=== PATIENT | female | born 1975 | race Caucasian/White ===

== ENCOUNTER 2021-05-14 12:33 | Emergency (ER) | payer OTHER, SELFPAY ==
--- NOTE | ~2021-05-14 | XR_ITS ---
EXAMINATION: XR chest 1V portable INDICATION: Shortness of breath, COVID 19 positive TECHNIQUE: Portable AP chest at 1526 hours COMPARISON: 02/04/2015 FINDINGS: The lungs are free of acute opacities. There is no pleural effusion or pneumothorax. The ca rdiomediastinal silhouette is normal. IMPRESSION: 1. No acute cardiopulmonary abnormality. Reviewed, dictated and finalized at location B.
[2021-05-14 12:36] VITALS: BP 123/88; PULSE 92; RESP 18; TEMP 35.8; O2SAT 100
--- NOTE | 2021-05-14 16:38 | ED.GENADULT ---
HPI - General Adult General Chief complaint: Shortness of Breath/Dyspnea Stated complaint: covid positive/sob Time Seen by Provider: 05/14/21 15:27 Source: patient History of Present Illness HPI narrative: 38-year-old female who had a Covid on the presents to the emergency department for evaluation of worsening shortness of breath. Patient states she did have the Pfizer vaccine without booster. Patient states after she was diagnosed on the she did have approximately 2 days of symptoms and then began to improve. Patient states most recently she has had some percent of breath. Patient denies any significant cough. Patient denies any associated chest pain or fevers. Patient did discuss this with her primary care physician and she was referred to the emergency department for an x-ray to rule out any pneumonia. Patient has no prior history of PE or DVT. Patient has no calf tenderness to palpation. Related Data Allergies Allergy/AdvReac Type Severity Reaction Status Date / Time No Known Allergies Allergy Unknown Verified 05/14/21 12:39 Review of Systems Review of Systems: CONSTITUTIONAL: Denies fever, chills, or sweats. EYES: Denies visual changes, redness, or discharge. ENT: Denies rhinorrhea, congestion, sore throat, or otalgia. CARDIOVASCULAR: Denies chest pain, palpitations, or edema. RESPIRATORY: Does report exertional shortness of breath and some cough GASTROINTESTINAL: Denies abdominal pain, nausea, vomiting, or diarrhea. GENITOURINARY: Denies dysuria or hematuria. SKIN: Denies rash or itching. MUSCULOSKELETAL: Denies back pain, joint pain, or myalgia. NEUROLOGIC: Denies headache, numbness, or weakness. All systems reviewed & are unremarkable except as noted in HPI and below Exam Narrative: APPEARANCE: Well appearing, no pain, no distress, well-nourished. HEAD: normocephalic, atraumatic. EYES: PERRLA/EOMI, conjunctivae clear. NOSE: Normal no drainage THROAT: Pharynx clear, no exudate. NECK: Supple. No adenopathy, no masses. RESPIRATORY: Airway patent, respirations nonlabored. Clear to auscultation bilaterally, no rales, rhonchi, wheezing. CARDIOVASCULAR: Regular rate and rhythm without murmurs rubs or gallops. ABDOMINAL: Soft, nontender, nondistended, normal bowel sounds MUSCULOSKELETAL: Moves all extremities. Strength/ROM intact, No edema, No calf tenderness. NEURO: Alert. Cranial nerves II through XII intact. SKIN: Warm, dry. Normal Color Course Course Emergency Course: Patient was updated on the results of her work-up and imaging. Patient is nonhypoxic, nontachycardic. Chest x-ray was well-appearing with no acute abnormality. Patient was updated the results of the work-up and suspected etiology of Covid recovery as the underlying cause of her symptoms. Patient was encouraged to have close follow-up with her primary care physician. Vital Signs Vital signs: Vital Signs Temperature 96.4 F L 05/14/21 12:36 Pulse Rate 92 05/14/21 12:36 Respiratory Rate 18 05/14/21 12:36 Blood Pressure 123/88 05/14/21 12:36 Pulse Oximetry 100 05/14/21 12:36 Temperature 96.4 F L 05/14/21 12:36 Pulse Rate 110 H 05/14/21 17:10 Respiratory Rate 16 05/14/21 17:10 Blood Pressure 133/98 H 05/14/21 17:10 Pulse Oximetry 98 05/14/21 17:10 Medical Decision Making Vital Signs Vital Signs: Vital Signs Temperature 96.4 F L 05/14/21 12:36 Pulse Rate 92 05/14/21 12:36 Respiratory Rate 18 05/14/21 12:36 Blood Pressure 123/88 05/14/21 12:36 Pulse Oximetry 100 05/14/21 12:36 Temperature 96.4 F L 05/14/21 12:36 Pulse Rate 110 H 05/14/21 17:10 Respiratory Rate 16 05/14/21 17:10 Blood Pressure 133/98 H 05/14/21 17:10 Pulse Oximetry 98 05/14/21 17:10 Imaging Data Radiologist's impression: Impressions Chest X-Ray 05/14/21 15:48 IMPRESSION: 1. No acute cardiopulmonary abnormality. Discharge Plan Discharge Clinical Impression: COVID, Acute dyspn
[2021-05-14] MEDS: ALBUTEROL SULFATE NEB 2.5 MG/0.5 ML INH 5 MG INHALATION (16:46)
[2021-05-14 17:10] VITALS: BP 133/98; PULSE 110; RESP 16; O2SAT 98
== END 2021-05-14 17:10 | disposition home or self-care (01) ==
PROVIDERS: Emergency Provider Emergency Medicine
DX: U07.1 COVID-19 (principal); R06.02 Shortness of breath
CPT/HCPCS: 71045; 94640; 99283

== ENCOUNTER 2021-09-10 17:19 | Emergency (ER) | payer OTHER, SELFPAY ==
[2021-09-10 17:21] VITALS: BP 124/85; PULSE 88; RESP 16; TEMP 36.3; O2SAT 100
--- NOTE | 2021-09-10 17:24 | ED.EAR ---
HPI - Ear Problem General Chief complaint: Ear Stated complaint: Rt Ear Irritation Time Seen by Provider: 09/10/21 17:24 Source: patient and RN notes reviewed History of Present Illness HPI Narrative: Patient is a 46-year-old female presents the urgent care with complaints of right ear pain. Patient states that she flew on Wednesday and yesterday developed pain in the right ear. Patient states it felt better after sleeping on her left yesterday. Any other upper respiratory complaints. Denies of nausea vomiting or fever. No other acute complaints. No acute distress noted. Patient read the plan of care. Some parts of this dictation were generated by voice recognition software and may contain typographical and/or grammatical inaccuracies. Related Data Home Medications Medication Instructions Recorded Confirmed atorvastatin 80 mg tablet 80 mg PO DAILY 09/10/21 09/10/21 clonazepam 0.5 mg tablet 0.5 mg PO DAILY 09/10/21 09/10/21 ferrous sulfate 134 mg (27 mg 134 mg PO DAILY 09/10/21 09/10/21 iron) tablet levomilnacipran 40 mg capsule,24 40 mg PO DAILY 09/10/21 09/10/21 hr,extended release (Fetzima) lisinopril 10 mg tablet 10 mg PO DAILY 09/10/21 09/10/21 metformin 500 mg tablet,extended 500 mg PO BID 09/10/21 09/10/21 release 24 hr metoprolol tartrate 25 mg tablet 25 mg PO BID 09/10/21 09/10/21 Allergies Allergy/AdvReac Type Severity Reaction Status Date / Time No Known Allergies Allergy Unknown Verified 09/10/21 17:21 Review of Systems Review of Systems: CONSTITUTIONAL: Denies fever, chills, or sweats. EYES: Denies visual changes, redness, or discharge. ENT: Denies rhinorrhea, congestion, sore throat. Reports right otalgia CARDIOVASCULAR: Denies chest pain, palpitations, or edema. RESPIRATORY: Denies cough or dyspnea. GASTROINTESTINAL: Denies abdominal pain, nausea, vomiting, or diarrhea. GENITOURINARY: Denies dysuria or hematuria. SKIN: Denies rash or itching. MUSCULOSKELETAL: Denies back pain, joint pain, or myalgia. NEUROLOGIC: Denies headache, numbness, or weakness. All other systems reviewed are negative, except as documented in HPI. PMFSH Comments At the time of my signature, I reviewed and agree with the nursing past medical, surgical, social, and family history. There is no relevant family history pertinent to the patient complaint. Exam Narrative: GENERAL: This is a well-nourished, well-developed patient, in no apparent distress. HEAD: normocephalic, atraumatic. EYES: PERRL. Sclera clear/white. Vision is grossly intact. EARS: External ears normal, auditory canals clear and without drainage, moderately injected/erythemic right TM with mild effusion. Left TM normal without perforation. Hearing grossly intact. NOSE: External nose normal with no obvious nasal discharge, nares without redness, no rhinorrhea. THROAT: Mucous membranes moist, posterior pharynx clear. Mild postnasal drainage NECK: Neck supple, non-tender without lymphadenopathy, masses or thyromegaly. CARDIOVASCULAR: Regular rate and rhythm without murmurs, gallops, or rubs. RESPIRATORY: Clear to auscultation. Breath sounds equal bilaterally. No wheezes, rales, or rhonchi. SKIN: warm, intact with no suspicious lesions or rash, good texture and turgor. NEURO: awake, alert, and oriented to person, place and time. There were no obvious focal neurologic abnormalities. EXTREMITIES: No clubbing, cyanosis, or edema. Course Course Level of Care: Express Care Visit Vital Signs Vital signs: Vital Signs Temperature 97.4 F L 09/10/21 17:21 Pulse Rate 88 09/10/21 17:21 Respiratory Rate 16 09/10/21 17:21 Blood Pressure 124/85 09/10/21 17:21 Pulse Oximetry 100 09/10/21 17:21 Oxygen Delivery Room Air 09/10/21 17:21 Temperature 97.4 F L 09/10/21 17:21 Pulse Rate 88 09/10/21 17:21 Respiratory Rate 16 09/10/21 17:21 Blood Pressure 124/85 09/10/21 17:21 Pulse Oximetry 100 09/10/21 17:21 Oxygen Delivery Room Air 0
== END 2021-09-10 17:40 | disposition home or self-care (01) ==
PROVIDERS: Emergency Provider Nurse Practitioner Family; PCP Physician Assistant
DX: H66.91 Otitis media, unspecified, right ear (principal); E78.00 Pure hypercholesterolemia, unspecified; I10 Essential (primary) hypertension; E11.9 Type 2 diabetes mellitus without complications; F41.9 Anxiety disorder, unspecified
CPT/HCPCS: 99213; G0463

== ENCOUNTER 2022-03-10 14:19 | Emergency (ER) | payer OTHER, SELFPAY ==
--- NOTE | 2022-03-10 14:53 | ED.URI ---
HPI - URI/Sore Throat General Chief Complaint: Upper Respiratory Infection Stated Complaint: cold symptoms Time Seen by Provider: 03/10/22 15:05 Source: patient Mode of arrival: ambulatory Limitations: no limitations History of Present Illness HPI Narrative: Ms. Pichardo is a 47-year-old female patient presenting to the clinic today with complaints of runny nose, cough, sneezing, congestion, body aches x3 days. She denies any fever or chills. She denies any shortness of breath or chest pain. MD elicited complaint: sore throat and nasal congestion Related Data Home Medications Medication Instructions Recorded Confirmed atorvastatin 80 mg tablet 80 mg PO DAILY 09/10/21 03/10/22 clonazepam 0.5 mg tablet 0.5 mg PO DAILY PRN Anxiety 09/10/21 03/10/22 ferrous sulfate 134 mg (27 mg 134 mg PO DAILY 09/10/21 03/10/22 iron) tablet levomilnacipran 40 mg capsule,24 40 mg PO DAILY 09/10/21 03/10/22 hr,extended release (Fetzima) lisinopril 10 mg tablet 10 mg PO DAILY 09/10/21 03/10/22 metformin 500 mg tablet,extended 500 mg PO BID 09/10/21 03/10/22 release 24 hr metoprolol tartrate 25 mg tablet 25 mg PO BID 09/10/21 03/10/22 Allergies Allergy/AdvReac Type Severity Reaction Status Date / Time No Known Allergies Allergy Unknown Verified 03/10/22 15:25 Review of Systems Review of Systems: Pertinent positives per HPI. Patient denies any fever, chills, rash, headache, visual changes, dizziness, shortness of breath, chest pain, palpitations, nausea, vomiting, diarrhea, constipation, abdominal pain, or any urinary issues. PMFSH Comments At the time of my signature, I reviewed and agree with the nursing past medical, surgical, social, and family history. There is no relevant family history pertinent to the patient complaint. Exam Narrative: General: Well-developed, well nourished, in no apparent distress Head: Normocephalic, atraumatic Eyes: Pupils equally round and reactive to light bilaterally, EOM intact, sclera and conjunctive clear, no discharge, lids normal Ears: TMs intact and clear, ear canals clear, no drainage, grossly hearing normal. Nose: Nares patent, clear nasal discharge, no inflammation, no sinus tenderness. Mouth: Oral pharynx without lesions or masses, good dentition, MMM. Postnasal drip Neck: Supple, trachea midline, no enlargement of anterior or posterior cervical nodes, no thyroid masses or goiter palpable. Cardio: Regular rate and rhythm, s1 and s2 normal, no murmur appreciated. Resp: Clear to auscultation bilaterally, no rhonchi, rales, wheezing or rubs Course Course Emergency Course: Portions of this record may have been created with voice recognition software. Level of Care: Express Care Visit Vital Signs Vital signs: Vital Signs Temperature 36.1 C L 03/10/22 15:01 Pulse Rate 111 H 03/10/22 15:01 Respiratory Rate 24 H 03/10/22 15:01 Blood Pressure 136/99 H 03/10/22 15:01 Pulse Oximetry 100 03/10/22 15:01 Oxygen Delivery Room Air 03/10/22 15:01 Temperature 36.1 C L 03/10/22 15:01 Pulse Rate 111 H 03/10/22 15:01 Respiratory Rate 24 H 03/10/22 15:01 Blood Pressure 136/99 H 03/10/22 15:01 Pulse Oximetry 100 03/10/22 15:01 Oxygen Delivery Room Air 03/10/22 15:01 Vital signs reviewed MDM - URI/Sore Throat MDM Narrative Medical decision making narrative: At the time of visit patient is resting on exam table. COVID and influenza testing performed were negative. Supportive measures were discussed with the patient she voiced understanding discharged after a treatment plan prescription for Paola Griffiths was sent to the pharmacy Differential Diagnosis Differential diagnosis: Likely upper respiratory infection, otitis media, sinusitis, viral infection, bronchitis, influenza, pharyngitis and other (COVID) Lab Data Labs: Lab Results 03/10/22 Range/Units 15:05 POC SARS CoV-2 Ag Negative (Negative) Influenza A Screen Negative
[2022-03-10 15:01] VITALS: BP 136/99; PULSE 111; RESP 24; TEMP 36.1; O2SAT 100
== END 2022-03-10 15:31 | disposition home or self-care (01) ==
PROVIDERS: Emergency Provider Nurse Practitioner Family; PCP Physician Assistant
DX: B34.9 Viral infection, unspecified (principal); J06.9 Acute upper respiratory infection, unspecified; J02.9 Acute pharyngitis, unspecified; Z20.822 Contact with and (suspected) exposure to COVID-19; E78.00 Pure hypercholesterolemia, unspecified; I10 Essential (primary) hypertension; E11.9 Type 2 diabetes mellitus without complications; D64.9 Anemia, unspecified; F41.9 Anxiety disorder, unspecified; Z86.16 Personal history of COVID-19; Z79.84 Long term (current) use of oral hypoglycemic drugs
CPT/HCPCS: 87426; 87804; 99213; C9803; G0463

== ENCOUNTER 2024-04-04 08:05 | Emergency (ER) | payer OTHER, SELFPAY ==
--- NOTE | 2024-04-04 08:08 | ED.SKABFB ---
HPI - Skin/Abscess/Foreign Bdy General Chief complaint: Skin/Abscess/Foreign Body Stated complaint: Back Rash Time Seen by Provider: 04/04/24 08:22 Source: patient, RN notes reviewed and old records reviewed Mode of arrival: ambulatory Limitations: no limitations History of Present Illness HPI narrative: P.m. 49-year-old female presents to the [facility] with a rash to the left mid upper back, lower rib area. States the pain to the area started approximately 1 week ago, broke out in a rash this morning. Does have a history of shingles on same side. Denies any fevers Related Data Home Medications ?Medication ?Instructions ?Recorded ?Confirmed ?Last Taken ?Type atorvastatin 80 mg tablet 80 mg PO DAILY 09/10/21 03/10/22 Unknown History clonazepam 0.5 mg tablet 0.5 mg PO DAILY PRN Anxiety 09/10/21 03/10/22 Unknown History ferrous sulfate 134 mg (27 mg 134 mg PO DAILY 09/10/21 03/10/22 Unknown History iron) tablet levomilnacipran 40 mg capsule,24 40 mg PO DAILY 09/10/21 03/10/22 Unknown History hr,extended release (Fetzima) lisinopril 10 mg tablet 10 mg PO DAILY 09/10/21 03/10/22 Unknown History metformin 500 mg tablet,extended 500 mg PO BID 09/10/21 03/10/22 Unknown History release 24 hr metoprolol tartrate 25 mg tablet 25 mg PO BID 09/10/21 03/10/22 Unknown History Allergies Allergy/AdvReac Type Severity Reaction Status Date / Time No Known Allergies Allergy Unknown Verified 04/04/24 08:11 Review of Systems Review of Systems: All systems reviewed & are unremarkable except as noted in HPI and below Constitutional: Constitutional: Reports no additional constitutional complaints ENT: Reports system reviewed and no additional complaints, except as documented Cardiovascular: Cardiovascular: Reports no additional cardiovascular complaints, Denies chest pain and Denies dyspnea Respiratory: Respiratory: Reports no additional respiratory complaints, Denies chest congestion, Denies cough and Denies dyspnea Musculoskeletal: Musculoskeletal: Reports no additional musculoskeletal complaints Integumentary/Breasts: Skin/Breast: Reports as per HPI and Reports rash PMFSH Past Medical History Medical History History of high blood pressure Anxiety History of high cholesterol Comments At the time of my signature, I reviewed and agree with the nursing past medical, surgical, social, and family history. There is no relevant family history pertinent to the patient complaint. Exam Const: General: cooperative, healthy appearing, comfortable, no acute distress, well developed, alert and well nourished Nutritional Appearance: well nourished Orientation/consciousness: patient oriented x3 Limitations: no limitations HENMT: Head: normal to inspection Eyes: General: appearance normal, both eyes and all related structures Alignment and Position: alignment normal Neck: Neck: normal visual inspection, full ROM, no lymphadenopathy and no meningeal signs Chest: Chest palpation & inspection: normal inspection of the chest Resp: Effort & Inspection: normal respiratory effort and able to speak in complete sentences Cardio: Rate: regular rate Skin: General skin exam: normal color and no rashes or lesions noted Rashes: rashes noted (left mid back. ) Neuro: General: patient oriented x3, gait normal, moves all extremities and no meningeal signs Cognition (Neuro): normal cognition Speech: normal speech Gait exam (Neuro): Normal gait present Extrem: General: normal to inspection, full ROM, capillary refill normal and normal gait Psych: Appearance: grossly normal and well kempt Mental Status: mental status grossly normal Speech and movement: Normal speech and movement present and Clear speech present Affect: normal affect Attitude: cooperative Course Course Level of Care: Express Care Visit Vital Signs Vital signs: Vital Signs Temperature 97.0 F L 04/04/24 08:22 Pulse Rate 86 04/04/24 08:22 Respiratory Rate 16 04/04/24 08:22 Blood Pressure 96/70 L 04/04/24 08:22 Pulse Oximetry 96 04/04/24 08:22 Oxygen Delivery Room Air 04/04/24 08:22 Temperature 97.0 F L 04/04/24 08:22 Pulse Rate 86 04/04/24 08:22 Respiratory Rate 16 04/04/24 08:22 Blood Pressure 96/70 L 04/04/24 08:22 Pulse Oximetry 96 04/04/24 08:22 Oxygen Delivery Room Air 04/04/24 08:22 Reviewed MDM - Skin/Abscess/Foreign Bdy MDM Narrative Medical decision making narrative: Patient sitting in exam room. Nontoxic, vitals stable. Patient in no acute distress. Patient presents with painful area to the left back x1 week, rash developed this morning. Rash consistent with shingles. Patient is appropriate for outpatient treatment with close follow-up Discharge instructions reviewed with patient, as well as provided in writing per nursing staff. The instructions also include specific and strict return/GO TO THE ER as well as f/u information. All questions have been answered, and the patient deny any further questions with discharge and discharge plan. Some parts of this dictation were generated by voice recognition software and may contain typographical and/or grammatical inaccuracies. Differential Diagnosis Differential diagnosis: Likely abscess of skin or subcutaneous tissue, herpes zoster, cellulitis and eczema Critical Care Time Critical Care Time Critical Care Time: No Discharge Plan Discharge Clinical Impression: Shingles Qualifiers: Herpes zoster complications: without complications Qualified Code(s): B02.9 - Zoster without complications Patient Disposition: Home, Self-Care Condition: Stable Instructions: Antibiotic Form, Shingles (ED) Additional Instructions: Keep area covered. Stay away from people the elderly and the very young until the area has scabbed over Follow-up with primary care provider as needed Patient Language: Chilean Prescriptions: New valacyclovir 1 gram tablet 1,000 mg PO TID 7 Days Qty: 21 0RF No Action atorvastatin 80 mg tablet 80 mg PO DAILY metformin 500 mg tablet extended release 24 hr 500 mg PO BID metoprolol tartrate 25 mg Tablet 25 mg PO BID lisinopril 10 mg Tablet 10 mg PO DAILY ferrous sulfate 134 mg (27 mg iron) Tablet 134 mg PO DAILY clonazepam 0.5 mg Tablet 0.5 mg PO DAILY PRN (Reason: Anxiety) Fetzima 40 mg Capsule,Extended Release 24 Hr 40 mg PO DAILY benzonatate 200 mg capsule 200 mg PO TID 7 Days Qty: 21 0RF Follow-up/Referrals: Zeeshan,Salvador Tomlin PA-C [Primary Care Provider] - 2 Weeks (express care follow up with) Stand Alone Forms: Work/School Release IP Time of Disposition: 08:36
[2024-04-04 08:22] VITALS: BP 96/70; PULSE 86; RESP 16; TEMP 36.1; O2SAT 96
--- OUTSIDE RECORDS SUMMARY | 2024-04-04 08:24 | XMS_ITS | Encounter Summary ---
Author Name [facility] [place] Organization [facility] [place] Address [address] [place] [address] Care Team Providers Care Bank Consultant Name Role Phone MADONNA HALL Primary Care Provider Unavailabl e Selected Encounter This section includes the information on record at [place] for the Encounter. Date/Time Encounter Type Encounter Description Reason Provider Source May 24, 2023 01:00 PM OFFICE O/P EST MOD 30 MIN [facility] - IND ICD-10-CM F33.1 Major depressive disorder, recurrent, moderate LESLYE TILLEY Encounter Template Text not used by [place] Assessments - Encounter Diagnoses This section includes the primary and secondary diagnoses documented for the Encounter. Date/Time Primary/Secondary Diagnosis Diagnosis Name Provider Source May 24, 2023 02:40 PM PRIMARY Major depressive disorder, recurrent, moderate LESLYE TILLEY [facility] May 24, 2023 02:40 PM SECONDARY Dysthymic disorder LESLYE TILLEY [facility] May 24, 2023 02:40 PM SECONDARY Generalized anxiety disorder TREVALESLYE [facility] Plan of Treatment: Future Appointments (+ 6 months) and Future Tests (+/- 45 days) The Plan of Treatment section includes future care activities for the patient from all [place] treatmentfacilities. This section includes future appointments and future orders which are active, pending or scheduled. Future Appointments This section includes appointments that were scheduled to occur 6 months from the date of the Encounter, up to a maximum of 20 appointments. The data comes from all [place] treatment facilities. Appointment Date/Time Appointment Type Appointme nt Facility Name May 27, 2023 01:00 PM AMBULATORY - MEDICINE [facility] May 31, 2023 09:30 AM AMBULATORY - MEDICINE [facility] Jun 07, 2023 09:30 AM AMBULATORY - MEDICINE [facility] Jun 14, 2023 09:30 AM AMBULATORY - MEDICINE [facility] Jun 21, 2023 09:30 AM AMBULATORY - MEDICINE [facility] June 28, 2023 09:30 AM AMBULATORY - MEDICINE [facility] July 05, 2023 09:30 AM AMBULATORY - MEDICINE [facility] July 12, 2023 09:30 AM AMBULATORY - MEDICINE [facility] Jul 26, 2023 09:30 AM AMBULATORY - MEDICINE [facility] Aug 02, 2023 09:30 AM AMBULATORY - MEDICINE [facility] Aug 09, 2023 09:30 AM AMBULATORY - MEDICINE [facility] Aug 16, 2023 09:30 AM AMBULATORY - MEDICINE [facility] Aug 31, 2023 02:20 PM AMBULATORY - NONE [facility] Sep 06, 2023 09:00 AM AMBULATORY - PSYCHIATRY [facility] Social History: Smoking Status (Most current) and Tobacco Use (All prior to encounter date) This section includes the most current, and the historical, smoking and tobacco- related health factors from the [place] facility where the Encounter took place. Current Smoking Status This section includes the most current smoking, or tobacco-related health factor, from the [place] facility where the Encounter took place. Date/Time Current Smoking Status Comment Jamari ity June 28, 2018 01:32 PM VA-TOBACCO NEVER USED [facility] Tobacco Use History This section includes a history of the smoking, or tobacco-related health factors, that were collected on or before the date of the Encounter. The data comes from the [place] facility where the Encounter took place. Date/Time Smoking Status/Tobacco Use Comment F acility Feb 05, 2016 08:44 AM LIFETIME NON-USER OF TOBACCO [facility] Apr 21, 2015 06:01 PM LIFETIME NON-USER OF TOBACCO [facility] Apr 08, 2015 07:56 PM LIFETIME NON-USER OF TOBACCO [facility] Mar 27, 2015 10:08 PM LIFETIME NON-USER OF TOBACCO [facility] Dec 11, 2014 01:59 PM LIFETIME NON-USER OF [facility] Advance Directives: All historical and current Section Date Range: From patient's date of to the date document was created. This section includes ALL of a patient's completed or amended [place] Advance and Rescinded Directives. The entries below indicate that a directive exists for the patient, but an actual copy is not included with this document. The data comes from all [place] facilities. Date Advance Directives Provider Source Apr 15, 2015 ADVANCE DIRECTIVE DISCUSSION [facility] Encounter Notes: All associated encounter notes This section contains the clinical notes associated to the Encounter. Date/Time Encounter Note(s) Provider Source May 24, 2023 01:00 PM PSYCHIATRY NOTE: LOCAL TITLE: PSYCHIATRY [facility] STANDARD TITLE: PSYCHIATRY NOTE DATE OF NOTE: MAY 24, 2023@13:00 ENTRY DATE: MAY 24, 2023@13:00:09 AUTHOR: LESLYE TILLEY COSIGNER: URGENCY: STATUS: COMPLETED [facility] Name..................MICK LANG EA Age...................48 Sex...................FEMALE SSN...................[id number] Service Connection....Service Connected: Yes (100%) THIS WAS A [facility] APPOINTMENT and the below were completed prior to our exam: * Consent*: Obtained/confirmed verbal consent for telehealth * Address: Confirmed the location and address of the patient to ensure they are in a safe place and for use in case of an emergency. * Phone Numbers:* Confirmed on chart Confirmed patient's current phone number - for use if disconnected. Emergency contact's phone number was confirmed. * Surveyed the environment and identify all participants * Locked the virtual conference room once all participants have joined. ALLERGIES: Patient has answered NKA OUTPATIENT MEDICATIONS: Active Outpatient Medications (excluding Supplies): Issue Date Status Last Fill Active Outpatient Medications Refills Expiration ======= 1) ATORVASTATIN CALCIUM 80MG TAB Qty: 90 ACTIVE (S) Issu:06-16-22 for 90 days Sig: TAKE ONE TABLET BY Refills: 0 Last:06-03-23 MOUTH EVERY EVENING FOR CHOLESTEROL. Expr:06-17-23 REPORT ANY UNEXPLAINED MUSCLE PAIN/WEAKNESS TO PROVIDER. 2) CARBOXYMETHYLCELLULOSE NA 0.5% OPH SOLN ACTIVE Issu:10-08-22 Qty: 90 for 90 days Sig: INSTILL 1 Refills: 3 Last:10-09-22 DROP IN BOTH EYES FOUR TIMES A DAY Expr:10-09-23 NEEDED FOR DRY EYES 3) DABIGATRAN ETEXILATE 150MG ORAL CAP ACTIVE Issu:01-20-23 Qty: 180 for 90 days Sig: TAKE ONE Refills: 2 Last:05-02-23 CAPSULE BY MOUTH TWICE A DAY TO THIN Expr:01-21-24 BLOOD. DO NOT OPEN CAPSULE. SWALLOW WHOLE. DO NOT OPEN PKG UNTIL READY FOR DOSE TO MAINTAIN STABILITY. 4) EMPAGLIFLOZIN 25MG TAB Qty: 90 for 90 ACTIVE Issu:04-21-23 days Sig: TAKE ONE TABLET BY MOUTH Refills: 1 Last:04-22-23 ONCE A DAY Expr:04-21-24 5) FERROUS SULFATE 325MG TAB Qty: 200 for ACTIVE Issu:07-28-22 90 days Sig: TAKE ONE TABLET BY MOUTH Refills: 0 Last:05-02-23 TWICE A DAY FOR IRON SUPPLEMENTATION. Expr:07-29-23 6) HYDROXYZINE HCL 10MG TAB Qty: 60 for 30 ACTIVE Issu:02-01-23 days Sig: TAKE ONE OR TWO TABLETS BY Refills: 1 Last:05-03-23 MOUTH AT BEDTIME NEEDED *MAY CAUSE Expr:02-02-24 DROWSINESS* 7) LEVOMILNACIPRAN 120MG SA CAP Qty: 90 ACTIVE Issu:02-01-23 for 90 days Sig: TAKE ONE CAPSULE BY Refills: 2 Last:05-02-23 MOUTH ONCE A DAY Expr:02-02-24 8) LISINOPRIL 20MG TAB Qty: 45 for 90 days ACTIVE Issu:06-16-22 Sig: TAKE ONE-HALF TABLET BY MOUTH Refills: 0 Last:05-02-23 ONCE A DAY FOR HEART OR BLOOD PRESSURE Expr:06-17-23 9) LURASIDONE HCL 40MG TAB Qty: 90 for 90 ACTIVE Issu:11-02-22 days Sig: TAKE ONE TABLET BY MOUTH Refills: 1 Last:05-09-23 ONCE A DAY FOR MOOD - TAKE WITH Expr:11-03-23 LARGEST MEAL OF THE DAY 10) METOPROLOL TARTRATE 50MG TAB Qty: 90 ACTIVE Issu:06-16-22 for 90 days Sig: TAKE ONE-HALF TABLET Refills: 0 Last:05-02-23 BY MOUTH TWICE A DAY FOR HEART/BLOOD Expr:06-17-23 PRESSURE. TAKE WITH OR IMMEDIATELY FOLLOWING FOOD. 11) OMEPRAZOLE 40MG EC CAP Qty: 90 for 90 ACTIVE Issu:06-16-22 days Sig: TAKE ONE CAPSULE BY MOUTH Refills: 0 Last:03-15-23 EVERY MORNING BEFORE A MEAL TO LOWER Expr:06-17-23 STOMACH ACID. TAKE 30 MINUTES PRIOR TO FOOD. PROBLEM LIST: 1) Depressive disorder 2) Allergic rhinitis 3) Chronic low back pain 4) Knee pain 5) Family history of ischemic heart disease 6) Obesity 7) Gastroesophageal Reflux Disease 8) Major depressive disorder 9) Partner Relational Problem 10) Blurring of visual image 11) BRICE - Generalized anxiety disorder (SNOMED CT [id number]) 12) Benign essential hypertension 13) Hyperlipidemia 14) Proteinuria 15) Type 2 diabetes mellitus without complication 16) Bipolar disorder in remission 17) Therapeutic drug effect 18) Atrial tachycardia 19) Anticoagulant effect 20) Dysthymia 21) AF - Atrial Fibrillation ([facility] [id number]) 22) Exposure to potentially hazardous substance VITAL SIGNS: Deferred 2/2 COVID Patient Weight History - Last Four 1. 178.0 lbs. / 80.7 kg. on AUG 26, 2022@08:50:42 2. 180.0 lbs. / 81.7 kg. on JUN 16, 2022@09:30:05 3. 186.0 lbs. / 84.4 kg. on SEP 26, 2021@14:48:28 4. 184.0 lbs. / 83.5 kg. on FEB 28, 2021@10:08:49 LAB VALUES: LAB CHEMISTRY & HEMATOLOGY No data available LAB MICROBIOLOGY No data available REVIEW OF SYSTEMS: Negative 13 system review except as noted below or detailed in the HPI/interval history above. Constitutional...........No Eyes.....................No Ears/Nose/Mouth/Throat...No Cardiovascular...........No Respiratory..............No Gastrointestinal.........No Genitourinary............No Muscular.................No Integumentary............No Neurological.............No Endocrine................No Hematologic/Lymphatic....No Allergies/Immune.........No BRIEF SUMMARY OF PREVIOUS MH HISTORY: Ms. Lang is a 45 year old female [employer] with a history of BPAD (70%sc for MDD), BRICE and Dysthymia who has been followed in [facility] by Dr. Bain since 2013. [place] was admitted to inpatient psychiatry x3 in 2016 for ECT (after which she stabilized quickly) and has one previous SA by OD on meds in 2011. Previous medication trials have included, per chart: fetzima (levomilnacipran) 40 mg --> 80 mg (since ~ 10/08/13)--> 120 mg current dose (12/01/13) lurasidone--good response to 40 mg pm; titrated up to 80 mg 03/30/15 w/good effect; resumed 40 mg s/p ECT; self-d/c ~ 06/05/15; restarted fall 2015; * methylphenidate --DC, not taking; 5 mg once daily helped w/medication related sedation * aripiprazole--titrated to 5mg, improved mood, but had side effects of RLS, generalized restlessness (?akathisia) and inability to concentrate * clonazepam-- down tapered to cessation after our 05/2014 visit * sertraline: ~2009, was on high dose (maybe 200), worked for awhile * mirtazapine--after sertraline, spring 2011, prescribed while inpt, 2 mos. * duloxetine--spring 2011-12/2012, 60 mg once daily, not helping enough, so bupropion added * bupropion XL--07/04-02/03, 300 mg XL * on the combo of duloxetine and bupropion, she felt very emotionally numb and the meds seemed to stop working * abilify--not certain when or how much * lorazepam--2 mg prn anxiety (has had a [address] bottle for 3-4 mos) Other past trials per pharmacy records: * amitriptyline , 02/2011 * fluoxetine -03/1999 * paroxetine 03/2008 * sertraline -03/2011 * venlafaxine 04/2011 * trazodone 04/2011 * zolpidem 10/2008-06/2011 * diazepam 09/2010-10/2010 * lorazepam 06/2011-11/2012 SUBSTANCE USE: ETOH: None TOBACCO: None DRUGS: None Last [facility] visit 04/05/23: reports her mood has been good though it's been rough with the cold dreary weather not anything out of the norm for this time of year . While mood has been good her memory continues to be an issue. Discussed again that part of this could be 2/2 untreated ABDIEL, she is actually getting another non-VA sleep study and will go to a non-VA provider to get a CPAP if that's what she needs. Regarding memory, notes for example that she will be driving and will forget where she is going for a few seconds and then will remember again I just kind of zone out . Performed a SLUMS exam, she scored a 28. Discussed that she tends to do well on short-term tests like this but does struggle everyday recalling what she had for lunch the day before or a lot of stuff from the past (her time when she was stationed in [place], memories from her kids childhood etc). concerned quite a bit about her memory, would like formal testing (had it in the past already so she has a baseline eval already completed). Agreed to f/u in one month, repeat SLUMS and then place neuropsych consult if appropriate. She denies any SI, mood remains stable. HPI/COMPLAINTS/PROBLEMS [place] doing ok today mood-gould but continues to struggle with memory. Asking today for me to place a formal consult with neuropsychology. Agreed it would be reasonable at this point. Mood has been good overall, no recent SI, enjoyed going on vacation for spring. Feels meds are working, not sleeping great, discussed that could be 2/2 ABDIEL (seeing dentist tomorrow for referral for sleep appliance to help treat ABDIEL). Plans to take 20mg Vistaril instead of 10mg, discussed risks of using any sedating meds when she has untreated ABDIEL. Agreed I would place formal consult for neuropsych re-eval, will f/u in 3 months w , earlier if needed. ANY MEDICATION SIDE EFFECT....No APPETITE......................Goo d SLEEP.........................Poo r- frequently waking up Physical Exam: Gait/Station/Muscle Tone.... No tremor MENTAL STATUS: General Appearance and Behavior Well groomed, calm, cooperative, good eye contact ALERT & ORIENTED X3 WITH GOOD CONCENTRATION........Yes Attention...................Serene l Recent and Remote Memory....Normal Language...............appropriat e Speech..Regular amount, volume, tone Intelligence............average Thought Process.....logical,goal directed Associations...........intact MOOD/AFFECT.................Serene l/Euthymic DELUSIONS/HALLUCINATIONS....Absen t SUICIDAL/AGGRESSIVE.........Absen t Judgment/Insight.........fair to good SUPPORTIVE PSYCHOTHERAPY......Yes provided 20 min SAFETY RISK ASSESSMENT RISK FACTORS FOR SUICIDE: Chronic mental illness History of suicide attempt History of inpatient admissions Access to firearms, loaded but locked in safe PROTECTIVE FACTORS: No current/recent SI/HI Exhibits future planning Med compliant Engaged in treatment HISTORY OF VIOLENCE: None Current risk of harm to self or others is low. terminal worker risk of harm to self or others is low. Pt does not meet criteria for involuntary committment. Pt will benefit from ongoing outpatient mental health treatment. Pt provided w/contact information for procedure writer, clinic and crisis line. Advised to call crisis line, 911/ER if concerned for safety of self/others. DIAGNOSES: 1. BPAD Unspecified 2. Generalized Anxiety Disorder 3. Dysthymia TREATMENT PLAN: 1. Continue with current treatment plan 2. Medication Management- * continue levomilnacipran 120 mg daily for mood * continue lurasidone 40 mg po pm WITH FOOD * continue Vistaril 20mg PO QHS PRN for sleep CONSENT: We discussed alternatives to treatment, including no treatment, as well as risks, benefits, side effects of prescribed medications. The patient understood and consented to treatment provided. TERATOGENICITY: The patient is a female who is of childbearing age. had tubal ligation. 3. Safety- is currently stable for outpatient care 4. Follow up- with me in 3 months INSTRUCTIONS GIVEN TO PATIENT/FAMILY: -Report medication side effects promptly -No alcohol/illicit drug use with medication -Needs to be cautious with driving/use of machinery -Avoid night-time driving -If symptoms get worse, call clinic or Emergency Room as appropriate -RTC in 3 months LAST MH TREATMENT PLAN CREATED/RENEWED: 02/01/23 LAST COLUMBIA SUICIDE SCREEN CREATED: 02/01/23 LAST AIMS EVAL PERFORMED: 03/23/22 LAST ANTIPSYCHOTIC MEDICATION LABS ORDERED/REVIEWED: 03/23/22 /anastasia/ LESLYE TILLEY Staff Psychiatrist, PhD [facility] Signed: 05/24/2023 14:40 LESLYE TILLEY [facility]
--- OUTSIDE RECORDS SUMMARY | 2024-04-04 08:25 | XMS_ITS | Clinical Summary ---
Author Organization [facility] Address [address] [place] [address] Care Team Providers Care Special Services Director Name Role Phone Citlalli Wei MD Primary Care Provider Source Comments [facility],non-owned Affiliates and Associated Physician Practices is amultiple site organization consisting of ambulatory clinics and hospital sitesin [place], [place], [place] and [place]. This disclosure is being madepursuant to the Care Everywhere program and may not contain all information available regarding this patient. Last updated 17.[facility] Allergies No known active allergies Medications * Be aware that medications may not be up to date on this document. Alwaysverify current medications with the patient. Medication Sig Dispensed Refills Start Date End Date Status ATORVASTATIN CALCIUM PO Take 80 mg by mouth once daily Active DABIGATRAN ETEXILATE MESYLATE PO Take 150 mg by mouth 2 times daily Active levomilnacipran ER (FETZIMA) 120 MG capsule Take 120 mg by mouth once daily Active lisinopril (PRINIVIL; ZESTRIL) 20 MG tablet Take 20 mg by mouth once daily 1/2 tab daily Active lurasidone (LATUDA) 40 MG tablet Take 40 mg by mouth daily with breakfast Active metFORMIN ER 24hr (GLUCOPHAGE XR) 500 MG tablet Take 500 mg by mouth 2 times daily Active METOPROLOL TARTRATE PO Take 50 mg by mouth take 1/2 tab twice daily Active clonazePAM, disintegrating, 0.5 MG once daily as needed Active omeprazole (PRILOSEC) 20 MG capsule Take 20 mg by mouth daily before breakfast Active blood glucose (ACCU-CHEK PHOEBE PLUS) test strip Use 1 strip as directed Active fluconazole (DIFLUCAN) 200 MG tabletIndications:Yea st infection involving the vagina and surrounding area One by mouth every other day for three doses. 3 tablet 03/04/2020 Active nystatin/triamcinolon e (MYCOLOG) 040235-3.1 UNIT/GM-% ointmentIndications:L chelsea simplex chronicus Apply to external vulvar tissues twice daily SEE NOTE 60 g 1 03/04/2020 Active Boric AcidIndications:Yeast infection involving the vagina and surrounding area 600 mg capsules. Use as directed. # 30 capsules 1 g 2 03/04/2020 Active Family History Medical History Relation Name Comments CAD (Coronary Artery Disease) Father Depression Mother Cancer - Lung Paternal Grandfather Diabetes - Type 2 Paternal Grandmother Relation Name Status Comments Father Mother Paternal Grandfather Paternal Grandmother Social History Tobacco Use Types Packs/Day Years Used Date Smoking Tobacco: Never Smokeless Tobacco: Never Alcohol Use Standard Drinks/Week Comments Never 0 (1 standard drink = 0.6 oz pur e alcohol) AUDIT-C Answer Date Recorded Q1: How often do you have a drink containing alc ohol? 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 Pulse - - Temperature - - Respiratory Rate - - Oxygen Saturation - - Inhaled Oxygen Concentration - - Weight 84 kg (185 lb 3.2 oz) 03/04/2020 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 Height 165.1 cm (5' 5 ) 03/04/2020 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 Body Mass Index 30.82 03/04/2020 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 Plan of Treatment Health Maintenance Due Date Last Done Comments COLOGUARD (AGES 45-75) - COL ON CA SCREENING 1973 COLON MONITORING 1973 COLONOSCOPY - COLON CA SCREENING 1973 CT COLONOGRAPHY - COLON CA SCREENING 1973 Colorectal Cancer Screening 1973 FIT - COLON CA SCREENING 1973 FLEX SIG - COLON CA SCREENING 1973 MAMMOGRAM 1973 PAP SMEAR 1973 HIV SCREENING 02/24/1988 HEPATITIS C SCREENING 02/19/1991 DTAP/TDAP/TD VACCINES (1 - Tdap) 02/24/1992 HEPATITIS B VACCINE (1 of 3 - 19+ 3-dose series) 02/24/1992 SCREENING FOR DIABETES 03/04/2020 PNEUMOCOCCAL VACCINE 50+ (1 of 1 - PCV) 2023 ZOSTER VACCINE (1 of 2) 2023 COVID-19 VACCINE (1 - 2023-2 5 season) 2023 INFLUENZA VACCINE (#1) 2023 9, 11/22/2017, 01/31/2016 DEPRESSION SCREENING 2024 HIB VACCINE Aged Out No longer eligi ble based on patient's age to complete this topic HPV VACCINE Aged Out No longer eligi ble based on patient's age to complete this topic MENINGOCOCCAL (Group B) VACCINE Aged Out No longer eligible b ased on patient's age to complete this topic MENINGOCOCCAL VACCINE Aged Out No melo analy eligible based on patient's age to complete this topic PNEUMOCOCCAL VACCINE Aged Out No long er eligible based on patient's age to complete this topic Care Teams Special Services Director Relationship Specialty Start Date End Date Citlalli Wei MD [address] [place] [id number] PCP - General 01/05/20
--- OUTSIDE RECORDS SUMMARY | 2024-04-04 08:25 | XMS_ITS | Encounter Summary ---
Author Name [facility] Organization [facility] [place] Address [address] [place] [address] Care Team Providers Care Hedge Fund Principal Name Role Phone MADONNA HALL Primary Care Provider Unavailabl e Selected Encounter This section includes the information on record at ID for the Encounter. Date/Time Encounter Type Encounter Description Reason Provider Source Dec 13, 2023 10:30 AM OFFICE O/P EST MOD 30 MIN [facility] - IND ICD-10-CM F33.1 Major depressive disorder, recurrent, moderate LESLYE TILLEY Encounter Template Text not used by [place] Assessments - Encounter Diagnoses This section includes the primary and secondary diagnoses documented for the Encounter. Date/Time Primary/Secondary Diagnosis Diagnosis Name Provider Source Dec 13, 2023 11:08 AM PRIMARY Major depressive disorder, recurrent, moderate LESLYE TILLEY [facility] Dec 13, 2023 11:08 AM SECONDARY Generalized anxiety disorder LESLYE TILLEY [facility] Plan of Treatment: Future Appointments (+ 6 months) and Future Tests (+/- 45 days) The Plan of Treatment section includes future care activities for the patient from all ID treatmentfacilities. This section includes future appointments and future orders which are active, pending or scheduled. Future Appointments This section includes appointments that were scheduled to occur 6 months from the date of the Encounter, up to a maximum of 20 appointments. The data comes from all ID treatment facilities. Appointment Date/Time Appointment Type Appointme nt Facility Name Feb 10, 2024 03:00 PM AMBULATORY - MEDICINE [facility] Mar 20, 2024 09:30 AM AMBULATORY - PSYCHIATRY [facility] May 16, 2024 01:30 PM AMBULATORY - PSYCHIATRY [facility] Social History: Smoking Status (Most current) and Tobacco Use (All prior to encounter date) This section includes the most current, and the historical, smoking and tobacco- related health factors from the ID facility where the Encounter took place. Current Smoking Status This section includes the most current smoking, or tobacco-related health factor, from the ID facility where the Encounter took place. Date/Time Current Smoking Status Comment Facil ity June 28, 2018 01:32 PM VA-TOBACCO NEVER USED [facility] Tobacco Use History This section includes a history of the smoking, or tobacco-related health factors, that were collected on or before the date of the Encounter. The data comes from the ID facility where the Encounter took place. Date/Time Smoking Status/Tobacco Use Comment F acility Feb 05, 2016 08:44 AM LIFETIME NON-USER OF TOBACCO [facility] Apr 21, 2015 06:01 PM LIFETIME NON-USER OF TOBACCO [facility] Apr 08, 2015 07:56 PM LIFETIME NON-USER OF TOBACCO [facility] Mar 27, 2015 10:08 PM LIFETIME NON-USER OF TOBACCO [facility] Dec 11, 2014 01:59 PM LIFETIME NON-USER OF TOBACCO [facility] Advance Directives: All historical and current Section Date Range: From patient's date of to the date document was created. This section includes ALL of a patient's completed or amended [place] Advance and Rescinded Directives. The entries below indicate that a directive exists for the patient, but an actual copy is not included with this document. The data comes from all ID facilities. Date Advance Directives Provider Source Apr 15, 2015 ADVANCE DIRECTIVE DISCUSSION STANFORD LEAL RA [facility] Encounter Notes: All associated encounter notes This section contains the clinical notes associated to the Encounter. Date/Time Encounter Note(s) Provider Source Dec 13, 2023 10:30 AM PSYCHIATRY NOTE: LOCAL TITLE: PSYCHIATRY ST STANDARD TITLE: PSYCHIATRY NOTE DATE OF NOTE: DEC 13, 2023@10:30 ENTRY DATE: DEC 13, 2023@10:30:59 AUTHOR: LESLYE TILLEY COSIGNER: URGENCY: STATUS: COMPLETED [facility] - MEDICATION MANAGEMENT Name..................MICK LANG EA K Age...................48 Sex...................FEMALE SSN...................[id number] Service Connection....Service Connected: Yes (100%) THIS WAS A [facility] APPOINTMENT and the below were completed prior [...] room once all participants have joined. ALLERGIES: METFORMIN OUTPATIENT MEDICATIONS: Active Outpatient Medications (excluding Supplies): Active Outpatient Medications (excluding Supplies): Issue Date Status Last Fill Active Outpatient Medications Refills Expiration ======= 1) ATORVASTATIN CALCIUM 80MG TAB Qty: 90 ACTIVE (S) Issu:06-11-23 for 90 days Sig: TAKE ONE TABLET BY Refills: 2 Last:11-18-23 MOUTH EVERY EVENING FOR CHOLESTEROL. Expr:06-11-24 REPORT ANY UNEXPLAINED MUSCLE PAIN/WEAKNESS TO PROVIDER. 2) CARBOXYMETHYLCELLULOSE NA 0.5% OPH SOLN ACTIVE Issu:10-08-22 Qty: 90 for 90 days Sig: INSTILL 1 Refills: 3 Last:10-09-22 DROP IN BOTH EYES FOUR TIMES A DAY Expr:10-09-23 NEEDED FOR DRY EYES 3) DABIGATRAN ETEXILATE 150MG ORAL CAP ACTIVE (S) Issu:01-20-23 Qty: 180 for 90 days Sig: TAKE ONE Refills: 0 Last:10-14-23 CAPSULE BY MOUTH TWICE A DAY TO THIN Expr:01-21-24 BLOOD. DO NOT OPEN CAPSULE. SWALLOW WHOLE. DO NOT OPEN PKG UNTIL READY FOR DOSE TO MAINTAIN STABILITY. 4) EMPAGLIFLOZIN 25MG TAB Qty: 90 for 90 ACTIVE Issu:09-24-23 days Sig: TAKE ONE TABLET BY MOUTH Refills: 1 Last:10-09-23 ONCE A DAY Expr:09-24-24 5) HYDROXYZINE HCL 10MG TAB Qty: 180 for ACTIVE Issu:09-06-23 90 days Sig: TAKE ONE OR TWO TABLETS Refills: 0 Last:09-06-23 BY MOUTH AT BEDTIME NEEDED *MAY Expr:12-05-23 CAUSE DROWSINESS* 6) LEVOMILNACIPRAN 120MG SA CAP Qty: 90 ACTIVE (S) Issu:02-01-23 for 90 days Sig: TAKE ONE CAPSULE BY Refills: 0 Last:10-25-23 MOUTH ONCE A DAY Expr:02-02-24 7) LISINOPRIL 20MG TAB Qty: 45 for 90 days ACTIVE Issu:06-30-23 Sig: TAKE ONE-HALF TABLET BY MOUTH Refills: 2 Last:10-09-23 ONCE A DAY FOR HEART OR BLOOD PRESSURE Expr:06-30-24 8) LURASIDONE HCL 40MG TAB Qty: 90 for 90 ACTIVE (S) Issu:09-06-23 days Sig: TAKE ONE TABLET BY MOUTH Refills: 3 Last:11-05-23 ONCE A DAY FOR MOOD - TAKE WITH Expr:09-06-24 LARGEST MEAL OF THE DAY 9) METOPROLOL TARTRATE 50MG TAB Qty: 90 ACTIVE (S) Issu:07-14-23 for 90 days Sig: TAKE ONE-HALF TABLET Refills: 2 Last:10-15-23 BY MOUTH TWICE A DAY FOR HEART/BLOOD Expr:07-14-24 PRESSURE. TAKE WITH OR IMMEDIATELY FOLLOWING FOOD. 10) OMEPRAZOLE 40MG EC CAP Qty: 90 for 90 ACTIVE (S) Issu:07-14-23 days Sig: TAKE ONE CAPSULE BY MOUTH Refills: 1 Last:01-01-24 EVERY MORNING BEFORE A MEAL TO LOWER Expr:07-14-24 STOMACH ACID. TAKE 30 MINUTES PRIOR TO FOOD. 11) SEMAGLUTIDE 0.25MG/0.375ML INJ PEN 3ML ACTIVE Issu:08-02-23 Qty: 1 for 28 days Sig: INJECT 0.5MG Refills: 3 Last:09-24-23 UNDER THE SKIN EVERY WEEK FOR DIABETES Expr:08-02-24 I reviewed medications and reconciled any that were incorrect PROBLEM LIST: 1) Depressive disorder 2) Allergic rhinitis 3) Chronic low back pain 4) Knee pain 5) Family history of ischemic heart disease 6) Obesity 7) Gastroesophageal Reflux Disease 8) Major depressive disorder 9) Partner Relational Problem 10) Blurring of visual image 11) BRICE - Generalized anxiety disorder (SNOMED CT [id number]) 12) Benign essential hypertension 13) Hyperlipidemia 14) Proteinuria 15) Type 2 diabetes mellitus without complication 16) Bipolar disorder in remission 17) Therapeutic drug effect 18) Atrial tachycardia 19) Anticoagulant effect 20) Dysthymia 21) AF - Atrial Fibrillation ([facility] [id number]) 22) Exposure to potentially hazardous substance VITAL SIGNS: Deferred 2/2 COVID Patient Weight History - Last Four 1. 178.0 lbs. / 80.7 kg. on AUG 26, 2022@08:50:42 2. 180.0 lbs. / 81.7 kg. on JUN 16, 2022@09:30:05 3. 186.0 lbs. / 84.4 kg. on SEP 26, 2021@14:48:28 4. 184.0 lbs. / 83.5 kg. on FEB 28, 2021@10:08:49 LAB VALUES: LAB CHEMISTRY & HEMATOLOGY Collection DT Specimen Test Name Result Units Ref Range 09/27/2023 13:40 BLOOD HGB 16.7 H g/dL 11.0 - 14.9 HCT 49.4 H % 32.6 - 43.4 PLT 330 10*3/uL 150 - 400 09/27/2023 13:40 PLASMA EGFR 62.6 Ref: >= 60 CREATININE 1.08 mg/dL 0.6 - 1.1 LAB MICROBIOLOGY No data available REVIEW OF [...] Dysthymia who has been followed in [facility] by Dr. Bain since 2013. [place] was admitted to inpatient psychiatry x3 in [...] on high dose (maybe 200), worked for [employer] * mirtazapine--after sertraline, spring 2011, prescribed while [...] None TOBACCO: None DRUGS: None Last [facility] visit 09/06/23: [place] doing well today, just got back from an [employer] 2 week vacation in [place] and the [place] w her family. Mood has been good, happy with medications. Got a sleep device from her dentist for ABDIEL, has been using it and is in the process of going through weekly adjustments to get it at the right level for her. Already noticing some improvement in terms of daytime sedation. Discussed that her neuropsych eval was discontinued by neuropsych, they would like her ABDIEL to be treated first. Agreed to resubmit consult next time we meet. Overall doing well, happy with meds, denies any recent SI. HPI/COMPLAINTS/PROBLEMS doing well today, has lost 15lbs so far on Ozempic and feels great about that. Got her second sleep device for her jaw, got second sleep study this past weekend to make sure it's in the right place, will find out results soon. Still interested in formal neuropsych testing, will re-enter consult at next visit after 's ABDIEL issues have been resolved. Doing well mood- gould, happy with meds. Sleeping well. No urgent needs today, will f/u in 3 months, earlier if needed. ANY MEDICATION SIDE EFFECT....No APPETITE......................Goo d SLEEP.........................Goo d Physical Exam: Gait/Station/Muscle Tone.... No tremor MENTAL [...] to self or others is low. terminal operations manager risk of harm to self or others is low. Pt does not meet criteria for involuntary committment. Pt will benefit from ongoing outpatient mental health treatment. Pt provided w/contact information for verse writer, clinic and crisis line. Advised to [...] as appropriate -RTC in 3 months LAST TREATMENT PLAN CREATED/RENEWED: 02/01/23 LAST COLUMBIA SUICIDE SCREEN CREATED: 02/01/23 LAST AIMS EVAL PERFORMED: 03/23/22 LAST ANTIPSYCHOTIC MEDICATION LABS ORDERED/REVIEWED: 03/23/22 /anastasia/ LESLYE TILLEY Staff Psychiatrist, PhD [facility] Signed: 12/13/2023 11:08 LESLYE TILLEY [facility]
--- OUTSIDE RECORDS SUMMARY | 2024-04-04 08:25 | XMS_ITS | Clinical Summary ---
Author Organization [facility] Address [address] [place] [id number] Care Team Providers Care Wrestling Coach Name Role Phone Salvador Byers PA-C Primary Care Provider [phone] Social History Tobacco Use Types Packs/Day Years Used Date Smoking Tobacco: Never Assessed Comments Unknown Sex and Gender Information Value Date Recorded Sex Assigned at Not on file Legal Sex Female 8:12 PM CDT Gender Identity Not on file Sexual Orientation Not on file Plan of Treatment Health Maintenance Due Date Last Done Comments Cervical Cancer Screening Pa p Smear (Age 30 to 64) Every 3 Years 1973 Colorectal Cancer Screening Colonoscopy (10 Years) 1973 Annual Physical 02/24/1976 Hepatitis C 1991 DTaP, Tdap and Td Vaccines ( 1 - Tdap) 02/24/1992 Hepatitis B Vaccines (1 of 3 - 19+ 3-dose series) 02/24/1992 Cervical Cancer Screening Pa p with HPV Testing (Age 30 to 64) Every 5 Years 2003 Cervical Cancer Screening with HPV 2003 Mammogram Screening 2013 Zoster Vaccines (1 of 2) 2023 COVID-19 Vaccine (2023-2 5 season) 2023 Influenza Adult (#1) 2023 Meningococcal B Vaccine Aged Out No l onger eligible based on patient's age to complete this topic Meningococcal Vaccine Aged Out No melo analy eligible based on patient's age to complete this topic Pneumococcal Vaccine: Pediat rics (0 to 5 Years) and At-Risk Patients (6 to 64 Years) Aged Out No longer eligible b ased on patient's age to complete this topic RSV Immunizations Under 20 Months Aged Out No longer eligible based on patient's age to complete this topic Care Teams Wrestling Coach Relationship Specialty Start Date End Date Salvador Byers PA-C [facility] - General 11/27/14
--- OUTSIDE RECORDS SUMMARY | 2024-04-04 08:25 | XMS_ITS | Encounter Summary ---
Author Name [facility] [place] [facility] [place] Organization [place] Address [address] [place] [address] Care Team Providers Care Renewable Energy Trader Name Role Phone MADONNA HALL Primary Care Provider Unavailabl e Selected Encounter This section includes the information on record at [place] for the Encounter. Date/Time Encounter Type Encounter Description Reason Provider Source Jul 30, 2023 03:57 PM QNHP OL DIG ASSMT&MGMT 5-10 CLINICAL PHARMACY ICD-10-CM E11.9 Type 2 diabetes mellitus without complications NIGEL HUTCHINSON Martin Encounter Template Text not used by [place] Assessments - Encounter Diagnoses This section includes the primary and secondary diagnoses documented for the Encounter. Date/Time Primary/Secondary Diagnosis Diagnosis Name Provider Source Aug 02, 2023 08:19 AM PRIMARY Type 2 diabetes mellitus without complications NIGEL HUTCHINSON [facility] Plan of Treatment: Future Appointments (+ 6 months) and Future Tests (+/- 45 days) The Plan of Treatment section includes future care activities for the patient from all [place] [facility]. This section includes future appointments and future orders which are active, pending or scheduled. Future Appointments This section includes appointments that were scheduled to occur 6 months from the date of the Encounter, up to a maximum of 20 appointments. The data comes from all [place] treatment facilities. Appointment Date/Time Appointment Type Appointme nt Facility Name Aug 02, 2023 09:30 AM [facility] Aug 09, 2023 09:30 AM [facility]UL[facility] - MEDICINE [facility] Aug 16, 2023 09:30 AM AMBULATORY - MEDICINE [facility] Aug 31, 2023 02:20 PM AMBULATORY - NONE [facility] Sep 06, 2023 09:00 AM AMBULATORY - PSYCHIATRY [facility] Dec 13, 2023 10:30 AM AMBULATORY - PSYCHIATRY [facility] Lab Results: +/- 30 days of the encounter This section includes the Chemistry and Hematology Lab Results on record with [place] for the patient. Radiology Reports and Pathology Reports are provided separately, in subsequent sections. Lab Results This section contains the Chemistry/Hematology Results that were resulted 30 days before or 30 daysafter the date of the Encounter. Date/Time Source Result Type Result - Unit Interpretation Reference Range Comment July 05, 2023 09:00 AM [facility] HGA1C Specimen Type: BLOOD No comment entered. Ordering Provider: THOMPSON HALL Report Released Date/Time: July 02, 2023 12:20 PM Reporting Lab: [facility] [address] [facility] [address] Performing Lab: [address] [address] HGA1C 7.4 H 4.0-6.0 Social History: Smoking Status (Most current) and Tobacco Use (All prior to encounter date) This section includes the most current, and the historical, smoking and tobacco- related health factors from the [place] facility where the Encounter took place. Current Smoking Status This section includes the most current smoking, or tobacco-related health factor, from the [place] facility where the Encounter took place. Date/Time Current Smoking Status Comment Jamari ity Jul 26, 2017 08:37 PM ORYX ADMIT TOBACCO SCREEN NO [facility] Tobacco Use History This section includes a history of the smoking, or tobacco-related health factors, that were collected on or before the date of the Encounter. The data comes from the [place] facility where the Encounter took place. Date/Time Smoking Status/Tobacco Use Comment F acility Jul 26, 2017 07:23 PM LIFETIME NON-USER OF TOBACCO [facility] Advance Directives: All historical and current Section Date Range: From patient's date of to the date document was created. This section includes ALL of a patient's completed or amended [place] Advance and Rescinded Directives. The entries below indicate that a directive exists for the patient, but an actual copy is not included with this document. The data comes from all [place] facilities. Date Advance Directives Provider Source Apr 15, 2015 ADVANCE DIRECTIVE DISCUSSION STANFORD LEAL Kelly [facility] Encounter Notes: All associated encounter notes This section contains the clinical notes associated to the Encounter. Date/Time Encounter Note(s) Provider Source Jul 30, 2023 03:57 PM PHARMACY CONSULT: LOCAL TITLE: PHARMACY PRIOR APPROVAL CONSULT ST[facility] STANDARD TITLE: PHARMACY CONSULT DATE OF NOTE: JUL 30, 2023@15:57 ENTRY DATE: JUL 30, 2023@15:57:25 AUTHOR: NIGEL HUTCHINSON EXP COSIGNER: URGENCY: STATUS: COMPLETED The medical record has been reviewed with regard to this prior authorization drug request. Medication requested: SEMAGLUTIDE 0.25MG/0.375ML INJ PEN 3ML Medication indication: DM Medical history relevant to this request: HGA1C 7.4 H % 07/05/2023 09:00 --Current medications: metformin and empagliflozin --No CI per consult --Last eye exam/results Dec 2022 DM without retinopathy or CSME OU --Uncontrolled DM on 2 PO agents --approved for 0.25mg weekly x 4 weeks then 0.5mg weekly The request is approved - A documented therapeutic failure of the preferred formulary alternative(s) exists TIME REVIEWING CHART:8. (minutes) /anastasia/ NIGEL HUTCHINSON, PHARM.D., [facility] CLINICAL PHARMACIST Signed: 08/02/2023 08:19 NIGEL HUTCHINSON [facility]
--- OUTSIDE RECORDS SUMMARY | 2024-04-04 08:25 | XMS_ITS | Referral Summary ---
Author Organization [facility] Address [address] [place] [address] Care Team Providers Care Assembler Engine Name Role Phone Citlalli Wei MD Primary Care Provider [phone] Source Comments [facility],non-owned Affiliates and Associated Physician Practices is amultiple site organization consisting of ambulatory clinics and hospital sitesin [place], [place], [place] and [place]. This disclosure is being madepursuant to the Care Everywhere program and may not contain all information available regarding this patient. Last updated 17.[facility] Allergies No known active allergies Medications * [...] 3 tablet 03/04/2020 Active nystatin/triamcinolon e (MYCOLOG) 623692-6.1 UNIT/GM-% ointmentIndications:L ichen simplex chronicus Apply to external vulvar tissues twice daily SEE NOTE 60 g 1 03/04/2020 Active Boric AcidIndications:Yeast infection involving the vagina and surrounding area 600 mg capsules. Use as directed. # 30 capsules 1 g 2 03/04/2020 Active Social History Tobacco Use Types Packs/Day Years [...] Comments Blood Pressure 122/84 03/04/2020 11:12 AM BELT BACK OPERATOR Pulse - - Temperature - - Respiratory Rate - - Oxygen Saturation - - Inhaled Oxygen Concentration - - Weight 84 kg (185 lb 3.2 oz) 03/04/2020 11:12 AM BELT BACK OPERATOR Height 165.1 cm (5' 5 ) 03/04/2020 11:12 AM BELT BACK OPERATOR Body Mass Index 30.82 03/04/2020 11:12 AM BELT BACK OPERATOR Plan of Treatment Not on file Care Teams Assembler Engine Relationship Specialty Start Date End Date Citlalli Wei MD [address] [place] [id number] PCP - General 01/05/20
--- OUTSIDE RECORDS SUMMARY | 2024-04-04 08:25 | XMS_ITS | Patient Health Summary ---
Author Organization [facility] Address [address] [place] [address] Care Team Providers Care Flash Drier Operator Name Role Phone Citlalli Wei MD Primary Care Provider Note from [facility],non-owned Affiliates and Associated Physician Practices is amultiple site organization consisting of ambulatory clinics and hospital sitesin [place], [place], [place] and [place]. This disclosure is being madepursuant to the Care Everywhere program and may not contain all information available regarding this patient. Last updated 17.[facility] Allergies No known active allergies Medications * Be aware that medications may not be up to date on this document. Alwaysverify current medications with the patient. * ATORVASTATIN CALCIUM PO Take 80 mg by mouth once daily * DABIGATRAN ETEXILATE MESYLATE PO Take 150 mg by mouth 2 times daily * levomilnacipran ER (FETZIMA) 120 MG capsule Take 120 mg by mouth once daily * lisinopril (PRINIVIL; ZESTRIL) 20 MG tablet Take 20 mg by mouth once daily 1/2 tab daily * lurasidone (LATUDA) 40 MG tablet Take 40 mg by mouth daily with breakfast * metFORMIN ER 24hr (GLUCOPHAGE XR) 500 MG tablet Take 500 mg by mouth 2 times daily * METOPROLOL TARTRATE PO Take 50 mg by mouth take 1/2 tab twice daily * clonazePAM, disintegrating, 0.5 MG once daily as needed * omeprazole (PRILOSEC) 20 MG capsule Take 20 mg by mouth daily before breakfast * blood glucose (ACCU-CHEK PHOEBE PLUS) test strip Use 1 strip as directed * fluconazole (DIFLUCAN) 200 MG tablet(Started 03/04/2020) One by mouth every other day for three doses. * nystatin/triamcinolone (MYCOLOG) 103825-0.1 UNIT/GM-% ointment(Started 03/04/2020) Apply to external vulvar tissues twice daily SEE NOTE 1 refill by 03/04/2021 * Boric Acid(Started 03/04/2020) 600 mg capsules. Use as directed. # 30 capsules 2 refills by 03/04/2021 Social History Tobacco Use Types Packs/Day Years [...] Comments Blood Pressure 122/84 03/04/2020 11:12 AM HEAT TREATING OPERATOR Pulse - - Temperature - - Respiratory Rate - - Oxygen Saturation - - Inhaled Oxygen Concentration - - Weight 84 kg (185 lb 3.2 oz) 03/04/2020 11:12 AM HEAT TREATING OPERATOR Height 165.1 cm (5' 5 ) 03/04/2020 11:12 AM HEAT TREATING OPERATOR Body Mass Index 30.82 03/04/2020 11:12 AM HEAT TREATING OPERATOR Procedures * SUSCEPTIBILITY YEAST(Performed 03/04/2020) * CULTURE YEAST(Performed 03/04/2020) Performed for Yeast infection involving the vagina and surrounding area * FUNGUS DOM - POINT OF CARE (AMB) [facility](Performed 03/04/2020) Performed for Yeast infection involving the vagina and surrounding area * PH FLUID - POCT (AMB) [facility](Performed 03/04/2020) Performed for Yeast infection involving the vagina and surrounding area * WET PREP - POINT OF CARE (AMB) [facility](Performed 03/04/2020) Performed for Yeast infection involving the vagina and surrounding area Results * SUSCEPTIBILITY YEAST (03/04/2020 11:12 AM HEAT TREATING OPERATOR) Source [facility] Organism ID RUBI ALBICANS [facility] Amphotericin B 0.500 mcg/mL [facility] Anidulafungin 0.030 S mcg/mL [facility] Caspofungin 0.015 S mcg/mL [facility] Fluconazole 0.250 S mcg/mL [facility] 5-Flucytosine 0.120 mcg/mL [facility] Itraconazole 0.060 mcg/mL [facility] Micafungin <=0.008 S mcg/mL [facility] Posaconazole 0.015 mcg/mL [facility] Voriconazole <=0.008 S mcg/mL [facility] Comment See below [facility] Comment: Drug concentrations are expressed in mcg/mL. S = Susceptible S-DD = Susceptible-Dose Dependent I = Intermediate R = Resistant Susceptible Dose Dependent (S-DD): susceptibility is dependent on achieving maximum blood levels. GRANT interpretations are based on recently published CLSI guidelines. Only the GRANT value is reported when CLSI guidelines are not available. This test was performed using a kit that has not been cleared or approved by the FDA. The analytical performance characteristics of this test have been determined by [employer], [employer]. This test not be used for diagnosis without confirmation by other medically established means. Test Performed at: [facility] [address] [place] [id number] [facility] S[facility]ELO 03/04/2020 11:1 2 AM HEAT TREATING OPERATOR 03/04/2020 10:56 PM HEAT TREATING OPERATOR Delia Mcqueen MD LAB - MICROBIOLOGY ORDERABLES [address] [address] * (ABNORMAL) CULTURE YEAST (03/04/2020 11:12 AM HEAT TREATING OPERATOR) Culture Yeast with ID (A) [facility] Comment: CULTURE, YEAST, W/IDENTIFICATION Micro Number: [id number] Test Status: Final Specimen Source: VULVA Specimen Quality: Adequate Result: Rubi albicans Test Performed at: [facility] [address] TATIANA FISH MD Microbiology ENTIRE VULVA / Unknown 03/04/2020 11:12 AM HEAT TREATING OPERATOR 03/04/2020 10:56 PM HEAT TREATING OPERATOR Delia Mcqueen MD LAB - MICROBIOLOGY ORDERABLES [facility] [address] [place] [address] * PH FLUID - POCT (AMB) [facility] (03/04/2020 11:11 AM HEAT TREATING OPERATOR) pH Vaginal 4.0 Fluid ENTIRE VAGINA / Unknown 03/04/2020 11:11 AM HEAT TREATING OPERATOR Delia Mcqueen MD LAB - POINT OF CAR E ORDERABLES * WET PREP - POINT OF CARE (AMB) [facility] (03/04/2020 11:11 AM HEAT TREATING OPERATOR) pH Wet Prep 4.0 Yeast Wet Prep positive Trichomonas Wet Prep None seen Bacteria Wet Prep neg Whiff Test neg BODY FLUID SPECIMEN / Unknown 03/04/2020 11:11 AM HEAT TREATING OPERATOR Delia Mcqueen MD LAB - POINT OF CAR E ORDERABLES * FUNGUS DOM - POINT OF CARE (AMB) [facility] (03/04/2020 11:11 AM HEAT TREATING OPERATOR) DOM Prep Yes Fluid BODY FLUID SPECIMEN / Unknown 03/04/2020 11:11 AM HEAT TREATING OPERATOR Delia Mcqueen MD LAB - POINT OF CAR E ORDERABLES Care Teams Flash Drier Operator Relationship Specialty Start Date End Date Citlalli Wei MD [address] [place] [id number] PCP - General 01/05/20
--- OUTSIDE RECORDS SUMMARY | 2024-04-04 08:25 | XMS_ITS | Encounter Summary ---
Author Name [facility] Address [address] [place] [address] Care Team Providers Care Electric Needle Specialist Name Role Phone MADONNA HALL Primary Care Provider Unavailabl e Selected Encounter This section includes the information on record at [place] for the Encounter. Date/Time Encounter Type Encounter Description Reason Provider Source Sep 06, 2023 09:00 AM OFFICE O/P EST MOD 30 MIN [facility] - IND ICD-10-CM F34.1 Dysthymic disorder LESLYE TILLEY Encounter Template Text not used by [place] Assessments - Encounter Diagnoses This section includes the primary and secondary diagnoses documented for the Encounter. Date/Time Primary/Secondary Diagnosis Diagnosis Name Provider Source Sep 06, 2023 09:37 AM PR[facility] Sep 06, 2023 09:37 AM SECONDARY Bipolar disorder, unspecified LESLYE TILLEY [facility] Sep 06, 2023 09:37 AM SECONDARY Generalized anxiety disorder TREVALES[facility]E [facility] Plan of Treatment: Future Appointments (+ 6 months) and Future Tests (+/- 45 days) The Plan of Treatment section includes future care activities for the patient from all [place] treatmentfacilities. This section includes future appointments and future orders which are active, pending or scheduled. Future Appointments This section includes appointments that were scheduled to occur 6 months from the date of the Encounter, up to a maximum of 20 appointments. The data comes from all [facility]. Appointment Date/Time Appointment Type Appointme nt Facility Name Dec 13, 2023 10:30 AM AMBULATORY - PSYCHIATRY [facility] Feb 10, 2024 03:00 PM AMBULATORY - MEDICINE [facility] Active, Pending, and Scheduled Orders This section includes a listing of several types of active, pending, and scheduled orders, including clinic medications orders, diagnostic test orders, procedure orders and consult orders; where the start date of the order is 45 days before the date of the Encounter or 45 days after the date of theEncounter. The data comes from all [facility]. Test Date/Time Test Type Test Details Facility Name Oct 04, 2023 12:00 AM Laboratory - Chemistry Order COMPREHENSIVE METABOLIC PANEL GREEN LI/HEP BLD/PLAS PLASMA [facility] Oct 04, 2023 12:00 AM Laboratory - Chemistry Order LIPID PANEL (STL) GREEN LI/HEP BLD/PLAS PLASMA ONCE [facility] Oct 04, 2023 12:00 AM Laboratory - Chemistry Order HGA1C BLOOD [facility] Oct 04, 2023 12:00 AM Laboratory - Chemistry Order FERRITIN GOLD/RED SST SERUM [facility] Oct 04, 2023 12:00 AM Laboratory - Chemistry Order IRON/TIBC PROFILE GOLD/RED SST SERUM [facility] Oct 04, 2023 12:00 AM Laboratory - Chemistry Order MICRAL/CREAT PROFILE (STL) URINE [facility] Lab Results: +/- 30 days of the encounter This section includes the Chemistry and Hematology Lab Results on record with [place] for the patient. Radiology Reports and Pathology Reports are provided separately, in subsequent sections. Lab Results This section contains the Chemistry/Hematology Results that were resulted 30 days before or 30 daysafter the date of the Encounter. Date/Time Source Result Type Result - Unit Interpretation Reference Range Comment Sep 27, 2023 01:40 PM [facility] CREATININE(EGFR) Specimen Type: PLASMA No comment entered. Ordering Provider: SANDOVAL HILLMAN Report Released Date/Time: Sep 24, 2023 08:40 AM Reporting Lab: [facility] [address] [facility] [address] Performing Lab: [facility] [address] [facility] [address] CREATININE 1.08 mg/dL 0.6-1.1 EGFR (CKD-EPI 2020) 62.6 >60 Sep 27, 2023 01:40 PM [facility] HGB,HCT,PLT Specimen Type: BLOOD No comment entered. Ordering Provider: SANDOVAL HILLMAN Report Released Date/Time: Sep 24, 2023 08:40 AM Reporting Lab: [facility] [address] [facility] [address] Performing Lab: [place] [id number] [facility] [address] HGB 16.7 g/dL H 11.0-14.9 HCT 49.4 H 32.6-43.4 PLT 330 10*3/uL 150-400 Social History: Smoking Status (Most current) and Tobacco Use (All prior to encounter date) This section includes the most current, and the historical, smoking and tobacco- related health factors from the [place] facility where the Encounter took place. Current Smoking Status This section includes the most current smoking, or tobacco-related health factor, from the [place] facility where the Encounter took place. Date/Time Current Smoking Status Comment Jamari mix June 28, 2018 01:32 PM VA-TOBACCO NEVER USED [facility] Tobacco Use History This section includes a history of the smoking, or tobacco-related health factors, that were collected on or before the date of the Encounter. The data comes from the [place] facility where the Encounter took place. Date/Time Smoking Status/Tobacco Use Comment F acility Feb 05, 2016 08:44 AM LIFETIME NON-USER OF TOBACCO [facility] Apr 21, 2015 06:01 PM LIFETIME NON-USER OF TOBACCO [facility] Apr 08, 2015 07:56 PM LIFETIME NON-USER OF TOBACCO [facility] Mar 27, 2015 10:08 PM LIFETIME NON-USER OF TOBACCO [facility] Dec 11, 2014 01:59 PM LIFETIME NON-USER OF TOBACCO [facility] Advance Directives: All historical and current Section Date Range: From patient's date of to the date document was created. This section includes ALL of a patient's completed or amended [place] Advance and Rescinded Directives. The entries below indicate that a directive exists for the patient, but an actual copy is not included with this document. The data comes from all [place] facilities. Date Advance Directives Provider Source Apr 15, 2015 ADVANCE DIRECTIVE DISCUSSION SKYLER LEAL RA [facility] Radiology Reports: +/- 30 days of the encounter Radiology Reports For cases when an order for radiology services may have been completed prior to the date of the Encounter, the report list includes the Radiology Reports that were completed up to 30 days before dateof the Encounter. For cases when an order for radiology services may have been completed after the date of the Encounter, the report list also includes the Radiology Reports that were completed up to30 days after date of the Encounter. The data comes from all [place] treatment facilities. Date/Time Radiology Report Provider Source Aug 31, 2023 02:18 PM MAMM DIG SCREENING WITH CAD-P: ALBERT LANG [id number] -[id number] F Exm Date: AUG 31, 2023@14:18 Req Phys: HALL,MADONNA A Pat Loc: [facility] (Req'g Loc) Img Loc: [facility] Service: Unknown Screen: Patient answered no [facility] [address] [place] [address] (Case 1652 COMPLETE) SCREENING DIG BREAST CEASAR, BILAT,([facility] Detailed) CPT:33191 Reason for Study: annual screening (Case 1653 COMPLETE) MAMMOGRAPHY SCREENING, BILAT INCL([facility] Detailed) CPT:64291 Clinical History: Patient chose a certain date and time-new ordered due to desired date and time Report Status: Verified Date Reported: SEP 01, 2023 Date Verified: SEP 01, 2023 Milled Rubber Tender E-Sig:/ES/GREG CALIX Report: BILATERAL SCREENING MAMMOGRAM CASE NUMBERS: [id number], [id number] DATE: 08/31/2023. COMPARISON: Multiple prior mammograms, dating retrospectively between 12/12/2013 and, more recently, 07/29/2022. HISTORY: Screening mammogram. 48-year-old female without a family history of breast cancer presents for asymptomatic screening. No previous breast surgery. TECHNIQUE: Mammogram images were performed using 3D tomosynthesis images with reconstructed/synthetic 2D images and CAD analysis. BREAST COMPOSITION: There are scattered areas of fibroglandular density. MAMMOGRAM FINDINGS: There is no suspicious mass, suspicious clustered microcalcification, or architectural distortion in either breast on 2D or 3D images. There have been no significant interval changes in the mammographic appearance when compared with the prior images. Impression: No mammographic evidence of malignancy. ASSESSMENT: BI-RADS Category 1: Negative mammogram. RECOMMENDATION: Screening mammography according to the [employer] / [employer] guidelines in consultation with primary healthcare provider. Primary Interpreting Staff: GREG CALIX, Diagnostic Radiologist (Milled Rubber Tender) /GREG BONILLA [facility] Encounter Notes: All associated encounter notes This section contains the clinical notes associated to the Encounter. Date/Time Encounter Note(s) Provider Source Sep 06, 2023 08:59 AM PSYCHIATRY NOTE: LOCAL TITLE: PSYCHIATRY [facility] STANDARD TITLE: PSYCHIATRY NOTE DATE OF NOTE: SEP 06, 2023@08:59 ENTRY DATE: SEP 06, 2023@08:59:03 AUTHOR: LESLYE TILLEY COSIGNER: URGENCY: STATUS: COMPLETED [facility] - MEDICATION MANAGEMENT Name..................MICK LANG EA K Age...................48 Sex...................FEMALE SSN...................[id number] Service Connection....Service Connected: Yes (100%) THIS WAS A [facility] APPOINTMENT and the below were completed [...] days Sig: TAKE ONE TABLET BY Refills: 3 Last:08-30-23 MOUTH EVERY EVENING FOR CHOLESTEROL. Expr:06-11-24 REPORT [...] TAKE ONE TABLET BY MOUTH Refills: 0 Last:07-16-23 ONCE A DAY Expr:04-21-24 5) HYDROXYZINE HCL 10MG TAB Qty: 60 for 30 ACTIVE Issu:02-01-23 days Sig: TAKE ONE OR TWO TABLETS BY Refills: 0 Last:07-13-23 MOUTH AT BEDTIME NEEDED *MAY CAUSE Expr:02-02-24 DROWSINESS* 6) LEVOMILNACIPRAN 120MG SA CAP Qty: 90 ACTIVE Issu:02-01-23 for 90 days Sig: TAKE ONE CAPSULE BY Refills: 1 Last:07-27-23 MOUTH ONCE A DAY Expr:02-02-24 7) LISINOPRIL 20MG TAB Qty: 45 for 90 days ACTIVE (S) Issu:06-30-23 Sig: TAKE ONE-HALF TABLET BY MOUTH Refills: 2 Last:10-09-23 ONCE A DAY FOR HEART OR BLOOD PRESSURE Expr:06-30-24 8) LURASIDONE HCL 40MG TAB Qty: 90 for 90 ACTIVE Issu:11-02-22 days Sig: TAKE ONE TABLET BY MOUTH Refills: 0 Last:08-07-23 ONCE A DAY FOR MOOD - TAKE WITH Expr:11-03-23 LARGEST MEAL OF THE DAY 9) METOPROLOL TARTRATE 50MG TAB Qty: 90 ACTIVE (S) Issu:07-14-23 for 90 days Sig: TAKE ONE-HALF TABLET Refills: 2 Last:10-15-23 BY MOUTH TWICE A DAY FOR HEART/BLOOD Expr:07-14-24 PRESSURE. TAKE WITH OR IMMEDIATELY FOLLOWING FOOD. 10) OMEPRAZOLE 40MG EC CAP Qty: 90 for 90 ACTIVE (S) Issu:07-14-23 days Sig: TAKE ONE CAPSULE BY MOUTH Refills: 2 Last:10-03-23 EVERY MORNING BEFORE A MEAL TO LOWER Expr:07-14-24 STOMACH ACID. TAKE 30 MINUTES PRIOR TO FOOD. 11) SEMAGLUTIDE 0.25MG/0.375ML INJ PEN 3ML ACTIVE Issu:08-02-23 Qty: 1 for 28 days Sig: INJECT 0.25MG Refills: 5 Last:08-02-23 UNDER THE SKIN EVERY WEEK FOR 4 WEEKS, Expr:08-02-24 THEN INJECT 0.5MG EVERY WEEK FOR DIABETES I reviewed medications and reconciled any that were incorrect PROBLEM LIST: 1) Depressive disorder 2) Allergic rhinitis 3) Chronic low back pain 4) Knee pain 5) Family history of ischemic heart disease 6) Obesity 7) Gastroesophageal Reflux Disease 8) Major depressive disorder 9) Partner Relational Problem 10) Blurring of visual image 11) BRICE - Generalized anxiety disorder (SNOMED CT [id number]) 12) Benign essential hypertension 13) Hyperlipidemia 14) Proteinuria 15) Type 2 diabetes mellitus without complication 16) Bipolar disorder in remission 17) Therapeutic drug effect 18) Atrial tachycardia 19) Anticoagulant effect 20) Dysthymia 21) AF - Atrial Fibrillation (SCT 51089111) 22) Exposure to potentially hazardous substance VITAL [...] and Dysthymia who has been followed in [facility] by Dr. Bain since 2013. Mohall was admitted to inpatient psychiatry x3 in [...] ETOH: None TOBACCO: None DRUGS: None Last [facility] visit 05/24/23: doing ok today mood-gould but continues to [...] 3 months w , earlier if needed. HPI/COMPLAINTS/PROBLEMS doing well today, just got back from an epic 2 week vacation in [place] and the [place] her family. Mood [...] happy with meds, denies any recent SI. ANY MEDICATION SIDE EFFECT....No APPETITE......................Goo d SLEEP.........................Goo [...] harm to self or others is low. skilled nursing risk of harm to self or others is low. Pt does not meet criteria for involuntary committment. Pt will benefit from ongoing outpatient mental health treatment. Pt provided w/contact information for scientific technical writer, clinic and crisis line. Advised to [...] 03/23/22 LAST ANTIPSYCHOTIC MEDICATION LABS ORDERED/REVIEWED: 03/23/22 AIMS (Mental Health only): AIMS (Mental Health Instrument) The patient was evaluated for symptoms of tardive dyskinesia using the AIMS. Total score for items 1-7: 0 1. Facial and Oral Movements Muscles of facial expression, e.g., movements of forehead, eyebrows, periorbital area, cheeks. Include frowning, blinking, grimacing of upper face. None 2. Facial and Oral Movements Lips and perioral area, e.g., puckering, pouting, smacking. None 3. Facial and Oral Movements Jaw, e.g., biting, clenching, chewing, mouth opening, lateral movement. None 4. Facial and Oral Movements Tongue. Rate only increase in movement both in and out of mouth, not inability to sustain movement. None 5. Extremity Movements Upper (arms, wrists, hands, fingers). Include movements that are choreic (rapid, objectively purposeless, Irregular, spontaneous) or athetoid (slow, irregular, complex, serpentine). Do not include tremor (repetitive, regular, rhythmic movements). None 6. Extremity Movements Lower (legs, knees, ankles, toes), e.g., lateral knee movement, foot tapping, heel dropping, foot squirming, Inversion and eversion of foot. None 7. Trunk Movements Neck, shoulders, hips, e.g., rocking, twisting, squirming, pelvic gyrations. Include diaphragmatic movements. None 8. Global Judgments Severity of abnormal movements. none, normal 9. Global Judgments Incapacitation due to abnormal movements. none, normal 10. Global Judgments Patient's awareness of abnormal movements. Rate only patient's report no awareness 11. Dental Status Current problems with teeth and/or dentures. no 12. Dental Status Does patient usually wear dentures? skyler /anastasia/ LESLYE TILLEY Staff PsychiatristMD PhD [facility] Signed: 09/06/2023 09:37 LESLYE TILLEY [facility]
--- OUTSIDE RECORDS SUMMARY | 2024-04-04 08:25 | XMS_ITS ---
Author Name Department of Vetera Affairs ([place]) Organization [facility] ([place]) Address [address] [place] [address] Care Team Providers Care Shipping Weigher Name Role Phone MADONNA HALL Primary Care Provider Unavailabl e Selected Encounter This section includes the information on record at [place] for the Encounter. Date/Time Encounter Type Encounter Description Reason Provider Source Apr 06, 2023 11:00 AM OFFICE O/P EST MOD 30 MIN PRIMARY CARE/MEDICINE ICD-10-CM F33.1 Major depressive disorder, recurrent, moderate HALL,MADONNA A IHE Encounter Template Text not used by [place] Assessments - Encounter Diagnoses This section includes the primary and secondary diagnoses documented for the Encounter. Date/Time Primary/Secondary Diagnosis Diagnosis Name Provider Source Apr 06, 2023 11:37 AM PRIMARY Major depressive disorder, recurrent, moderate HALL,MADONNA A [facility] Apr 06, 2023 11:37 AM SECONDARY Generalized anxiety disorder HALL,MADONNA A . [facility] Apr 06, 2023 11:37 AM SECONDARY Hyperlipidemia, unspecified HALL,MADONNA A . [facility] Apr 06, 2023 11:37 AM SECONDARY Hypertensive heart disease without heart failure HALL,MADONNA A [facility] Apr 06, 2023 11:37 AM SECONDARY snf (current) use of anticoagulants HALL,MADONNA A [facility] Apr 06, 2023 11:37 AM SECONDARY Type 2 diabetes mellitus without complications MADONNA HALL [facility] Apr 06, 2023 11:37 AM SECONDARY Unspecified atrial fibrillation MADONNA HALL [facility] Plan of Treatment: Future Appointments (+ 6 months) and Future Tests (+/- 45 days) The Plan of Treatment section includes future care activities for the patient from all [facility]. This section includes future appointments and future orders which are active, pending or scheduled. Future Appointments This section includes appointments that were scheduled to occur 6 months from the date of the Encounter, up to a maximum of 20 appointments. The data comes from all [facility]. Appointment Date/Time Appointment Type Appointme nt Facility Name May 24, 2023 01:00 PM AMBULATORY - PSYCHIATRY [facility] May 27, 2023 01:00 PM AMBULATORY - MEDICINE [facility] May 31, 2023 09:30 AM AMBULATORY - MEDICINE [facility] Jun 07, 2023 09:30 AM AMBULATORY - MEDICINE [facility] Jun 14, 2023 09:30 AM AMBULATORY - MEDICINE [facility] Jun 21, 2023 09:30 AM AMBULATORY - MEDICINE [facility] June 28, 2023 09:30 AM AMBULATORY - MEDICINE [facility] July 05, 2023 09:30 AM AMBULATORY - MEDICINE [facility] July 12, 2023 09:30 AM AMBULATORY - MEDICINE [facility] Jul 26, 2023 09:30 AM AMBULATORY - MEDICINE [facility] Aug 02, 2023 09:30 AM AMBULATORY - MEDICINE [facility] Aug 09, 2023 09:30 AM AMBULATORY - MEDICINE [facility] Aug 16, 2023 09:30 AM AMBULATORY - MEDICINE [facility] Aug 31, 2023 02:20 PM AMBULATORY - NONE [facility] Sep 06, 2023 09:00 AM AMBULATORY - PSYCHIATRY [facility] Active, Pending, and Scheduled Orders This section includes a listing of several types of active, pending, and scheduled orders, including clinic medications orders, diagnostic test orders, procedure orders and consult orders; where the start date of the order is 45 days before the date of the Encounter or 45 days after the date of theEncounter. The data comes from all [place] treatment facilities. Test Date/Time Test Type Test Details Facility Name Apr 06, 2023 12:00 AM Laboratory - Chemi stry Order CBC BLOOD SP [facility] Apr 06, 2023 12:00 AM Laboratory - Chemi stry Order LIPID PANEL (STL) GREEN LI/HEP BLD/PLAS PLASMA SP [facility] Lab Results: +/- 30 days of the encounter This section includes the Chemistry and Hematology Lab Results on record with DC for the patient. Radiology Reports and Pathology Reports are provided separately, in subsequent sections. Lab Results This section contains the Chemistry/Hematology Results that were resulted 30 days before or 30 daysafter the date of the Encounter. Date/Time Source Result Type Result - Unit Interpretation Reference Range Comment Apr 08, 2023 08:45 AM [facility] HGA1C Specimen Type: BLOOD No comment entered. Ordering Provider: SUSI HALL Report Released Date/Time: Apr 05, 2023 02:55 PM Reporting Lab: [facility] [address] [facility] [place] [id number] Performing Lab: [facility] [address] [place] [id number] HGA1C 8.6 H 4.0-6.0 Apr 08, 2023 08:45 AM [facility] TSH (MA-PB-STL) Specimen Type: SERUM No comment entered. Ordering Provider: SUSI HALL Report Released Date/Time: Apr 05, 2023 02:55 PM Reporting Lab: [facility] [address] [facility] [place] [address] Performing Lab: [facility] [address] [place] [phone] TSH 2.104 u[IU]/mL 0.47-5 Apr 08, 2023 08:45 AM [facility] COMPREHENSIVE METABOLIC PANEL Specimen Type: PLASMA Comment: No hemolysis noted. Ordering Provider: SUSI HALL Report Released Date/Time: Apr 05, 2023 02:55 PM Reporting Lab: [facility] [address] [facility] [phone] Performing Lab: [facility] [address] [facility] [phone] CREATININE 0.91 mg/dL 0.6-1.1 UREA NITROGEN 12.4 mg/dL 9.0-25.0 GLUCOSE 316 mg/dL H 72-99 SODIUM 132 meq/L L 136-145 POTASSIUM 4.3 meq/L 3.5-5 CHLORIDE 101 meq/L 98-107 CARBON DIOXIDE 18 meq/L L 22-31 CALCIUM 9.2 mg/dL 8.4-10.4 PROTEIN 7.6 g/dL 6-8.6 ALBUMIN 4.6 g/dL 3.4-5 TOTAL BILIRUBIN 0.9 mg/dL 0.2-1.2 ALKALINE PHOSPHATASE 122 U/L 40-150 AST/SGOT 68 U/L H 5-34 ALT/SGPT 78 U/L H 8-40 EGFR (CKD-EPI 2020) 76.9 >60 Social History: Smoking Status (Most current) and Tobacco Use (All prior to encounter date) This section includes the most current, and the historical, smoking and tobacco- related health factors from the [place] facility where the Encounter took place. Current Smoking Status This section includes the most current smoking, or tobacco-related health factor, from the [place] facility where the Encounter took place. Date/Time Current Smoking Status Comment Jamari ity Jun 16, 2022 09:30 AM DC-TOBACCO NEVER USED [facility] Tobacco Use History This section includes a history of the smoking, or tobacco-related health factors, that were collected on or before the date of the Encounter. The data comes from the [place] facility where the Encounter took place. Date/Time Smoking Status/Tobacco Use Comment F acility Feb 28, 2021 10:00 AM DC-TOBACCO NEVER [facility]ED [facility] Mar 01, 2020 11:00 AM DC-TOBACCO NEVER [facility]ED [facility] Nov 18, 2016 03:10 PM LIFETIME NON-USER OF TO[facility]ACCO [facility] Nov 02, 2013 11:24 AM LIFETIME NON-USER OF TOBACCO [facility] Advance Directives: All historical and current Section Date Range: From patient's date of to the date document was created. This section includes ALL of a patient's completed or amended [place] Advance and Rescinded Directives. The entries below indicate that a directive exists for the patient, but an actual copy is not included with this document. The data comes from all [place] facilities. Date Advance Directives Provider Source Apr 15, 2015 ADVANCE DIRECTIVE DISCUSSION [facility] LEAL [facility] Encounter Notes: All associated encounter notes This section contains the clinical notes associated to the Encounter. Date/Time Encounter Note(s) Provider Source July 15, 2023 05:31 PM PHYSICIAN LETTERS: LOCAL TITLE: TEST RESULT GENERAL LETTER STL STANDARD TITLE: PHYSICIAN LETTERS DATE OF NOTE: JULY 15, 2023@17:31 ENTRY DATE: JULY 15, 2023@17:31:05 AUTHOR: MADONNA HALL COSIGNER: URGENCY: STATUS: COMPLETED [facility] [address] [place] [address] JULY 15, 2023 BENOIT LANG [address] [facility] [place], [place] [address] Dear Benoit Lang, I would like to update you on your recent test results. HEMOGLOBIN A1C - Gives us information about your diabetes (sugar or glucose) control over the past 3 months. Your target is to keep your A1C below 7 %. HGA1C 7.4 H % 07/05/2023 09:00 These results are abnormal. we need better DM control. pls continue empagliflozin and metformin. I am requesting a pharmacy review to see if we could try semaglutide. we will keep you posted. -------- CHEM 7 - This is important information about the current status of your kidneys, liver, and electrolyte and acid/base balance as well as of your blood sugar and blood proteins. SODIUM 132 L mEq/L 04/08/2023 08:45 POTASSIUM 4.3 mEq/L 04/08/2023 08:45 CHLORIDE 101 mEq/L 04/08/2023 08:45 UREA NITROGEN 12.4 mg/dL 04/08/2023 08:45 CREATININE 0.91 mg/dL 04/08/2023 08:45 CALCIUM 9.2 mg/dL 04/08/2023 08:45 CARBON DIOXIDE 18 L mEq/L 04/08/2023 08:45 GLUCOSE 316 H mg/dL 04/08/2023 08:45 EGFR (CKD-EPI 2020) 76.9 04/08/2023 08:45 These readings are within normal limits. except for the high blood sugar LIVER FUNCTION PANEL - These are tests for liver function: PROTEIN 7.6 g/dL 04/08/2023 08:45 ALBUMIN 4.6 g/dL 04/08/2023 08:45 TOTAL BILIRUBIN 0.9 mg/dL 04/08/2023 08:45 ALKALINE PHOSPHATASE 122 U/L 04/08/2023 08:45 AST/SGOT 68 H U/L 04/08/2023 08:45 ALT/SGPT 78 H U/L 04/08/2023 08:45 These results are abnormal. still elevated but stable. we will monitor TSH - Thyroid-stimulating hormone (also known as TSH or thyrotropin) is a peptide hormone synthesized and secreted by thyrotrope cells in the anterior pituitary gland, which regulates the endocrine function of the thyroid gland. TSH TSH 2.104 uIU/mL 04/08/2023 08:45 These readings are within normal limits. --------- PLAN Please continue your treatment as we discussed during your visit. If you have any questions please call your major case detective. I look forward to seeing you at your next clinic appointment. Thank you for choosing the [facility] for your healthcare. -------- FUTURE APPOINTMENTS: 07/26/2023 09:30 [facility] 08/02/2023 09:30 [facility] 08/09/2023 09:30 [facility] 08/16/2023 09:30 [facility] 08/23/2023 09:30 [facility] 08/30/2023 09:30 [facility] 08/31/2023 14:20 [facility] PM 09/06/2023 09:00 [facility] 09/06/2023 09:30 [facility] 09/13/2023 09:30 [facility] Sincerely, BENOIT HENSLEY MD, ARMIDA [facility] Apr 06, 2023 11:21 AM TELEHEALTH NOTE: LOCAL TITLE: PCS PACT [facility] VIDEO CONNECT [facility] STANDARD TITLE: TELEHEALTH NOTE DATE OF NOTE: APR 06, 2023@11:21 ENTRY DATE: APR 06, 2023@11:22:09 AUTHOR: SELVIN SARABIA COSIGNER: URGENCY: STATUS: COMPLETED Patient Identifiers : Full Name Date of Visit conducted by Clinical Video Telehealth. V15 VA Video Connect/Video to Home VA Video Connect (VVC)/Video to home template v1.5 Visit conducted by synchronous telehealth. location/emergency number confirmed. Environment surveyed and all participants identified. Virtual conference room locked. VVC/Video to home appointment information: The following items were reviewed: - The nature of telehealth, its benefits, and risks. - Confidentiality and its limits. - The importance of having a confidential location for the service. - The emergency plan. - The appointment should be treated like an in person appointment (no smoking or driving during session, showing up fully dressed, etc.) *The Virtual Medical Room was locked for this encounter. *A survey of the environment was conducted and it is appropriate to conduct a CVT/VVC appointment. *Confirmed 's Non-VA location for this appointment: 's Home [address] [place], [place] [address] Address and phone number verified with . Address: Phone: [place] does not have an emergency contact. * was notified of right to decline Telehealth services and eligibility for other options. consented to be seen via CVT/VVC. EMERGENCY PLAN In the event of an emergency, the or family will call emergency services, if capable. The Teleprovider will remain in the virtual medical room until emergency response arrives and handoff to emergency services is complete. If [place] is unable to make emergency call, the Teleprovider is to call the national E911 service at [phone] and ask to be connected to emergency services for the [place]'s location. [place]'s Crisis Line: Dial 988 then press 1, or text [phone] Office of Connected Care Helpdesk ([facility]): [phone] or [phone] Verified Provider's location and contact information for this appointment: [address] [id number] Provider Visit: Reason for Visit: Established Follow-Up Allergy Review: Patient has answered NKA Allergy list reviewed and remains current. Recent Vital Signs: Temperature: 97.3 F [36.3 C] (08/26/2022 14:11) Pulse: 80 (08/26/2022 14:11) Respiration: 17 (08/26/2022 14:11) B/P: 127/94 (08/26/2022 14:11) Pain: 0 (08/26/2022 14:11) Wt: 178 lb [80.74 kg] (08/26/2022 08:50) Ht: 65 in [165.1 cm] (08/26/2022 08:50) BMI: 29.7 POX: 100% (08/26/2022 14:11) Would you like to discuss any personal problem, family problem, alcohol use, drug use, or a mental or emotional illness? No My [facility] ([facility]), please select appointment type: VA Video Connect (VVC) - Are you registered for [facility]? Yes - done Sexual Orientation: The patient thinks of their sexual orientation as: Straight or Heterosexual Homelessness/Food Insecurity Screen: In the past 2 months, have you been living in stable housing that you own, rent, or stay in as part of a household? Yes - Living in stable housing. Are you worried or concerned that in the next 2 months you may NOT have stable housing that you own, rent, or stay in as part of a household? No - Not worried about housing near future The [place] reports the following: Within the past 12 months, you worried whether your food would run out before you got money to buy more. Never true Within the past 12 months, the food you bought just didn't last and you didn't have money to get more. Never true Alcohol Use Screen (AUDIT-C): Alcohol Screen: SCREEN FOR ALCOHOL (AUDIT-C) An alcohol screening test (AUDIT-C) was negative (score=1). 1. How often did you have a drink containing alcohol in the past year? Consider a drink to be a 12 ounce can or bottle of regular beer, 8 ounces of malt liquor, a 5 ounce glass of table wine, or a 1.5 ounce shot of liquor (like scotch, gin, or vodka). Monthly or less 2. How many drinks containing alcohol did you have on a typical day when you were drinking in the past year? One or two drinks 3. How often did you have 4 or more drinks on one occasion in the past year? Never /anastasia/ SELVIN SARABIA LPN LICENSED PRACTICAL NURSE Signed: 04/06/2023 11:27 SELVIN SARABIA [facility] Apr 06, 2023 11:11 AM TELEHEALTH NOTE: LOCAL TITLE: PRIMARY CARE VIDEO CONNECT [facility] STANDARD TITLE: TELEHEALTH NOTE DATE OF NOTE: APR 06, 2023@11:11 ENTRY DATE: APR 06, 2023@11:12:36 AUTHOR: MADONNA HALL COSIGNER: URGENCY: STATUS: COMPLETED Medicine Provider Note Modality of Care: Clinical Video Telehealth Visit conducted by Clinical Video Telehealth. Patient/surrogate provided verbal consent for video telehealth. Patient location confirmed. Emergency number confirmed. Patient Contact Details: Best contact number for backup communication with patient: Patient routine f/u DM2, HTN, HLD, obesity,depression/anxiety, GERD HPI:Pt reports weight gain and interested in alternative med to Dm that will aid in weight loss. She has stable mood, denies SI/HI, sees MH regularly.She denies cp,sob. palpitations are at baseline. denies LOC/lightheadedness. takes Doac, denies abnormal blood in urine nor stool. Denies BP issues. SOURCE(S) OF HISTORY: Patient PAST MEDICAL HISTORY: 1) Depressive disorder 2) Allergic rhinitis 3) Chronic low back pain 4) Knee pain 5) Family history of ischemic heart disease comment: father at age 49 from a [place] comment: 11/29/13 Negative stress test 6) Obesity 7) Gastroesophageal Reflux Disease 8) Major depressive disorder 9) Partner Relational Problem 10) Blurring of visual image 11) BRICE - Generalized anxiety disorder (SNOMED CT [id number]) 12) Benign essential hypertension 13) Hyperlipidemia 14) Proteinuria 15) Type 2 diabetes mellitus without complication 16) Bipolar disorder in remission 17) Therapeutic drug effect 18) Atrial tachycardia 19) Anticoagulant effect 20) Dysthymia 21) AF - Atrial Fibrillation ([facility] [id number]) comment: afib/aflutter on moitor FAMILY HISTORY: No new updates. SOCIAL HISTORY: NICOTINE: Nicotine User: No ILLICIT DRUGS: No ETOH: denies ALLERGIES: Patient has answered NKA ALLERGY REVIEW: Allergy list reviewed and remains current. MEDICATION RECONCILIATION: I have reviewed the patient's medication list with the patient and/or his/her care-companion caregiver. Handwritten corrections, additions and/or deletions were made to the list. Corrected Outpatient Medication List was provided to the patient/caregiver. Active Outpatient Medications (including Supplies): Active Outpatient Medications Status ========= 1) ACCU-CHEK GUIDE (GLUCOSE) TEST STRIP USE 1 STRIP FOR ACTIVE BLOOD TEST TWO TIMES PER WEEK DIRECTED *HYPOGLYCEMIA, 100 STRIPS PER YEAR* Sep 2) ATORVASTATIN CALCIUM 80MG TAB TAKE ONE TABLET BY ACTIVE MOUTH EVERY EVENING FOR CHOLESTEROL. REPORT ANY UNEXPLAINED MUSCLE PAIN/WEAKNESS TO PROVIDER. 3) CARBOXYMETHYLCELLULOSE NA 0.5% OPH SOLN INSTILL 1 ACTIVE DROP IN BOTH EYES FOUR TIMES A DAY NEEDED FOR DRY EYES 4) DABIGATRAN ETEXILATE 150MG ORAL CAP TAKE ONE CAPSULE ACTIVE BY MOUTH TWICE A DAY TO THIN BLOOD. DO NOT OPEN CAPSULE. SWALLOW WHOLE. DO NOT OPEN PKG UNTIL READY FOR DOSE TO MAINTAIN STABILITY. 5) FERROUS SULFATE 325MG TAB TAKE ONE TABLET BY MOUTH ACTIVE TWICE A DAY FOR IRON SUPPLEMENTATION. 6) HYDROXYZINE HCL 10MG TAB TAKE ONE OR TWO TABLETS BY ACTIVE MOUTH AT BEDTIME NEEDED *MAY CAUSE DROWSINESS* 7) LEVOMILNACIPRAN 120MG SA CAP TAKE ONE CAPSULE BY ACTIVE MOUTH ONCE A DAY 8) LISINOPRIL 20MG TAB TAKE ONE-HALF TABLET BY MOUTH ACTIVE ONCE A DAY FOR HEART OR BLOOD PRESSURE 9) LUBRICATING (PF) OPH OINT APPLY ONE-QUARTER INCH ACTIVE RIBBON TO BOTH EYES AT BEDTIME NEEDED FOR EYE LUBRICANT 10) LURASIDONE HCL 40MG TAB TAKE ONE TABLET BY MOUTH ONCE ACTIVE A DAY FOR MOOD - TAKE WITH LARGEST MEAL OF THE DAY 11) METFORMIN HCL 500MG 24HR SA TAB TAKE TWO TABLETS BY ACTIVE MOUTH TWICE A DAY FOR BLOOD SUGAR CONTROL. TAKE WITH FOOD. AVOID ALCOHOL. DISCONTINUE BEFORE GETTING XRAY DYE. 12) METOPROLOL TARTRATE 50MG TAB TAKE ONE-HALF TABLET BY ACTIVE MOUTH TWICE A DAY FOR HEART/BLOOD PRESSURE. TAKE WITH OR IMMEDIATELY FOLLOWING FOOD. 13) OLOPATADINE HCL 0.1% OPH SOLN INSTILL 1 DROP IN BOTH ACTIVE EYES TWICE A DAY FOR ALLERGIES REVIEW OF SYSTEMS: General: Normal No Fevers, Chills, Weight Loss, Weight Gain, Recent Illness. Ears, Nose, Mouth, Throat: Normal No new loss of hearing or tinnitus, no Dental issue, Difficulty swallowing, Vertigo. Eye: Normal No Trauma, Cataracts, Glaucoma, Blurred vision Cardiovascular: Normal No Chest pain, Dizziness, Palpitations. Respiratory: Normal No Cough, SOB, Hemoptysis, Epistaxis, Influenza symptoms, +PDD. PHYSICAL EXAMINATION: General: pleasant, cooperative, well-developed, obese, appropriately dressed and groomed ; in no acute distress. Respirations even and non-labored Psych:Affect appropriate. Neuro: Oriented x3. ASSESSMENT/PLAN: # DM2-wanting ozempic if appropriate , check A1c, pt advised that we need to try at least 2 po DM meds before we can pre-auth ozempic. will try jardiance. ;eye exam UTD #. hx of afib/aflutter captured on holter monitor/HTN: cont pradaxa, denies any bleeding diatheses,cont lisinopril, metoprolol #. HLD:cont atorvastatin , LDL at goal. #. obesity:cont efforts at weight loss, #. depression/anxiety:mood stable, denies SI/HI . folowed by MH.cont levomilnacipran, lurasidone #. GERD:controlled with PPI #. iron def anemia:resolved. monitor Pap due nov 2022;mammo UTD RETURN TO CLINIC:6-9 mo Return to Clinic order placed Medication Reconciliation Opt STL: I have reviewed the patient's medication list (including active outpatient prescriptions dispensed from this DC (local) and dispensed from another DC or DoD facility (remote) as well as inpatient orders (local pending and active), local clinic medications, locally documented non-VA medications, and local prescriptions that have or been discontinued in the past 90 days.) with the patient and/or his/her care-companion caregiver. Handwritten corrections, additions and/or deletions were made to the list, as appropriate. Corrected Outpatient Medication List was provided to the patient/caregiver. /anastasia/ MADONNA HALL MD Signed: 04/21/2023 11:18 MADONNA HALL [facility]
--- OUTSIDE RECORDS SUMMARY | 2024-04-04 08:26 | XMS_ITS | Encounter Summary ---
Author Name Department of Vetera Affairs ([place]) Organization [place] Address [address] [place] [address] Care Team Providers Care Cup Trimming Machine Operator Name Role Phone MADONNA HALL Primary Care Provider Unavailabl e Selected Encounter This section includes the information on record at [place] for the Encounter. Date/Time Encounter Type Encounter Description Reason Pro vider Source IHE Encounter Template Text not used by [place] Advance Directives: All historical and current Section Date Range: From patient's date of to the date document was created. This section includes ALL of a patient's completed or amended VA Advance and Rescinded Directives. The entries below indicate that a directive exists for the patient, but an actual copy is not included with this document. The data comes from all [place] facilities. Date Advance Directives Provider Source Apr 15, 2015 ADVANCE DIRECTIVE DISCUSSION [facility] LEAL RA [facility]
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
--- OUTSIDE RECORDS SUMMARY | 2024-04-04 08:27 | XMS_ITS | Data Portability ---
[facility] Address [address] [place] [address] Assessment No assessment recorded. Plan of Treatment Reminders Order Date Submit Date Provider Last Modified By Organization Details Last Modified Time Details Appointments ANY 2024 10:30A IFEANYI Dumont Not available Not available Not available Lab microalb umin/cre atinine, mass ratio, urine 2023 [facility], [facility] Citlalli Wei, [place], [address], 12/30/2023 08:25:19 HbA1c (hemoglo bin A1c), blood 2023 [facility], [address] [place], [address], 12/30/2023 08:25:20 lipid panel, serum 2023 [facility], [address] [place], [address], 12/30/2023 08:25:20 CMP, serum or plasma 2023 [facility], [address] [place], [address], 12/30/2023 08:25:20 CBC w/ auto diff 2023 [facility], [address] [facility] [place], [address], 12/30/2023 08:25:20 TSH + free T4, serum 2023 [facility], [address] [facility] [place], [address], 12/30/2023 08:25:19 Referral None recorded . Procedures None recorded . Surgeries None recorded . Imaging None recorded . Medication Orders None recorded . Patient TargetsNo targets recorded. Patient InstructionsNo instructions recorded. Reason for Referral None Reported. Results Created Date Observation Date Name Description Value Unit Range Abnormal Flag Note LastModifiedBy Organization Detail LastModifiedTime Result Notes None recorded. Problems Name Problem SNOMED Code Status Onset Date Resolution Date Notes Provider Name and Address Organization Details Recorded Time Dysplastic nevus of skin 993864959 Active 2023 IFEANYI Taylor Attn: Accountin g,[address] [facility], [place], [address], [place] [facility] 4 07:15:58 Adult health examination Active 2023 IFEANYI Taylor Attn: Accountin g,[address] [facility], [place], [address], [place] [facility] 4 07:15:59 Hyperlipidemia 75562820 Active 2023 IFEANYI Taylor Attn: Accountin g,[address] [facility], [place], [address], [place] [facility] 4 17:24:18 Essential hypertension 99959572 Active 2023 IFEANYI Taylor Attn: Accountin g,[address] [facility], [place], [address], [place] [facility] 4 17:24:19 Type 2 diabetes mellitus without complication 400380498 Active 2023 IFEANYI Taylor Attn: Bhargavi g,[address] [facility], [place], [address], [facility] 4 17:24:21 Problem Notes None recorded. Medical Equipment None Reported. Allergies No known drug allergies Medications Name Sig Start Date Stop Date Status Note LastModified by Organization Details LastModified Time atorvastatin 20 mg tablet Take 1 tablet every day by oral route. active Not Available Not Available No t Available lisinopril 20 mg tablet Take 1 tablet every day by oral route. active Not Available Not Available No t Available clonazepam 0.5 mg tablet Take 1 tablet by oral route as needed. active Not Available Not Available N ot Available metoprolol succinate ER 100 mg tablet,exten ded release 24 hr Take 1 tablet every day by oral route. active Not Available Not Available No t Available ferrous sulfate 325 mg (65 mg iron) tablet Take 1 tablet every day by oral route. active Not Available Not Available No t Available hydroxyzine HCl 10 mg tablet Take 1 tablet every day by oral route. active Not Available Not Available No t Available lurasidone 60 mg tablet Take 1 tablet every day by oral route. active Not Available Not Available No t Available levomilnacip ran ER 120 mg capsule,24 hr,extended release Take 1 capsule every day by oral route. active Not Available Not Available No t Available Jardiance 10 mg tablet Take 1 tablet every day by oral route. active Not Available Not Available No t Available Ozempic 1 mg/dose (4 mg/3 mL) subcutaneous pen injector Inject 1 mg every week by subcutaneou s route. active Not Available Not Available No t Available Vitals Date Recorded Body height Body mass index (BMI) Body weight Oxygen saturation Oxygen saturation in Arterial blood by Pulse oximetry Heart rate Provider Name and Address Organization Details Last Updated DateTime 4 165.1 cm 27.2 kg/m2 28937.6 1 g 98 % 98 % 62 /min [facility] 4 16:46:43 Date Recorded Systolic blood pressure Diastolic blood pressure Provider Name and Address Organization Details Last Updated DateTime 12/23/2023 118 mm[Hg] 78 mm[Hg] IFEANYI Taylor Attn: Accounting,[address] [facility], [place], [address], [place] [facility] 12/23/2023 17:08:49 Social History Question Answer Notes LastModified by Organizat ion Details LastModified Time Tobacco Smoking Status Never Smoker Dudleyjacque Perkins [place], [place] - [facility] 12/23/2023 16:39:15 What Is Your Level Of Alcohol Consumption? None Information not available 12/23/2023 What Is Your Level Of Caffeine Consumption? Moderate Information not available 12/23/2023 What Was The Date Of Your Most Recent Tobacco Screening? 12/23/2023 Information not available 12/23/2023 Do You Use Any Illicit Or Recreational Drugs? No Information not available 12/23/2023 Do You Or Have You Ever Used Any Other Forms Of Tobacco Or Nicotine? No Information not available 12/23/2023 Sex: Male Functional Status None recorded. Mental Status None recorded. Family History Nothing Reported. Medical History Condition Response Coronary Artery Disease N Other N High Blood Pressure Y Atrial Fibrillation N Thyroid Problems N Kidney or Bladder Problems N GI Problems N Depression Y COPD N Blood Clots N Have you had a mammogram in the last yea r? Y Skin Problems N Eating Disorder N Anemia Y Heart Attack ([place]) N Anxiety Disorder Y Diabetes Y Muscle, Joint, or Bone Problems N Arthritis N Seizures/Epilepsy N Have you had a colonoscopy in the last 1 0 years? N Acid Reflux (GERD) N Cancer N Stroke N Asthma N Allergies N Have you had a PSA blood test in the las t year? N ADHD N Substance Abuse N High Cholesterol Y Hepatitis N Liver Disease N Schizophrenia N Headaches N Heart Failure N Osteoporosis N Gynecological HistoryNo gynecological history recorded. Obstetrics History GPAL:G 0 P 0 0 0 0 Immunizations Vaccine Type Date Status Note Provider Nam e and Address Organization Details Recorded Time COVID-19, mRNA, LNP-S, PF, 30 mcg/0.3 mL dose 04/25/2020 completed Preet Perkins [place], [place] [facility] 12/23/2023 16:33:30 COVID-19, mRNA, LNP-S, PF, 30 mcg/0.3 mL dose 05/16/2020 completed Preet Perkins [place], [place] [facility] 12/23/2023 16:33:30 influenza, unspecified formulation 11/22/2017 completed ARELIS Morton, ZEENAT - [place] 12/23/2023 16:33:30 Influenza, split virus, trivalent, PF 01/31/2016 completed ARELIS Morton, ZEENAT - [facility] 12/23/2023 16:33:30 Influenza, split virus, quadrivalent, PF 12/09/2018 completed ARELIS Morton, [place] [facility] 12/23/2023 16:33:30 Influenza, split virus, quadrivalent, PF 12/18/2019 completed ARELIS Morton, ZEENAT - [facility] 12/23/2023 16:33:30 Past Encounters Encounter ID Performer Location Encounter Start Date Encounter Closed Date Diagnosis/Indication Diagnosis SNOMED-CT Code Diagnosis ICD10 Code Diagnosis Note [id number] IFEANYI Taylor [facility] [place] [address] [facility] [address] [place] [address] 12/23/2023 16:24:39 12/24/2023 13:51:26 Adult health examination 850278204 Z00.01 Healthy diet and exercise, HCM as discussed Dysplastic nevus of skin 656868710 D22.9 Mole mapping performed, skin care discussed, follow up annually Type 2 diana betes mellitus without complication 952503659 E11.9 Check blood sugars as directed , record and bring on visit. yearly dilated eye exam. check feet daily and report callouses, corns or ulcers. 30 minutes exercise daily Diabetic diet, conservati ve carbohydra sb, low in fat, high fiber, whole grains, lean meat Essential hypertension 20178281 I10 Take meds as ordered. Decrease caffeine and salt intake, work on diet and weight loss. Aerobic exercise 4 times per week for 30 min. Call for elevated blood pressures. Hyperlipidemia 84157589 E78.5 Increase physical activity, heart healthy diet, drink water Eat a variety of foods every day. Good choices include fruits, vegetables , whole grains (like oatmeal), dried beans and peas, and nuts and seeds. Other good choices are soy products (like tofu) and fat-free or low-fat dairy products. Use olive and canola oils instead of butter, margarine, or hydrogenat ed or partially hydrogenat ed oils. (Canola oil margarine without trans fat is fine.) Replace red meat with fish, poultry, and soy protein (like tofu). Limit processed and packaged foods like chips, crackers, and cookies. Bake, broil, or steam foods instead of frying them. Be physically active. Get plenty of exercise every day. Go for a walk or jog, ride your bike, or play sports with friends. Stay at a healthy weight or lose weight by making the changes in eating and physical activity listed above. Losing just a small amount of weight, even 5 to 10 pounds, can reduce your risk for having a heart attack or stroke. Do not smoke. Smoking can increase the chance you will have a heart attack. If you need help quitting, talk to your doctor about stop-smoki ng programs and medicines. These can increase your chances of quitting for good. If you take medicine for high cholestero l, be sure to take it every day. Health Concerns Section Related Observation LastModified by Organization Detai ls LastModified Time None Recorded Concern Status LastModified by Organization Details LastModified Time None Recorded Advance Directives Directive None Recorded Payers Encounter Date Sequence Insurance Name Policy Number Policy Faustin Covered Member ID Faustin Member ID Guarantor Name 12/23/2023 1 [employer] - FOR LIFE (MEDICARE SUPPLEMENT) Benoit Pichardo [id number] Benoit Pichardo Notes Date Note Type Note Provider Name and Address Organization Details Recorded Time 12/23/2023 text/html New patient in t o establish with PCM and f/u for the following medical conditions Routine general medical examination at a health care facility (Primary)-non-smok er-Exercise: some-colonoscopy: Never, No FMHX-flu: declined-specialis t: [facility] this [facility]-pap: last yearPatient is doing well, needs letter to participate in exercise at workHLD: taking meds HTN: taking meds diabetes Last A1C:{{less than 7.0% 7-8% 8-9% gre ater than 9% 7.4#}}Goal A1C less than:{{7.0% 8.0%}} Current Therapy:{{metformi n sulfonylurea TZD SGLT-2 DDP-4 GLP- 1 RA* long-acting insulin rapid/shor t-acting insulin}} {{metformin sulfon ylurea TZD SGLT-2* DDP-4 GLP-1 RA long-acting insulin rapid/shor t-acting insulin}} {{metformin sulfon ylurea TZD SGLT-2 DDP-4 GLP-1 RA long-acting insulin rapid/shor t-acting insulin}} {{metformin sulfon ylurea TZD SGLT-2 DDP-4 GLP-1 RA long-acting insulin rapid/shor t-acting insulin}}Statin:{{ yes* no declined due to adverse reaction/allergy d eclined}}BOAZ/ARB:{ {yes* no no due to negative nephropathy screening contrain dicated declined due to adverse reaction/allergy d eclined}}Foot Exam:{{completed in the past 12 months-negative* c ompleted in the past 12 months-positive co mpleted in the past 12 months- result unknown due}}Nephr opathy Screening:{{comple janeth in the past 12 months- negative completed in the past 12 months- positive due}}Pneu movax 23:{{UTD Declined* Not given}}Eye Exam:{{completed in the last 12 months- negative* complete d in the last 12 months- positive completed per patient report due- recommended annual dilated eye exam}}Patient Education:healthy diet: {{yes no}}exercise : {{yes no}}weight loss: {{yes no}}foot care: {{yes no}}complica tions of uncontrolled diabetes: {{yes no}}medicati on compliance: {{yes no}}Next Visit: {{1 2 3 4 5 6* 7 8 9 10 11 12}} {{week(s) month(s) months#}} IFEANYI Taylor Attn: Accounting,[address] [facility], [place], [address], [facility] 12/23/2023 17:54:43 OBGyn Episode No OBEpisode recorded.
--- OUTSIDE RECORDS SUMMARY | 2024-04-04 08:27 | XMS_ITS | Clinical Summary ---
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 Name Role Phone Salvador Byers Primary Care Provider [phone] Allergies No known active allergies Medications LISINOPRIL ORAL Take by mouth 1/2 tablet daily Active OMEPRAZOLE ORAL Take by mouth daily Active levomilnacipran HCl (FETZIMA ORAL) Take by mouth daily Active metFORMIN (GLUCOPHAGE) 500 mg tablet 4 (four) times a day Active lurasidone HCl (LURASIDONE ORAL) Take by mouth daily Active atorvastatin calcium (ATORVASTATIN ORAL) Take by mouth daily Active clonazePAM (KlonoPIN) 0.5 mg disintegrating tablet Take by mouth Active METOPROLOL TARTRATE ORAL Take by mouth 1/2 tablet daily Active empagliflozin (JARDIANCE ORAL) Take by mouth daily Active Active Problems Problem Noted Date Diagnosed Date Primary hypertension 05/26/2023 Assessment & Plan (05/26/2023 10:07 AM CDT): [place] is [place] by the [place] Controlled type 2 diabetes peterson garrett without complication, without long-term current use of insulin ([facility]) 05/26/2023 Assessment & Plan (05/26/2023 10:08 AM CDT): This is treated by the [place] Pure hypercholesterolemia 05/26/2023 ABDIEL (obstructive sleep apnea) 05/26/2023 Overview (05/26/2023): Uncontrolled, does not want CPAP, consult to dental for oral Routine general medical exam ination at a health care facility 10/02/2019 Immunizations Name Administration Dates Next Due Influenza, Quadrivalent, Spl it, Preservative Free, Intramuscular 12/09/2018 Influenza, Trivalent, Preser vative Free, Intramuscular 01/31/2016 Influenza, Unspecified 11/28/2022(Deferr ed: Patient decision),12/09/2018,11/22/2017 Surgical History Surgery Date Site/Laterality Comments OTHER SURGICAL HISTORY lump removed from neck Medical History Medical History Date Comments Hyperlipidemia Hypertension Diabetes mellitus (HCC) Family History Medical History Relation Name Comments Heart disease Father Hypertension Mother Relation Name Status Comments Father Mother Alive Social History Tobacco Use Types Packs/Day Years Used Date Smoking Tobacco: Never Tobacco Cessation:Counseling Given: Not Answered Alcohol Use Standard Drinks/Week Comments Never 0 (1 standard drink = 0.6 oz pur e alcohol) AUDIT-C Answer Date Recorded Q1: How often do you have a drink containing alc ohol? 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 Gender Identity Not on file Sexual Orientation Not on file Obstetrics History Last Filed Vital Signs Vital Sign Reading Time Taken Comments Blood Pressure 114/78 05/26/2023 9:22 AM CDT Pulse 99 05/26/2023 9:22 AM CDT Temperature 36.3 C (97.3 F) 05/26/2023 9:22 AM CDT Respiratory Rate 16 05/26/2023 9:22 AM CDT Oxygen Saturation 97% 05/26/2023 9:22 AM CDT Inhaled Oxygen Concentration - - Weight 80.7 kg (178 lb) 05/26/2023 9:22 AM CDT Height 165.1 cm (5' 5 ) 05/26/2023 9:22 AM CDT Body Mass Index 29.62 05/26/2023 9:22 AM CDT Plan of Treatment Health Maintenance Due Date Last Done Comments Albumin Creatinine Ratio, Urine 1973 Cervical Cancer Screening 1973 Colon Cancer Screening-Colonoscopy 1973 Hepatitis C Screening 1973 eGFR 1973 Dilated Eye Exam 1973 Foot Exam 1973 Pneumococcal vaccine <65 (1 of 2 - PCV) 1979 Hepatitis B Screening 1991 Hemoglobin A1C 04/27/2013 10/28/2012 Lipid Panel 10/28/2013 10/28/2012 Breast Cancer Screening-Mammogram 11/30/2013 013 Zoster Vaccine (1 of 2) 2023 Influenza Vaccine (#1) 2023 9, 12/09/2018, 11/22/2017, Additional history exists Depression Screening 05/25/2024 05/26/2023, 10/05/19 20 Regular Well Visit/Exam 18-64 05/25/2024 05/26/2023, 10/05/2019 DTaP/Tdap/Td Vaccine Discontinued Procedures Procedure Name Priority Date/Time Associated Diagnosis Comments SCREENING MAMMOGRAM 2D BILATERAL Routine 11/30/2012 1:26 PM CDT HEMOGLOBIN A1C Routine 10/28/2012 9:50 AM CDT LIPID PANEL Routine 10/28/2012 9:50 AM CDT from Last 3 Months or Most Recently Relevant to Health Maintenance Results * Screening Mammogram 2D Bilateral (11/30/2012 1:26 PM CDT) Anatomical Region Laterality Modality Breast Bilateral Mammography 11/30/2012 1:26 PM CDT Impressions 11/30/2012 3:04 PM CDT No mammographic evidence of malignancy. Recommend routine annual screening mammography. ASSESSMENT: BIRADS: 1 - Negative A letter will be mailed to the patient with the results and recommendations. Additionally, the patient will be entered into a reminder system for an annual screening mammogram in 1 year. THIS IS AN ELECTRONICALLY VERIFIED REPORT 11/30/2012 3:00 PM: Kristi Sandoval M.D. Erick Kelsey:jerald 03:00 PM 03:00 PM [facility] [EOD] Narrative 11/30/2012 3:04 PM CDT EXAMINATION: Bilateral screening mammography HISTORY: 37 year-old woman presents for baseline mammogram. No significant family history breast cancer or prior breast biopsies reported. COMPARISON: None. TECHNIQUE: Bilateral digital full field of view mammography was performed, with the aid of computer aided detection (CAD). FINDINGS: The breasts are composed of scattered fatty and fibroglandular tissue. No dominant mass, significant microcalcifications or architectural distortion is seen. Procedure Note Provider, MD Emmie - 07/10/2020 EXAMINATION: Bilateral screening mammography HISTORY: 37 year-old woman presents for baseline mammogram. Nosignificant family history breast cancer or prior breast biopsies reported. COMPARISON: None. TECHNIQUE: Bilateral digital full field of view mammography wasperformed, with the aid of computer aided detection (CAD). FINDINGS: The breasts are composed of scattered fatty and fibroglandular tissue. No dominant mass, significant microcalcifications or architectural distortion is seen. IMPRESSION: No mammographic evidence of malignancy. Recommend routine annualscreening mammography. ASSESSMENT: BIRADS: 1 - Negative A letter will be mailed to the patient with the results andrecommendations. Additionally, the patient will be entered into a reminder system for anannual screening mammogram in 1 year. THIS IS AN ELECTRONICALLY VERIFIED REPORT 11/30/2012 3:00 PM: Kristi Sandoval M.D. Erick Kelsey:jerald 03:00 PM 03:00 PM [facility] [EOD] Salvador SUGGS IMG MAMMO PROCEDURES Final Resu lt * Hemoglobin A1c (10/28/2012 9:50 AM CDT) Hemoglobin A1c % 5.3 4.8 - 5.9 % Comment: As of 2009 Method: BRANDO Dillan 6000 using turbidometric inhibition immunoassay procedure. Results obtained are comparable to results obtained using previous methodology (HPLC). [place] [employer] recommends that the goal of therapy should be an A1C hemoglobin of <7%. Reevaluate the treatment regimen in patients with an A1C >8%. 10/28/2012 9:50 AM CDT 10/28/2012 10:42 AM CDT [facility] HISTORICAL RESULTS - 10/28/2012 12:36 PM CDT PT.FASTING 12HR Salvador SUGGS LAB BLOOD ORDERABLES Final Resu lt [facility] HISTORICAL RESULTS * (ABNORMAL) Lipid panel (10/28/2012 9:50 AM CDT) Pathologist [facility] Triglycerides 180 0 - 199 mg/dL Comment:12 hr pc highly galindo mmended for Triglyceride Cholesterol 243(H) 0 - 199 mg/dL Comment: Borderline: 200-239 High Risk: >239 HDL Cholesterol 54 40 - 60 mg/dL Comment: Major Risk < 40 mg/dL Moderate Risk 40-60 mg/dL Negative Risk > 60 mg/dL LDL Cholesterol, Calc 153(H) 0 - 130 mg/dL Comment:High Risk > 159 mg/d L 10/28/2012 9:50 AM CDT 10/28/2012 10:42 AM CDT [facility] HISTORICAL RESULTS - 10/28/2012 1:00 PM CDT PT.FASTING 12HR Salvador SUGGS LAB BLOOD ORDERABLES Final Resu lt [facility] [employer] HISTORICAL RESULTS from Last 3 Months or Most Recently Relevant to Health Maintenance Insurance [facility] Care Teams Ancient Art Curator Relationship Specialty Start Date End Date Salvador Byers PA PCP - General Family Medicine 09/29/19
--- OUTSIDE RECORDS SUMMARY | 2024-04-04 08:27 | XMS_ITS | Continuity of Care Document ---
Author Name [facility] Organization [facility] Care Team Providers Care Laborer Operator Name Role Phone [facility] Unavailable Unavailable Problems Combined list of problems from Department of Defense and [facility] Affairs facilities. It does not include entries that were removed or entered in error. Problem Status Onset Date Problem Type Date of Resolution Comments Source AF - Atrial Fibrillation ([facility] [id number]) Active Condition Jun 16, 2022 Entered By: MADONNA HALL Comment: afib/aflutter on [facility] Allergic rhinitis Active Condition [facility] Anticoagulant effect Active Condition [facility] Atrial tachycardia Active Condition [facility] Benign essential hypertension Active Condition [facility] Bipolar disorder in remission Active Condition [facility] Blurring of visual image Active Condition [facility] Chronic low back pain Active Condition [facility] Depressive disorder Active Condition [facility] Dysthymia Active Condition [facility] Exposure to potentially hazardous substance Active Condition [facility] Family history of ischemic heart disease Active Condition Nov 02, 2013 Entered By: BRUNA FIGUEROA Comment: father at age 47 from a MIOct 2013 Entered By: BRUNA FIGUEROA Comment: 11/29/13 Negative stress test [facility] BRICE - Generalized anxiety disorder (SNOMED CT [id number]) Active Condition [facility] Gastroesophageal Reflux Disease Active Condition [facility] Hyperlipidemia Active Condition [facility] Knee pain Active Condition [facility] Major depressive disorder Active Condition [facility] Obesity Active Condition [facility] Partner Relational Problem Active Condition [facility] Proteinuria Active Condition [facility] Therapeutic drug effect Active Condition [facility] Type 2 diabetes mellitus without complication Active Condition [facility] Chest pain Inactive Condition 11/21/2019 [facility] Elevated blood pressure Inactive Condition 11/21/2019 [facility] Impaired fasting glucose Inactive Condition 11/21/2019 [facility] major depression, recurrent in partial remission Active Condition DoD gastroenteritis Active Condition DoD routine history and physical adult (18 - 64 yrs) Inactive Condition DoD marital problem Inactive Condition DoD major depression, recurrent Active Condition DoD conditions influencing health status Active Condition DoD adjustment disorder Active Condition Do D partner relational problem Inactive Condition DoD Guidance: Concerns About Unsafe Sexual Practices Inactive Condition DoD female stress incontinence Active Condition 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 Active Condition DoD urinary tract infection Inactive Condition DoD bleeding during Inactive Condition DoD benign skin neoplasm dermatofibroma Inactive Condition DoD Macules And Papules Inactive Condition D oD neck strain Inactive Condition DoD back strain thoracic Inactive Condition DoD cervicalgia Active Condition DoD warts Inactive Condition DoD Back Muscle Spasm Inactive Condition DoD adjustment disorder with anxiety and depressed mood Active Condition DoD visit for: issue repeat prescription for medication Inactive Condition DoD adjustment disorder with mixed emotional features Active Condition DoD headache Inactive Condition DoD actinic keratosis Inactive Condition DoD constipation Inactive Condition DoD currently nursing Active Condition DoD anxiety Active Condition DoD Cervical Pap Smear Inactive Condition Do D vaginal discharge Active Condition DoD exposure to chicken pox Inactive Condition DoD bacterial vaginosis Inactive Condition D oD visit for: exam high-risk Inactive Condition DoD complications: thyroid dysfunction antepartum condition or prior complicated delivery Active Condition DoD complications: diabetes mellitus Active Condition DoD diabetes mellitus gestational antepartum condition or prior complicated delivery Active Condition DoD PUPP Active Condition DoD diabetes mellitus gestational Active Condition DoD visit: exam high-risk w/ history of pre-term labor Active Condition DoD abdominal pain around the belly button (periumbilical) Active Condition DoD diarrhea Active Condition DoD complication: abnormal glucose tolerance, antepartum condition or prior complicated delivery Active Condition DoD fatigue Active Condition DoD abdominal pain in the right lower belly (RLQ) Active Condition DoD Supervision Of Normal Inactive Condition DoD cervical incompetence (obstetric) - antepart cond or comp Active Condition DoD threatened premature labor Inactive Condition DoD preg threatened rashida labor - antepart cond or prior comp del Inactive Condition DoD visit for: exam high-risk elderly multigravida Inactive Condition DoD visit for: exam high-risk preg from assisted reproductive technology Active Condition DoD hypothyroidism Active Condition DoD visit for: exam high-risk with poor OB history Active Condition DoD elderly multigravida - antepartum condition or complication Active Condition DoD Test Positive Inactive Condition DoD hemorrhoids Active Condition DoD red blood in bowel movement (hematochezia) Inactive Condition DoD bereavement without complications Active Condition DoD multiple gestation Active Condition DoD visit for: screening exam chlamydial infections Active Condition DoD multiple gestation - twins Active Condition DoD multiple gestation - twins - antepartum condition or complic Active Condition DoD Inactive Condition DoD asymptomatic bacteriuria Active Condition DoD herpes zoster (shingles) Active Condition DoD allergic rhinitis Active Condition DoD viral syndrome Inactive Condition DoD obesity Active Condition Patient wa s counseled on the effects of obesity.Patien t advised to exercise 5-7 times a week lasting 30 minutes.Proper nutrition reviewed to facilitate weight loss. DoD non-neoplastic nevus Active Condition reassurance given to patient recomend that continue to follow lesion and f/u ifchanges occur DoD Inquiry And Counseling: Family Planning Active Condition stressed importance of folic acid daily prior to conception: is in [facility]VI DoD routine gynecological exam with cervical pap smear Inactive Condition DoD visit for: screening exam for malignant neoplasm cervix Active Condition DoD Patient Education Inactive Condition DoD Patient Education Dietary Active Condition couselled about diet to decrease cholesterol and increase HDL. Counselling also about Calcium intake, and low fat high fiber diet. DoD visit for: examination Inactive Condition breast exam done - counselling about monthly breast exams given DoD visit for: routine adult H&P Inactive Condition pt will f/u as needed in the futurept plans to get another lipid panel done when she returns from her one year remote tour DoD Preventive Medicine Established Patient Checkup Adult 18-39 Years Inactive Condition DoD Contraceptives Inactive Condition DoD Inquiry And Counseling: Contraceptive Practices Inactive Condition Discussed risks and benefits of Depo shot with pt and she desires the shot. A urine preg test was neg today, however, started period >7 days ago. Consent obtained, script signed, and info given and pt is to rtc on day 1 of next period for shot. Will then DoD visit for: administrative purpose Inactive Condition DoD female infertility Active Condition f /u if no conception within next 6mo after returns from next TDY DoD visit for: services physical Inactive Condition DoD visit for: occupational health / fitness exam Inactive Condition DoD Diagnosis: ICD-10-CM F33.1 Major depressive disorder, recurrent, moderate Active Diagnosis [facility] Diagnosis: ICD-10-CM Z51.81 Encounter for therapeutic drug level monitoring Active Diagnosis [facility] D[facility] Diagnosis: ICD-10-CM F34.1 Dysthymic disorder Active Diagnosis [facility] Diagnosis: ICD-10-CM E11.9 Type 2 diabetes mellitus without complications Active Diagnosis [facility] Diagnosis: ICD-10-CM F41.1 Generalized anxiety disorder Active Diagnosis [facility] Diagnosis: ICD-10-CM F31.9 Bipolar disorder, unspecified Active Diagnosis [facility] Medications Combined list of outpatient medications from Department of Defense and [facility] Affairs facilities.Medications provided include 1) outpatient medications from the last 15 months, and 2) patient-reported medications. Medication Details Route Status Patient Instructions Prescription Expires Prescription Number Last Dispense Date Ordering Provider Order Date Order Qty Source AMOXICILLIN (AMOXICILLI N), 875MG, TABLET, ORAL, [facility], 100 ea. BOTTLE Active [id number] 2023 20 Pharmac y Data Transac tion Service Facilit y AMOXICILLIN (AMOXICILLI N), 875MG, TABLET, ORAL, [facility], 100 ea. BOTTLE Cancele d [id number] : 2023 0 Pharmac y Data Transac tion Service Facilit y ATORVASTATI N CA 80MG TAB TAKE ONE TABLET BY MOUTH EVERY EVENING FOR CHOLESTE ROL. REPORT ANY UNEXPLAI VALERIA MUSCLE PAIN/WEA KNESS TO PROVIDER . ORAL SUSPEND ED 03/01/2025 [id number] 5 HALL,A RMIDA A 2024 90 [facility] ATORVASTATI N CA 80MG TAB TAKE ONE TABLET BY MOUTH EVERY EVENING FOR CHOLESTE ROL. REPORT ANY UNEXPLAI VALERIA MUSCLE PAIN/WEA KNESS TO PROVIDER . ORAL DISCONT INUED 06/11/2024 [id number] 4 HALL,A RMIDA A 2023 90 [facility] ATORVASTATI N CA 80MG TAB TAKE ONE TABLET BY MOUTH EVERY EVENING FOR CHOLESTE ROL. REPORT ANY UNEXPLAI VALERIA MUSCLE PAIN/WEA KNESS TO PROVIDER . ORAL DISCONT INUED 06/17/2023 [id number] 4 HALL,A RMIDA A 2022 90 [facility] CLONAZEPAM 0.5MG TAB TAKE ONE TABLET BY MOUTH ONCE A DAY NEEDED FOR ANXIETY MAY CAUSE DROWSINE SS. DO NOT DRINK ALCOHOL. ORAL ACTIVE 09/23/2024 [id number] ARELIS TILLEY 2024 30 [facility] DABIGATRAN ETEXILATE 150MG CAP,ORAL TAKE ONE CAPSULE BY MOUTH TWICE A DAY TO THIN BLOOD. DO NOT OPEN CAPSULE. SWALLOW WHOLE. DO NOT OPEN PKG UNTIL READY FOR DOSE TO MAINTAIN STABILIT Y. ORAL ACTIVE 09/30/2024 [id number] 5 SANTINO SEGAL 2023 180 [facility] DABIGATRAN ETEXILATE 150MG CAP,ORAL TAKE ONE CAPSULE BY MOUTH TWICE A DAY TO THIN BLOOD. DO NOT OPEN CAPSULE. SWALLOW WHOLE. DO NOT OPEN PKG UNTIL READY FOR DOSE TO MAINTAIN STABILIT Y. ORAL DISCONT INUED 01/21/2024 [id number] SANTINO SEGAL 2022 180 [facility] EMPAGLIFLOZ IN 25MG TAB TAKE ONE TABLET BY MOUTH ONCE A DAY ORAL ACTIVE 03/01/2025 [id number] 5 HALL,A RMIDA A 2024 90 [facility] EMPAGLIFLOZ IN 25MG TAB TAKE ONE TABLET BY MOUTH ONCE A DAY ORAL DISCONT INUED 09/24/2024 [id number] 4 HALL,A RMIDA A 2023 90 [facility] EMPAGLIFLOZ IN 25MG TAB TAKE ONE TABLET BY MOUTH ONCE A DAY ORAL DISCONT INUED 04/21/2024 [id number] Nicole HALL RMIDA A 2023 90 [facility] FERROUS SO4 324MG TAB,EC TAKE ONE TABLET BY MOUTH TWICE A DAY FOR IRON SUPPLEME NTATION ORAL SUSPEND ED 10/04/2024 [id number] HALL,A RMIDA A 2023 200 [facility] FERROUS SO4 325MG TAB TAKE ONE TABLET BY MOUTH TWICE A DAY FOR IRON SUPPLEME NTATION. ORAL DISCONT INUED BY PROVIDE R 10/07/2024 [id number] ME ULISES TTISA 2023 200 [facility] FERROUS SO4 325MG TAB TAKE ONE TABLET BY MOUTH TWICE A DAY FOR IRON SUPPLEME NTATION. ORAL DISCONT INUED 07/29/2023 [id number] ME ULISES TTISA 2022 200 [facility] HYDROXYZINE HCL 10MG TAB TAKE ONE OR TWO TABLETS BY MOUTH AT BEDTIME NEEDED *MAY CAUSE DROWSINE SS* ORAL DISCONT INUED 02/02/2024 [id number] ARELIS TILLEY 2022 60 [facility] HYDROXYZINE HCL 10MG TAB TAKE ONE OR TWO TABLETS BY MOUTH AT BEDTIME NEEDED *MAY CAUSE DROWSINE SS* ORAL 03/12/2024 [id number] ARELIS TILLEY 2023 180 [facility] HYDROXYZINE HCL 10MG TAB TAKE ONE OR TWO TABLETS BY MOUTH AT BEDTIME NEEDED *MAY CAUSE DROWSINE SS* ORAL 12/05/2023 [id number] ARELIS TILLEY 2023 180 [facility] IBUPROFEN (ibuprofen) , 800 MG, TABLET, ORAL, [facility], 500 ea. BOTTLE Active [id number] 2023 28 Pharmac y Data Transac tion Service Facilit y LEVOMILNACI PRAN 120MG CAP,SA TAKE ONE CAPSULE BY MOUTH ONCE A DAY ORAL SUSPEND ED 12/13/2024 [id number] 5 ARELIS TILLEY 2023 90 [facility] LEVOMILNACI PRAN 120MG CAP,SA TAKE ONE CAPSULE BY MOUTH ONCE A DAY ORAL DISCONT INUED 02/02/2024 [id number] ARELIS TILLEY 2022 90 [facility] LISINOPRIL 20MG TAB TAKE ONE-HALF TABLET BY MOUTH ONCE A DAY FOR HEART OR BLOOD PRESSURE ORAL ACTIVE 03/01/2025 [id number] 5 HALL,A RMIDA A 2024 45 [facility] LISINOPRIL 20MG TAB TAKE ONE-HALF TABLET BY MOUTH ONCE A DAY FOR HEART OR BLOOD PRESSURE ORAL DISCONT INUED 06/30/2024 [id number] 4 HALL,A RMIDA A 2023 45 [facility] LISINOPRIL 20MG TAB TAKE ONE-HALF TABLET BY MOUTH ONCE A DAY FOR HEART OR BLOOD PRESSURE ORAL DISCONT INUED 06/17/2023 [id number] HALL,A RMIDA A 2022 45 [facility] LURASIDONE HCL 40MG TAB TAKE ONE TABLET BY MOUTH ONCE A DAY FOR MOOD - TAKE WITH LARGEST MEAL OF THE DAY ORAL ACTIVE 09/06/2024 [id number] 4 ARELIS TILLEY 2023 90 [facility] LURASIDONE HCL 40MG TAB TAKE ONE TABLET BY MOUTH ONCE A DAY FOR MOOD - TAKE WITH LARGEST MEAL OF THE DAY ORAL DISCONT INUED 11/03/2023 [id number] 4 ARELIS TILLEY 2022 90 [facility] METFORMIN HCL 500MG 24HR TAB,SA TAKE TWO TABLETS BY MOUTH TWICE A DAY FOR BLOOD SUGAR CONTROL. TAKE WITH FOOD. AVOID ALCOHOL. DISCONTI NUE BEFORE GETTING XRAY DYE. ORAL DISCONT INUED BY PROVIDE R 06/11/2024 [id number] 4 HALLA RMIDA A 2023 360 [facility] METFORMIN HCL 500MG 24HR TAB,SA TAKE TWO TABLETS BY MOUTH TWICE A DAY FOR BLOOD SUGAR CONTROL. TAKE WITH FOOD. AVOID ALCOHOL. DISCONTI NUE BEFORE GETTING XRAY DYE. ORAL DISCONT INUED BY PROVIDE R 02/09/2024 [id number] 4 HALL,A RMIDA A 2023 360 [facility] METFORMIN HCL 500MG 24HR TAB,SA TAKE TWO TABLETS BY MOUTH TWICE A DAY FOR BLOOD SUGAR CONTROL. TAKE WITH FOOD. AVOID ALCOHOL. DISCONTI NUE BEFORE GETTING XRAY DYE. ORAL DISCONT INUED 06/03/2023 [id number] 3 HALL,A RMIDA A 2022 360 [facility] METHYLPREDN ISOLONE (methylpred nisolone), 4 MG, TAB DS PK, ORAL, [place], 21 ea. DOSE-PACK Active [id number] 2023 21 Pharmac y Data Transac tion Service Facilit y METHYLPREDN ISOLONE (methylpred nisolone), 4 MG, TAB DS PK, ORAL, [place], 21 ea. DOSE-PACK Active [id number] 2023 21 Pharmac y Data Transac tion Service Facilit y METOPROLOL TARTRATE 50MG TAB TAKE ONE-HALF TABLET BY MOUTH TWICE A DAY FOR HEART/BL OOD PRESSURE . TAKE WITH OR IMMEDIAT IDRIS FOLLOWIN G FOOD. ORAL ACTIVE 03/01/2025 [id number] 5 HALL,A RMIDA A 2024 90 [facility] METOPROLOL TARTRATE 50MG TAB TAKE ONE-HALF TABLET BY MOUTH TWICE A DAY FOR HEART/BL OOD PRESSURE . TAKE WITH OR IMMEDIAT IDRIS FOLLOWIN G FOOD. ORAL DISCONT INUED 07/14/2024 [id number] 4 HALL,A RMIDA A 2023 90 [facility] METOPROLOL TARTRATE 50MG TAB TAKE ONE-HALF TABLET BY MOUTH TWICE A DAY FOR HEART/BL OOD PRESSURE . TAKE WITH OR IMMEDIAT IDRIS FOLLOWIN G FOOD. ORAL DISCONT INUED 06/17/2023 [id number] 4 HALL,A RMIDA A 2022 90 [facility] OMEPRAZOLE 40MG CAP,EC TAKE ONE CAPSULE BY MOUTH EVERY MORNING BEFORE A MEAL TO LOWER STOMACH ACID. TAKE 30 MINUTES PRIOR TO FOOD. ORAL ACTIVE 03/01/2025 [id number] 5 HALL,A RMIDA A 2024 90 [facility] OMEPRAZOLE 40MG CAP,EC TAKE ONE CAPSULE BY MOUTH EVERY MORNING BEFORE A MEAL TO LOWER STOMACH ACID. TAKE 30 MINUTES PRIOR TO FOOD. ORAL DISCONT INUED 07/14/2024 [id number] 4 HALL,A RMIDA A 2023 90 [facility] OMEPRAZOLE 40MG CAP,EC TAKE ONE CAPSULE BY MOUTH EVERY MORNING BEFORE A MEAL TO LOWER STOMACH ACID. TAKE 30 MINUTES PRIOR TO FOOD. ORAL DISCONT INUED 06/17/2023 [id number] 4 HALL,A RMIDA A 2022 90 [facility] SEMAGLUTIDE 0.25MG/0.37 5ML INJ,SOLN,PE N,3ML INJECT 0.5MG UNDER THE SKIN EVERY WEEK FOR DIABETES SUBCUT ANEOUS ACTIVE 01/26/2025 [id number] 5 HALL,A RMIDA A 2023 1 [facility] SEMAGLUTIDE 0.25MG/0.37 5ML INJ,SOLN,PE N,3ML INJECT 0.5MG UNDER THE SKIN EVERY WEEK FOR DIABETES SUBCUT ANEOUS DISCONT INUED 08/02/2024 [id number] HALL,A RMIDA A 2023 1 [facility] SEMAGLUTIDE 0.25MG/0.37 5ML INJ,SOLN,PE N,3ML INJECT 0.25MG UNDER THE SKIN EVERY WEEK FOR 4 WEEKS, THEN INJECT 0.5MG EVERY WEEK FOR DIABETES SUBCUT ANEOUS DISCONT INUED 08/02/2024 [id number] HALL,A RMIDA A 2023 1 [facility] TRAMADOL HCL (tramadol HCl), 50 MG, TABLET, ORAL, AMNEAL [facility]ARM[facility], 500 ea. BOTTLE Active [id number] 2023 20 Pharmac y Data Transac tion Service Facilit y Allergies, Adverse Reactions, Alerts Combined list of allergies from Department of Defense and Veterans Affairs facilities. It does not include entries that were removed or entered in error. Substance Category Reaction Severity Reaction type Status Date Reported Comments Source METFORMIN Propensity to adverse reactions to drug (finding) Diarrhea active 4 [facility] NO OUTPUT FOR NCID [id number] Drug allergy (disorder) active 8 [facility] ([facility] Immunizations Combined list of available immunizations from the Department of Defense and Veterans Affairs facilities. Immunization Series Date Given Administered By Site Reaction Lot Number CVX Code Drug Patrol Conductor Status Comments Source TDAP 2021 115 complet ed [facility] HEP B, ADULT 3 2021 NONE 43 complet ed [facility] INFLUENZA, INJECTABLE, QUADRIVALENT, PRESERVATIVE FREE 2021 150 complet ed [facility] COVID-19 (PFIZER), MRNA, LNP-S, PF, 30 MCG/0.3 ML DOSE 2 2020 208 complet ed [facility] COVID-19 (PFIZER), MRNA, LNP-S, PF, 30 MCG/0.3 ML DOSE 1 2020 208 complet ed [facility] HEP B, ADULT 1 2020 NONE 43 complet ed [facility] INFLUENZA, UNSPECIFIED FORMULATION 2019 88 complet ed [facility] influenza, injectable, quadrivalent- pf 2019 150 [employer] complet ed influenza , injectabl e, quadrival ent-pf 12/18/19 Given Ambulat ory Pharmac y INFLUENZA, INJECTABLE, QUADRIVALENT, PRESERVATIVE FREE 4 2019 150 complet ed [facility] influenza, injectable, quadrivalent, preservative free 2019 ALUL, () Not Given influenza , injectabl e, quadrival ent, preservat laurita free DoD influenza, injectable, quadrivalent- pf 2018 150 [employer] ne complet ed influenza , injectabl e, quadrival ent-pf 12/09/18 Given Ambulat ory Pharmac y INFLUENZA, INJECTABLE, QUADRIVALENT, PRESERVATIVE FREE 2018 150 complet ed Partner: [facility]. Administe red by: RADHAMES SILVA (GNA=[phone]). Partner 40 Lot#: [id number] Mfr: GlaxoSmit hKline; Dosage: 0.5 [facility] influenza, injectable, quadrivalent, preservative free 2018 ALUL, () Not Given influenza , injectabl e, quadrival ent, preservat laurita free DoD INFLUENZA, UNSPECIFIED FORMULATION 2018 88 complet ed per [facility] INFLUENZA, INJECTABLE, QUADRIVALENT, PRESERVATIVE FREE 2017 150 complet ed [facility] PNEUMOCOCCAL POLYSACCHARID E PPV23 2017 33 complet ed [facility] INFLUENZA, UNSPECIFIED FORMULATION 2 2017 88 complet ed [facility] INFLUENZA, INJECTABLE, QUADRIVALENT, PRESERVATIVE FREE 2016 150 complet ed [facility] influenza, seasonal, injectable-pf 2015 140 [employer] complet ed influenza , seasonal, injectabl e-pf 02/01/16 Given Ambulat ory Pharmac y Influenza, seasonal, injectable, preservative free 2015 ALUL, () Not Given Influenza , seasonal, injectabl e, preservat laurita free DoD INFLUENZA, SEASONAL, INJECTABLE, PRESERVATIVE FREE 1 2015 140 complet ed [facility] INFLUENZA, UNSPECIFIED FORMULATION 2015 88 complet ed per vet [facility] influenza, injectable, quadrivalent- pf 2014 zzLef t Arm [id number] 150 Gl[employer]SmithK[employer] ne complet ed influenza , injectabl e, quadrival ent-pf 12/17/14 Given Ambulat ory Pharmac y influenza, injectable, quadrivalent- pf 2014 [id number] 150 [employer] complet ed influenza , injectabl e, quadrival ent-pf 12/17/14 Given Ambulat ory Pharmac y INFLUENZA, UNSPECIFIED FORMULATION 2014 88 complet ed [facility] CORCORAN MDSS/SG S R Influenza, injectable, quadrivalent, preservative free 1 2014 Unknown, Provider [id number] 150 [facility] ([facility]) complet ed Influenza , injectabl e, quadrival ent, preservat laurita free DoD INFLUENZA, UNSPECIFIED FORMULATION 2014 88 complet ed Patient is NOT sure if month was November or December. [facility] influenza, live, intranasal,qu adrivalent 2013 [id number] [employer] comple t ed influenza , live, intranasa l,quadriv alent 12/15/13 Given Ambulat ory Pharmac y influenza, live, intranasal,qu adrivalent 2013 [id number] 149 [employer] comple t ed influenza , live, intranasa l,quadriv alent 12/15/13 Given Ambulat ory Pharmac y influenza, live, intranasal, quadrivalent 1 2013 Unknown, Provider [id number] 149 [employer] (MED) complet ed influenza , live, intranasa l, quadrival ent DoD INFLUENZA, UNSPECIFIED FORMULATION 2013 88 complet ed [place] CORCORAN MDSS/SG S R TDAP 2011 115 complet ed [facility] influenza, seasonal, injectable-pf 2010 [id number] 140 sanofi pasteur complet ed influenza , seasonal, injectabl e-pf 11/18/10 Given Ambulat ory Pharmac y influenza, seasonal, injectable-pf 2010 [id number] 140 sanofi pasteur complet ed influenza , seasonal, injectabl e-pf 11/18/10 Given Ambulat ory Pharmac y Influenza, seasonal, injectable, preservative free 22 2010 [id number] 140 Sanofi Pasteur ([facility]) complet ed Influenza , seasonal, injectabl e, preservat laurita free DoD influenza virus vaccine, live 2009 [id number] 111 [employer] comple t ed influenza virus vaccine, live 01/10/10 Given Ambulat ory Pharmac y influenza virus vaccine, live 2009 [id number] 111 [employer] comple t ed influenza virus vaccine, live 01/10/10 Given Ambulat ory Pharmac y influenza virus vaccine, live, attenuated, for intranasal use 1 2009 [id number] 111 [employer] (MED) complet ed influenza virus vaccine, live, attenuate d, for intranasa l use DoD Novel influenza-H1N 1-09, injectable 2009 [id number] 1 127 [employer] complet ed Novel influenza -[id number], injectabl e 03/06/09 Given Ambulat ory Pharmac y Novel influenza-H1N 1-09, injectable 2009 [id number] 1 127 [employer] complet ed Novel influenza -[id number], injectabl e 03/06/09 Given Ambulat ory Pharmac y Novel influenza-H1N 1-09, injectable 1 2009 [id number] 1 127 [employer] Yesenia. (NOV) complet ed Novel influenza -[id number], injectabl e DoD influenza virus vaccine, live 2008 [id number] 111 [employer] Inc complet ed influenza virus vaccine, live 12/13/08 Given Ambulat ory Pharmac y influenza virus vaccine, live, attenuated, for intranasal use 1 2008 [id number] 111 [employer] Inc[employer] (MED) complet ed influenza virus vaccine, live, attenuate d, for intranasa l use DoD influenza virus vaccine, live 2007 [id number] [employer] comple t ed influenza virus vaccine, live 12/22/07 Given Ambulat ory Pharmac y influenza virus vaccine, live 2007 [id number] 111 [employer] comple t ed influenza virus vaccine, live 12/22/07 Given Ambulat ory Pharmac y influenza virus vaccine, live, attenuated, for intranasal use 1 2007 [id number] 111 MedImmune, Inc. (MED) complet ed influenza virus vaccine, live, attenuate d, for intranasa l use DoD hepatitis B adult vaccine 2007 [id number] 43 GlaxoSmithKli ne complet ed hepatitis B adult vaccine 08/31/07 Given Ambulat ory Pharmac y hepatitis B adult vaccine 2007 [id number] 6AA 43 GlaxoSmithKli ne complet ed hepatitis B adult vaccine 08/31/07 Given Ambulat ory Pharmac y hepatitis B vaccine, adult dosage 3 2007 [id number] 6AA 43 SmithKline (SKB) complet ed hepatitis B vaccine, adult dosage DoD anthrax vaccine 2007 [id number] [employer] complet ed anthrax vaccine 03/26/07 Given Ambulat ory Pharmac y hepatitis B adult vaccine 2007 [id number] 3BA 43 GlaxoSmithKli ne complet ed hepatitis B adult vaccine 03/26/07 Given Ambulat ory Pharmac y anthrax vaccine 2007 [id number] [employer] complet ed anthrax vaccine 03/26/07 Given Ambulat ory Pharmac y anthrax vaccine 4 2007 [id number] 24 [employer] [place] (MIP) complet ed anthrax vaccine DoD hepatitis B vaccine, adult dosage 0 2007 [id number] 43 SmithKline (SKB) complet ed hepatitis B vaccine, adult dosage DoD hepatitis B adult vaccine 2006 [id number] 3AA 43 GlaxoSmithKli ne complet ed hepatitis B adult vaccine 01/25/07 Given Ambulat ory Pharmac y hepatitis B adult vaccine 2006 [id number] 3AA 43 GlaxoSmithKli ne complet ed hepatitis B adult vaccine 01/25/07 Given Ambulat ory Pharmac y hepatitis B vaccine, adult dosage 1 2006 [id number] 3AA 43 SmithKline (SKB) complet ed hepatitis B vaccine, adult dosage DoD influenza virus vaccine, live 2006 [id number] 111 [employer] comple t ed influenza virus vaccine, live 01/17/07 Given Ambulat ory Pharmac y influenza virus vaccine, live 2006 [id number] 111 [employer] comple t ed influenza virus vaccine, live 01/17/07 Given Ambulat ory Pharmac y influenza virus vaccine, live, attenuated, for intranasal use 0 2006 [id number] 111 [employer] (MED) complet ed influenza virus vaccine, live, attenuate d, for intranasa l use DoD anthrax vaccine 2006 [id number] [employer] complet ed anthrax vaccine 10/12/06 Given Ambulat ory Pharmac y anthrax vaccine 2006 [id number] [employer] complet ed anthrax vaccine 10/12/06 Given Ambulat ory Pharmac y anthrax vaccine 3 2006 [id number] 24 [employer] [place] ([place]) complet ed anthrax vaccine DoD anthrax vaccine 2006 [id number] 24 [employer] complet ed anthrax vaccine 09/27/06 Given Ambulat ory Pharmac y anthrax vaccine 2 2006 [id number] 24 [employer] [place] (MIP) complet ed anthrax vaccine DoD anthrax vaccine 2006 [id number] 24 [employer] complet ed anthrax vaccine 09/11/06 Given Ambulat ory Pharmac y anthrax vaccine 2006 [id number] 24 [employer] complet ed anthrax vaccine 09/11/06 Given Ambulat ory Pharmac y anthrax vaccine 1 2006 [id number] 24 [employer] [place] ([place]) complet ed anthrax vaccine DoD typhoid vaccine, parenteral 2006 [id number] 41 sanofi pasteur complet ed typhoid vaccine, parentera l 05/19/06 Given Ambulat ory Pharmac y typhoid vaccine, parenteral 2006 [id number] 41 sanofi pasteur complet ed typhoid vaccine, parentera l 05/19/06 Given Ambulat ory Pharmac y typhoid vaccine, parenteral, other than acetone-kille d, dried 1 2006 [id number] 41 Sanofi Pasteur ([facility]) complet ed typhoid vaccine, parentera l, other than acetone-k illed, dried [facility] influenza virus vaccine,split 2005 [id number] 15 GlaxoSmithKli ne complet ed influenza virus vaccine,s plit 02/05/06 Given Ambulat ory Pharmac y influenza virus vaccine,split 2005 [id number] 15 GlaxoSmithKli ne complet ed influenza virus vaccine,s plit 02/05/06 Given Ambulat ory Pharmac y influenza virus vaccine, split virus (incl. purified surface antigen)-reti red CODE 1 2005 [id number] 4AA 15 [employer] (SKB) complet ed influenza virus vaccine, split virus (incl. purified surface antigen)- retired CODE DoD influenza virus vaccine,split 2004 [id number] 15 sanofi pasteur complet ed influenza virus vaccine,s plit 01/07/05 Given Ambulat ory Pharmac y influenza virus vaccine,split 2004 [id number] 15 sanofi pasteur complet ed influenza virus vaccine,s plit 01/07/05 Given Ambulat ory Pharmac y influenza virus vaccine, split virus (incl. purified surface antigen)-reti red CODE 1 2004 [id number] 15 Sanofi Pasteur ([facility]) complet ed influenza virus vaccine, split virus (incl. purified surface antigen)- retired CODE DoD vaccinia (smallpox) vaccine 2003 [id number] complet ed vaccinia (smallpox ) vaccine 02/11/04 Given Ambulat ory Pharmac y typhoid vaccine, parenteral 2003 [id number] 41 sanofi pasteur complet ed typhoid vaccine, parentera l 02/11/04 Given Ambulat ory Pharmac y influenza virus vaccine,split 2003 [id number] 15 sanofi pasteur complet ed influenza virus vaccine,s plit 02/11/04 Given Ambulat ory Pharmac y influenza virus vaccine,split 2003 [id number] 15 sanofi pasteur complet ed influenza virus vaccine,s plit 02/11/04 Given Ambulat ory Pharmac y vaccinia (smallpox) vaccine 2003 [id number] complet ed vaccinia (smallpox ) vaccine 02/11/04 Given Ambulat ory Pharmac y influenza virus vaccine, split virus (incl. purified surface antigen)-reti red CODE 0 2003 [id number] 15 Sanofi Pasteur ([facility]) complet ed influenza virus vaccine, split virus (incl. purified surface antigen)- retired CODE DoD typhoid vaccine, parenteral, other than acetone-kille d, dried 0 2003 [id number] 41 Sanofi Pasteur ([facility]) complet ed typhoid vaccine, parentera l, other than acetone-k illed, dried DoD vaccinia (smallpox) vaccine 0 2003 [id number] 75 [facility] ([facility]) complet ed vaccinia (smallpox ) vaccine DoD tuberculin purified protein derivative 2003 zzLef t Arm [id number] sanofi pasteur complet ed Patient Tolerance : Negative Ambulat ory Pharmac y tuberculin purified protein derivative 2003 [id number] 96 sanofi pasteur complet ed tuberculi n purified protein derivativ e 07/24/03 Given Ambulat ory Pharmac y tuberculin skin test; purified protein derivative solution, intradermal 1 2003 Unknown, Provider [id number] 96 Sanofi Pasteur ([facility]) complet ed tuberculi n skin test; purified protein derivativ e solution, intraderm al DoD influenza virus vaccine,split 2002 [id number] 15 [employer] complet ed influenza virus vaccine,s plit 12/27/02 Given Ambulat ory Pharmac y influenza virus vaccine, whole virus 2002 [id number] 16 [employer] complet ed influenza virus vaccine, whole virus 12/27/02 Given Ambulat ory Pharmac y influenza virus vaccine,split 2002 [id number] 15 [employer] complet ed influenza virus vaccine,s plit 12/27/02 Given Ambulat ory Pharmac y influenza virus vaccine, whole virus 2002 [id number] 16 [employer] complet ed influenza virus vaccine, whole virus 12/27/02 Given Ambulat ory Pharmac y influenza virus vaccine, split virus (incl. purified surface antigen)-reti red CODE 0 2002 [id number] 15 [employer] (PWJ) complet ed influenza virus vaccine, split virus (incl. purified surface antigen)- retired CODE DoD influenza virus vaccine, whole virus 0 2002 [id number] 16 [employer] (PWJ) complet ed influenza virus vaccine, whole virus DoD yellow fever vaccine 2001 [id number] sanofi pasteur complet ed yellow fever vaccine 01/05/02 Given Ambulat ory Pharmac y influenza virus vaccine, whole virus 2001 [id number] 16 [facility] complet ed influenza virus vaccine, whole virus 01/05/02 Given Ambulat ory Pharmac y influenza virus vaccine,split [id number] [facility] complet ed influenza virus vaccine,s plit 01/05/02 Given Ambulat ory Pharmac y tetanus-dipht h toxoids (Td) adult/adol 2001 [id number] 09 sanofi pasteur complet ed tetanus-d iphth toxoids (Td) adult/ado l 01/05/02 Given Ambulat ory Pharmac y yellow fever vaccine 2001 [id number] 37 sanofi pasteur complet ed yellow fever vaccine 01/05/02 Given Ambulat ory Pharmac y tetanus-dipht h toxoids (Td) adult/adol 2001 [id number] 09 sanofi pasteur complet ed tetanus-d iphth toxoids (Td) adult/ado l 01/05/02 Given Ambulat ory Pharmac y influenza virus vaccine, whole virus 2001 [id number] 16 [facility] complet ed influenza virus vaccine, whole virus 01/05/02 Given Ambulat ory Pharmac y influenza virus vaccine,split 2001 [id number] 15 [employer] complet ed influenza virus vaccine,s plit 01/05/02 Given Ambulat ory Pharmac y tetanus and diphtheria toxoids, adsorbed, preservative free, for adult use (2 Lf of tetanus toxoid and 2 Lf of diphtheria toxoid) 0 2001 [id number] 09 Sanofi Pasteur ([facility]) complet ed tetanus and diphtheri a toxoids, adsorbed, preservat laruita free, for adult use (2 Lf of tetanus toxoid and 2 Lf of diphtheri a toxoid) DoD influenza virus vaccine, split virus (incl. purified surface antigen)-reti red CODE 0 2001 [id number] 15 [employer] ([place]) complet ed influenza virus vaccine, split virus (incl. purified surface antigen)- retired CODE DoD influenza virus vaccine, whole virus 0 2001 [id number] 16 [employer] ([place]) complet ed influenza virus vaccine, whole virus DoD yellow fever vaccine 0 2001 [id number] 37 Sanofi Pasteur ([facility]) complet ed yellow fever vaccine DoD influenza virus vaccine, whole virus 2000 [id number] 16 sanofi pasteur complet ed influenza virus vaccine, whole virus 12/29/00 Given Ambulat ory Pharmac y influenza virus vaccine,split 2000 [id number] 15 sanofi pasteur complet ed influenza virus vaccine,s plit 12/29/00 Given Ambulat ory Pharmac y influenza virus vaccine,split 2000 [id number] 15 sanofi pasteur complet ed influenza virus vaccine,s plit 12/29/00 Given Ambulat ory Pharmac y influenza virus vaccine, whole virus 2000 [id number] 16 sanofi pasteur complet ed influenza virus vaccine, whole virus 12/29/00 Given Ambulat ory Pharmac y influenza virus vaccine, split virus (incl. purified surface antigen)-reti red CODE 0 2000 [id number] 15 Sanofi Pasteur ([facility]) complet ed influenza virus vaccine, split virus (incl. purified surface antigen)- retired CODE DoD influenza virus vaccine, whole virus 0 2000 [id number] 16 Sanofi Pasteur ([facility]) complet ed influenza virus vaccine, whole virus DoD typhoid Vi capsular polysaccharid e vac 2000 101 complet ed typhoid Vi capsular polysacch aride vac 11/29/00 Given Ambulat ory Pharmac y meningococcal polysaccharid e (MPSV4) 2000 32 complet ed meningoco ccal polysacch aride (MPSV4) 11/29/00 Given Ambulat ory Pharmac y typhoid Vi capsular polysaccharid e vac 2000 101 complet ed typhoid Vi capsular polysacch aride vac 11/29/00 Given Ambulat ory Pharmac y meningococcal polysaccharid e (MPSV4) 2000 32 complet ed meningoco ccal polysacch aride (MPSV4) 11/29/00 Given Ambulat ory Pharmac y meningococcal polysaccharid e vaccine (MPSV4) 0 2000 32 () complet ed meningoco ccal polysacch aride vaccine (MPSV4) DoD typhoid Vi capsular polysaccharid e vaccine 0 2000 101 () complet ed typhoid Vi capsular polysacch aride vaccine DoD tuberculin purified protein derivative 2000 zzLef t Arm 96 complet ed Patient Tolerance : Negative Ambulat ory Pharmac y tuberculin purified protein derivative 2000 96 complet ed tuberculi n purified protein derivativ e 06/08/00 Given Ambulat ory Pharmac y varicella virus vaccine 1 2000 21 () Not Given varicella virus vaccine DoD tuberculin skin test; purified protein derivative solution, intradermal 1 2000 Unknown, Provider 96 () complet ed tuberculi n skin test; purified protein derivativ e solution, intraderm al DoD influenza virus vaccine,split [id number] [facility] complet ed influenza virus vaccine,s plit 04/09/00 Given Ambulat ory Pharmac y influenza virus vaccine, whole virus [id number] [facility] complet ed influenza virus vaccine, whole virus 04/09/00 Given Ambulat ory Pharmac y influenza virus vaccine, whole virus [id number] [facility] complet ed influenza virus vaccine, whole virus 04/09/00 Given Ambulat ory Pharmac y influenza virus vaccine,split [id number] [facility] complet ed influenza virus vaccine,s plit 04/09/00 Given Ambulat ory Pharmac y influenza virus vaccine, split virus (incl. purified surface antigen)-reti red CODE 0 2000 [id number] 15 [facility] ([place]) complet ed influenza virus vaccine, split virus (incl. purified surface antigen)- retired CODE DoD influenza virus vaccine, whole virus 0 2000 [id number] 16 [facility] ([place]) complet ed influenza virus vaccine, whole virus DoD tuberculin purified protein derivative 1999 2501-11 96 [facility] complet ed Patient Tolerance : Negative Ambulat ory Pharmac y tuberculin skin test; purified protein derivative solution, intradermal 1 1999 Unknown, Provider 2501-11 96 [facility] ([facility]) complet ed tuberculi n skin test; purified protein derivativ e solution, intraderm al [facility] tuberculin purified protein derivative 1999 2501-11 96 [facility] complet ed tuberculi n purified protein derivativ e 04/04/99 Given Ambulat ory Pharmac y tuberculin purified protein derivative 1999 2501-11 96 [facility] complet ed tuberculi n purified protein derivativ e 03/12/99 Given Ambulat ory Pharmac y influenza virus vaccine, whole virus [id number] 16 [facility] complet ed influenza virus vaccine, whole virus 12/06/98 Given Ambulat ory Pharmac y influenza virus vaccine,split 19980401 [id number] 15 [facility] complet ed influenza virus vaccine,s plit 12/06/98 Given Ambulat ory Pharmac y influenza virus vaccine,split 19985403 [id number] 15 [facility] complet ed influenza virus vaccine,s plit 12/06/98 Given Ambulat ory Pharmac y influenza virus vaccine, whole virus 19980796 [id number] 16 [facility] complet ed influenza virus vaccine, whole virus 12/06/98 Given Ambulat ory Pharmac y influenza virus vaccine, split virus (incl. purified surface antigen)-reti red CODE 0 [id number] [id number] [facility] virus vaccine, split virus (incl. purified surface antigen)- retired CODE DoD influenza virus vaccine, whole virus 0 19988519 [id number] 16 [facility] influenza virus vaccine, whole virus DoD influenza virus vaccine, whole virus 19978625 [id number] 16 [facility] complet ed influenza virus vaccine, whole virus 12/13/97 Given Ambulat ory Pharmac y influenza virus vaccine,split 19978506 [id number] 15 [facility] complet ed influenza virus vaccine,s plit 12/13/97 Given Ambulat ory Pharmac y influenza virus vaccine, whole virus 19977479 [id number] 16 [facility] complet ed influenza virus vaccine, whole virus 12/13/97 Given Ambulat ory Pharmac y influenza virus vaccine,split 19971385 [id number] 15 [facility] complet ed influenza virus vaccine,s plit 12/13/97 Given Ambulat ory Pharmac y influenza virus vaccine, split virus (incl. purified surface antigen)-reti red CODE 0 19971408 [id number] 15 [facility] influenza virus vaccine, split virus (incl. purified surface antigen)- retired CODE DoD influenza virus vaccine, whole virus 0 19977988 [id number] 16 [facility] influenza virus vaccine, whole virus DoD influenza virus vaccine,split 19969569 [id number] 15 [employer] complet ed influenza virus vaccine,s plit 12/12/96 Given Ambulat ory Pharmac y influenza virus vaccine, whole virus 19961368 4403813 16 [employer] complet ed influenza virus vaccine, whole virus 12/12/96 Given Ambulat ory Pharmac y influenza virus vaccine, whole virus 19961474 5112560 16 [employer] complet ed influenza virus vaccine, whole virus 12/12/96 Given Ambulat ory Pharmac y influenza virus vaccine,split 19962699 7783870 15 [employer] complet ed influenza virus vaccine,s plit 12/12/96 Given Ambulat ory Pharmac y influenza virus vaccine, split virus (incl. purified surface antigen)-reti red CODE 0 19967957 [id number] 15 [employer] (Inactive) ([place]) complet ed influenza virus vaccine, split virus (incl. purified surface antigen)- retired CODE DoD influenza virus vaccine, whole virus 0 19969209 [id number] 16 [employer] ([place]active[place] ([place] complet ed influenza virus vaccine, whole virus DoD hepatitis A adult vaccine 19957459 [id number] 52 [employer] complet ed hepatitis A adult vaccine 02/01/96 Given Ambulat ory Pharmac y hepatitis A adult vaccine 19951577 7805877 52 [employer] complet ed hepatitis A adult vaccine 02/01/96 Given Ambulat ory Pharmac y hepatitis A vaccine, adult dosage 2 19958899 9811330 52 [employer] (Inactive) ([place]) complet ed hepatitis A vaccine, adult dosage DoD typhoid, parenteral, AKD 19959081 9469020 53 [employer] complet ed typhoid, parentera l, AKD 04/28/95 Given Ambulat ory Pharmac y hepatitis A adult vaccine 1995 52 complet ed hepatitis A adult vaccine 04/28/95 Given Ambulat ory Pharmac y typhoid, parenteral, AKD 19950363 [id number] 53 [employer] complet ed typhoid, parentera l, AKD 04/28/95 Given Ambulat ory Pharmac y hepatitis A adult vaccine 1995 52 complet ed hepatitis A adult vaccine 04/28/95 Given Ambulat ory Pharmac y hepatitis A vaccine, adult dosage 1 1995 52 () complet ed hepatitis A vaccine, adult dosage DoD typhoid vaccine, parenteral, acetone-kille d, dried ([place] ) 2 [id number] [id number] 53 [employer] (Inactive[place] ([place]) complet ed typhoid vaccine, parentera l, acetone-k illed, dried ([place] ) DoD yellow fever vaccine 19924579 2146966 37 [employer] complet ed yellow fever vaccine 1/5/93 Given Ambulat ory Pharmac y yellow fever vaccine 0 19928710 [id number] 37 [employer]-Ayerst (Inactive) ([place]) complet ed yellow fever vaccine DoD tetanus-dipht h toxoids (Td) adult/adol 1991 09 complet ed tetanus-d iphth toxoids (Td) adult/ado l 11/21/91 Given Ambulat ory Pharmac y poliovirus vaccine, live, oral 1991 02 complet ed polioviru s vaccine, live, oral 11/21/91 Given Ambulat ory Pharmac y poliovirus vaccine, live, oral 1991 02 complet ed polioviru s vaccine, live, oral 11/21/91 Given Ambulat ory Pharmac y tetanus-dipht h toxoids (Td) adult/adol 1991 09 complet ed tetanus-d iphth toxoids (Td) adult/ado l 11/21/91 Given Ambulat ory Pharmac y trivalent poliovirus vaccine, live, oral 0 1991 02 () complet ed trivalent polioviru s vaccine, live, oral DoD measles, mumps and rubella virus vaccine 0 1991 [id number] Merck (MSD) Not Given measles, mumps and rubella virus vaccine DoD tetanus and diphtheria toxoids, adsorbed, preservative free, for adult use (2 Lf of tetanus toxoid and 2 Lf of diphtheria toxoid) 0 1991 09 () complet ed tetanus and diphtheri a toxoids, adsorbed, preservat laurita free, for adult use (2 Lf of tetanus toxoid and 2 Lf of diphtheri a toxoid) DoD Results Combined list of recent chemistry, hematology and other laboratory results from [facility] and [facility], ranging from 15 months to all on record, depending upon the facility. Order Name Results Value Reference Range Date Interpretation Specimen Comments Source BASIC METABOLIC PANEL CREATININE [MASS/VOLUM E] IN SERUM OR PLASMA 0.87 mg/dL 0.6 - 1.1 02/01 Specimen Type: PLASMA Comment: No hemolysis noted. Ordering Provider: SARTHAK HALL Report Released Date/Time: Jan 26, 2024 08:40 AM Reporting Lab: [facility] [address] [facility] [address] Performing Lab: [facility] [address] [phone] [facility] BASIC METABOLIC PANEL UREA NITROGEN [MASS/VOLUM E] IN SERUM OR PLASMA 15.4 mg/dL 9.0 - 25.0 02/01 Specimen Type: PLASMA Comment: No hemolysis noted. Ordering Provider: SARTHAK HALL Report Released Date/Time: Jan 26, 2024 08:40 AM Reporting Lab: [facility] [address] [address] Performing Lab: [facility] [address] [place] [phone] [facility] BASIC METABOLIC PANEL GLUCOSE [MASS/VOLUM E] IN SERUM OR PLASMA 104 mg/dL 72 - 99 02/01 H Specimen Type: PLASMA Comment: No hemolysis noted. Ordering Provider: SARTHAK HALL Report Released Date/Time: Jan 26, 2024 08:40 AM Reporting Lab: [facility] [address] [place] [phone] Performing Lab: [facility] [address] [facility] [phone] [facility] BASIC METABOLIC PANEL SODIUM [MOLES/VOLU ME] IN SERUM OR PLASMA 140 meq/L 136 - 145 02/01 Specimen Type: PLASMA Comment: No hemolysis noted. Ordering Provider: SARTHAK HALL Report Released Date/Time: Jan 26, 2024 08:40 AM Reporting Lab: [facility] [address] [facility] [phone] Performing Lab: [facility] [address] [facility] [address] [facility] BASIC METABOLIC PANEL POTASSIUM [MOLES/VOLU ME] IN SERUM OR PLASMA 4.6 meq/L 3.5 - 5 02/01 Specimen Type: PLASMA Comment: No hemolysis noted. Ordering Provider: SARTHAK HALL Report Released Date/Time: Jan 26, 2024 08:40 AM Reporting Lab: [facility] [address] [facility] [phone] Performing Lab: [facility] [address] [address] [facility] BASIC METABOLIC PANEL CHLORIDE [MOLES/VOLU ME] IN SERUM OR PLASMA 106 meq/L 98 - 107 02/01 Specimen Type: PLASMA Comment: No hemolysis noted. Ordering Provider: SARTHAK HALL Report Released Date/Time: Jan 26, 2024 08:40 AM Reporting Lab: [facility] [address] [facility] [phone] Performing Lab: [facility] [address] [address] [facility] BASIC METABOLIC PANEL CARBON DIOXIDE, TOTAL [MOLES/VOLU ME] IN SERUM OR PLASMA 22 meq/L 22 - 31 02/01 Specimen Type: PLASMA Comment: No hemolysis noted. Ordering Provider: SARTHAK HALL A Report Released Date/Time: Jan 26, 2024 08:40 AM Reporting Lab: [facility] [address] [facility] [address] Performing Lab: [facility] [address] [facility] [facility] [phone] [facility] BASIC METABOLIC PANEL CALCIUM [MASS/VOLUM E] IN SERUM OR PLASMA 10.1 mg/dL 8.4 - 10.4 02/01 Specimen Type: PLASMA Comment: No hemolysis noted. Ordering Provider: SARTHAK HALL Report Released Date/Time: Jan 26, 2024 08:40 AM Reporting Lab: [facility] [address] [facility] [facility] [address] Performing Lab: [facility] [address] [facility] [facility] [address] [facility] BASIC METABOLIC PANEL GLOMERULAR FILTRATION RATE/1.73 SQ M.PREDICTED [VOLUME RATE/AREA] IN SERUM, PLASMA OR BLOOD BY CREATININE- BASED FORMULA (CKD-EPI 2020) 81.1 60 02/01 Specimen Type: PLASMA Comment: No hemolysis noted. Ordering Provider: SARTHAK HALL A Report Released Date/Time: Jan 26, 2024 08:40 AM Reporting Lab: [facility] [address] [place] [phone] Performing Lab: [facility] [address] [place] [phone] [facility] CBC LEUKOCYTES [#/VOLUME] IN BLOOD BY AUTOMATED COUNT 6.9 10*3/u L 3.6 - 11.2 02/01 Specimen Type: BLOOD No comment entered. Ordering Provider: SARTHAK HALL A Report Released Date/Time: Jan 26, 2024 08:40 AM Reporting Lab: [facility] [address] [place] [phone] Performing Lab: [facility] [address] [place] [phone] [place] [address] CBC ERYTHROCYTE S [#/VOLUME] IN BLOOD BY AUTOMATED COUNT 5.19 10*6/u L 3.60 - 5.00 02/01 H Specimen Type: BLOOD No comment entered. Ordering Provider: SARTHAK HALL A Report Released Date/Time: Jan 26, 2024 08:40 AM Reporting Lab: [facility] [address] [place] [phone] Performing Lab: [address] [phone] [place] [address] CBC HEMOGLOBIN [MASS/VOLUM E] IN BLOOD 15.4 g/dL 11.0 - 14.9 02/01 H Specimen Type: BLOOD No comment entered. Ordering Provider: SARTHAK HALL A Report Released Date/Time: Jan 26, 2024 08:40 AM Reporting Lab: [facility] [address] [place] [phone] Performing Lab: [facility] [address] [place] [phone] [facility] CBC HEMATOCRIT [VOLUME FRACTION] OF BLOOD 46.5 32.6 - 43.4 02/01 H Specimen Type: BLOOD No comment entered. Ordering Provider: SARTHAK HALL A Report Released Date/Time: Jan 26, 2024 08:40 AM Reporting Lab: [facility] [address] [place] [phone] Performing Lab: [facility] [address] [place] [phone] [facility] CBC MCV [ENTITIC VOLUME] BY AUTOMATED COUNT 89.6 fL 80.0 - 100.0 02/01 Specimen Type: BLOOD No comment entered. Ordering Provider: SARTHAK HALL A Report Released Date/Time: Jan 26, 2024 08:40 AM Reporting Lab: [facility] [address] [place] [phone] Performing Lab: [facility] [address] [place] [phone] [place] [address] CBC MCH [ENTITIC MASS] BY AUTOMATED COUNT 29.7 pg 27.0 - 34.0 02/01 Specimen Type: BLOOD No comment entered. Ordering Provider: SARTHAK HALL A Report Released Date/Time: Jan 26, 2024 08:40 AM Reporting Lab: [facility] [address] [place] [phone] Performing Lab: [facility] [address] [place] [phone] [place] [address] CBC MCHC [MASS/VOLUM E] BY AUTOMATED COUNT 33.1 g/dL 33.0 - 36.0 02/01 Specimen Type: BLOOD No comment entered. Ordering Provider: SARTHAK HALL A Report Released Date/Time: Jan 26, 2024 08:40 AM Reporting Lab: [facility] [address] [place] [phone] Performing Lab: [facility] [address] [place] [phone] [facility] CBC PLATELETS [#/VOLUME] IN BLOOD BY AUTOMATED COUNT 253 10*3/u L 150 - 400 02/01 Specimen Type: BLOOD No comment entered. Ordering Provider: SARTHAK HALL A Report Released Date/Time: Jan 26, 2024 08:40 AM Reporting Lab: [facility] [address] [facility] [phone] Performing Lab: [facility] [address] [place] [phone] [facility] CBC PLATELET MEAN VOLUME [ENTITIC VOLUME] IN BLOOD BY AUTOMATED COUNT 10.6 fL 7.5 - 11.2 02/01 Specimen Type: BLOOD No comment entered. Ordering Provider: SARTHAK HALL A Report Released Date/Time: Jan 26, 2024 08:40 AM Reporting Lab: [facility] [address] [facility] [phone] Performing Lab: [facility] [address] [place] [phone] [facility] CBC ERYTHROCYTE DISTRIBUTIO N WIDTH [RATIO] BY AUTOMATED COUNT 11.8 11.8 - 15.1 02/01 Specimen Type: BLOOD No comment entered. Ordering Provider: SARTHAK HALL A Report Released Date/Time: Jan 26, 2024 08:40 AM Reporting Lab: [facility] [address] [facility] [phone] Performing Lab: [facility] [address] [facility] [phone] [facility] CBC LYMPHOCYTES /100 LEUKOCYTES IN BLOOD BY AUTOMATED COUNT 23 02/01 Specimen Type: BLOOD No comment entered. Ordering Provider: SARTHAK HALL A Report Released Date/Time: Jan 26, 2024 08:40 AM Reporting Lab: [facility] [address] [facility] [phone] Performing Lab: [facility] [address] [facility] [phone] [facility] CBC MONOCYTES/1 00 LEUKOCYTES IN BLOOD BY AUTOMATED COUNT 5 02/01 Specimen Type: BLOOD No comment entered. Ordering Provider: SARTHAK HALL A Report Released Date/Time: Jan 26, 2024 08:40 AM Reporting Lab: [facility] [address] [place] [phone] Performing Lab: [facility] [address] [facility] [phone] [facility] CBC NEUTROPHILS /100 LEUKOCYTES IN BLOOD BY AUTOMATED COUNT 68 02/01 Specimen Type: BLOOD No comment entered. Ordering Provider: SARTHAK HALL Report Released Date/Time: Jan 26, 2024 08:40 AM Reporting Lab: [facility] [address] [facility] [phone] Performing Lab: [facility] [address] [place] [phone] [facility] CBC EOSINOPHILS /100 LEUKOCYTES IN BLOOD BY AUTOMATED COUNT 3 02/01 Specimen Type: BLOOD No comment entered. Ordering Provider: SARTHAK HALL A Report Released Date/Time: Jan 26, 2024 08:40 AM Reporting Lab: [facility] [address] [place] [phone] Performing Lab: [facility] [address] [facility] [phone] [facility] CBC BASOPHILS/1 00 LEUKOCYTES IN BLOOD BY AUTOMATED COUNT 1 02/01 Specimen Type: BLOOD No comment entered. Ordering Provider: SARTHAK HALL A Report Released Date/Time: Jan 26, 2024 08:40 AM Reporting Lab: [facility] [address] [place] [phone] Performing Lab: [facility] [address] [facility] [phone] [facility] CBC LYMPHOCYTES [#/VOLUME] IN BLOOD BY AUTOMATED COUNT 1.60 10*3/u L 0.77 - 4.50 02/01 Specimen Type: BLOOD No comment entered. Ordering Provider: SARTHAK HALL Report Released Date/Time: Jan 26, 2024 08:40 AM Reporting Lab: [facility] [address] [place] [phone] Performing Lab: [facility] [address] [place] [phone] [place] [address] CBC MONOCYTES [#/VOLUME] IN BLOOD BY AUTOMATED COUNT 0.31 10*3/u L 0.19 - 0.80 02/01 Specimen Type: BLOOD No comment entered. Ordering Provider: SARTHAK HALL A Report Released Date/Time: Jan 26, 2024 08:40 AM Reporting Lab: [address] [phone] Performing Lab: [address] [phone] [place] [address] CBC NEUTROPHILS [#/VOLUME] IN BLOOD BY AUTOMATED COUNT 4.70 10*3/u L 2.10 - 8.00 02/01 Specimen Type: BLOOD No comment entered. Ordering Provider: SARTHAK HALL A Report Released Date/Time: Jan 26, 2024 08:40 AM Reporting Lab: [address] [phone] Performing Lab: [facility] [address] [place] [phone] [place] [address] CBC EOSINOPHILS [#/VOLUME] IN BLOOD BY AUTOMATED COUNT 0.23 10*3/u L 0.00 - 0.60 02/01 Specimen Type: BLOOD No comment entered. Ordering Provider: SARTHAK HALL A Report Released Date/Time: Jan 26, 2024 08:40 AM Reporting Lab: [facility] [address] [place] [phone] Performing Lab: [facility] [address] [place] [phone] [facility] CBC BASOPHILS [#/VOLUME] IN BLOOD BY AUTOMATED COUNT 0.05 10*3/u L 0.00 - 0.20 02/01 Specimen Type: BLOOD No comment entered. Ordering Provider: SARTHAK HALL A Report Released Date/Time: Jan 26, 2024 08:40 AM Reporting Lab: [facility] [address] [place] [phone] Performing Lab: [place] [address] [facility] [phone] [facility] HGA1C HEMOGLOBIN A1C/HEMOGLO BIN.TOTAL IN BLOOD 6.1 4.0 - 6.0 02/01 H Specimen Type: BLOOD No comment entered. Ordering Provider: SARTHAK HALL Report Released Date/Time: Jan 26, 2024 08:40 AM Reporting Lab: [facility] [address] [place] [phone] Performing Lab: [facility] [address] [place] [phone] [facility] LIPID PANEL (STL) CHOLESTEROL [MASS/VOLUM E] IN SERUM OR PLASMA 155 mg/dL 0 - 200 02/01 Specimen Type: PLASMA Comment: No hemolysis noted. Ordering Provider: SARTHAK HALL A Report Released Date/Time: Jan 26, 2024 08:40 AM Reporting Lab: [facility] [address] [place] [phone] Performing Lab: [facility] [address] [place] [phone] [facility] LIPID PANEL (STL) TRIGLYCERID E [MASS/VOLUM E] IN SERUM OR PLASMA 163 mg/dL 0 - 150 02/01 H Specimen Type: PLASMA Comment: No hemolysis noted. Ordering Provider: SARTHAK HALL A Report Released Date/Time: Jan 26, 2024 08:40 AM Reporting Lab: [facility] [address] [place] [phone] Performing Lab: [facility] [address] [place] [phone] [facility] LIPID PANEL (STL) CHOLESTEROL IN LDL [MASS/VOLUM E] IN SERUM OR PLASMA BY CALCULATION 74 mg/dL 02/01 Specimen Type: PLASMA Comment: No hemolysis noted. Ordering Provider: SARTHAK HALL Report Released Date/Time: Jan 26, 2024 08:40 AM Reporting Lab: [facility] [address] [place] [phone] Performing Lab: [facility] [address] [facility] [phone] [place] [address] LIPID PANEL (STL) CHOLESTEROL IN HDL [MASS/VOLUM E] IN SERUM OR PLASMA 48 mg/dL 40 02/01 Specimen Type: PLASMA Comment: No hemolysis noted. Ordering Provider: SARTHAK HALL Report Released Date/Time: Jan 26, 2024 08:40 AM Reporting Lab: [facility] [address] [place] [phone] Performing Lab: [address] [phone] [place] [address] MICRAL/CR EAT PROFILE (STL) ALBUMIN [MASS/VOLUM E] IN URINE <5.0mg /L 02/01 Specimen Type: URINE Comment: uALB/CREAT Ratio Unable to be calculated Unable to calculate due to Microalbumi n < 5.0 mg/L Ordering Provider: SARTHAK HALL Report Released Date/Time: Jan 26, 2024 08:40 AM Reporting Lab: [facility] [address] [place] [phone] Performing Lab: [address] [phone] [place] [address] MICRAL/CR EAT PROFILE (STL) ALBUMIN/CRE ATININE [MASS RATIO] IN URINE commen tmg/g 0 - 29 02/01 Specimen Type: URINE Comment: uALB/CREAT Ratio Unable to be calculated Unable to calculate due to Microalbumi n < 5.0 mg/L Ordering Provider: SARTHAK HALL Report Released Date/Time: Jan 26, 2024 08:40 AM Reporting Lab: [facility] [address] [place] [phone] Performing Lab: [address] [phone] [facility] MICRAL/CR EAT PROFILE (STL) CREATININE [MASS/VOLUM E] IN URINE 86.0 mg/dL 47 - 110 02/01 Specimen Type: URINE Comment: uALB/CREAT Ratio Unable to be calculated Unable to calculate due to Microalbumi n < 5.0 mg/L Ordering Provider: SARTHAK HALL Report Released Date/Time: Jan 26, 2024 08:40 AM Reporting Lab: [place] [phone] Performing Lab: [address] TSH W/ REFLEX FT4 (STL) THYROTROPIN [UNITS/VOLU ME] IN SERUM OR PLASMA 1.966 u[IU]/ mL 0.47 - 5 02/01 Specimen Type: PLASMA No comment entered. Ordering Provider: SARTHAK HALL Report Released Date/Time: Jan 26, 2024 08:40 AM Reporting Lab: [place] [phone] Performing Lab: [place] [phone] CREATININ E(EGFR) CREATININE [MASS/VOLUM E] IN SERUM OR PLASMA 1.08 mg/dL 0.6 - 1.1 09/26 Specimen Type: PLASMA No comment entered. Ordering Provider: SANDOVAL HILLMAN Report Released Date/Time: Sep 24, 2023 08:40 AM Reporting Lab: [address] [phone] Performing Lab: [address] [phone] [place] [address] CREATININ E(EGFR) GLOMERULAR FILTRATION RATE/1.73 SQ M.PREDICTED [VOLUME RATE/AREA] IN SERUM, PLASMA OR BLOOD BY CREATININE- BASED FORMULA (CKD-EPI 2020) 62.6 60 09/26 Specimen Type: PLASMA No comment entered. Ordering Provider: SANDOVAL HILLMAN Report Released Date/Time: Sep 24, 2023 08:40 AM Reporting Lab: [address] [place] [address] Performing Lab: [address] [phone] [place] [address] HGB,HCT,P LT HEMOGLOBIN [MASS/VOLUM E] IN BLOOD 16.7 g/dL 11.0 - 14.9 09/26 H Specimen Type: BLOOD No comment entered. Ordering Provider: SANDOVAL HILLMAN Report Released Date/Time: Sep 24, 2023 08:40 AM Reporting Lab: [address] [phone] Performing Lab: [address] [phone] HGB,HCT,P LT HEMATOCRIT [VOLUME FRACTION] OF BLOOD 49.4 32.6 - 43.4 09/26 H Specimen Type: BLOOD No comment entered. Ordering Provider: SANDOVAL HILLMAN Report Released Date/Time: Sep 24, 2023 08:40 AM Reporting Lab: [address] [phone] Performing Lab: [address] [phone] [place] [address] HGB,HCT,P LT PLATELETS [#/VOLUME] IN BLOOD BY AUTOMATED COUNT 330 10*3/u L 150 - 400 09/26 Specimen Type: BLOOD No comment entered. Ordering Provider: SANDOVAL HILLMAN Report Released Date/Time: Sep 24, 2023 08:40 AM Reporting Lab: [address] [phone] Performing Lab: [address] [phone] HGA1C HEMOGLOBIN A1C/HEMOGLO BIN.TOTAL IN BLOOD 7.4 4.0 - 6.0 07/04 H Specimen Type: BLOOD No comment entered. Ordering Provider: SARTHAK HALL Report Released Date/Time: July 02, 2023 12:20 PM Reporting Lab: [facility] [address] [facility] [phone] Performing Lab: [facility] [address] [facility] [phone] [facility] H[facility] HEMOGLOBIN A1C/HEMOGLO BIN.TOTAL IN BLOOD 8.6 4.0 - 6.0 04/08 H Specimen Type: BLOOD No comment entered. Ordering Provider: SARTHAK HALL Report Released Date/Time: Apr 05, 2023 02:55 PM Reporting Lab: [facility] [address] [facility] [phone] Performing Lab: [facility] [address] [facility] [phone] [facility] Vital Signs Combined list of inpatient and outpatient Vital Signs from Department of Defense and Veterans [facility], ranging from 12 months to all on record, depending upon the facility. Vital Sign Value Date Comments Source SYSTOLIC BLOOD PRESSURE 128 02/10/2024 15:03:[facility] DIASTOLIC BLOOD PRESSURE 80 02/10/2024 15:03:[facility] PULSE OXIMETRY 98 02/10/2024 15:03:[address] [facility] WEIGHT 160 02/10/2024 15:03:[facility] BMI 27 kg/m2 02/10/2024 15[facility]03[facility] PAIN 0 02/10/2024 15:03[facility] HEIGHT 65 02/10/2024 15:03:[facility] TEMPERATURE 97.6 02/10/2024 15:03:[facility] PULSE 78 02/10/2024 15[facility]03:[facility] RESPIRATION 18 02/10/2024 15:03:[facility] Encounters Combined list of: 1) Encounters from Department of Veterans Affairs facilities going backup to the last 18 months, not all VA inpatient encounters are included; 2) Encounters from the Department of Defense facilities going backup to 280 months. Location Location Details Encounter Type Encounter Number Reason For Visit Attending Provider ADM Date DC Date Status Disposition Source [address] [place] [address] Mingo MONAJordan ([facility]) OUTPATIENT [id number] [facility] MARY Oneal 02/11 Released w/o Limitations [address] [place] [address] Mingo MONAB ([facility] [address] [place] [address] Mingo MONAB ([facility])(Sco tt [facility] FAMRES Tm Blue) OUTPATIENT [id number] CARLOS RADFORD 11/05 Released w/o Limitations [address] [place] [address] Mingo MONAB ([facility])(S cott [facility] Tm Blue) [address] [place] [address] Mingo MONAB ([facility])(Sco tt [facility] Fam Res Tm Green) OUTPATIENT [id number] josephine sinclair (needs extende d) ALANIS OLSEN 12/23 Released w/o Limitations [address] [place] [address] Mingo MONAB ([facility]S cott [facility] Fam Res Tm Green) [address] [place] [address] Mingo MONAB [facility]Sco tt [facility] Fam Res Tm Green) TELE CONSULT [id number] req referra REY Summers 02/[address] [place] [address] Mingo MONAB ([facility])(S cott [facility] Fam Res Tm Green) [address] [place] [address] Mingo MONAB ([facility])(Sco tt [facility] Fam Res Tm Green) OUTPATIENT [id number] ANNUAL PAP/ CISCO PLASCENCIA 04/05 Released w/o Limitations [address] [place] [address] Mingo MONAB ([facility])(S cott [facility] Fam Res Tm Green) [address] [place] [address] Mingo MONAB ([facility])(Sco tt [facility] Fam Res Tm Green) OUTPATIENT [id number] Depo MAE Sadler 04/13 Released w/o Limitations [address] [place] [address] Mingo MONAB ([facility]S cott [facility] Fam Res Tm Green) [address] [place] [address] Mingo DUNNB ([facility])([facility]) OUTPATIENT [id number] HERMILA LOPEZ 05/19 Released w/o Limitations [address] [place] [address] Mingo DUNNB ([facility])([facility]) [address] [place] [address] Mingo DUNNB ([facility])(Sco tt [facility] Fam Res Tm Green) OUTPATIENT [id number] WELL WOMAN EXAM W#[id number] BALDEV BARGER 06/08 Released w/o Limitations [facility] Mingo MONAJordan ([facility]S cott [facility] Fam Res Tm Green) [address] [place] [address] Mingo DUNNB [facility]Sco tt [facility] Fam Res Tm Green) OUTPATIENT [id number] DEPO INJ GRAND Brigida MCKEON 07/13 Released w/o Limitations [facility] Mingo MONAB [facility]S cott [facility] Fam Res Tm Green) [address] [place] [address] Mingo MONAB [facility])(Fam jami Practice Non-GME FHI1) OUTPATIENT [id number] [employer] ARTEMIOMAYA ZARATE 09/29 Released w/o Limitations [facility] Mingo MONAB [facility])(F amily Practic e Non-GME FHI1) [address] [place] [address] Mingo MONAB [facility])(Fam jami Practice Non-GME FHI1) OUTPATIENT [id number] [facility] - Web Based Assessm ent (3) GALO ALEXIS 10/17 Released w/o Limitations [address] [place] [address] Mingo MONAB [facility])(F amily Practic e Non-GME FHI1) [address] [place] [address] Mingo MONAB [facility])(Tube Cleaning Operator ecology) OUTPATIENT [id number] PAP IZABELA SCHERER 10/24 Released w/o Limitations [address] [place] [address] Mingo MONAB ([facility])(G ynecolo gy) [address] [place] [address] Mingo MONAB [facility])(Fam jami Practice Non-GME FHI2) OUTPATIENT [id number] EVAL SPOT ON NOSE/NE W PCS MELONY TALBOT 10/24 Released w/o Limitations [address] [place] [address] Mingo MONAB [facility])(F amily Practic e Non-GME FHI2) [address] [place] [address] [employer] [facility]Tube Cleaning Operator ecology) TELE CONSULT [id number] Lipid and glucose result- Col BRUNO Rushing 11/[address] [place] [address] [employer] [facility]G ynecolo gy) [address] [place] [address] [employer] [facility])(Fam jami Practice Non-GME FHI1) OUTPATIENT [id number] rec rev and 2766 transcr iptMAYA Brennan 12/08 Released w/o Limitations [facility] Mingo DUNNB ([facility])(F amily Practic e Non-GME FHI1) [facility] Medical [facility] Mingo DUNNB ([facility])([facility] jami Practice Non-GME FHI1) TELE CONSULT [id number] MAYA ROJAS 12/[address] [place] [address] Mingo DUNNB ([facility])(F amily Practic e Non-GME FHI1) [address] [place] [address] Mingo DUNNB ([facility])([facility] jami Practice Non-GME FHI1) TELE CONSULT [id number] [facility] 03/[address] [place] [address] Mingo DUNNB [facility])(F amily Practic e Non-GME FHI1) [facility] Medical [facility] Mingo MONAB ([facility])([facility] jami Practice Non-GME FHI1) OUTPATIENT [id number] cold/co ugh DIANE HURT 03/15 Sick at Home/Quarter s [address] [place] [address] Mingo MONAB [facility])(F amily Practic e Non-GME FHI1) [address] [place] [address] Mingo MONAB [facility])([facility] jami Practice Non-GME FHI1) OUTPATIENT [id number] rash on eye-rig ht and cough DIANE HURT 03/29 Released w/o Limitations [address] [place] [address] Group Mingo DUNNB [facility])(F amily Practic e Non-GME FHI1) [facility] Mingo DUNNB [facility])(Sco tt [facility] Team 3) TELE CONSULT [id number] ReferYESSENIA Estrada 04/[address] [place] [address] Mingo DUNNB [facility])(S cott [facility] Team 3[facility] Mingo DUNNB [facility])([facility]) OUTPATIENT [id number] [facility]/MOB EX TRISTAN GONG 05/07 Released w/o Limitations [address] [place] [address] Group Mingo DUNNB ([facility]D [facility]) [facility] [employer] [facility])(Ob/ Tube Cleaning Operator) OUTPATIENT [id number] preg test CATARINA DOVE 06/05 Released w/o Limitations [facility] [employer] ([facility])(O b/Tube Cleaning Operator) [facility] [employer] [facility])(Ob/ Tube Cleaning Operator) TELE CONSULT [id number] Lab results STAN ALVES Alex 06/[address] [place] [address] [employer] ([facility]O b/Tube Cleaning Operator) [facility] [employer] ([facility])([facility]) OUTPATIENT [id number] OB Orienta tion [facility] ALIDA ANTONIO 06/28 Released w/o Limitations [address] [place] [address] [employer] ([facility])(N utritio nal Medicin e) [facility] [employer] ([facility])(Ob/ Tube Cleaning Operator) TELE CONSULT [id number] OB w/ twins spottin doroteo MAYES JERRICA Brittani 07/[address] [place] [address] [employer] ([facility])(O b/Tube Cleaning Operator) [facility] [employer] [facility])(Ob/ Tube Cleaning Operator) TELE CONSULT [id number] referra l needed NOBLE GIRON 07/[address] [place] [address] [employer] ([facility])(O b/Tube Cleaning Operator) [facility] [employer] ([facility])(Ob/ Tube Cleaning Operator) TELE CONSULT [id number] referra l DELLA Dial 07/[address] [place] [address] [employer] ([facility])(O b/Tube Cleaning Operator) [facility] [employer] ([facility])(Ob/ Tube Cleaning Operator) TELE CONSULT [id number] Twin OB request ing MULU Lyn 08/[address] [place] [address] [employer] ([facility])(O b/Tube Cleaning Operator) [facility] [employer] ([facility])(Ob/ Tube Cleaning Operator) OUTPATIENT [id number] new ob - twins - edc jan 30 VIC DE LA CRUZ 08/21 Released w/o Limitations [facility] [employer] ([facility])(O b/Tube Cleaning Operator) [facility] [employer] ([facility])(Ob/ Tube Cleaning Operator) TELE CONSULT [id number] referra l needed NOBEL GIRON 09/[address] [place] [address] [employer] [facility])(O b/Tube Cleaning Operator) [facility] [employer] [facility])(Sco tt [facility] Team 3) TELE CONSULT [id number] duty restric tions and ER visit-- PCM JUNIE Crenshaw 10/[address] [place] [address] [employer] [facility])([facility] Team 3) [facility] [employer] ([facility])(Deejay e Managemen t) TELE CONSULT [id number] CM hosp notific REY Aragon 10/11 [facility] [employer] ([facility])(C ase Managem ent) [facility] [employer] [facility])(Ob/ Tube Cleaning Operator) TELE CONSULT [id number] con leave after misc del NOBLE GIRON L 10/[address] [place] [address] [employer] ([facility])(O b/Tube Cleaning Operator) [address] [place] [address] [employer] [facility])(Sco tt [facility] Team 3) OUTPATIENT [id number] blood in stool for 3-4 weeks [id number] DIANE HURT 01/29 Released w/o Limitations [address] [place] [address] [employer] ([facility])([facility] Team 3) [address] [place] [address] [employer] ([facility])([facility]) TELE CONSULT [id number] cancel DOMINIQUE, IDA G 02/25 [facility] [employer] ([facility])([facility]) [facility] [employer] ([facility])([facility]) DENTAL [id number] BHUMIKA PATINO 02/25 [facility] [employer] ([facility])([facility]) [facility] [employer] ([facility])([facility]) TELE CONSULT [id number] cancel DOMINIQUE, IDA G 03/05 [facility] [employer] ([facility])([facility]) [facility] [employer] ([facility])([facility]) TELE CONSULT [id number] cancel DOMINIQUE, IDA G 03/19 [facility] [employer] ([facility])([facility] [employer] [facility])(Oko tt [facility] Team 3) TELE CONSULT [id number] Cold Symptom s-Wante d to speak with a nurse/ JUNIE Crenshaw 03/22 [facility] [employer] ([facility])([facility] Team 3[facility] [employer] [facility])(Tube Cleaning Operator ecology) OUTPATIENT [id number] preg test JERRICA MAYES 04/01 Released w/o Limitations [employer] ([facility])(G ynecolo gy) [employer] ([facility])(Ob/ Tube Cleaning Operator) TELE CONSULT [id number] referra brittani SARGENTTACHO MARCIALTherese Peter 05/10 [employer] ([facility])(O b/Tube Cleaning Operator) [employer] ([facility])(Ob/ Tube Cleaning Operator) OUTPATIENT [id number] NEW OB - EDC DEC 01 ARLYN TORRES 05/21 Released w/o Limitations [employer] ([facility])(O b/Tube Cleaning Operator) [employer] ([facility])(Ob/ Tube Cleaning Operator) OUTPATIENT [id number] HROB? EDC DEC 01 VIC IGLESIAS 06/06 Released w/o Limitations [employer] ([facility])(O b/Tube Cleaning Operator) [employer] ([facility])(Ob/ Tube Cleaning Operator) OUTPATIENT [id number] HROB [id number] ARLYN TORRES 06/25 Released w/o Limitations [employer] ([facility])(O b/Tube Cleaning Operator) [employer] ([facility])(Ob/ Tube Cleaning Operator) TELE CONSULT [id number] discuss plan of care ROSETTANOBLE MARCIAL Brittani 07/03 [employer] ([facility])(O b/Tube Cleaning Operator) [employer] ([facility])(Ob/ Tube Cleaning Operator) OUTPATIENT [id number] progest erone injecti on ANABELLE COREY D 07/04 Released w/o Limitations [employer] ([facility])(O b/Tube Cleaning Operator) [employer] ([facility])(Tube Cleaning Operator ecology) OUTPATIENT [id number] progest erone inj JERRICA MAYES L 07/10 Released w/o Limitations [employer] ([facility])(G ynecolo gy) [employer] ([facility])(Ob/ Tube Cleaning Operator) OUTPATIENT [id number] HROB - EDC Nov ARLYN TORRES 07/11 Released w/o Limitations [employer] ([facility])(O b/Tube Cleaning Operator) [employer] ([facility])(Ob/ Tube Cleaning Operator) TELE CONSULT [id number] wants profile change VIC IGLESIAS 07/15 [facility] [employer] ([facility])(O b/Tube Cleaning Operator) [facility] [employer] ([facility])(Ob/ Tube Cleaning Operator) OUTPATIENT [id number] HROB - EDC DEC 01 MELISSA ANDRESNORA Delgaod 07/25 Released w/o Limitations [facility] [employer] ([facility])(O b/Tube Cleaning Operator) [facility] [employer] ([facility])(Ob/ Tube Cleaning Operator) OUTPATIENT [id number] progest ángel inj SUGEY, JERRICA L 07/31 Released w/o Limitations [facility] [employer] ([facility])(O b/Tube Cleaning Operator[facility] [employer] ([facility])(Ob/ Tube Cleaning Operator) TELE CONSULT [id number] r-side pain ABBY WILLIAMLUPE 08/05 [facility] [employer] ([facility])(O b/Tube Cleaning Operator) [facility] [employer] ([facility])(Ob/ Tube Cleaning Operator) OUTPATIENT [id number] hrob - lower R abd pain x 4 days VIC IGLESIAS 08/05 Released w/o Limitations [facility] [employer] ([facility])(O b/Tube Cleaning Operator) [facility] [employer] ([facility])(Tube Cleaning Operator ecology) OUTPATIENT [id number] Progest erone inj. SUGEY, JERRICA L 08/07 Released w/o Limitations [facility] [employer] ([facility])(G ynecolo gy[facility] [employer] ([facility])(Tube Cleaning Operator ecology) OUTPATIENT [id number] 17 HP injecti on SUGEY, JERRICA L 08/15 Released w/o Limitations [facility] [employer] ([facility])(G ynecolo gy[facility] [employer] ([facility])(Ob/ Tube Cleaning Operator) TELE CONSULT [id number] referra NOBLE Reina 08/19 [facility] [employer] ([facility])(O b/Tube Cleaning Operator) [facility] [employer] ([facility])(Ob/ Tube Cleaning Operator) OUTPATIENT [id number] HROB - EDC DEC 01 NOBLE GIRON 08/20 Released w/o Limitations [employer] ([facility])(O b/Tube Cleaning Operator) [employer] ([facility])(Tube Cleaning Operator ecology) OUTPATIENT [id number] progest erone SUGEYJERRICA L 08/28 Released w/o Limitations [employer] ([facility])(G ynecolo gy) [employer] ([facility])(Tube Cleaning Operator ecology) OUTPATIENT [id number] progest erone injecti on PEREZ JOVANI D 09/04 Released w/o Limitations [employer] ([facility])(G ynecolo gy) [employer] ([facility])(Ob/ Tube Cleaning Operator) TELE CONSULT [id number] lab results NOBLE GIRON Brittani 09/05 [employer] ([facility])(O b/Tube Cleaning Operator) [employer] ([facility])(Ob/ Tube Cleaning Operator) TELE CONSULT [id number] umbilic al pain VIC IGLESIAS 09/09 [employer] ([facility])(O b/Tube Cleaning Operator) [employer] ([facility])(Ob/ Tube Cleaning Operator) OUTPATIENT [id number] hrob - edc dec 01 VIC IGLESIAS 09/09 Released w/o Limitations [employer] ([facility])(O b/Tube Cleaning Operator) [employer] ([facility])(Ob/ Tube Cleaning Operator) OUTPATIENT [id number] progest erone injecti on JOVANI PEREZ D 09/11 Released w/o Limitations [employer] ([facility])(O b/Tube Cleaning Operator) [employer] ([facility])(Ob/ Tube Cleaning Operator) TELE CONSULT [id number] 3hr gtt testing NOBLE GIRON Brittani 09/13 [employer] ([facility])(O b/Tube Cleaning Operator) [employer] ([facility])(Ob/ Tube Cleaning Operator) OUTPATIENT [id number] Diabete s misaelin NOBLE Betancourt L 09/17 Released w/o Limitations [employer] ([facility]O b/Tube Cleaning Operator) [employer] ([facility])(Ob/ Tube Cleaning Operator) OUTPATIENT [id number] Progest erone shot ANABELLE COREY D 09/18 Released w/o Limitations [employer] ([facility]O b/Tube Cleaning Operator) [employer] ([facility])(Ob/ Tube Cleaning Operator) OUTPATIENT [id number] HROB-ED C-Dec 01 VIC IGLESIAS 09/23 Released w/o Limitations [employer] ([facility])(O b/Tube Cleaning Operator) [employer] ([facility]) OUTPATIENT [id number] Gestati onal ARACELI BELLE 09/24 Released w/o Limitations [employer] ([facility])(N utritio nal Medicin e) [employer] ([facility])(Tube Cleaning Operator ecology) OUTPATIENT [id number] injecti on ANABELLE COREY D 09/25 Released w/o Limitations [employer] ([facility])(G ynecolo gy) [employer] ([facility])(Ob/ Tube Cleaning Operator) TELE CONSULT [id number] Faxed ARLYN Friend 09/30 [employer] ([facility])(O b/Tube Cleaning Operator) [employer] ([facility])(Ob/ Tube Cleaning Operator) OUTPATIENT [id number] HROB - EDC DEC 01 NOBLE GIRON 10/01 Released w/o Limitations [employer] ([facility])(O b/Tube Cleaning Operator) [employer] ([facility])(Tube Cleaning Operator ecology) OUTPATIENT [id number] progest erone injecti on JOVANI PEREZ D 10/02 Released w/o Limitations [employer] ([facility])(G ynecolo gy) [employer] ([facility])(Ob/ Tube Cleaning Operator) OUTPATIENT [id number] HROB - EDC DEC 01 VIC IGLESIAS 10/07 Released w/o Limitations [employer] ([facility]O b/Tube Cleaning Operator) [employer] ([facility])(Tube Cleaning Operator ecology) OUTPATIENT [id number] progest erone BRUNO DA SILVA 10/09 Released w/o Limitations [employer] ([facility])(G ynecolo gy) [employer] ([facility])(Ob/ Tube Cleaning Operator) OUTPATIENT [id number] injecti on JERRICA MAYES L 10/16 Released w/o Limitations [employer] ([facility])(O b/Tube Cleaning Operator) [employer] ([facility])(Ob/ Tube Cleaning Operator) OUTPATIENT [id number] HROB - EDC DEC 01 NOBLE GIRON L 10/22 Released w/o Limitations [employer] ([facility])(O b/Tube Cleaning Operator) [employer] ([facility])(Ob/ Tube Cleaning Operator) OUTPATIENT [id number] HROB - EDC DEC 01 ARLYN TORRES 10/29 Released w/o Limitations [employer] ([facility])(O b/Tube Cleaning Operator) [employer] ([facility])(Tube Cleaning Operator ecology) OUTPATIENT [id number] progest michelle shot ANABELLE COREY 10/30 Released w/o Limitations [employer] ([facility])(G ynecolo gy) [employer] ([facility])(Ob/ Tube Cleaning Operator) OUTPATIENT [id number] hrob - edc dec 01 NOBLE GIRON L 11/05 Released w/o Limitations [employer] ([facility]O b/Tube Cleaning Operator) [employer] ([facility])(Ob/ Tube Cleaning Operator) OUTPATIENT [id number] HROB - EDC DEC 01 VIC IGLESIAS 11/19 Released w/o Limitations [employer] ([facility]O b/Tube Cleaning Operator) [employer] ([facility])(Ob/ Tube Cleaning Operator) OUTPATIENT [id number] HROB - EDC DEC 01 (REMOVE CERCLAG E) NOBLE GIRON L 11/25 Released w/o Limitations [employer] ([facility]O b/Tube Cleaning Operator) [employer] ([facility])(Ob/ Tube Cleaning Operator) TELE CONSULT [id number] exposed to chicken pox NOBLE GIRON L 11/25 [employer] ([facility]O b/Tube Cleaning Operator) [employer] ([facility])(Deejay e Managemen t) OUTPATIENT [id number] CC:hosp notific atREY Benson Harley 11/29 Admitted [facility] [employer] ([facility])(C ase Managem ent) [facility] [employer] ([facility])(Ob/ Tube Cleaning Operator) OUTPATIENT [id number] 6 wk pp - deliver ed dec 01 GERARDO MAURICIO 01/09 Released w/o Limitations [facility] [employer] ([facility])(O b/Tube Cleaning Operator) [facility] [employer] ([facility])(Ob/ Tube Cleaning Operator) TELE CONSULT [id number] f/u on lab results GERARDO MAURICIO 01/[address] [place] [address] [employer] ([facility]O b/Tube Cleaning Operator) [address] [place] [address] [employer] ([facility])(Sco tt [facility] Fam Res [employer]) OUTPATIENT [id number] [facility] [place] 02[facility]07 Released w/o Limitations [address] [place] [address] [employer] ([facility]S cott [facility] Fam Res [employer] [place]) [address] [place] [address] [employer] ([facility])(Sco tt [facility] Fam Res [employer]) OUTPATIENT [id number] f/u for low thyroid KATHERIN JACKSON Umu 02/25 Released w/o Limitations [address] [place] [address] [employer] ([facility])(S cott [facility] Fam Res [employer]) [address] [place] [address] [employer] ([facility])(Tube Cleaning Operator ecology) TELE CONSULT [id number] request ing extenti on on profile GERARDO MAURICIO 03/[address] [place] [address] [employer] ([facility])(G ynecolo gy) [address] [place] [address] [employer] ([facility])(Sco tt [facility] Fam Res [employer]) OUTPATIENT [id number] Dizzine ss and headach es per patient 's request [phone] NATY WATTS 04/08 Released w/o Limitations [address] [place] [address] [employer] [employer] ([facility]S cott [facility] Fam Res Tm Green) [address] [place] [address] [place] [employer] ([facility])(Sco tt [facility] Fam Res Tm Green) TELE CONSULT [id number] back pain; spots on leg Thompso n cad tlt RUSSELL WHTIE 09/[address] [place] [address] [place] [employer] ([facility])(S cott [facility] Fam Res Tm [place]) [address] [place] [address] [place] [employer] ([facility])([facility]) TELE CONSULT [id number] meds SAHILFELIZ Alex 09/[address] [place] [address] [place] [employer] ([facility])([facility]) [address] [place] [address] [place] [employer]AN [facility]Sco tt [facility] Fam Res Tm Green) TELE CONSULT [id number] AD Pt. would like acute, no acutes - Thompso n - [phone] [place] [phone] RUSSELL WHITE 09/[address] [place] [address] [place] [employer] ([facility])(S cott [facility] Fam Res [employer]m [employer]) [facility]) OUTPATIENT [id number] BENOIT SCHUMACHER 09/28 Released w/o Limitations [facility]( [facility]) [address] [place] [address] [place] [employer] ([facility])(Sco tt [facility] Fam Res [employer]m [employer]) TELE CONSULT [id number] needs fup appt Dr Jennifer lakhani for spots on legs - [phone] CAD [facility] KIM LOERA 10/[address] [place] [address] [place] [employer] [facility]S cott [facility] Fam Res [employer]m [place]) [address] [place] [address] [place] [employer] [facility])(Sco tt [facility] Fam Res [employer]) OUTPATIENT [id number] neck pain [phone] MAIN CORTÉS 10/13 Released w/o Limitations [address] [place] [address] [place] [employer] ([facility])(S cott [facility] [place] [place]) [address] [place] [address] [place] [employer] ([facility])(Sco tt [facility] FAMRES Tm Blue) OUTPATIENT [id number] CERVICA KATT MCGILL 10/16 Released w/o Limitations [address] [place] [address] M[place] [employer] [facility]S cott [facility] FAMRES Tm Blue) [address] [place] [address] [place] [employer])(Sco tt [facility] FAMRES Tm Blue) OUTPATIENT [id number] F/U ON NECK SARAHI SPENCER 10/20 Released w/o Limitations [address] [place] [address] M[place] [employer] ([facility])(S cott [facility] FAMRES Tm Blue) [address] [place] [address] M[place] [employer] ([facility])(Sco tt [facility] Fam Res [employer] Green) TELE CONSULT [id number] Profile not in system - Thompso n/[phone]/cad KIM Lind 10/[address] [place] [address] [employer] ([facility])(S cott [facility] Fam Res [employer]) [address] [place] [address] [employer] ([facility])(Sco tt [facility] Fam Res [employer]) TELE CONSULT [id number] profile not in system Thompso n cad tlt YESSENIA WHEELER 10/[address] [place] [address] [employer] ([facility])(S cott [facility] Fam Res Tm [employer]) [address] [place] [address] [employer] ([facility])(Sco tt [facility] FAMRES Tm Blue) OUTPATIENT [id number] FU/Neck HEBDKATT ROJAS D 10/31 Released w/o Limitations [address] [place] [address] [employer] ([facility])(S cott [facility] FAMRES Tm Blue) [address] [place] [address] [employer] ([facility])(Sco tt [facility] Fam Res [employer]m Green) OUTPATIENT [id number] f/u for spots on leg RUSSELL WHITE 11/12 Released w/o Limitations [address] [place] [address] [employer] ([facility])(S cott OF Fam Res Tm Green) [address] [place] [address] [employer] ([facility])(Sco tt [facility] FAMRES Tm Blue) OUTPATIENT [id number] FU neck KATT ODOM 11/17 Released w/o Limitations [address] [place] [address] [employer] ([facility])(S cott [facility] FAMRES Tm Blue) [address] [place] [address] [employer] ([facility])(Sco tt [facility] Fam Res Tm Green) TELE CONSULT [id number] patholo gy result on shave bx RUSSELL WHITE 11/[address] [place] [address] [employer] ([facility])(S cott [facility] Fam Res Tm Green) [address] [place] [address] [employer] [facility])(Tube Cleaning Operator ecology) OUTPATIENT [id number] Urine HCG KARIE FRANCO L 12/25 Released w/o Limitations [address] [place] [address] [employer] ([facility])(G ynecolo gy) [address] [place] [address] [employer] [facility]Sco tt [facility] Fam Res Tm Green) TELE CONSULT [id number] AD Pt. would like acute, no acutes - Thompso n - [phone] - [facility] YESSENIA WHEELER 12/[address] [place] [address] [place] [employer] ([facility]S cott [facility] Fam Res [employer]m [place]) [address] [place] [address] [place] [employer] ([facility])(Sco tt [facility] FAMRES Tm Blue) TELE CONSULT [id number] + Pregnan cy Test MARY PATEL 12/[address] [place] [address] [place] [employer] ([facility])(S cott [facility] FAMRES Tm Blue) [address] [place] [address] [place] [employer] ([facility])(Sco tt [facility] Fam Res Tm Green) TELE CONSULT [id number] AD Pt. would like acute - Thomps n - [phone] [address] [place] [phone] YESSENIA WHEELER Doroteo 01/[address] [place] [address] [place] [employer] ([facility])(S cott [facility] Fam Res Tm Green) [address] [place] [address] [place] [employer] [facility]co tt [facility] Fam Res Tm Green) OUTPATIENT [id number] poss yeast infecti on [phone] DIANE SANCHEZ 01/05 Released w/o Limitations [address] [place] [address] [place] [employer] [facility])(S cott [facility] Fam Res Tm Green) [address] [place] [address] M[place] [employer] [facility])(Sco tt [facility] FAMRES Tm Blue) TELE CONSULT [id number] needs f/u Ob appt MARY PATEL 01/[address] [place] [address] [place] [employer] ([facility])(S cott [facility] FAMRES Tm Blue) [address] [place] [address] M[place] [employer] [facility])(Ob/ Tube Cleaning Operator) TELE CONSULT [id number] patient cancell ation/r neeraj g NOBLE PEREZ 01/[address] [place] [address] [place] [employer] ([facility])(O b/Tube Cleaning Operator) [address] [place] [address] [place] [employer] ([facility])(Sco tt [facility] Fam Res Tm Green) OUTPATIENT [id number] [facility] RUSSELL WHITE 02/26 Released w/o Limitations [address] [place] [address] [place] [employer] ([facility])(S cott [facility] Fam Res Tm Green) [address] [place] [address] [place] [employer] [facility]co tt [facility] Fam Res Tm Green) OUTPATIENT [id number] problem s urinati ng x 1 year [id number] SIDNEY LANG 03/17 Released w/o Limitations [address] [place] [address] [place] [employer] ([facility])(S cott [facility] Fam Res [place]m [place]) [address] [place] [address] Mingo [facility])(Sco tt [facility] Fam Res Tm Green) TELE CONSULT [id number] Notes Entered by: NAYANA GREY 20 Mar 2011 1019 ------- ------- ------- ------- -- Bib sadler with evelyn mccrary/593 -[phone]/c YESSENIA Rodriguez 03/[address] [place] [address] Mingo [facility])(S [facility] Fam Res Tm Green) [address] [place] [address] Mingo [facility])(Sco tt [facility] Fam Res Tm Green) TELE CONSULT [id number] Notes Entered by: NIRU PAREDES 02 Apr [id number] ------- ------- ------- ------- -- Lab results - Jennifer lakhani - [phone] - tsg YESSENIA WHEELER 04/[address] [place] [address] Mingo [facility])(S [facility] Res Tm Green) [address] [place] [address] Mingo [facility])([facility]) TELE CONSULT [id number] Notes Entered by: FELIZ SUTHERLAND 27 May 2011 1556 ------- ------- ------- ------- -- [facility] Care Update FELIZ BAXTER 05/[address] [place] [address] [place]ingo [facility])([facility]) [address] [place] [address] Mingo [facility])(Deejay e Managemen t) OUTPATIENT [id number] Notes Entered by: REY FERGUSON 01 Jun 2011 1428 ------- ------- ------- ------- -- -Care Coord REY FERGUSON 05/[address] [place] [address] Mingo Jordan [facility])(C ase Managem ent) [address] [place] [address] Mingo B [facility])(Sco tt [facility] FAMRES Tm Blue) TELE CONSULT [id number] Notes Entered by: MARTINEZ SANDOVAL 12 Aug 2011 1128 ------- ------- ------- ------- -- Pt needs emeterio peter for Psychia RUSSELL Altamirano 08/[address] [place] [address] [place] [employer] [facility])(S cott [facility] FAMRES Tm Blue) [address] [place] [address] Mingo [facility])(Sco tt [facility] Fam Res Tm Green) TELE CONSULT [id number] Notes Entered by: ALIDA JACKSON RET 16 Aug [id number] ------- ------- ------- ------- -- Needs referRUSSELL Gaffney 08/[address] [place] [address] Mingo [facility])(S cott [facility] Fam Res Tm Green) [address] [place] [address] [place]ingo [facility])(Sco tt [facility] Fam Res Tm Green) OUTPATIENT [id number] Retirem ent phy [phone] RUSSELL WHITE 08/31 Released w/o Limitations [address] [place] [address] Mingo [facility])(S [facility] Fam Res Tm Green) [address] [place] [address] Mingo [facility])([facility]) OUTPATIENT [id number] Notes Entered by: FELIZ SUTHERLAND 08 Sep 2011 1603 ------- ------- ------- ------- -- Chart Closure FELIZ BAXTER 09/07 Released w/o Limitations [address] [place] [address] [place]ingo [facility])([facility]) [address] [place] [address] Mingo [facility])(Sco tt [facility] FAMRES Tm Blue) OUTPATIENT [id number] Notes Entered by: MICHELLE BRANCH 29 Sep 2011 1156 ------- ------- ------- ------- -- nausea vomit dizzine ss RUSSELL WHITE 09/28 Released w/o Limitations [address] [place] [address] Mingo DUNNB [facility]S cott [facility] FAMRES Tm Blue) [address] [place] [address] [place] [facility])(Sco tt [facility] FAMRES Tm Blue) TELE CONSULT [id number] Notes Entered by: GAVINO HOWE SA 04 Nov 2011 1636 ------- ------- ------- ------- -- Pharmac y MED [facility] RUSSELL Kamara 11/03 [employer] ([facility])(S cott [facility] Blue) [facility] EYE EXAM ESTABLISH PATIENT [id number] Diagnos is: ICD-10- CM E11.9 Type 2 diabete s mellitu s without complic ations EDDIE LANZA THI 10/08 [facility] Outpatient Encounter [id number] 10/30 [facility] OFFICE O/P EST MOD 30-39 MIN [id number] Diagnos is: ICD-10- CM F31.9 Bipolar disorde r, unspeci BERNARD Cristina IE 11/02 [facility] Outpatient Encounter [id number] 11/03 [facility] EYE EXAM&TX ESTAB PT 1/>VST [id number] [id number] Diagnos is: ICD-10- CM E11.9 Type 2 diabete s mellitu s without complic ations DESTINEE LEO 12/25 [facility] N [facility] Outpatient Encounter [id number] 12/31 [facility] N [facility] Outpatient Encounter [id number] 01/04 [facility] Outpatient Encounter [id number] 01/11 [facility] Outpatient Encounter [id number] MICHELINE SEGAL 01/19 [facility] OFFICE O/P EST MOD 30-39 MIN [id number] Diagnos is: ICD-10- CM F33.1 Major depress laurita disandre r recurre nt, dheeraj TILLEY,BERNARD IE 02/01 [facility] Outpatient Encounter [id number] 02/02 [facility] Outpatient Encounter [id number] BERNARD FERGUSON 03/03 [facility] Outpatient Encounter [id number] BERNARD FERGUSON 03/05 [facility] Outpatient Encounter [id number] 03/11 [facility] Outpatient Encounter [id number] BERNARD FERGUSON 03/24 [facility] OFFICE O/P EST MOD 30 MIN [id number] Diagnos is: ICD-10- CM F41.1 General ized anxiety disBERNARD Avilez 04/05 [facility] Outpatient Encounter [id number] RUNNER,BERNARD Souza 04/05 OFFICE O/P EST MOD 30 MIN [id number] Diagnos is: ICD-10- CM F33.1 Major depress laurita disorde r, recurre nt, moderat e HALL,AR MIDA A 04/06 [facility] Outpatient Encounter [id number] 04/06 [facility] OFFICE O/P EST MOD 30 MIN [id number] Diagnos is: ICD-10- CM F33.1 Major depress laurita disorde r, recurre nt, moderat e WALKERBERNARD IE 05/23 [facility] Outpatient Encounter [id number] RUNNER,BERNARD Souza 05/26 [facility] Outpatient Encounter [id number] SEBASJARON LUZ Johnson 07/12 [facility] Outpatient Encounter [id number] [id number] KENJINER,BERNARD Souza 07/14 [facility] Outpatient Encounter [id number] [id number] KENJINER,BERNARD Souza 07/15 [facility] QNHP OL DIG ASSMT&MGMT 5-10 [id number] [id number] Diagnos is: ICD-10- CM E11.9 Type 2 diabete s mellitu s without complic ations BK HUTCHINSON 07/29 [facility] Outpatient Encounter [id number] PIERCE WHEELER Brittani 08/09 [facility] QNHP OL DIG ASSMT&MGMT 5-10 [id number] [id number] Diagnos is: ICD-10- CM Z51.81 Encount er for therape utic drug level monitor KAYLEE Way 08/22 [facility] OFFICE O/P EST MOD 30 MIN [id number] [id number] Diagnos is: ICD-10- CM F34.1 Dysthym ic disordBERNARD Shah 09/05 [facility] Outpatient Encounter [id number] 09/06 [facility] Outpatient Encounter [id number] 09/07 [facility] QNHP OL DIG ASSMT&MGMT 5-10 [id number] [id number] Diagnos is: ICD-10- CM Z51.81 Encount er for therape utic drug level monitor KAYLEE Way Brittani 09/22 [facility] QNHP OL DIG ASSMT&MGMT 5-10 [id number] [id number] Diagnos is: ICD-10- CM Z51.81 Encount er for therape utic drug level monitor elkin MICHELINE SEGAL 09/29 [facility] Outpatient Encounter [id number] [id number] DAVID STALEY 10/03 [facility] N [facility] OFFICE O/P EST MOD 30 MIN [id number] [id number] Diagnos is: ICD-10- CM F33.1 Major depress laurita disorde r, recurre nt, moderat e BERNARD TILLEY IE 12/12 [facility] OFFICE O/P EST MOD 30 MIN [id number] Diagnos is: ICD-10- CM F33.1 Major depress laurita disorde r, recurre nt, moderat e HALL,AR MIDA A 02/09 [facility] Outpatient Encounter [id number] 02/28 [facility] Outpatient Encounter [id number] [id number] 03/01 [facility] Outpatient Encounter [id number] [id number] BERNARD TILLEY IE 03/20 [facility] N [facility] Outpatient Encounter [id number] [id number] 03/20 [facility] Outpatient Encounter [id number] [id number] 03/23 [facility] Outpatient Encounter [id number] [id number] 03/23 [facility] Outpatient Encounter [id number] [id number] BHUMI LAUGHLIN 03/23 [facility] Procedures Combined list of: 1) Procedures from Department of Veterans Affairs facilities going back up to thelast 18 months, not all VA non-surgical procedures are included; 2) All procedures from the Department of Defense facilities. Procedure Procedure Type Code Date Perfomer Comments Sourc e No data available for this section Ambul[facility] ry Pharmacy COLD OR HOT FLUID BOTTLE, ICE CAP OR COLLAR, HEAT AND/OR COLD WRAP, ANY TYPE 09/28 [facility] OPHTHALMOLOGICAL SERVICES: MEDICAL EXAMINATION AND EVALUATION WITH INITIATION OF DIAGNOSTIC AND TREATMENT PROGRAM; COMPREHENSIVE, NEW PATIENT, 1 OR MORE VISITS 05/07 [facility] SCREENING PAPANICOLAOU SMEAR; OBTAINING, PREPARING AND CONVEYANCE OF CERVICAL OR VAGINAL SMEAR TO LABORATORY 09/28 [facility] PSYCHIATRIC EVALUATION OF HOSPITAL RECORDS, OTHER PSYCHIATRIC REPORTS, PSYCHOMETRIC AND/OR PROJECTIVE TESTS, AND OTHER ACCUMULATED DATA FOR MEDICALDIAGNOSTIC PURPOSES 12/27 [facility] INDIVIDUAL PSYCHOTHERAPY, INSIGHT ORIENTED, BEHAVIOR MODIFYING AND/OR SUPPORTIVE, IN AN OFFICE OR OUTPATIENT FACILITY, APPROXIMATELY 45 TO 50 MINUTES RSRF-MO-DDXL WITH THE PATIENT 12/16 [facility] INDIVIDUAL PSYCHOTHERAPY, INSIGHT ORIENTED, BEHAVIOR MODIFYING AND/OR SUPPORTIVE, IN AN OFFICE OR OUTPATIENT FACILITY, APPROXIMATELY 45 TO 50 MINUTES PGWI-JV-OKAX WITH THE PATIENT 12/01 [facility] INDIVIDUAL PSYCHOTHERAPY, INSIGHT ORIENTED, BEHAVIOR MODIFYING AND/OR SUPPORTIVE, IN AN OFFICE OR OUTPATIENT FACILITY, APPROXIMATELY 45 TO 50 MINUTES RYBM-KD-OHLB WITH THE PATIENT 11/03 [facility] INDIVIDUAL PSYCHOTHERAPY, INSIGHT ORIENTED, BEHAVIOR MODIFYING AND/OR SUPPORTIVE, IN AN OFFICE OR OUTPATIENT FACILITY, APPROXIMATELY 45 TO 50 MINUTES KQRL-GN-HYXT WITH THE PATIENT 10/20 [facility] INDIVIDUAL PSYCHOTHERAPY, INSIGHT ORIENTED, BEHAVIOR MODIFYING AND/OR SUPPORTIVE, IN AN OFFICE OR OUTPATIENT FACILITY, APPROXIMATELY 45 TO 50 MINUTES OMDL-GR-UFJA WITH THE PATIENT 10/06 [facility] INDIVIDUAL PSYCHOTHERAPY, INSIGHT ORIENTED, BEHAVIOR MODIFYING AND/OR SUPPORTIVE, IN AN OFFICE OR OUTPATIENT FACILITY, APPROXIMATELY 45 TO 50 MINUTES GCKP-GV-ISWE WITH THE PATIENT 09/22 [facility] PREPARATION OF REPORT OF PATIENT'S PSYCHIATRIC STATUS, HISTORY, TREATMENT, OR PROGRESS (OTHER THAN FOR LEGAL OR CONSULTATIVE PURPOSES) FOR OTHER INDIVIDUALS, AGENCIES, OR INSURANCE CARRIERS 09/07 [facility] INDIVIDUAL PSYCHOTHERAPY, INSIGHT ORIENTED, BEHAVIOR MODIFYING AND/OR SUPPORTIVE, IN AN OFFICE OR OUTPATIENT FACILITY, APPROXIMATELY 20 TO 30 MINUTES USNN-FL-NCMX W THE PATIENT; W MED EVAL & MGT SER 08/11 [facility] INDIVIDUAL PSYCHOTHERAPY, INSIGHT ORIENTED, BEHAVIOR MODIFYING AND/OR SUPPORTIVE, IN AN OFFICE OR OUTPATIENT FACILITY, APPROXIMATELY 75 TO 80 MINUTES TXAM-AX-GGTU WITH THE PATIENT 08/05 [facility] INDIVIDUAL PSYCHOTHERAPY, INSIGHT ORIENTED, BEHAVIOR MODIFYING AND/OR SUPPORTIVE, IN AN OFFICE OR OUTPATIENT FACILITY, APPROXIMATELY 45 TO 50 MINUTES ZSPM-PU-MTLZ WITH THE PATIENT 07/30 [facility] INDIVIDUAL PSYCHOTHERAPY, INSIGHT ORIENTED, BEHAVIOR MODIFYING AND/OR SUPPORTIVE, IN AN OFFICE OR OUTPATIENT FACILITY, APPROXIMATELY 75 TO 80 MINUTES EEHJ-JS-OXRZ WITH THE PATIENT 07/09 [facility] INDIVIDUAL PSYCHOTHERAPY, INSIGHT ORIENTED, BEHAVIOR MODIFYING AND/OR SUPPORTIVE, IN AN OFFICE OR OUTPATIENT FACILITY, APPROXIMATELY 45 TO 50 MINUTES IHOY-RM-FCRU WITH THE PATIENT 07/02 [facility] TELE ASSESS & MGT SRV PROV QUAL NONPHYS HLTH CARE PRO TO EST PAT,PARENT,GUARD NOT ORIG REL ASSESS & MGT SRV PROV W/IN PREV 7 DAYS NOR LEAD ASSESS & MGT SRV/PX W/IN NXT 24H/SOON APT; 11-20 MIN MED DIS 06/29 DoD TELE ASSESS & MGT SRV PROV QUAL NONPHYS HLTH CARE PRO TO EST PAT,PARENT,GUARD NOT ORIG REL ASSESS & MGT SRV PROV W/IN PREV 7 DAYS NOR LEAD ASSESS & MGT SRV/PX W/IN NXT 24H/SOON APT; 11-20 MIN MED DIS 06/28 DoD TELE ASSESS & MGT SRV PROV QUAL NONPHYS HLTH CARE PRO TO EST PAT,PARENT,GUARD NOT ORIG REL ASSESS & MGT SRV PROV W/IN PREV 7 DAYS NOR LEAD ASSESS & MGT SRV/PX W/IN NXT 24H/SOON APT; 21-30 MIN MED DIS 06/22 DoD CASE MANAGEMENT, EACH 15 MINUTES 05/31 DoD CASE MANAGEMENT, EACH 15 MINUTES 05/18 DoD INDIVIDUAL PSYCHOTHERAPY, INSIGHT ORIENTED, BEHAVIOR MODIFYING AND/OR SUPPORTIVE, IN AN OFFICE OR OUTPATIENT FACILITY, APPROXIMATELY 20 TO 30 MINUTES [id number] W THE PATIENT; W MED EVAL & MGT SER 05/14 DoD INDIVIDUAL PSYCHOTHERAPY, INSIGHT ORIENTED, BEHAVIOR MODIFYING AND/OR SUPPORTIVE, IN AN OFFICE OR OUTPATIENT FACILITY, APPROXIMATELY 45 TO 50 MINUTES [id number] WITH THE PATIENT 05/13 DoD INDIVIDUAL PSYCHOTHERAPY, INSIGHT ORIENTED, BEHAVIOR MODIFYING AND/OR SUPPORTIVE, IN AN OFFICE OR OUTPATIENT FACILITY, APPROXIMATELY 45 TO 50 MINUTES [id number] WITH THE PATIENT 04/26 DoD INDIVIDUAL PSYCHOTHERAPY, INSIGHT ORIENTED, BEHAVIOR MODIFYING AND/OR SUPPORTIVE, IN AN OFFICE OR OUTPATIENT FACILITY, APPROXIMATELY 45 TO 50 MINUTES [id number] WITH THE PATIENT 04/09 DoD TELE ASSESS & MGT SRV PROV QUAL NONPHYS HLTH CARE PRO TO EST PAT,PARENT,GUARD NOT ORIG REL ASSESS & MGT SRV PROV W/IN PREV 7 DAYS NOR LEAD ASSESS & MGT SRV/PX W/IN NXT 24 HR/SOON APT;5-10 MIN MED DIS 04/02 DoD PSYCHIATRIC DIAGNOSTIC INTERVIEW EXAMINATION 03/25 DoD INDIVIDUAL PSYCHOTHERAPY, INSIGHT ORIENTED, BEHAVIOR MODIFYING AND/OR SUPPORTIVE, IN AN OFFICE OR OUTPATIENT FACILITY, APPROXIMATELY 45 TO 50 MINUTES [id number] WITH THE PATIENT 03/23 DoD TELE ASSESS & MGT SRV PROV QUAL NONPHYS HLTH CARE PRO TO EST PAT,PARENT,GUARD NOT ORIG REL ASSESS & MGT SRV PROV W/IN PREV 7 DAYS NOR LEAD ASSESS & MGT SRV/PX W/IN NXT 24H/SOON APT; 11-20 MIN MED DIS 03/20 DoD TELE ASSESS & MGT SRV PROV QUAL NONPHYS HLTH CARE PRO TO EST PAT,PARENT,GUARD NOT ORIG REL ASSESS & MGT SRV PROV W/IN PREV 7 DAYS NOR LEAD ASSESS & MGT SRV/PX W/IN NXT 24 HR/SOON APT;5-10 MIN MED DIS 03/20 DoD INDIVIDUAL PSYCHOTHERAPY, INSIGHT ORIENTED, BEHAVIOR MODIFYING AND/OR SUPPORTIVE, IN AN OFFICE OR OUTPATIENT FACILITY, APPROXIMATELY 20 TO 30 MINUTES [id number] WITH THE PATIENT 03/12 DoD TELE ASSESS & MGT SRV PROV QUAL NONPHYS HLTH CARE PRO TO EST PAT,PARENT,GUARD NOT ORIG REL ASSESS & MGT SRV PROV W/IN PREV 7 DAYS NOR LEAD ASSESS & MGT SRV/PX W/IN NXT 24H/SOON APT; 21-30 MIN MED DIS 03/11 DoD PSYCHIATRIC DIAGNOSTIC INTERVIEW EXAMINATION 03/10 DoD TELE ASSESS & MGT SRV PROV QUAL NONPHYS HLTH CARE PRO TO EST PAT,PARENT,GUARD NOT ORIG REL ASSESS & MGT SRV PROV W/IN PREV 7 DAYS NOR LEAD ASSESS & MGT SRV/PX W/IN NXT 24 HR/SOON APT;5-10 MIN MED DIS 01/05 DoD TELE ASSESS & MGT SRV PROV QUAL NONPHYS HLTH CARE PRO TO EST PAT,PARENT,GUARD NOT ORIG REL ASSESS & MGT SRV PROV W/IN PREV 7 DAYS NOR LEAD ASSESS & MGT SRV/PX W/IN NXT 24 HR/SOON APT;5-10 MIN MED DIS 12/29 DoD URINE TEST, BY VISUAL COLOR COMPARISON METHODS 12/25 DoD SHAVING OF EPIDERMAL OR DERMAL LESION, SINGLE LESION, TRUNK, ARMS OR LEGS; LESION DIAMETER 0.6 TO 1.0 CM 11/12 DoD OSTEOPATHIC MANIPULATIVE TREATMENT (OMT); 1-2 BODY REGIONS INVOLVED 10/31 DoD TELE ASSESS & MGT SRV PROV QUAL NONPHYS HLTH CARE PRO TO EST PAT,PARENT,GUARD NOT ORIG REL ASSESS & MGT SRV PROV W/IN PREV 7 DAYS NOR LEAD ASSESS & MGT SRV/PX W/IN NXT 24 HR/SOON APT;5-10 MIN MED DIS 10/28 DoD OSTEOPATHIC MANIPULATIVE TREATMENT (OMT); 3-4 BODY REGIONS INVOLVED 10/20 DoD INDIVIDUAL PSYCHOTHERAPY, INSIGHT ORIENTED, BEHAVIOR MODIFYING AND/OR SUPPORTIVE, IN AN OFFICE OR OUTPATIENT FACILITY, APPROXIMATELY 20 TO 30 MINUTES [id number] W THE PATIENT; W MED EVAL & MGT SER 10/13 DoD TELE ASSESS & MGT SRV PROV QUAL NONPHYS HLTH CARE PRO TO EST PAT,PARENT,GUARD NOT ORIG REL ASSESS & MGT SRV PROV W/IN PREV 7 DAYS NOR LEAD ASSESS & MGT SRV/PX W/IN NXT 24 HR/SOON APT;5-10 MIN MED DIS 09/11 DoD TELE ASSESS & MGT SRV PROV QUAL NONPHYS HLTH CARE PRO TO EST PAT,PARENT,GUARD NOT ORIG REL ASSESS & MGT SRV PROV W/IN PREV 7 DAYS NOR LEAD ASSESS & MGT SRV/PX W/IN NXT 24 HR/SOON APT;5-10 MIN MED DIS 09/10 DoD INDIVIDUAL PSYCHOTHERAPY, INSIGHT ORIENTED, BEHAVIOR MODIFYING AND/OR SUPPORTIVE, IN AN OFFICE OR OUTPATIENT FACILITY, APPROXIMATELY 45 TO 50 MINUTES [id number] WITH THE PATIENT 06/20 DoD INDIVIDUAL PSYCHOTHERAPY, INSIGHT ORIENTED, BEHAVIOR MODIFYING AND/OR SUPPORTIVE, IN AN OFFICE OR OUTPATIENT FACILITY, APPROXIMATELY 45 TO 50 MINUTES [id number] WITH THE PATIENT 06/03 DoD PSYCHIATRIC DIAGNOSTIC INTERVIEW EXAMINATION 05/15 DoD INDIVIDUAL PSYCHOTHERAPY, INSIGHT ORIENTED, BEHAVIOR MODIFYING AND/OR SUPPORTIVE, IN AN OFFICE OR OUTPATIENT FACILITY, APPROXIMATELY 45 TO 50 MINUTES [id number] WITH THE PATIENT 05/15 DoD INDIVIDUAL PSYCHOTHERAPY, INSIGHT ORIENTED, BEHAVIOR MODIFYING AND/OR SUPPORTIVE, IN AN OFFICE OR OUTPATIENT FACILITY, APPROXIMATELY 45 TO 50 MINUTES [id number] WITH THE PATIENT 04/29 DoD PSYCHIATRIC DIAGNOSTIC INTERVIEW EXAMINATION 04/21 DoD DESTRUCTION (EG, LASER SURGERY, ELECTROSURGERY, CRYOSURGERY, CHEMOSURGERY, SURGICAL CURETTEMENT), PREMALIGNANT LESIONS (EG, ACTINIC KERATOSES); FIRST LESION 02/25 [facility] CARE VISIT () 01/09 [facility] CASE MANAGEMENT, EACH 15 MINUTES 11/29 [facility] TISSUE EXAMINATION BY DOM SLIDE OF SAMPLES FROM SKIN, HAIR, OR NAILS FOR FUNGI OR ECTOPARASITE OVA OR MITES (EG, SCABIES) 11/25 [facility] ULTRASOUND, UTERUS, REAL TIME WITH IMAGE DOCUMENTATION, LIMITED (EG, HEART BEAT, PLACENTAL LOCATION, POSITION AND/OR QUALITATIVE AMNIOTIC FLUID VOLUME), 1 OR MORE FETUSES 11/19 [facility] ULTRASOUND, UTERUS, REAL TIME WITH IMAGE DOCUMENTATION, LIMITED (EG, HEART BEAT, PLACENTAL LOCATION, POSITION AND/OR QUALITATIVE AMNIOTIC FLUID VOLUME), 1 OR MORE FETUSES 11/05 [facility] THERAPEUTIC, PROPHYLACTIC, OR DIAGNOSTIC INJECTION (SPECIFY SUBSTANCE OR DRUG); SUBCUTANEOUS OR INTRAMUSCULAR 10/30 [facility] SUBSEQ CARE VISIT () [EXCLS:PATIENTS WHO ARE SEEN FOR A CONDITION UNREL TO / CARE (EG,AN UP RESPIR INFECT;PATIENTS SEEN FOR CONSULTATION ONLY,NOT FOR CONT CARE)] 10/29 DoD SUBSEQ CARE VISIT () [EXCLS:PATIENTS WHO ARE SEEN FOR A CONDITION UNREL TO / CARE (EG,AN UP RESPIR INFECT;PATIENTS SEEN FOR CONSULTATION ONLY,NOT FOR CONT CARE)] 10/22 DoD THERAPEUTIC, PROPHYLACTIC, OR DIAGNOSTIC INJECTION (SPECIFY SUBSTANCE OR DRUG); SUBCUTANEOUS OR INTRAMUSCULAR 10/16 DoD THERAPEUTIC, PROPHYLACTIC, OR DIAGNOSTIC INJECTION (SPECIFY SUBSTANCE OR DRUG); SUBCUTANEOUS OR INTRAMUSCULAR 10/09 DoD SUBSEQ CARE VISIT () [EXCLS:PATIENTS WHO ARE SEEN FOR A CONDITION UNREL TO / CARE (EG,AN UP RESPIR INFECT;PATIENTS SEEN FOR CONSULTATION ONLY,NOT FOR CONT CARE)] 10/07 DoD THERAPEUTIC, PROPHYLACTIC, OR DIAGNOSTIC INJECTION (SPECIFY SUBSTANCE OR DRUG); SUBCUTANEOUS OR INTRAMUSCULAR 10/02 [facility] SUBSEQ CARE VISIT () [EXCLS:PATIENTS WHO ARE SEEN FOR A CONDITION UNREL TO / CARE (EG,AN UP RESPIR INFECT;PATIENTS SEEN FOR CONSULTATION ONLY,NOT FOR CONT CARE)] 10/01 DoD THERAPEUTIC, PROPHYLACTIC, OR DIAGNOSTIC INJECTION (SPECIFY SUBSTANCE OR DRUG); SUBCUTANEOUS OR INTRAMUSCULAR 09/25 DoD MEDICAL NUTRITION THERAPY; INITIAL ASSESSMENT AND INTERVENTION, INDIVIDUAL, [id number] WITH THE PATIENT, EACH 15 MINUTES 09/24 DoD SUBSEQ CARE VISIT () [EXCLS:PATIENTS WHO ARE SEEN FOR A CONDITION UNREL TO / CARE (EG,AN UP RESPIR INFECT;PATIENTS SEEN FOR CONSULTATION ONLY,NOT FOR CONT CARE)] 09/23 DoD THERAPEUTIC, PROPHYLACTIC, OR DIAGNOSTIC INJECTION (SPECIFY SUBSTANCE OR DRUG); SUBCUTANEOUS OR INTRAMUSCULAR 09/18 [facility] EDUCATION &TRAINING, PATIENT SELF-MGT QUALIFIED, NONPHYSICIAN HEALTH SALES AND OPERATIONS TRAINEE USING STDIZED CURRICULUM, [id number] W THE PATIENT (COULD INCL CAREGIVER/FAMILY) EA 30 MIN; INDIVIDUAL PATIENT 09/17 DoD THERAPEUTIC, PROPHYLACTIC, OR DIAGNOSTIC INJECTION (SPECIFY SUBSTANCE OR DRUG); SUBCUTANEOUS OR INTRAMUSCULAR 09/11 DoD SUBSEQ CARE VISIT () [EXCLS:PATIENTS WHO ARE SEEN FOR A CONDITION UNREL TO / CARE (EG,AN UP RESPIR INFECT;PATIENTS SEEN FOR CONSULTATION ONLY,NOT FOR CONT CARE)] 09/09 DoD THERAPEUTIC, PROPHYLACTIC, OR DIAGNOSTIC INJECTION (SPECIFY SUBSTANCE OR DRUG); SUBCUTANEOUS OR INTRAMUSCULAR 09/04 DoD THERAPEUTIC, PROPHYLACTIC, OR DIAGNOSTIC INJECTION (SPECIFY SUBSTANCE OR DRUG); SUBCUTANEOUS OR INTRAMUSCULAR 08/28 DoD SUBSEQ CARE VISIT () [EXCLS:PATIENTS WHO ARE SEEN FOR A CONDITION UNREL TO / CARE (EG,AN UP RESPIR INFECT;PATIENTS SEEN FOR CONSULTATION ONLY,NOT FOR CONT CARE)] 08/20 DoD THERAPEUTIC, PROPHYLACTIC, OR DIAGNOSTIC INJECTION (SPECIFY SUBSTANCE OR DRUG); SUBCUTANEOUS OR INTRAMUSCULAR 08/15 DoD INJECTION, PROGESTERONE, PER 50 MG 08/07 DoD SUBSEQ CARE VISIT () [EXCLS:PATIENTS WHO ARE SEEN FOR A CONDITION UNREL TO / CARE (EG,AN UP RESPIR INFECT;PATIENTS SEEN FOR CONSULTATION ONLY,NOT FOR CONT CARE)] 08/05 [facility] THERAPEUTIC, PROPHYLACTIC, OR DIAGNOSTIC INJECTION (SPECIFY SUBSTANCE OR DRUG); SUBCUTANEOUS OR INTRAMUSCULAR 07/31 [facility] SUBSEQ CARE VISIT () [EXCLS:PATIENTS WHO ARE SEEN FOR A CONDITION UNREL TO / CARE (EG,AN UP RESPIR INFECT;PATIENTS SEEN FOR CONSULTATION ONLY,NOT FOR CONT CARE)] 07/25 DoD SUBSEQ CARE VISIT () [EXCLS:PATIENTS WHO ARE SEEN FOR A CONDITION UNREL TO / CARE (EG,AN UP RESPIR INFECT;PATIENTS SEEN FOR CONSULTATION ONLY,NOT FOR CONT CARE)] 07/11 [facility] INJECTION, PROGESTERONE, PER 50 MG 07/10 [facility] INJECTION, PROGESTERONE, PER 50 MG 07/04 DoD SUBSEQ CARE VISIT () [EXCLS:PATIENTS WHO ARE SEEN FOR A CONDITION UNREL TO / CARE (EG,AN UP RESPIR INFECT;PATIENTS SEEN FOR CONSULTATION ONLY,NOT FOR CONT CARE)] 06/25 DoD SUBSEQ CARE VISIT () [EXCLS:PATIENTS WHO ARE SEEN FOR A CONDITION UNREL TO / CARE (EG,AN UP RESPIR INFECT;PATIENTS SEEN FOR CONSULTATION ONLY,NOT FOR CONT CARE)] 06/06 [facility] INITIAL CARE VISIT (REPORT AT 1ST ENCOUN W HEALTH SALES AND OPERATIONS TRAINEE PROVIDING OBSTETRIC CARE. REPORT ALSO DATE OF VISIT &,IN A SEPARATE FIELD,THE DATE OF THE LAST MENSTRUAL PERIOD) 05/21 DoD GONADOTROPIN, CHORIONIC (HCG); QUALITATIVE 04/01 [facility] PREPARATION OF REPORT OF PATIENT'S PSYCHIATRIC STATUS, HISTORY, TREATMENT, OR PROGRESS (OTHER THAN FOR LEGAL OR CONSULTATIVE PURPOSES) FOR OTHER INDIVIDUALS, AGENCIES, OR INSURANCE CARRIERS 03/19 [facility] INDIVIDUAL PSYCHOTHERAPY, INSIGHT ORIENTED, BEHAVIOR MODIFYING AND/OR SUPPORTIVE, IN AN OFFICE OR OUTPATIENT FACILITY, APPROXIMATELY 45 TO 50 MINUTES [id number] WITH THE PATIENT 02/01 DoD INDIVIDUAL PSYCHOTHERAPY, INSIGHT ORIENTED, BEHAVIOR MODIFYING AND/OR SUPPORTIVE, IN AN OFFICE OR OUTPATIENT FACILITY, APPROXIMATELY 20 TO 30 MINUTES [id number] WITH THE PATIENT 12/28 DoD INDIVIDUAL PSYCHOTHERAPY, INSIGHT ORIENTED, BEHAVIOR MODIFYING AND/OR SUPPORTIVE, IN AN OFFICE OR OUTPATIENT FACILITY, APPROXIMATELY 45 TO 50 MINUTES [id number] WITH THE PATIENT 12/20 DoD PSYCHIATRIC DIAGNOSTIC INTERVIEW EXAMINATION 10/22 /2009 DoD SCREENING [place] SMEAR; OBTAINING, PREPARING AND CONVEYANCE OF CERVICAL OR VAGINAL SMEAR TO LABORATORY 08/21 DoD MEDICAL NUTRITION THERAPY; GROUP (2 OR MORE INDIVIDUAL(S)), EACH 30 MINUTES 06/28 DoD TELE ASSESS & MGT SRV PROV QUAL NONPHYS HLTH CARE PRO TO EST PAT,PARENT,GUARD NOT ORIG REL ASSESS & MGT SRV PROV W/IN PREV 7 DAYS NOR LEAD ASSESS & MGT SRV/PX W/IN NXT 24 HR/SOON APT;5-10 MIN MED DIS 04/11 DoD TELE ASSESS & MGT SRV PROV QUAL NONPHYS HLTH CARE PRO TO EST PAT,PARENT,GUARD NOT ORIG REL ASSESS & MGT SRV PROV W/IN PREV 7 DAYS NOR LEAD ASSESS & MGT SRV/PX W/IN NXT 24H/SOON APT; 11-20 MIN MED DIS 12/19 DoD SCREENING [place] SMEAR; OBTAINING, PREPARING AND CONVEYANCE OF CERVICAL OR VAGINAL SMEAR TO LABORATORY 10/24 DoD SYRINGE WITH NEEDLE, STERILE 3 CC, EACH 07/13 DoD SCREENING [place] SMEAR; OBTAINING, PREPARING AND CONVEYANCE OF CERVICAL OR VAGINAL SMEAR TO LABORATORY 06/08 [facility] UNLISTED THERAPEUTIC, PROPHYLACTIC OR DIAGNOSTIC INTRAVENOUS OR INTRA-ARTERIAL INJECTION OR INFUSION 04/13 [facility] PSYCHIATRIC EVALUATION OF HOSPITAL RECORDS, OTHER PSYCHIATRIC REPORTS, PSYCHOMETRIC AND/OR PROJECTIVE TESTS, AND OTHER ACCUMULATED DATA FOR MEDICALDIAGNOSTIC PURPOSES 02/11 [facility] SHAVING OF EPIDERMAL OR DERMAL LESION, SINGLE LESION, TRUNK, ARMS OR LEGS; LESION DIAMETER 0.5 CM OR LESS 12/10 DoD ACOUSTIC REFLEX TESTING; DECAY 12/06 [facility] Ultrasound Trans-Vaginal Doppler Flow Study Ultrasound Trans-Vaginal Doppler Flow Study [id number] 07/15 ARLYN TORRES DoD Physician Supervised Injection Intramuscular Physician Supervised Injection Intramuscular 12037 07/10 JERRICA MAYES 18w 5 day OB patient with a history of threatened premautre labor. Walked into [facility] for Hydroxyprogesterone (17) Caproate 250mg/ml injection. Pt denies contraction and bleeding. Pt stated she has positive movement. Injection was given in patients upper left gluteal hip region. Pt tolerated injection well and was observed for 15 minutes in the [facility] clinic lobby with no adverse reactions noted. Pt to RTC in one week for 2nd injection. Pt verblaized understanding with no further questions. LOT# [id number] EX 09/22/09 DoD Physician Supervised Injection Physician Supervised Injection [id number] 07/04 ANABELLE COREY Pt presented to [facility] for first dose of injection. Please review Dr. Giron's order today. EDC: 06 Dec 2009, approx 17+6 gest age. Pt give 15 Hydroxyprogesterone Caproate 250 mg IM RUQ gluteus per order and well tolerated. Pt identifiers verified with pt. Pt states receiving injection because of prior hx of delivery at 22 week. Pt denies any vb, spotting, lof, abn discharge. Unknown FM maybe No u/c. Pt also states that this is by IVF. Pt was kept in the clinic for observation. No allergic reaction noted or voiced by pt. Pt was instructed to RTC on Wed for repeat inj. Pt agree and denies any questions. Pt was released from the clinic. Lot# [id number] Exp: 09/22/2009 [facility] OB Services Antepartum Care Only Subsequent Single Visit OB Services Antepartum Care Only Subsequent Single Visit [id number] 06/26 ARLYN TORRES Ultrasound [place] [address] 06/26 ARLYN TORRES Ultrasound [place] [address] 06/06 VIC IGLESIAS OB Services Antepartum Care Only Subsequent Single Visit OB Services Antepartum Care Only Subsequent Single Visit 0502F 06/06 VIC IGLESIAS [facility] OB Services Antepartum Care Only First Visit, With Report OB Services Antepartum Care Only First Visit, With Report 0500F 05/21 ARLYN TORRES Ultrasound [place] [address] 05/21 ARLYN TORRES Urine HCG, Test Urine HCG, Test [id number] 04/01 JERRICA MAYES [facility] Psychiatric Therapy Preparation of Psychiatric Status Report Psychiatric Therapy Preparation of Psychiatric Status Report [id number] 03/19 IDA FOX Psychotherapy Individual Approximately 45 Minutes Psychotherapy Individual Approximately 45 Minutes [id number] 02/04 IDA FOX [facility] Psychotherapy Individual Approximately 30 Minutes Psychotherapy Individual Approximately 30 Minutes [id number] 12/31 IDA FOX [facility] Psychotherapy Individual Approximately 45 Minutes Psychotherapy Individual Approximately 45 Minutes 52060 12/20 DOMINIQUEIDA Doroteo [facility] Psychiatric Diagnostic Evaluation Comprehensive Examination Psychiatric Diagnostic Evaluation Comprehensive Examination 71387 12/14 IDA FOX Doroteo [facility] OB Services Antepartum Care Only First Visit, With Report OB Services Antepartum Care Only First Visit, With Report 0500F 08/21 VIC DE LA CRUZ [facility] Screening papanicolaou smear; obtaining, preparing and conveyance of cervical or vaginal smear to laboratory 08/21 VIC DE LA CRUZ [facility] Medical Nutrition Therapy Group (2 or More Individuals) Each 30 Minutes Medical Nutrition Therapy Group (2 or More Individuals) Each 30 Minutes 62463 07/10 [facility] ANTONIO IRWIN [facility] Non-Physician Phone Call To Patient/Provider Brief (5-10min) Non-Physician Phone Call To Patient/Provid er Brief (5-10min) 42675 04/11 YESSENIA WHEELER [facility] Non-Physician Phone Call To Pt/Provider Intermed (11-20 min) Non-Physician Phone Call To Pt/Provider Intermed (11-20 min) [id number] 12/21 MAYA SALAZAR [facility] Screening papanicolaou smear; obtaining, preparing and conveyance of cervical or vaginal smear to laboratory 10/24 IZABELA SCHERER [facility] Needle, sterile, any size, each 07/13 MACK SHARMA [facility] Syringe with needle, sterile 3 cc, each 07/13 MACK SHARMA Physician Supervised Injection Intramuscular Physician Supervised Injection Intramuscular [id number] 07/13 MACK SHARMA Injection, medroxyprogesterone acetate for contraceptive use, 150 mg 07/13 MACK SHARMA Screening papanicolaou smear; obtaining, preparing and conveyance of cervical or vaginal smear to laboratory 06/08 BALDEV BARGER Physician Supervised Injection Physician Supervised Injection [id number] 04/13 MIR MUNOZ [facility] Syringe with needle, sterile 3 cc, each 04/13 MIR UMNOZ [facility] Needle, sterile, any size, each 04/13 MIR MUNOZ [facility] Physician Supervised Group Educational Services 02/20 MARY JERRY [facility] Psychiatric Diagnostic Evaluation Review of Records and Reports Psychiatric Diagnostic Evaluation Review of Records and Reports 23077 02/20 MARY JERRY A [facility] Psychiatric Diagnostic Evaluation Review of Records and Reports Psychiatric Diagnostic Evaluation Review of Records and Reports 46435 12/27 ANTONIO PAUL [facility] Psychotherapy Individual Approximately 45 Minutes Psychotherapy Individual Approximately 45 Minutes 87148 12/17 ANTONIO PAUL [facility] Psychotherapy Individual Approximately 45 Minutes Psychotherapy Individual Approximately 45 Minutes 29138 12/01 ANTONIO PAUL [facility] Psychotherapy Individual Approximately 45 Minutes Psychotherapy Individual Approximately 45 Minutes [id number] 11/04 ANTONIO PAUL Psychotherapy Individual Approximately 45 Minutes Psychotherapy Individual Approximately 45 Minutes 05899 10/20 ANTONIO PAUL Psychotherapy Individual Approximately 45 Minutes Psychotherapy Individual Approximately 45 Minutes 69505 10/07 ANTONIO PAUL [facility] Psychotherapy Individual Approximately 45 Minutes Psychotherapy Individual Approximately 45 Minutes 48448 09/22 ANTONIO PAUL Psychiatric Examination Following Psychotherapy/Mental Treat Psychiatric Examination Following Psychotherapy/ Mental Treat 56796 09/07 FELIZ BAXTER [facility] Psychotherapy Individual Approx 30 Min W/ Medical Evaluation & Management Psychotherapy Individual Approx 30 Min W/ Medical Evaluation & Management 69679 08/13 JAYJAY SARABIA [facility] Psychotherapy Individual Approximately 75-80 Minutes Psychotherapy Individual Approximately 75-80 Minutes 86469 08/05 ANTONIO PAUL [facility] Psychotherapy Individual Approximately 45 Minutes Psychotherapy Individual Approximately 45 Minutes 36006 07/30 ANTONIO PAUL [facility] Psychotherapy Individual Approximately 75-80 Minutes Psychotherapy Individual Approximately 75-80 Minutes 42573 07/09 ANTONIO PAUL [facility] Clinical Social Work Individual Outpatient Counseling 45 Minutes Clinical Social Work Individual Outpatient Counseling 45 Minutes [id number] 07/02 FARZANA LOPEZ [facility] Non-Physician Phone Call To Pt/Provider Intermed (11-20 min) Non-Physician Phone Call To Pt/Provider Intermed (11-20 min) 13616 06/29 ANTONIO PAUL Non-Physician Phone Call To Pt/Provider Intermed (11-20 min) Non-Physician Phone Call To Pt/Provider Intermed (11-20 min) [id number] 06/28 ANTONIO PAUL Non-Physician Phone Call To Pt/Provider Lengthy (21-30 min) Non-Physician Phone Call To Pt/Provider Lengthy (21-30 min) [id number] 06/22 ANTONIO PAUL Case Management, each 15 minutes 05/31 REY FERGUSON Case Management, each 15 minutes 05/18 REY FERGUSON Psychotherapy Individual Approx 30 Min W/ Medical Evaluation & Management Psychotherapy Individual Approx 30 Min W/ Medical Evaluation & Management 95320 05/14 JAYJAY SARABIA Psychotherapy Individual Approximately 45 Minutes Psychotherapy Individual Approximately 45 Minutes 69622 05/13 ANTONIO PAUL Psychotherapy Individual Approximately 45 Minutes Psychotherapy Individual Approximately 45 Minutes 40414 04/26 ANTONIO PAUL Psychotherapy Individual Approximately 45 Minutes Psychotherapy Individual Approximately 45 Minutes 53358 04/09 ANTONIO PAUL Non-Physician Phone Call To Patient/Provider Brief (5-10min) Non-Physician Phone Call To Patient/Provid er Brief (5-10min) 34928 04/02 YESSENIA WHEELER Psychiatric Diagnostic Evaluation Comprehensive Examination Psychiatric Diagnostic Evaluation Comprehensive Examination 04075 03/26 JAYJAY SARABIA Psychotherapy Individual Approximately 45 Minutes Psychotherapy Individual Approximately 45 Minutes 76133 03/23 ANTONIO PAUL Non-Physician Phone Call To Pt/Provider Intermed (11-20 min) Non-Physician Phone Call To Pt/Provider Intermed (11-20 min) 24134 03/20 ANTONOI PAUL Non-Physician Phone Call To Patient/Provider Brief (5-10min) Non-Physician Phone Call To Patient/Provid er Brief (5-10min) 86013 03/20 YESSENIA WHEELER Psychotherapy Individual Approximately 30 Minutes Psychotherapy Individual Approximately 30 Minutes 10513 03/12 FELIZ SANCHEZ [facility] Non-Physician Phone Call To Pt/Provider Lengthy (21-30 min) Non-Physician Phone Call To Pt/Provider Lengthy (21-30 min) 91212 03/11 ANTONIO PAUL Psychiatric Diagnostic Evaluation Comprehensive Examination Psychiatric Diagnostic Evaluation Comprehensive Examination 18547 03/10 ANTONIO PAUL Non-Physician Phone Call To Patient/Provider Brief (5-10min) Non-Physician Phone Call To Patient/Provid er Brief (5-10min) 87884 01/05 YESSENIA WHEELER Non-Physician Phone Call To Patient/Provider Brief (5-10min) Non-Physician Phone Call To Patient/Provid er Brief (5-10min) 15216 12/29 YESSENIA WHEELER Test Test 05369 12/25 KARIE FRANCO Shaving Of Lesion Thighs .6 to 1cm Shaving Of Lesion Thighs .6 to 1cm 82411 11/12 RUSSELL WHITE Osteopathic Manip Treatment (OMT) 1-2 Body Regions Involved Osteopathic Manip Treatment (OMT) 1-2 Body Regions Involved 50876 10/31 KATT ODOM Non-Physician Phone Call To Patient/Provider Brief (5-10min) Non-Physician Phone Call To Patient/Provid er Brief (5-10min) 57744 10/29 YESSENIA WHEELER Osteopathic Manip Treatment (OMT) 3-4 Body Regions Involved Osteopathic Manip Treatment (OMT) 3-4 Body Regions Involved 31948 10/24 SARAHI SPENCER [facility] Psychotherapy Individual Approx 30 Min W/ Medical Evaluation & Management Psychotherapy Individual Approx 30 Min W/ Medical Evaluation & Management 21244 10/14 JAYJAY SARABIA [facility] Hot water bottle, ice cap or collar, heat and/or cold wrap, any type 09/28 BENOIT SCHUMACHER Osteopathic Manip Treatment (OMT) 3-4 Body Regions Involved Osteopathic Manip Treatment (OMT) 3-4 Body Regions Involved 90702 09/28 BENOIT SCHUMACHER Non-Physician Phone Call To Patient/Provider Brief (5-10min) Non-Physician Phone Call To Patient/Provid er Brief (5-10min) 74998 09/11 YESSENIA WHEELER [facility] Non-Physician Phone Call To Patient/Provider Brief (5-10min) Non-Physician Phone Call To Patient/Provid er Brief (5-10min) 43682 09/10 YESSENIA WHEELER Psychotherapy Individual Approximately 45 Minutes Psychotherapy Individual Approximately 45 Minutes 74796 06/20 ANTONIO PAUL [facility] Psychotherapy Individual Approximately 30 Minutes Psychotherapy Individual Approximately 30 Minutes 30870 06/03 ANTONIO PAUL Psychiatric Diagnostic Evaluation Comprehensive Examination Psychiatric Diagnostic Evaluation Comprehensive Examination 27024 05/15 JAYJAY SARABIA [facility] Psychotherapy Individual Approximately 45 Minutes Psychotherapy Individual Approximately 45 Minutes 23008 05/15 ANTONIO PAUL [facility] Psychotherapy Individual Approximately 45 Minutes Psychotherapy Individual Approximately 45 Minutes 24623 04/29 ANTNOIO PAUL Psychiatric Diagnostic Evaluation Comprehensive Examination Psychiatric Diagnostic Evaluation Comprehensive Examination 41579 04/21 ANTONIO PAUL [facility] Destruction Of Premalignant Lesion By Any Method One Lesion 02/25 KATHERIN JACKSON [facility] Obstetrical Services Care Visit Obstetrical Services Care Visit 0503F 01/09 GERARDO MAURICIO [facility] Screening papanicolaou smear; obtaining, preparing and conveyance of cervical or vaginal smear to laboratory 01/09 GERARDO MAURICIO [facility] Case Management, each 15 minutes 11/29 REY FERGUSON [facility] Ultrasound Obstetric Limited Evaluation Ultrasound Obstetric Limited Evaluation 12598 11/25 PARINOBLE MARCIAL [facility] OB Services Antepartum Care Only Subsequent Single Visit OB Services Antepartum Care Only Subsequent Single Visit 0502F 11/25 NOBLE GIRON [facility] Vaginal DOM Prep Vaginal DOM Prep 83216 11/25 PARINOBLE MARCIAL [facility] Vaginal Wet [place] Vaginal Wet [place] 14922 11/25 PARINOBLE MARCIAL [facility] Ultrasound Obstetric Limited Evaluation Ultrasound Obstetric Limited Evaluation 72676 11/22 VIC IGLESIAS [facility] OB Services Antepartum Care Only Subsequent Single Visit OB Services Antepartum Care Only Subsequent Single Visit 0502F 11/22 VIC IGLESIAS [facility] Medical Nutrition Therapy Initial A e ment And Intervention Each 15 Minutes Medical Nutrition Therapy Initial Assessment And Intervention Each 15 Minutes 03443 11/21 ARACELI ROBB [facility] OB Services Antepartum Care Only Subsequent Single Visit OB Services Antepartum Care Only Subsequent Single Visit 0502F 11/11 ARLYN TORRES [facility] Ultrasound Obstetric Limited Evaluation Ultrasound Obstetric Limited Evaluation 53501 11/05 NOBLE GIRON [facility] OB Services Antepartum Care Only Subsequent Single Visit OB Services Antepartum Care Only Subsequent Single Visit 0502F 11/05 NOBLE GIRON [facility] Physician Supervised Injection Intramuscular Physician Supervised Injection Intramuscular 15164 10/30 ANABELLE COREY Pt presented to [facility] for injection Pt is approx 34+5 weeks gestation with threatened prea labor - antepartum cond or prior comp del. All identifiers verified with pt. Please review provider note 03 Jul 2009 for orders. Pt given Hydroxyprogesterone (17) Caproate 250 mg/ml injection from clinic stock LUQ gluteus per order and well tolerated. Pt denies having any vaginal bleeding, spotting, leaking of fluids, abnormal discharge, and uterine contractions. Pt reports good movement Pt states that she missed 1 dose of injection last week I forgot what was going on why I missed Pt also states that she did not notify someone of missed dose. Pt was kept in the clinic for observation and after 15 mins no allergic reaction noted or voiced. Pt instructed to RTC in 1 week for repeat injection. Pt verbalized understanding and has no questions. Pt was released from [facility]. T [phone] Lot #: [id number] Exp: 01/26/2010 [facility] Injection, progesterone, per 50 mg 10/30 ANABELLE COREY [facility] Ultrasound Obstetric Limited Evaluation Ultrasound Obstetric Limited Evaluation 14873 10/22 NOBLE GIRON [facility] OB Services Antepartum Care Only Subsequent Single Visit OB Services Antepartum Care Only Subsequent Single Visit 0502F 10/22 NOBLE GIRON [facility] Physician Supervised Injection Intramuscular Physician Supervised Injection Intramuscular 31493 10/16 JERRICA MAYES 32w 5d OB patient with a history of threatened premature labor antpartum cond or prior comp del walked into [facility] for Hydroxyprogesterone (17) Caproate 250mg/ml injection from clinic stock. Please refer to providers note all identifier verified with patient. Pt denies contraction, bleeding or leaking of any fluid. Pt stated she has positive movement. Injection was given in patient's upper right gluteal hip region. Pt tolerated injection well and was observed for 15 minutes in the [facility] clinic lobby with no adverse reactions noted. Pt to RTC in one week for next injection. Pt verbalized understanding with no further questions. LOT# [id number] EX 01/13/2010 [facility] Injection, progesterone, per 50 mg 10/16 JERRICA MAYES [facility] Physician Supervised Injection Intramuscular Physician Supervised Injection Intramuscular 51554 10/09 BRUNO DA SILVA Pt presented to [facility] for injection Pt is approx 31+5 weeks gestation with threatened premature labor-antepart condition or prior complicated delivery. All identifiers verified with pt. Pt given Hydroxyprogesterone (17) Caproate 250 mg/ml injection from clinic stock left dorsogluteal muscle per order and well tolerated. Please review provider note [id number] for orders. Pt denies having any vaginal bleeding, spotting, leaking of fluids, abnormal discharge, and uterine contractions. Pt reports good movement. Pt was kept in the clinic for observation and after 15 mins no allergic reaction noted or voiced. Pt instructed to RTC in 1 week for repeat injection. Pt verbalized understanding and has no questions. Pt was released from [facility] without incidence. Lot #:[id number] Expiration Date:01-13-10 [facility] Injection, progesterone, per 50 mg 10/09 BRUNO DA SILVA [facility] OB Services Antepartum Care Only Subsequent Single Visit OB Services Antepartum Care Only Subsequent Single Visit 0502F 10/07 VIC IGLESIAS [facility] Physician Supervised Injection Intramuscular Physician Supervised Injection Intramuscular 40728 10/02 JOVANI PEREZ [facility] Injection, progesterone, per 50 mg 10/02 JOVANI PEREZ 30W5d OB patient with Preg. Threated PTL, Antepart Cond. or Prior Comp Del., walked into [facility] for Hydroxyprogesterone (17) Caproate 250mg/ml injection from clinic stock. Please refer to providers note all identifier verified with patient. Pt denies contraction, bleeding or leaking of any fluid. Pt stated she has positive movement. Injection was given in patient's upper right gluteal hip region. Pt tolerated injection well and was observed for 15 minutes in the [facility] clinic lobby with no adverse reactions noted. Pt to RTC in one week for next injection. Pt verbalized understanding with no further questions. LOT# [id number] EX 01/26/2010 [facility] OB Services Antepartum Care Only Subsequent Single Visit OB Services Antepartum Care Only Subsequent Single Visit 0502F 10/01 MACK NOBLE Peter [facility] Physician Supervised Injection Intramuscular Physician Supervised Injection Intramuscular 08939 09/25 ANABELLE COREY Pt presented to [facility] for injection Pt is approx 29+5 weeks gestation with threatened rashida labor - antepartum cond or prior comp del. All identifiers verified with pt. Please review provider note 03 Jul 2009 for orders. Pt given Hydroxyprogesterone (17) Caproate 250 mg/ml injection from clinic stock LUQ gluteus per order and well tolerated. Pt denies having any vaginal bleeding, spotting, leaking of fluids, abnormal discharge, and uterine contractions. Pt reports good movement Pt was kept in the clinic for observation and after 15 mins no allergic reaction noted or voiced. Pt instructed to RTC in 1 week for repeat injection. Pt verbalized understanding and has no questions. Pt was released from [facility]. Lot # [id number] Exp: 01/13/2010 [facility] Injection, progesterone, per 50 mg 09/25 ANABELLE COREY [facility] OB Services Antepartum Care Only Subsequent Single Visit OB Services Antepartum Care Only Subsequent Single Visit 0502F 09/23 VIC IGLESIAS [facility] Physician Supervised Injection Intramuscular Physician Supervised Injection Intramuscular 89981 09/18 VIC IGLESIAS Pt presented to [facility] for injection Pt is approx 28+5 weeks gestation with Preg threatened rashida labor - antepart cond or prior comp del. All identifiers verified with pt. Please review provider note July 01 for orders. Pt given Hydroxyprogesterone (17) Caproate 250 mg/ml injection from clinic stock RUQ gluteus per order and well tolerated. Pt denies having any vaginal bleeding, spotting, leaking of fluids, abnormal discharge, and uterine contractions. Pt reports good movement Pt was kept in the clinic for observation and after 15 mins no allergic reaction noted or voiced. Pt instructed to RTC in 1 week for repeat injection. Pt verbalized understanding and has no questions. Pt was released from the clinic. Lot # [id number] Exp: 01/13/10 [facility] Injection, progesterone, per 50 mg 09/18 VIC IGLESIAS [facility] Patient Counseling Medical Management Individual Patient Patient Counseling Medical Management Individual Patient 93686 09/17 NOBLE GIRON [facility] Diabetes outpatient self-management training services, individual, per 30 minutes 09/17 NOBLE GIRON [facility] Physician Supervised Injection Intramuscular Physician Supervised Injection Intramuscular 83886 09/11 JOVANI PEREZ Pt presented to [facility] for injection Pt is approx 27+ 5 weeks gestation with high risk with history of pre-term labor . All identifiers verified with pt. Pt given Hydroxyprogesterone (17) Caproate 250 mg/ml injection from clinic stock in LUQ gluteus per order, tolerated well. Please review provider note dated 03 Jul 2009 for orders. Pt denies having any vaginal bleeding, spotting, leaking of fluids, abnormal discharge, and uterine contractions. Pt reports good movement. Pt remained in the clinic for observation, for 15 mins., no allergic reaction observed. Pt. denies questions or concerns. Pt instructed to RTC in 1 week, for repeat injection. Pt was released from [facility] in stable condition. Lot # [id number] Exp.01/13/2010 [facility] Injection, progesterone, per 50 mg 09/11 JOVANI PEREZ [facility] Ultrasound Obstetric Limited Evaluation Ultrasound Obstetric Limited Evaluation 58223 09/09 VIC IGLESIAS [facility] OB Services Antepartum Care Only Subsequent Single Visit OB Services Antepartum Care Only Subsequent Single Visit 0502F 09/09 VIC IGLESIAS [facility] Physician Supervised Injection Intramuscular Physician Supervised Injection Intramuscular 56357 09/04 JOVANI PEREZ 26W 5Days, OB patient with a history of threatened pre-term labor. Walked into [facility], for Hydroxprogesterone (17) Caproate 250mg/ml injection from clinic stock. Please refer to providers note all identifier verified with patient. Pt. denies contraction, bleeding or leaking of any fluid. Pt. stated she has positive movements. Injection was given in patient's upper right gluteal hip region. Pt. tolerated injection well and was observed for 15 minutes in the [facility] lobby with no adverse reactions noted. Pt. to RTC in one week. Pt. verbalized understanding with no further questions. Lot # [id number] Exp. 01/13/2010 [facility] Injection, progesterone, per 50 mg 09/04 JOVANI PEREZ [facility] Physician Supervised Injection Intramuscular Physician Supervised Injection Intramuscular 09455 08/28 JERRICA MAYES 25 w 5 d OB patient with history of threatened premature labor, walked into [facility] for Hydroxyprogesterone (17) Caproate 250mg/ml injection from clinic stock. Please refer to providers note all identifier verified with patient. Pt denies contraction, bleeding or leaking of any fluid. Pt stated she has positive movement. Injection was given in patient's upper left gluteal hip region. Pt tolerated injection well and was observed for 15 minutes in the [facility] clinic lobby with no adverse reactions noted. Pt to RTC in one week for 7th injection. Pt verbalized understanding with no further questions. LOT# [id number] EX 01/13/2010 [facility] Injection, progesterone, per 50 mg 08/28 JERRICA MAYES [facility] OB Services Antepartum Care Only Subsequent Single Visit OB Services Antepartum Care Only Subsequent Single Visit 0502F 08/20 NOBLE GIRON [facility] Physician Supervised Injection Intramuscular Physician Supervised Injection Intramuscular 91570 08/15 JERRICA MAYES 23 w 6d OB patient with a history of trheatened premature labor walked into [facility] for Hydroxyprogesterone (17)Caproate 250mg/ml injection. Pt denies any contractions, bleeding, spotting, or leaking of any fluid. Pt stated she has positive movement. Injection was given in patients upper right gluteal hip region. Pt tolerated injection well and was observed for 15 min in [facility] lobby with no adverse reactions noted. Pt to RTC in one week fro 5th injection. Pt verblaize dunderstanding wiht no furtehr questions. LOT# [id number] EX 09/22/09 [facility] Physician Supervised Injection Intramuscular Physician Supervised Injection Intramuscular 39693 08/07 JERRICA MAYES 22w5 day OB patient with a history threatened premature labor wallked into [facility] for Hydroxyprogesterone (17) Caproate 250mg/ml injection. Pt denies contraction, bleeding or leaking of any fluid. Pt stated she has positive movement. Injection was given in patients upper left gluteal hip region. Pt tolerated injection well and was observed for 15 minutes in the [facility] clinic lobby with no adverse reactions noted. Pt to RTC in one week for 5th injection. Pt verbalized understanding with no further questions. LOT# [id number] EX 09/22/09 [facility] Ultrasound Obstetric Limited Evaluation Ultrasound Obstetric Limited Evaluation 64623 08/05 VIC IGLESIAS [facility] Ultrasound Trans[place] [address] 07/31 ARLYN TORRES [facility] OB Services Antepartum Care Only Subsequent Single Visit OB Services Antepartum Care Only Subsequent Single Visit 0502F 07/31 ARLYN TORRES [facility] Physician Supervised Injection Intramuscular Physician Supervised Injection Intramuscular 98001 07/31 JERRICA MAYES 21w 5 day OB patient with a history of prior threatened premature labor walked into [facility] for Hydroxyprogesterone (17) Caproate 250mg/ml injection. Pt denies contraction, bleeding or leaking of any fluid. Pt stated she has positive movement. Injection was given in patients upper right gluteal hip region. Pt tolerated injection well and was observed for 15 minutes in the [facility] clinic lobby with no adverse reactions noted. Pt to RTC in one week for 4th injection. Pt verbalized understanding with no further questions. LOT# [id number]@2 EX 09/22/09 [facility] OB Services Antepartum Care Only Subsequent Single Visit OB Services Antepartum Care Only Subsequent Single Visit 0502F 07/15 ARLYN TORRES [facility] Ultrasound Obstetric Limited Evaluation Ultrasound Obstetric Limited Evaluation 64708 07/15 ARLYN TORRES [facility] Vaginal DOM Prep Vaginal DOM Prep 17263 07/15 ARLYN TORRES [facility] Vaginal Wet [place] Vaginal Wet [place] 11800 07/15 ARLYN TORRES [facility] Social History Combined list of available smoking, tobacco, and other social history from Department of Defense and Veterans Affairs facilities. Social History Type Response Date Comment Sourc e Tobacco smoking status NHIS VA-TOBACCO NEVER USED 06/16/2022 [facility] History of tobacco use VA-TOBACCO NEVER USED 02/28/2021 [facility] History of tobacco use VA-TOBACCO NEVER USED 03/01/2020 [facility] History of tobacco use DC-TOBACCO NEVER USED 06/28/2018 [facility] History of tobacco use ORYX ADMIT TOBACC O SCREEN NO 07/26/2017 [facility] History of tobacco use LIFETIME NON-USER OF TOBACCO 07/26/2017 [facility] History of tobacco use LIFETIME NON-USER OF TOBACCO 11/18/2016 [facility] History of tobacco use LIFETIME NON-USER OF TOBACCO 02/05/2016 [facility] History of tobacco use LIFETIME NON-USER OF TOBACCO 04/21/2015 [facility] History of tobacco use LIFETIME NON-USER OF TOBACCO 04/08/2015 [facility] History of tobacco use LIFETIME NON-USER OF TOBACCO 03/27/2015 [facility] History of tobacco use LIFETIME NON-USER OF TOBACCO 12/11/2014 [facility] History of tobacco use LIFETIME NON-USER OF TOBACCO 11/02/2013 [facility] This section is an empty social history section. [facility] Assessment and Plan Combined list of future care activities from Department of [facility] and Veterans Affairs facilities (e.g., assessment and plan notes, appointments, orders, and referrals). Additional future care activities may be listed in the Plan of Care section. Result Assessment and Plan Date Source Assessment and Plan No data available for this section 04/04/2024 Ambulatory Pharmacy Plan of Care List of future care activities from Department [facility] facilities. Additional future care activities may be listed in the Assessment and Plan section. Date/Time Care Activity Care Activity Detail Facili ty 05/16/2024 AMBULATORY - PSYCHIATRY AMBULATORY - PSYC HIATRY [facility] 09/13/2024 AMBULATORY - MEDICINE AMBULATORY - MEDICI [facility] Advance Directives List of completed, amended, or rescinded Advance Directives on record at Department of Veterans Affairs facilities. An actual copy of the Directive is not included. Date Advance Directive Provider Source 04/15/2015 ADVANCE DIRECTIVE DISCUSSION [facility] Functional Status Combined list of recent functional and cognitive assessments recorded at Department of Defense and Veterans Affairs ([facility] Functional [place] Measurement (FIM) Scale: 1 = Total Assistance (Subject = 0% +), 2 = Maximal Assistance (Subject = 25% +), 3 = Moderate Assistance (Subject = 50% +), 4 = Minimal Assistance (Subject = 75% +), 5 = Supervision, 6 = Modified [place] (Device), 7 = Complete [place] (Timely, Safely). Assessment Date/Time Source Assessment Type Assessment Skill Assessment Score Assessment Details No data available for this section
--- OUTSIDE RECORDS SUMMARY | 2024-04-04 08:27 | XMS_ITS | Referral Summary ---
Author Organization [facility] Address [address] [place] [address] Care Team Providers Care Planner Intern Name Role Phone Salvador Byers Primary Care Provider [phone] Allergies No known active allergies Medications LISINOPRIL [...] AM CDT): This [place] by the [place] Controlled type 2 diabetes peterson garrett without complication, without long-term current use of insulin ([facility]) 05/26/2023 Assessment & Plan (05/26/2023 10:08 AM CDT): This is treated by the [place] Pure hypercholesterolemia 05/26/2023 ABDIEL (obstructive sleep apnea) 05/26/2023 Overview (05/26/2023): Uncontrolled, does not want CPAP, consult to dental for oral Routine general medical exam ination at a health care facility 10/02/2019 Immunizations Name Administration Dates Next Due Influenza, Quadrivalent, Spl it, Preservative Free, Intramuscular 12/09/2018 Influenza, Trivalent, Preser vative Free, Intramuscular 01/31/2016 Influenza, Unspecified 11/28/2022(Deferr ed: Patient decision),12/09/2018,11/22/2017 Social History Tobacco Use Types Packs/Day Years [...] on file Legal Sex Female 12:27 AM [employer] Gender Identity Not on file Sexual Orientation [...] 05/26/2023 9:22 AM CDT Plan of Treatment Not on file Procedures Procedure Name Priority Date/Time Associated Diagnosis [...] REPORT 11/30/2012 3:00 PM: Kristi Sandoval M.D. Kristi Sandoval M.D. KL:[email or web address] 03:00 PM 03:00 PM [facility] [EOD] Narrative 11/30/2012 3:04 PM CDT EXAMINATION: [...] REPORT 11/30/2012 3:00 PM: Kristi Sandoval M.D. Kristi Sandoval M.D. [email or web address] 03:00 PM 03:00 PM [facility] [EOD] Salvador SUGGS IMG MAMMO PROCEDURES Final Resu lt * Hemoglobin A1c (10/28/2012 9:50 AM CDT) Hemoglobin A1c % 5.3 4.8 - 5.9 % Comment: As of 2009 Method: BRANDO Dillan 6000 using turbidometric inhibition immunoassay procedure. Results obtained are comparable to results obtained using previous methodology (HPLC). [place] [employer] recommends that the goal of therapy should be an A1C hemoglobin of <7%. Reevaluate the treatment regimen in patients with an A1C >8%. 10/28/2012 9:50 AM CDT 10/28/2012 10:42 AM CDT Narrative [facility] HISTORICAL RESULTS - 10/28/2012 12:36 PM CDT PT.FASTING 12HR Salvador SUGGS LAB BLOOD ORDERABLES Final Resu lt [facility] HISTORICAL RESULTS * (ABNORMAL) Lipid panel (10/28/2012 9:50 AM CDT) Triglycerides 180 0 - 199 mg/dL Comment:12 [...] 9:50 AM CDT 10/28/2012 10:42 AM CDT Narrative [facility] HISTORICAL RESULTS - 10/28/2012 1:00 PM CDT PT.FASTING 12HR Salvador SUGGS LAB BLOOD ORDERABLES Final Resu lt [facility] HISTORICAL RESULTS from Last 3 Months or Most Recently Relevant to Health Maintenance Insurance [facility] Care Teams Planner Intern Relationship Specialty Start Date End Date Salvador Byers PA PCP - General Family Medicine 09/29/19
--- OUTSIDE RECORDS SUMMARY | 2024-04-04 08:27 | XMS_ITS | Encounter Summary ---
Author Name Department of Vetera Affairs ([place]) Organization [facility] ([place]) Address [address] [place] [address] Care Team Providers Care Contract Post Office Clerk Name Role Phone ISABEL MADONNA Primary Care Provider Unavailabl e Selected Encounter This section includes the information on record at NE for the Encounter. Date/Time Encounter Type Encounter Description Reason Provider Source Feb 10, 2024 03:00 PM OFFICE O/P EST MOD 30 MIN PRIMARY CARE/MEDICINE ICD-10-CM F33.1 Major depressive disorder, recurrent, moderate HALL,MADONNA A IHE Encounter Template Text not used by NE Assessments - Encounter Diagnoses This section includes the primary and secondary diagnoses documented for the Encounter. Date/Time Primary/Secondary Diagnosis Diagnosis Name Provider Source Feb 10, 2024 04:57 PM PRIMARY Major depressive disorder, recurrent, moderate HALL,MADONNA A [facility] Feb 10, 2024 04:57 PM SECONDARY Bipolar disorder, in full remis, most recent episode depress HALL,MADONNA A [facility] Feb 10, 2024 04:57 PM SECONDARY Hyperlipidemia, unspecified HALL,MADONNA A [facility] Feb 10, 2024 04:57 PM SECONDARY Hypertensive heart disease without heart failure HALL,MADONNA A [facility] Feb 10, 2024 04:57 PM SECONDARY assisted (current) use of anticoagulants HALL,MADONNA A [facility] Feb 10, 2024 04:57 PM SECONDARY Obesity, unspecified MADONNA HALL [facility] Feb 10, 2024 04:57 PM SECONDARY Type 2 diabetes mellitus without complications MADONNA HALL [facility] Feb 10, 2024 04:57 PM SECONDARY Unspecified atrial fibrillation MADONNA HALL [facility] Plan of Treatment: Future Appointments (+ 6 months) and Future Tests (+/- 45 days) The Plan of Treatment section includes future care activities for the patient from [facility] This section includes future appointments and future orders which are active, pending or scheduled. Future Appointments This section includes appointments that were scheduled to occur 6 months from the date of the Encounter, up to a maximum of 20 appointments. The data comes from all [place] treatment facilities. Appointment Date/Time Appointment Type Appointme nt Facility Name Mar 20, 2024 09:30 AM AMBULATORY - PS[facility]ATRY [facility] May 16, 2024 01:30 PM AMBULATORY - PSYCHIATRY [facility] Lab Results: +/- 30 days of the encounter This section includes the Chemistry and Hematology Lab Results on record with NE for the patient. Radiology Reports and Pathology Reports are provided separately, in subsequent sections. Lab Results This section contains the Chemistry/Hematology Results that were resulted 30 days before or 30 daysafter the date of the Encounter. Date/Time Source Result Type Result - Unit Interpretation Reference Range Comment Feb 02, 2024 08:20 AM [facility] HGA1C Specimen Type: BLOOD No comment entered. Ordering Provider: MADONNA HALL Report Released Date/Time: Jan 26, 2024 08:40 AM Reporting Lab: [facility] [address] [facility] [phone] Performing Lab: [facility] [address] [facility] [phone] HGA1C 6.1 H 4.0-6.0 Feb 02, 2024 08:20 AM [facility] LIPID PANEL (STL) Specimen Type: PLASMA Comment: No hemolysis noted. Ordering Provider: MADONNA HALL Report Released Date/Time: Jan 26, 2024 08:40 AM Reporting Lab: [facility] [address] [place] [phone] Performing Lab: [facility] [address] [place] [phone] CHOLESTEROL 155 mg/dL 0-200 TRIGLYCERIDE 163 mg/dL H 0-150 CALCULATED LDL 74 mg/dL HDL(New) 48 mg/dL >40 Feb 02, 2024 08:20 AM [facility] TSH W/ REFLEX FT4 (STL) Specimen Type: PLASMA No comment entered. Ordering Provider: MADONNA HALL Report Released Date/Time: Jan 26, 2024 08:40 AM Reporting Lab: [address] [address] Performing Lab: [address] [address] TSH 1.966 u[IU]/mL 0.47-5 Feb 02, 2024 08:20 AM [facility] MICRAL/CREAT PROFILE (STL) Specimen Type: URINE Comment: uALB/CREAT Ratio Unable to be calculated Unable to calculate due to Microalbumin < 5.0 mg/L Ordering Provider: MADONNA HALL Report Released Date/Time: Jan 26, 2024 08:40 AM Reporting Lab: [facility] [address] [place] [phone] Performing Lab: [facility] [address] [place] [phone] URINE ALBUMIN (PB-STL) <5.0 mg/L uACR (STL) comment mg/g 0-29 CREATININE URINE/OTHERS 86.0 mg/dL 47-110 Feb 02, 2024 08:20 AM [facility] BASIC METABOLIC PANEL Specimen Type: PLASMA Comment: No hemolysis noted. Ordering Provider: MADONNA HALL Report Released Date/Time: Jan 26, 2024 08:40 AM Reporting Lab: [facility] [address] [place] [phone] Performing Lab: [facility] [address] [place] [phone] CREATININE 0.87 mg/dL 0.6-1.1 UREA NITROGEN 15.4 mg/dL 9.0-25.0 GLUCOSE 104 mg/dL H 72-99 SODIUM 140 meq/L 136-145 POTASSIUM 4.6 meq/L 3.5-5 CHLORIDE 106 meq/L 98-107 CARBON DIOXIDE 22 meq/L 22-31 CALCIUM 10.1 mg/dL 8.4-10.4 EGFR (CKD-EPI 2020) 81.1 >60 Feb 02, 2024 08:20 AM [facility] CBC Specimen Type: BLOOD No comment entered. Ordering Provider: MADONNA HALL Report Released Date/Time: Jan 26, 2024 08:40 AM Reporting Lab: [facility] [address] [facility] [phone] Performing Lab: [facility] [address] [facility] [phone] WBC 6.9 10*3/uL 3.6-11.2 RBC 5.19 10*6/uL H 3.60-5.00 HGB 15.4 g/dL H 11.0-14.9 HCT 46.5 H 32.6-43.4 MCV 89.6 fL 80.0-100.0 MCH 29.7 pg 27.0-34.0 MCHC 33.1 g/dL 33.0-36.0 PLT 253 10*3/uL 150-400 MPV 10.6 fL 7.5-11.2 RDW 11.8 11.8-15.1 LYMPHOCYTES, AUTO % 23 MONOCYTES, AUTO % 5 NEUTROPHILS, AUTO % 68 EOSINOPHILS, AUTO % 3 BASOPHILS, AUTO % 1 LYMPHOCYTES, ABSOLUTE 1.60 10*3/uL 0.77-4.50 MONOCYTES, ABSOLUTE 0.31 10*3/uL 0.19-0.80 NEUTROPHILS, ABSOLUTE 4.70 10*3/uL 2.10-8.00 EOSINOPHILS, ABSOLUTE 0.23 10*3/uL 0.00-0.60 BASOPHILS, ABSOLUTE 0.05 10*3/uL 0.00-0.20 Vital Signs: All taken on the encounter date This section contains inpatient and outpatient Vital Signs collected on the date of the Encounter. Date/Time Temperature Pulse Blood Pressure Respiratory Rate SP02 Pain Height Weight Body Mass Index Source Feb 10, 2024 03:03 PM 97.6 78 128/80 18 [address] [facility] Social History: Smoking Status (Most current) and Tobacco Use (All prior to encounter date) This section includes the most current, and the historical, smoking and tobacco- related health factors from the NE facility where the Encounter took place. Current Smoking Status This section includes the most current smoking, or tobacco-related health factor, from the NE facility where the Encounter took place. Date/Time Current Smoking Status Comment Facil ity Jun 16, 2022 09:30 AM NE-TOBACCO NEVER USED [facility] Tobacco Use History This section includes a history of the smoking, or tobacco-related health factors, that were collected on or before the date of the Encounter. The data comes from the NE facility where the Encounter took place. Date/Time Smoking Status/Tobacco Use Comment F acility Feb 28, 2021 10:00 AM NE-TOBACCO NEVER USED [facility] Mar 01, 2020 11:00 AM NE-TOBACCO NEVER USED [facility] Nov 18, 2016 03:10 PM LIFETIME NON-USER OF TOBACCO . [facility] Nov 02, 2013 11:24 AM LIFETIME NON-USER OF TOBACCO . [facility] Advance Directives: All historical and current Section Date Range: From patient's date of to the date document was created. This section includes ALL of a patient's completed or amended NE Advance and Rescinded Directives. The entries below indicate that a directive exists for the patient, but an actual copy is not included with this document. The data comes from all NE facilities. Date Advance Directives Provider Source Apr 15, 2015 ADVANCE DIRECTIVE DISCUSSION [facility] Encounter Notes: All associated encounter notes This section contains the clinical notes associated to the Encounter. Date/Time Encounter Note(s) Provider Source Feb 10, 2024 04:56 PM PRIMARY CARE NOTE: LOCAL TITLE: PRIMARY CARE PROVIDER ESTABLISHED VISIT ST STANDARD TITLE: PRIMARY CARE NOTE DATE OF NOTE: FEB 10, 2024@16:56 ENTRY DATE: FEB 10, 2024@16:56:46 AUTHOR: MADONNA HALL COSIGNER: URGENCY: STATUS: COMPLETED ESTABLISHED PATIENT [id number]: REASON FOR VISIT/CHIEF COMPLAINT: routine f/u DM2, HTN, HLD, obesity,depression/anxiety, GERD HPI:Pt reports weight with semaglutide and empagliflozin. well tolerated. knowsn how to ID and treat hypoglycemia. She has stable mood, denies SI/HI, sees MH regularly.denies cp,sob. palpitations are at baseline. denies LOC/lightheadedness. takes Doac, denies abnormal blood in urine nor stool. Denies BP issues. SOURCE(S) OF HISTORY: Patient PAST MEDICAL HISTORY: 1) Depressive disorder 2) Allergic rhinitis 3) Chronic low back pain 4) Knee pain 5) Family history of ischemic heart disease comment: father at age 49 from a [place] comment: 11/29/13 Negative stress test 6) Obesity 7) Gastroesophageal Reflux Disease 8) Major depressive disorder 9) Partner Relational Problem 10) Blurring of visual image 11) BRICE - Generalized anxiety disorder (SNOMED CT 12548748) 12) Benign essential hypertension 13) Hyperlipidemia 14) Proteinuria 15) Type 2 diabetes mellitus without complication 16) Bipolar disorder in remission 17) Therapeutic drug effect 18) Atrial tachycardia 19) Anticoagulant effect 20) Dysthymia 21) AF - Atrial Fibrillation (SCT 78254771) comment: afib/aflutter on moitor 22) Exposure to potentially hazardous substance FAMILY HISTORY: No new updates. SOCIAL HISTORY: NICOTINE: Nicotine User: No ILLICIT DRUGS: No ETOH: denies ALLERGIES: METFORMIN ALLERGY REVIEW: Allergy list reviewed and remains current. MEDICATION RECONCILIATION: I have reviewed the patient's medication list with the patient and/or his/her care-care connector. Handwritten corrections, additions and/or deletions were made to the list. Corrected Outpatient Medication List was provided to the patient/caregiver. Active Outpatient Medications (including Supplies): Active Outpatient Medications Status = 1) ATORVASTATIN CALCIUM 80MG TAB TAKE ONE TABLET BY MOUTH EVERY ACTIVE EVENING FOR CHOLESTEROL. REPORT ANY UNEXPLAINED MUSCLE PAIN/WEAKNESS TO PROVIDER. 2) DABIGATRAN ETEXILATE 150MG ORAL CAP TAKE ONE CAPSULE BY ACTIVE (S) MOUTH TWICE A DAY TO THIN BLOOD. DO NOT OPEN CAPSULE. SWALLOW WHOLE. DO NOT OPEN PKG UNTIL READY FOR DOSE TO MAINTAIN STABILITY. 3) EMPAGLIFLOZIN 25MG TAB TAKE ONE TABLET BY MOUTH ONCE A DAY ACTIVE Indication: FOR DIABETES 4) FERROUS SULFATE 324MG EC TAB TAKE ONE TABLET BY MOUTH TWICE ACTIVE (S) A DAY Indication: FOR IRON SUPPLEMENTATION 5) HYDROXYZINE HCL 10MG TAB TAKE ONE OR TWO TABLETS BY MOUTH AT ACTIVE BEDTIME NEEDED *MAY CAUSE DROWSINESS* 6) LEVOMILNACIPRAN 120MG SA CAP TAKE ONE CAPSULE BY MOUTH ONCE ACTIVE (S) A DAY 7) LISINOPRIL 20MG TAB TAKE ONE-HALF TABLET BY MOUTH ONCE A DAY ACTIVE FOR HEART OR BLOOD PRESSURE 8) LURASIDONE HCL 40MG TAB TAKE ONE TABLET BY MOUTH ONCE A DAY ACTIVE FOR MOOD - TAKE WITH LARGEST MEAL OF THE DAY 9) METOPROLOL TARTRATE 50MG TAB TAKE ONE-HALF TABLET BY MOUTH ACTIVE (S) TWICE A DAY FOR HEART/BLOOD PRESSURE. TAKE WITH OR IMMEDIATELY FOLLOWING FOOD. 10) OMEPRAZOLE 40MG EC CAP TAKE ONE CAPSULE BY MOUTH EVERY ACTIVE (S) MORNING BEFORE A MEAL TO LOWER STOMACH ACID. TAKE 30 MINUTES PRIOR TO FOOD. 11) SEMAGLUTIDE 0.25MG/0.375ML INJ PEN 3ML INJECT 0.5MG UNDER ACTIVE THE SKIN EVERY WEEK Indication: FOR DIABETES REVIEW OF SYSTEMS: General: Normal No Fevers, Chills, Weight Loss, Weight Gain, Recent Illness. Ears, Nose, Mouth, Throat: Normal No new loss of hearing or tinnitus, no Dental issue, Difficulty swallowing, Vertigo. Eye: Normal No Trauma, Cataracts, Glaucoma, Blurred vision Cardiovascular: Normal No Chest pain, Dizziness, Palpitations. Respiratory: Normal No Cough, SOB, Hemoptysis, Epistaxis, Influenza symptoms, +PDD. PHYSICAL EXAMINATION: General appearance: VITALS (most recent, as listed in the electronic record): B/P: 128/80 (02/10/2024 15:03) Pulse: 78 (02/10/2024 15:03) Temperature: 97.6 F [36.4 C] (02/10/2024 15:03) Weight: 160 lb [72.57 kg] (02/10/2024 15:03) Height: 65 in [165.1 cm] (02/10/2024 15:03) BMI: 26.7 Pain: 0 (02/10/2024 15:03) (0-10 scale) General: pleasant, cooperative, well-developed, well-nourished, appropriately dressed and groomed [place]; in no acute distress. Ears, Nose, Mouth, Throat:TM pearly muller, intact. Throat clear with no exudate. No trismus. Nose patent Eye:PERRL Cardiovascular:RRR, No m/r/g or clicks. Respiratory:Clear to auscultation bilaterally. No accessory muscle use. Respirations even and non-labored ABD/GI:soft, non-tender. BS + x 4. /EMBEDDED SOFTWARE DESIGN ENGINEER: Deferred Lymph: No lymphadenopathy Extremities:No pedal edema. Psych:Affect appropriate. Neuro: Oriented x3. Gait steady with normal stride. Hematology: Color good. No pallor. No ecchymosis or petechiae. Skin:No visualized abnormalities. DATA REVIEW: SLT - Lab Tests Selected Collection DT Specimen Test Name Result Units Ref Range 02/02/2024 08:20 BLOOD HGA1C 6.1 H % 4.0 - 6.0 07/05/2023 09:00 BLOOD HGA1C 7.4 H % 4.0 - 6.0 04/08/2023 08:45 BLOOD HGA1C 8.6 H % 4.0 - 6.0 = TRIGLYCERIDE 163 H mg/dL 02/02/2024 08:20 CHOLESTEROL 155 mg/dL 02/02/2024 08:20 HDL(New) 48 mg/dL 02/02/2024 08:20 CALCULATED LDL 74 mg/dL 02/02/2024 08:20 = SODIUM 140 mEq/L 02/02/2024 08:20 POTASSIUM 4.6 mEq/L 02/02/2024 08:20 CHLORIDE 106 mEq/L 02/02/2024 08:20 UREA NITROGEN 15.4 mg/dL 02/02/2024 08:20 CREATININE 0.87 mg/dL 02/02/2024 08:20 CALCIUM 10.1 mg/dL 02/02/2024 08:20 PROTEIN 7.6 g/dL 04/08/2023 08:45 ALBUMIN 4.6 g/dL 04/08/2023 08:45 ALKALINE PHOSPHATASE 122 U/L 04/08/2023 08:45 ALT/SGPT 78 H U/L 04/08/2023 08:45 AST/SGOT 68 H U/L 04/08/2023 08:45 TOTAL BILIRUBIN 0.9 mg/dL 04/08/2023 08:45 CARBON DIOXIDE 22 mEq/L 02/02/2024 08:20 GLUCOSE 104 H mg/dL 02/02/2024 08:20 EGFR (CKD-EPI 2020) 81.1 02/02/2024 08:20 = WBC 6.9 10*3/uL 02/02/2024 08:20 RBC 5.19 H 10*6/uL 02/02/2024 08:20 HGB 15.4 H g/dL 02/02/2024 08:20 HCT 46.5 H % 02/02/2024 08:20 MCV 89.6 fL 02/02/2024 08:20 MCH 29.7 pg 02/02/2024 08:20 MCHC 33.1 g/dL 02/02/2024 08:20 RDW 11.8 % 02/02/2024 08:20 PLT 253 10*3/uL 02/02/2024 08:20 MPV 10.6 fL 02/02/2024 08:20 NEUTROPHILS, AUTO % 68 % 02/02/2024 08:20 LYMPHOCYTES, AUTO % 23 % 02/02/2024 08:20 MONOCYTES, AUTO % 5 % 02/02/2024 08:20 EOSINOPHILS, AUTO % 3 % 02/02/2024 08:20 BASOPHILS, AUTO % 1 % 02/02/2024 08:20 NEUTROPHILS, ABSOLUTE 4.70 10*3/uL 02/02/2024 08:20 LYMPHOCYTES, ABSOLUTE 1.60 10*3/uL 02/02/2024 08:20 MONOCYTES, ABSOLUTE 0.31 10*3/uL 02/02/2024 08:20 EOSINOPHILS, ABSOLUTE 0.23 10*3/uL 02/02/2024 08:20 BASOPHILS, ABSOLUTE 0.05 10*3/uL 02/02/2024 08:20 = No PSA (LAST 10 5Y) EO data found = TSH 1.966 uIU/mL 02/02/2024 08:20 = URIC ACID: No data available for: URIC ACID = No B12 EO data found = VITAMIN D, 25-HYDROXY 45.5 ng/mL 06/16/2022 10:22 = INR: No INR EO data found = URINE COLOR Dark-Yellow 06/16/2022 10:22 APPEARANCE Ex.Turbid 06/16/2022 10:22 U.PH 6.0 06/16/2022 10:22 U.BILIRUBIN Negative mg/dL 06/16/2022 10:22 U.NITRITE Negative mg/dL 06/16/2022 10:22 SQUAMOUS EPITH. <1 /HPF 06/16/2022 10:22 MUCUS FEW /LPF 06/16/2022 10:22 AMORPHOUS CRYSTALS MANY /HPF 06/16/2022 10:22 = Urine Microalbumin: CREATuF: 86.0 (02/02/24 08:20) M/CREAT: comment (02/02/24 08:20) MICRAL: <5.0 (02/02/24 08:20) = CREATININE URINE/OTHERS 86.0 mg/dL 02/02/2024 08:20 = Dilantin: ____ = Digoxin: No data available for: DIGOXIN = Chest x-ray: No data available for: CHEST 2 VIEWS PA&LAT = EKG: No data available for: EKG CONSULT STL EKG CONSULTS PB EKG RESULTS MA Result: Acceptable Follow-up Action: Data results reviewed with patient ASSESSMENT/PLAN: # DM2-well controlled , cont jardiance and ozempic. eye exam UTD #. hx of afib/aflutter captured on holter monitor/HTN: cont pradaxa, denies any bleeding diatheses,cont lisinopril, metoprolol #. HLD:cont atorvastatin , LDL at goal. #. obesity:cont semaglutide for weight loss, #. depression/anxiety:mood stable, denies SI/HI . folowed by MH.cont levomilnacipran, lurasidone #. GERD:controlled with PPI #. iron def anemia:resolved. monitor Pap due next visit ;mammo UTD RETURN TO CLINIC:6-9 mo Return to Clinic order placed SUMMARY STATEMENT: Plan of care has been discussed with including expected therapeutic benefits and potential side effects of prescribed medication and treatments. verbalizes understanding and is in agreement with the plan of care. Patient was instructed to keep all scheduled appointments and contact radio installer automobile for any additional problems. PREVENTION & SCREENING: ALCOHOL: Clinical Reminder not due now or within a month BLOOD PRESSURE: Clinical Reminder not due now or within a month HEMOGLOBIN A1C: Clinical Reminder not due now or within a month Avg Risk Colorectal Cancer Screen - L,N,P,PH: AVERAGE RISK colorectal cancer screening is due based on information available to this clinical reminder Patient declined screening/surveillance. /anastasia/ MADONNA HALL MD Signed: 02/29/2024 01:14 MADONNA HALL [facility] Feb 10, 2024 04:03 PM NURSING NOTE: LOCAL TITLE: V15 PACT FACE TO FACE NOTE STL STANDARD TITLE: NURSING NOTE DATE OF NOTE: FEB 10, 2024@16:03 ENTRY DATE: FEB 10, 2024@16:03:33 AUTHOR: SELVIN SARABIA EXP COSIGNER: URGENCY: STATUS: COMPLETED Provider Visit: Patient Identifiers : Full Name Date of Reason for visit: Established Follow-Up Mode of Arrival: Ambulatory Allergy Review: METFORMIN Recent Vital Signs: Temperature: 97.6 F [36.4 C] (02/10/2024 15:03) Pulse: 78 (02/10/2024 15:03) Respiration: 18 (02/10/2024 15:03) B/P: 128/80 (02/10/2024 15:03) Pain: 0 (02/10/2024 15:03) Wt: 160 lb [72.57 kg] (02/10/2024 15:03) Ht: 65 in [165.1 cm] (02/10/2024 15:03) BMI: 26.7 POX: 98% (02/10/2024 15:03) Would you like to discuss any personal problem, family problem, alcohol use, drug use, or a mental or emotional illness? No [facility] please select appointment type: Face to face: Yes- Done Contact provided Primary Care phone number and encouraged to call if any questions or concerns. Review that after hours nurse line [phone] and emergency room are available 14/09 for patient use. Contact verbalized good understanding. Suicide Screen - V: C-SSRS Screening Grimes-Suicide Severity Rating Scale (C-SSRS Screener) 1. Over the past month, have you wished you were or wished you could go to sleep and not wake up? No 2. Over the past month, have you had any actual thoughts of killing yourself? No 3. Over the past month, have you been thinking about how you might do this? Response not required due to responses to other questions. 4. Over the past month, have you had these thoughts and had some intention of acting on them? Response not required due to responses to other questions. 5. Over the past month, have you started to work out or worked out the details of how to kill yourself? Response not required due to responses to other questions. 6. If yes, at any time in the past month did you intend to carry out this plan? Response not required due to responses to other questions. 7. In your lifetime, have you ever done anything, started to do anything, or prepared to do anything to end your life (for example, collected pills, obtained a gun, gave away valuables, went to the roof but didn't jump)? No 8. If YES, was this within the past 3 months? Response not required due to responses to other questions. /anastasia/ SELVIN SARABIA LPN LICENSED PRACTICAL NURSE Signed: 02/10/2024 16:04 SELVIN SARABIA [facility]
== END 2024-04-04 08:38 | disposition home or self-care (01) ==
PROVIDERS: Emergency Provider Nurse Practitioner; PCP Physician Assistant
DX: B02.9 Zoster without complications (principal)
CPT/HCPCS: 99213; G0463

== ENCOUNTER 2024-05-04 18:17 | Emergency (ER) | payer OTHER, SELFPAY ==
--- OUTSIDE RECORDS SUMMARY | 2024-05-04 18:19 | XMS_ITS | Patient Health Summary ---
Author Organization [facility] Address [address] [place] [address] Care Team Providers Care Procurement Specialist Name Role Phone Citlalli Wei MD Primary Care Provider [phone] Note from [facility],non-owned Affiliates and Associated Physician Practices is amultiple site organization consisting of ambulatory clinics and hospital sitesin [place], [place], [place] and [place]. This disclosure is being madepursuant to the Care Everywhere program and may not contain all information available regarding this patient. Last updated 17.[facility] Allergies No known active allergies Medications * [...] day for three doses. * nystatin/triamcinolone (MYCOLOG) 447805-8.1 UNIT/GM-% ointment(Started 03/04/2020) Apply to external vulvar [...] Comments Blood Pressure 122/84 03/04/2020 11:12 AM RELIEF SALESPERSON Pulse - - Temperature - - Respiratory Rate - - Oxygen Saturation - - Inhaled Oxygen Concentration - - Weight 84 kg (185 lb 3.2 oz) 03/04/2020 11:12 AM RELIEF SALESPERSON Height 165.1 cm (5' 5 ) 03/04/2020 11:12 AM RELIEF SALESPERSON Body Mass Index 30.82 03/04/2020 11:12 AM RELIEF SALESPERSON Procedures * SUSCEPTIBILITY YEAST(Performed 03/04/2020) * CULTURE [...] Results * SUSCEPTIBILITY YEAST (03/04/2020 11:12 AM RELIEF SALESPERSON) Source [facility] Organism ID RUBI ALBICANS [...] of this test have been determined by [facility], [facility]. This test not be used for diagnosis without confirmation by other medically established means. Test Performed at: [facility], [facility] [address] [place] [phone] [facility] 03/04/2020 11:1 2 AM RELIEF SALESPERSON 03/04/2020 10:56 PM RELIEF SALESPERSON Delia Mcqueen MD LAB - MICROBIOLOGY ORDERABLES [address] [address] * (ABNORMAL) CULTURE YEAST (03/04/2020 11:12 AM RELIEF SALESPERSON) Culture Yeast with ID (A) [facility] Comment: CULTURE, YEAST, W/IDENTIFICATION Micro Number: [id number] Test Status: Final Specimen Source: VULVA Specimen Quality: Adequate Result: Rubi albicans Test Performed at: [facility] [id number] TATIANA FISH MD Microbiology ENTIRE VULVA / Unknown 03/04/2020 11:12 AM RELIEF SALESPERSON 03/04/2020 10:56 PM RELIEF SALESPERSON Delia Mcqueen MD LAB - MICROBIOLOGY ORDERABLES [facility] [address] [place] [address] * PH FLUID - POCT (AMB) [facility] (03/04/2020 11:11 AM RELIEF SALESPERSON) pH Vaginal 4.0 Fluid ENTIRE VAGINA / Unknown 03/04/2020 11:11 AM RELIEF SALESPERSON Delia Mcqueen MD LAB - POINT OF CAR E ORDERABLES * WET PREP - POINT OF CARE (AMB) [facility] (03/04/2020 11:11 AM RELIEF SALESPERSON) pH Wet Prep 4.0 Yeast Wet Prep positive Trichomonas Wet Prep None seen Bacteria Wet Prep neg Whiff Test neg BODY FLUID SPECIMEN / Unknown 03/04/2020 11:11 AM RELIEF SALESPERSON Delia Mcqueen MD LAB - POINT OF CAR E ORDERABLES * FUNGUS DOM - POINT OF CARE (AMB) [facility] (03/04/2020 11:11 AM RELIEF SALESPERSON) DOM Prep Yes Fluid BODY FLUID SPECIMEN / Unknown 03/04/2020 11:11 AM RELIEF SALESPERSON Delia Mcqueen MD LAB - POINT OF CAR E ORDERABLES Care Teams Procurement Specialist Relationship Specialty Start Date End Date Citlalli Wei MD [address] [place] [id number] PCP - General 01/05/20
--- OUTSIDE RECORDS SUMMARY | 2024-05-04 18:19 | XMS_ITS | Clinical Summary ---
Author Organization [facility] Address [address] [place] [address] Care Team Providers Care Electrical And Instrument Engineer Name Role Phone Salvador Byers Primary Care Provider [phone] Allergies No known active allergies Medications LISINOPRIL [...] AM CDT): [place] the [place] Controlled type 2 diabetes peterson garrett without complication, without long-term current use of insulin 05/26/2023 Assessment & Plan (05/26/2023 10:08 AM CDT): [place] by the [place] Pure hypercholesterolemia 05/26/2023 ABDIEL (obstructive sleep apnea) 05/26/2023 Overview (05/26/2023): Uncontrolled, does not want CPAP, consult to dental for oral Routine general medical exam ination at a health care facility 10/02/2019 Immunizations Immunization Administration Dates Next Due Influenza, Quadrivalent, Spl [...] on file Legal 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 Erick Kelsey:jerald 03:00 PM 03:00 PM [facility] [EOD] Narrative 11/30/2012 3:04 PM [...] M.D. Erick Kelsey:jerald 03:00 PM 03:00 PM [facility] [EOD] us Salvador SUGGS IMG MAMMO PROCEDURES Final Resu lt * Hemoglobin A1c (10/28/2012 9:50 AM CDT) Hemoglobin A1c % 5.3 4.8 - 5.9 % Comment: As of 2009 Method: BRANDO Dillan 6000 using turbidometric inhibition immunoassay procedure. Results obtained are comparable to results obtained using previous methodology (HPLC). [place] [employer] recommends that the goal of therapy should be an A1C hemoglobin of <7%. Reevaluate the treatment regimen in patients with an A1C >8%. 10/28/2012 9:50 AM CDT 10/28/2012 10:42 AM CDT [facility] HISTORICAL RESULTS - 10/28/2012 12:36 PM CDT PT.FASTING 12HR Salvador SUGGS LAB BLOOD ORDERABLES Final Resu lt [facility] HISTORICAL RESULTS * (ABNORMAL) Lipid panel (10/28/2012 9:50 AM CDT) Pathologist [facility] Triglycerides 180 0 - 199 mg/dL Comment:12 [...] 9:50 AM CDT 10/28/2012 10:42 AM CDT [facility] HISTORICAL RESULTS - 10/28/2012 1:00 PM CDT PT.FASTING 12HR us Salvadro SUGGS LAB BLOOD ORDERABLES Final Resu lt [facility] [employer] HISTORICAL RESULTS from Last 3 Months or Most Recently Relevant to Health Maintenance Insurance [employer] [facility] Care Teams Electrical And Instrument Engineer Relationship Specialty Start Date End Date Salvador Byers PA PCP - General Family Medicine 09/29/19
--- OUTSIDE RECORDS SUMMARY | 2024-05-04 18:19 | XMS_ITS | Clinical Summary ---
Author Organization [facility] Address [address] [address] [place] [address] Care Team Providers Care Bioinformatics Programmer Name Role Phone Salvador Byers PA-C Primary Care Provider [phone] Social History Tobacco Use Types Packs/Day Years [...] age to complete this topic Care Teams Bioinformatics Programmer Relationship Specialty Start Date End Date Salvador Byers PA-C [facility] - General 11/27/14
--- OUTSIDE RECORDS SUMMARY | 2024-05-04 18:19 | XMS_ITS | Referral Summary ---
Author Organization [facility] Address [address] [place] [address] Care Team Providers Care Shale Miner Name Role Phone Salvador Byers Primary Care Provider [phone] Allergies No known active allergies Medications LISINOPRIL [...] AM CDT): [place] by the [place] Controlled type 2 diabetes peterson garrett without complication, without long-term current use of insulin 05/26/2023 Assessment & Plan (05/26/2023 10:08 AM CDT): [place] Pure hypercholesterolemia 05/26/2023 ABDIEL (obstructive sleep apnea) [...] on file Legal 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 KL:jerald 03:00 PM 03:00 PM [facility] [EOD] Narrative 11/30/2012 3:04 PM [...] Sandoval M.D. KL:jerald 03:00 PM 03:00 PM [facility] [EOD] us Salvador SUGGS IMG MAMMO PROCEDURES Final Resu lt * Hemoglobin A1c (10/28/2012 9:50 AM CDT) Hemoglobin A1c % 5.3 4.8 - 5.9 % 10/28/2012 12:36 PM CDT [facility] HISTORICAL RESULTS Comment: As of 2009 Method: BRANDO Dillan 6000 using turbidometric inhibition immunoassay procedure. Results obtained are comparable to results obtained using previous methodology (HPLC). [place] Diabetes Association recommends that the goal of therapy should be an A1C hemoglobin of <7%. Reevaluate the treatment regimen in patients with an A1C >8%. 10/28/2012 9:50 AM CDT 10/28/2012 10:42 AM CDT Narrative [facility] HISTORICAL RESULTS - 10/28/2012 12:36 PM CDT PT.FASTING 12HR us Salvador SUGGS LAB BLOOD ORDERABLES Final Resu lt [facility] HISTORICAL RESULTS * (ABNORMAL) Lipid panel (10/28/2012 9:50 AM CDT) Triglycerides 180 0 - 199 mg/dL 10/28/2012 1:00 PM CDT [facility] HISTORICAL RESULTS Comment:12 hr pc highly galindo mmended for Triglyceride Cholesterol 243(H) 0 - 199 mg/dL 10/28/2012 1:00 PM CDT [facility] HISTORICAL RESULTS Comment: Borderline: 200-239 High Risk: >239 HDL Cholesterol 54 40 - 60 mg/dL 10/28/2012 1:00 PM CDT [facility] HISTORICAL RESULTS Comment: Major Risk < 40 mg/dL Moderate Risk 40-60 mg/dL Negative Risk > 60 mg/dL LDL Cholesterol, Calc 153(H) 0 - 130 mg/dL 10/28/2012 1:00 PM CDT [facility] HISTORICAL RESULTS Comment:High Risk > 159 mg/d L 10/28/2012 9:50 AM CDT 10/28/2012 10:42 AM CDT Narrative [facility] HISTORICAL RESULTS - 10/28/2012 1:00 PM CDT PT.FASTING 12HR Slavador SUGGS LAB BLOOD ORDERABLES Final Resu lt [facility] HISTORICAL RESULTS from Last 3 Months or Most Recently Relevant to Health Maintenance Insurance [facility] Subscriber Plan / Payer (Ef fective 2023-Present) Name:Benoit Pichardo Relation to Subscriber:Self Name:Benoit Pichardo Payer ID:[id number] (NAIC) Group ID:Not on file Type:[employer] Address: [facility] [address] [place] [address] Care Teams Shale Miner Relationship Specialty Start Date End Date Salvador Byers PA PCP - General Family Medicine 09/29/19
--- OUTSIDE RECORDS SUMMARY | 2024-05-04 18:20 | XMS_ITS | Clinical Summary ---
Author Organization [facility] [employer] Address [address] [place] [address] Care Team Providers Care Actuarial Internship Name Role Phone Citlalli Wei MD Primary Care Provider Source Comments [facility] [employer],non-owned Affiliates and Associated Physician Practices is amultiple site organization consisting of ambulatory clinics and hospital sitesin [place], [place], [place] and [place]. This disclosure is being madepursuant to the Care Everywhere program and may not contain all information available regarding this patient. Last updated 17.[facility] [employer] Allergies No known active allergies Medications * [...] 3 tablet 03/04/2020 Active nystatin/triamcinolon e (MYCOLOG) 688742-5.1 UNIT/GM-% ointmentIndications:L chelsea simplex chronicus Apply to [...] Comments Blood Pressure 122/84 03/04/2020 11:12 AM CUT OFF SAW GRADER Pulse - - Temperature - - Respiratory Rate - - Oxygen Saturation - - Inhaled Oxygen Concentration - - Weight 84 kg (185 lb 3.2 oz) 03/04/2020 11:12 AM CUT OFF SAW GRADER Height 165.1 cm (5' 5 ) 03/04/2020 11:12 AM CUT OFF SAW GRADER Body Mass Index 30.82 03/04/2020 11:12 AM CUT OFF SAW GRADER Plan of Treatment Health Maintenance Due Date [...] complete this topic MENINGOCOCCAL (Group B) VACCINE SHARED DECISION-MAKING Aged Out No longer eligible based on patient's age to complete this topic MENINGOCOCCAL GROUPS A/C/Y/W VACCINE Aged Out No longer eligible b ased on patient's age to complete this topic PNEUMOCOCCAL VACCINE Aged Out No long er eligible based on patient's age to complete this topic Care Teams Actuarial Internship Relationship Specialty Start Date End Date Citlalli Wei MD [address] [place] [address] [phone] PCP - General 01/05/20
--- OUTSIDE RECORDS SUMMARY | 2024-05-04 18:20 | XMS_ITS | Referral Summary ---
Author Organization [facility] [employer] Address [address] [place] [address] Care Team Providers Care Digital Asset Manager Name Role Phone Citlalli Wei MD Primary Care Provider Source Comments [facility] [employer],non-owned Affiliates and Associated Physician Practices is amultiple site organization consisting of ambulatory clinics and hospital sitesin [place], [place], [place] and [place]. This disclosure is being madepursuant to the Care Everywhere program and may not contain all information available regarding this patient. Last updated 17.[facility] [employer] Allergies No known active allergies Medications * [...] 3 tablet 03/04/2020 Active nystatin/triamcinolon e (MYCOLOG) 471202-6.1 UNIT/GM-% ointmentIndications:L ichen simplex chronicus Apply to [...] Comments Blood Pressure 122/84 03/04/2020 11:12 AM OFFAL SEPARATOR Pulse - - Temperature - - Respiratory Rate - - Oxygen Saturation - - Inhaled Oxygen Concentration - - Weight 84 kg (185 lb 3.2 oz) 03/04/2020 11:12 AM OFFAL SEPARATOR Height 165.1 cm (5' 5 ) 03/04/2020 11:12 AM OFFAL SEPARATOR Body Mass Index 30.82 03/04/2020 11:12 AM OFFAL SEPARATOR Plan of Treatment Not on file Care Teams Digital Asset Manager Relationship Specialty Start Date End Date Citlalli Wei MD [address] [place] [id number] PCP - General 01/05/20
--- OUTSIDE RECORDS SUMMARY | 2024-05-04 18:20 | XMS_ITS | Data Portability ---
Author Organization [facility] Address [address] [place] [address] Assessment No assessment recorded. Plan of Treatment Reminders Order Date Submit Date Provider Last Modified By Organization Details Last Modified Time Details Appointments ANY 2024 10:30A IFEANYI Dumont Not available Not available Not available Lab microalb umin/cre atinine, mass ratio, urine 2023 [facility], [facility] Citlalli Wei, [place], [address], 12/30/2023 08:25:19 HbA1c (hemoglo bin A1c), blood 2023 [facility], [address] [place], [address], 12/30/2023 08:25:20 lipid panel, serum 2023 [facility], [address] [place], [address], 12/30/2023 08:25:20 CMP, serum or plasma 2023 [facility], [address] [place], [address], 12/30/2023 08:25:20 CBC w/ auto diff 2023 [facility], [address] [place], [address], 12/30/2023 08:25:20 TSH + free T4, serum 2023 [facility], [address] [place], [address], 12/30/2023 08:25:19 Referral None recorded . Procedures [...] Details Recorded Time Dysplastic nevus of skin 497971406 Active 2023 IFEANYI Taylor Attn: Accountin g,[address], [place], [address], [place] - [facility] 4 07:15:58 Adult health examination Active 2023 IFEANYI Taylor Attn: Accountin g,[address] [facility], [place], [address], [place] [facility] 4 07:15:59 Hyperlipidemia 91759768 Active 2023 IFEANYI Taylor Attn: Accountin g,[address] [facility], [place], [address], [place] [facility] 4 17:24:18 Essential hypertension 23377315 Active 2023 IFEANYI Taylor Attn: Accountin g,[address] [facility], [place], [address], [place] [facility] 4 17:24:19 Type 2 diabetes mellitus without complication 958462599 Active 2023 IFEANYI Taylor Attn: Bhargavi g,[address] [facility], [place], [address], [facility] 4 17:24:21 Problem Notes None recorded. Medical [...] Updated DateTime 4 165.1 cm 27.2 kg/m2 38860.6 1 g 98 % 98 % 62 /min [facility] 4 16:46:43 Date Recorded Systolic blood pressure Diastolic blood pressure Provider Name and Address Organization Details Last Updated DateTime 12/23/2023 118 mm[Hg] 78 mm[Hg] IFEANYI Taylor Attn: Accounting,[address] [facility] [facility], [place], [address], [place] [facility] 12/23/2023 17:08:49 Social History Question Answer Notes LastModified by Organizat ion Details LastModified Time Tobacco Smoking Status Never Smoker Chulajacque Perkins AREL[place], [place] - [facility] 12/23/2023 16:39:15 What [...] Response Coronary Artery Disease N Other N Atrial Fibrillation N High Blood Pressure Y Depression Y COPD N Blood Clots N Anxiety Disorder Y Muscle, Joint, or Bone Problems N Arthritis N Acid Reflux (GERD) N Cancer N Stroke N ADHD N High Cholesterol Y Liver Disease N Schizophrenia N Headaches N Kidney or Bladder Problems N Thyroid Problems N GI Problems N Have you had a mammogram in the last yea r? Y Eating Disorder N Skin Problems N Anemia Y Heart Attack ([place]) N Diabetes Y Seizures/Epilepsy N Have you had a colonoscopy in the last 1 0 years? N Asthma N Allergies N Have you had a PSA blood test in the las t year? N Substance Abuse N Hepatitis N Osteoporosis N Heart Failure N Gynecological HistoryNo gynecological history recorded. Obstetrics History GPAL:G 0 P 0 0 0 0 Immunizations Vaccine Type Date Status Note Provider Nam e and Address Organization Details Recorded Time COVID-19, mRNA, LNP-S, PF, 30 mcg/0.3 mL dose 04/25/2020 completed Preet Perkins [place], [place] - [facility] 12/23/2023 16:33:30 COVID-19, mRNA, LNP-S, PF, 30 mcg/0.3 mL dose 05/16/2020 completed Preet Perkins [place], [place] [facility] 12/23/2023 16:33:30 influenza, unspecified formulation 11/22/2017 completed ARELIS [place], [place] - [place] 12/23/2023 16:33:30 Influenza, split virus, trivalent, PF 01/31/2016 completed ARELIS Morton, [place] - [facility] 12/23/2023 16:33:30 Influenza, split virus, quadrivalent, PF 12/09/2018 completed ARELIS [place], [place] - [facility] 12/23/2023 16:33:30 Influenza, split virus, quadrivalent, PF 12/18/2019 completed ARELIS Morton, [place] - [facility] 12/23/2023 16:33:30 Past Encounters Encounter ID Performer Location Encounter Start Date Encounter Closed Date Diagnosis/Indication Diagnosis SNOMED-CT Code Diagnosis ICD10 Code Diagnosis Note [id number] IFEANYI Taylor [facility] [place] [address] [place] [address] 12/23/2023 16:24:39 12/24/2023 13:51:26 Adult health examination 768445722 Z00.01 Healthy diet and exercise, HCM as discussed Dysplastic nevus of skin 941896060 D22.9 Mole mapping performed, skin care discussed, follow up annually Type 2 diana betes mellitus without complication 502294295 E11.9 Check blood sugars as directed , record and bring on visit. yearly dilated eye exam. check feet daily and report callouses, corns or ulcers. 30 minutes exercise daily Diabetic diet, conservati ve carbohydra sb, low in fat, high fiber, whole grains, lean meat Essential hypertension 08953045 I10 Take meds as ordered. Decrease caffeine and salt intake, work on diet and weight loss. Aerobic exercise 4 times per week for 30 min. Call for elevated blood pressures. Hyperlipidemia 56359181 E78.5 Increase physical activity, heart healthy diet, [...] - FOR LIFE (MEDICARE SUPPLEMENT) Benoit Pichardo [id number] Benoit Pichardo Notes Date Note Type Note [...] months#}} IFEANYI Taylor Attn: Accounting,[address] [facility], [place], [address], [facility] 12/23/2023 17:54:43 OBGyn Episode No OBEpisode recorded.
--- OUTSIDE RECORDS SUMMARY | 2024-05-04 18:20 | XMS_ITS | Continuity of Care Document ---
Author Name [facility] Organization [facility] Care Team Providers Care Machine Load Clerk Name Role Phone [facility] Unavailable Unavailable Problems Combined list of problems from Department of Defense and [facility] Affairs facilities. It does not include entries that were removed or entered in error. Problem Status Onset Date Problem Type Date of Resolution Comments Source AF - Atrial Fibrillation ([facility] [id number]) Active Condition Jun 16, 2022 Entered By: SARTHAK HALL Comment: afib/aflutt er on [facility] Allergic rhinitis Active Condition [facility] Anticoagulant effect Active Condition [facility] Atrial tachycardia Active Condition [facility] Benign essential hypertension Active Condition [facility] Bipolar disorder in remission Active Condition [facility] Blurring of visual image Active Condition [facility] Chronic low back pain Active Condition [facility] Depressive disorder Active Condition [facility] Dysthymia Active Condition [facility] Exposure to potentially hazardous substance Active Condition [facility] Family history of ischemic heart disease Active Condition Nov 02, 2013 Entered By: CORINE FIGUEROA Comment: father at age 47 from a MIOct 2013 Entered By: CORINE FIGUEROA Comment: 11/29/13 Negative stress test [facility] - Generalized anxiety disorder (SNOMED CT [id number]) Active Condition [facility] Gastroesophageal Reflux Disease Active Condition [facility] Hyperlipidemia Active Condition [facility] Knee pain Active Condition [facility] Major depressive disorder Active Condition [facility] Obesity Active Condition [facility] Partner Relational Problem Active Condition [facility] Proteinuria Active Condition [facility] Therapeutic drug effect Active Condition [facility] Type 2 diabetes mellitus without complication Active Condition [facility] Chest pain Inactive Condition 11/21/2019 [facility] Elevated blood pressure Inactive Condition 11/21/2019 [facility] Impaired fasting glucose Inactive Condition 11/21/2019 [facility] Diagnosis: ICD-10-CM H92.01 Otalgia, right ear Active Diagnosis [facility] Diagnosis: ICD-10-CM F33.1 Major depressive disorder, recurrent, moderate Active Diagnosis [facility] Diagnosis: ICD-10-CM Z51.81 Encounter for therapeutic drug level monitoring Active Diagnosis [facility] Diagnosis: ICD-10-CM F34.1 Dysthymic disorder Active Diagnosis [facility] Diagnosis: ICD-10-CM E11.9 Type 2 diabetes mellitus without complications Active Diagnosis [facility] Diagnosis: ICD-10-CM F41.1 Generalized anxiety disorder Active Diagnosis [facility] Medications Combined list of outpatient medications from Department of Defense and Veterans Affairs facilities.Medications provided include 1) outpatient medications from the last 15 months, and 2) patient-reported medications. Medication Details Route Status Patient Instructions Prescription Expires Prescription Number Last Dispense Date Ordering Provider Order Date Order Qty Source ATORVASTATI N CA 80MG TAB TAKE ONE TABLET BY MOUTH EVERY EVENING FOR CHOLESTE ROL. REPORT ANY UNEXPLAI VALERIA MUSCLE PAIN/WEA KNESS TO PROVIDER . ORAL ACTIVE 03/01/2025 [id number] 5 HALL,A RMIDA A 2024 90 [facility] ATORVASTATI N CA 80MG TAB TAKE ONE TABLET BY MOUTH EVERY EVENING FOR CHOLESTE ROL. REPORT ANY UNEXPLAI VALERIA MUSCLE PAIN/WEA KNESS TO PROVIDER . ORAL DISCONT INUED 06/11/2024 [id number] 4 HALL,A RMIDA A 2023 90 [facility] ATORVASTATI N CA 80MG TAB TAKE ONE TABLET BY MOUTH EVERY EVENING FOR CHOLESTE ROL. REPORT ANY UNEXPLAI VALERIA MUSCLE PAIN/WEA KNESS TO PROVIDER . ORAL DISCONT INUED 06/17/2023 [id number] 4 HALL,A RMIDA A 2022 90 [facility] CLONAZEPAM 0.5MG TAB TAKE ONE TABLET BY MOUTH ONCE A DAY NEEDED FOR ANXIETY MAY CAUSE DROWSINE SS. DO NOT DRINK ALCOHOL. ORAL ACTIVE 09/23/2024 [id number] ARELIS TILLEY 2024 30 [facility] DABIGATRAN ETEXILATE 150MG CAP,ORAL TAKE ONE CAPSULE BY MOUTH TWICE A DAY TO THIN BLOOD. DO NOT OPEN CAPSULE. SWALLOW WHOLE. DO NOT OPEN PKG UNTIL READY FOR DOSE TO MAINTAIN STABILIT Y. ORAL ACTIVE 09/30/2024 [id number] 5 SANTINO SEGAL 2023 180 [facility] DABIGATRAN ETEXILATE 150MG CAP,ORAL TAKE ONE CAPSULE BY MOUTH TWICE A DAY TO THIN BLOOD. DO NOT OPEN CAPSULE. SWALLOW WHOLE. DO NOT OPEN PKG UNTIL READY FOR DOSE TO MAINTAIN STABILIT Y. ORAL DISCONT INUED 01/21/2024 [id number] SANTINO SEGAL 2022 180 [facility] EMPAGLIFLOZ IN 25MG TAB TAKE ONE TABLET BY MOUTH ONCE A DAY ORAL ACTIVE 03/01/2025 [id number] 5 HALL,A RMIDA A 2024 90 [facility] EMPAGLIFLOZ IN 25MG TAB TAKE ONE TABLET BY MOUTH ONCE A DAY ORAL DISCONT INUED 09/24/2024 [id number] 4 HALL,A RMIDA A 2023 90 [facility] EMPAGLIFLOZ IN 25MG TAB TAKE ONE TABLET BY MOUTH ONCE A DAY ORAL DISCONT INUED 04/21/2024 [id number] HALL,A RMIDA A 2023 90 [facility] FERROUS SO4 324MG TAB,EC TAKE ONE TABLET BY MOUTH TWICE A DAY FOR IRON SUPPLEME NTATION ORAL SUSPEND ED 10/04/2024 [id number] Nicole HALL RMIDA A 2023 200 [facility] FERROUS SO4 325MG TAB TAKE ONE TABLET BY MOUTH TWICE A DAY FOR IRON SUPPLEME NTATION. ORAL DISCONT INUED BY PROVIDE R 10/07/2024 [id number] 4 ME ULISES TTISA 2023 200 [facility] FERROUS SO4 325MG TAB TAKE ONE TABLET BY MOUTH TWICE A DAY FOR IRON SUPPLEME NTATION. ORAL DISCONT INUED 07/29/2023 [id number] 4 ME ULISES TTISA 2022 200 [facility] HYDROXYZINE HCL 10MG TAB TAKE ONE OR TWO TABLETS BY MOUTH AT BEDTIME NEEDED *MAY CAUSE DROWSINE SS* ORAL DISCONT INUED 02/02/2024 [id number] ARELIS TILLEY 2022 60 [facility] HYDROXYZINE HCL 10MG TAB TAKE ONE OR TWO TABLETS BY MOUTH AT BEDTIME NEEDED *MAY CAUSE DROWSINE SS* ORAL 03/12/2024 [id number] ARELIS TILLEY 2023 180 [facility] HYDROXYZINE HCL 10MG TAB TAKE ONE OR TWO TABLETS BY MOUTH AT BEDTIME NEEDED *MAY CAUSE DROWSINE SS* ORAL 12/05/2023 [id number] 4 ARELIS TILLEY 2023 180 [facility] LEVOMILNACI PRAN 120MG CAP,SA TAKE ONE CAPSULE BY MOUTH ONCE A DAY ORAL ACTIVE 12/13/2024 [id number] 5 ARELIS TILLEY 2023 90 [facility] LEVOMILNACI PRAN 120MG CAP,SA TAKE ONE CAPSULE BY MOUTH ONCE A DAY ORAL DISCONT INUED 02/02/2024 [id number] ARELIS TILLEY 2022 90 [facility] LISINOPRIL 20MG TAB TAKE ONE-HALF TABLET BY MOUTH ONCE A DAY FOR HEART OR BLOOD PRESSURE ORAL ACTIVE 03/01/2025 [id number] 5 HALL,A RMIDA A 2024 45 [facility] LISINOPRIL 20MG TAB TAKE ONE-HALF TABLET BY MOUTH ONCE A DAY FOR HEART OR BLOOD PRESSURE ORAL DISCONT INUED 06/30/2024 [id number] 4 HALL,A RMIDA A 2023 45 [facility] LISINOPRIL 20MG TAB TAKE ONE-HALF TABLET BY MOUTH ONCE A DAY FOR HEART OR BLOOD PRESSURE ORAL DISCONT INUED 06/17/2023 [id number] HALL,A RMIDA A 2022 45 [facility] LURASIDONE HCL 40MG TAB TAKE ONE TABLET BY MOUTH ONCE A DAY FOR MOOD - TAKE WITH LARGEST MEAL OF THE DAY ORAL ACTIVE 09/06/2024 [id number] ARELIS TILLEY 2023 90 [facility] LURASIDONE HCL 40MG TAB TAKE ONE TABLET BY MOUTH ONCE A DAY FOR MOOD - TAKE WITH LARGEST MEAL OF THE DAY ORAL DISCONT INUED 11/03/2023 [id number] 4 ARELIS TILLEY 2022 90 [facility] METFORMIN HCL 500MG 24HR TAB,SA TAKE TWO TABLETS BY MOUTH TWICE A DAY FOR BLOOD SUGAR CONTROL. TAKE WITH FOOD. AVOID ALCOHOL. DISCONTI NUE BEFORE GETTING XRAY DYE. ORAL DISCONT INUED BY PROVIDE R 06/11/2024 [id number] 4 HALL,A RMIDA A 2023 360 [facility] METFORMIN HCL 500MG 24HR TAB,SA TAKE TWO TABLETS BY MOUTH TWICE A DAY FOR BLOOD SUGAR CONTROL. TAKE WITH FOOD. AVOID ALCOHOL. DISCONTI NUE BEFORE GETTING XRAY DYE. ORAL DISCONT INUED BY PROVIDE R 02/09/2024 [id number] 4 HALL,A RMIDA A 2023 360 [facility] METFORMIN HCL 500MG 24HR TAB,SA TAKE TWO TABLETS BY MOUTH TWICE A DAY FOR BLOOD SUGAR CONTROL. TAKE WITH FOOD. AVOID ALCOHOL. DISCONTI NUE BEFORE GETTING XRAY DYE. ORAL DISCONT INUED 06/03/2023 [id number] 3 HALL,A RMIDA A 2022 360 [facility] METOPROLOL TARTRATE 50MG TAB TAKE ONE-HALF TABLET BY MOUTH TWICE A DAY FOR HEART/BL OOD PRESSURE . TAKE WITH OR IMMEDIAT IDRIS FOLLOWIN G FOOD. ORAL ACTIVE 03/01/2025 [id number] 5 HALL,A RMIDA A 2024 90 [facility] METOPROLOL TARTRATE 50MG TAB TAKE ONE-HALF TABLET BY MOUTH TWICE A DAY FOR HEART/BL OOD PRESSURE . TAKE WITH OR IMMEDIAT IDRIS FOLLOWIN G FOOD. ORAL DISCONT INUED 07/14/2024 [id number] 4 HALL,A RMIDA A 2023 90 [facility] METOPROLOL TARTRATE 50MG TAB TAKE ONE-HALF TABLET BY MOUTH TWICE A DAY FOR HEART/BL OOD PRESSURE . TAKE WITH OR IMMEDIAT IDRIS FOLLOWIN G FOOD. ORAL DISCONT INUED 06/17/2023 [id number] 4 HALL,A RMIDA A 2022 90 [facility] OMEPRAZOLE 40MG CAP,EC TAKE ONE CAPSULE BY MOUTH EVERY MORNING BEFORE A MEAL TO LOWER STOMACH ACID. TAKE 30 MINUTES PRIOR TO FOOD. ORAL ACTIVE 03/01/2025 [id number] 5 HALL,A RMIDA A 2024 90 [facility] OMEPRAZOLE 40MG CAP,EC TAKE ONE CAPSULE BY MOUTH EVERY MORNING BEFORE A MEAL TO LOWER STOMACH ACID. TAKE 30 MINUTES PRIOR TO FOOD. ORAL DISCONT INUED 07/14/2024 [id number] 4 HALL,A RMIDA A 2023 90 [facility] OMEPRAZOLE 40MG CAP,EC TAKE ONE CAPSULE BY MOUTH EVERY MORNING BEFORE A MEAL TO LOWER STOMACH ACID. TAKE 30 MINUTES PRIOR TO FOOD. ORAL DISCONT INUED 06/17/2023 [id number] 4 HALL,A RMIDA A 2022 90 [facility] SEMAGLUTIDE 0.25MG/0.37 5ML INJ,SOLN,PE N,3ML INJECT 0.5MG UNDER THE SKIN EVERY WEEK FOR DIABETES SUBCUT ANEOUS ACTIVE 01/26/2025 [id number] 5 HALL,A RMIDA A 2023 1 [facility] SEMAGLUTIDE 0.25MG/0.37 5ML INJ,SOLN,PE N,3ML INJECT 0.5MG UNDER THE SKIN EVERY WEEK FOR DIABETES SUBCUT ANEOUS DISCONT INUED 08/02/2024 [id number] HALL,A RMIDA A 2023 1 [facility] SEMAGLUTIDE 0.25MG/0.37 5ML INJ,SOLN,PE N,3ML INJECT 0.25MG UNDER THE SKIN EVERY WEEK FOR 4 WEEKS, THEN INJECT 0.5MG EVERY WEEK FOR DIABETES SUBCUT ANEOUS DISCONT INUED 08/02/2024 [id number] HALL,A RMIDA A 2023 1 [facility] Allergies, Adverse Reactions, Alerts Combined list of allergies from Department of Defense and Veterans Affairs facilities. It does not include entries that were removed or entered in error. Substance Category Reaction Severity Reaction type Status Date Reported Comments Source METFORMIN Propensity to adverse reactions to drug (finding) Diarrhea active 08/06/2023 [facility] Immunizations Combined list of available immunizations from the Department of Defense and Veterans Affairs facilities. Immunization Series Date Given Administered By Site Reaction Lot Number CVX Code Drug [employer] Specialist Status Comments Source TDAP 2021 115 complet ed [facility] HEP B, ADULT 3 2021 NONE 43 complet ed [facility] INFLUENZA, INJECTABLE, QUADRIVALENT, PRESERVATIVE FREE 2021 150 complet ed [facility] COVID-19 (PFIZER), MRNA, LNP-S, PF, 30 MCG/0.3 ML DOSE 2 2020 208 complet ed [facility] COVID-19 (PFIZER), MRNA, LNP-S, PF, 30 MCG/0.3 ML DOSE 1 2020 208 complet ed [facility] HEP B, ADULT 1 2020 NONE 43 complet ed [facility] INFLUENZA, UNSPECIFIED FORMULATION 2019 88 complet ed [facility] influenza, injectable, quadrivalent- pf 2019 150 [employer] complet ed influenza , injectabl e, quadrival ent-pf 12/18/19 Given Ambulat ory Pharmac y INFLUENZA, INJECTABLE, QUADRIVALENT, PRESERVATIVE FREE 4 2019 150 complet ed [facility] influenza, injectable, quadrivalent- pf 2018 150 [employer] complet ed influenza , injectabl e, quadrival ent-pf 12/09/18 Given Ambulat ory Pharmac y INFLUENZA, INJECTABLE, QUADRIVALENT, PRESERVATIVE FREE 2018 150 complet ed Partner: [facility]. Administe red by: RADHAMES SILAV (BKN=[phone]). Partner 40 Lot#: [id number] Mfr: GlaxoSmit hKline; Dosage: 0.5 [facility] INFLUENZA, UNSPECIFIED FORMULATION 2018 88 complet ed [facility] INFLUENZA, INJECTABLE, QUADRIVALENT, PRESERVATIVE FREE 2017 150 complet ed [facility] PNEUMOCOCCAL POLYSACCHARID E PPV23 2017 33 complet ed [facility] INFLUENZA, UNSPECIFIED FORMULATION 2 2017 88 complet ed [facility] INFLUENZA, INJECTABLE, QUADRIVALENT, PRESERVATIVE FREE 2016 150 complet ed [facility] influenza, seasonal, injectable-pf 2015 140 [employer] complet ed influenza , seasonal, injectabl e-pf 02/01/16 Given Ambulat ory Pharmac y INFLUENZA, SEASONAL, INJECTABLE, PRESERVATIVE FREE 1 2015 140 complet ed [facility] INFLUENZA, UNSPECIFIED FORMULATION 2015 88 complet ed per vet [facility] influenza, injectable, quadrivalent- pf 2014 zzLef t Arm [id number] 150 [employer] complet ed influenza , injectabl e, quadrival ent-pf 12/17/14 Given Ambulat ory Pharmac y influenza, injectable, quadrivalent- pf 2014 [id number] 150 [employer] complet ed influenza , injectabl e, quadrival ent-pf 12/17/14 Given Ambulat ory Pharmac y INFLUENZA, UNSPECIFIED FORMULATION 2014 88 complet ed [facility] MDSS/SG S R INFLUENZA, UNSPECIFIED FORMULATION 2014 88 complet ed Patient is NOT sure if month was November or December. [facility] influenza, live, intranasal,qu adrivalent 2013 [id number] 149 [employer] comple t ed influenza , live, intranasa l,quadriv alent 12/15/13 Given Ambulat ory Pharmac y influenza, live, intranasal,qu adrivalent 2013 [id number] 149 [employer] comple t ed influenza , live, intranasa l,quadriv alent 12/15/13 Given Ambulat ory Pharmac y INFLUENZA, UNSPECIFIED FORMULATION 2013 88 complet ed [facility] MDSS/SG S R TDAP 2011 115 complet ed [facility] influenza, seasonal, injectable-pf 2010 [id number] 140 sanofi pasteur complet ed influenza , seasonal, injectabl e-pf 11/18/10 Given Ambulat ory Pharmac y influenza, seasonal, injectable-pf 2010 [id number] 140 sanofi pasteur complet ed influenza , seasonal, injectabl e-pf 11/18/10 Given Ambulat ory Pharmac y influenza virus vaccine, live 2009 [id number] 111 [employer] comple t ed influenza virus vaccine, live 01/10/10 Given Ambulat ory Pharmac y influenza virus vaccine, live 2009 [id number] 111 [employer] comple t ed influenza virus vaccine, live 01/10/10 Given Ambulat ory Pharmac y Novel influenza-H1N 1-09, injectable 2009 [id number] 1 127 [employer] complet ed Novel influenza -[id number], injectabl e 03/06/09 Given Ambulat ory Pharmac y Novel influenza-H1N 1-09, injectable 2009 [id number] 1 127 [employer] complet ed Novel influenza -[id number], injectabl e 03/06/09 Given Ambulat ory Pharmac y influenza virus vaccine, live 2008 [id number] 111 [employer] complet ed influenza virus vaccine, live 12/13/08 Given Ambulat ory Pharmac y influenza virus vaccine, live 2007 [id number] 111 [employer] comple t ed influenza virus vaccine, live 12/22/07 Given Ambulat ory Pharmac y influenza virus vaccine, live 2007 [id number] 111 [employer] comple t ed influenza virus vaccine, live 12/22/07 Given Ambulat ory Pharmac y hepatitis B adult vaccine 2007 [id number] [id number] 43 [employer] complet ed hepatitis B adult vaccine 08/31/07 Given Ambulat ory Pharmac y hepatitis B adult vaccine 2007 [id number] [id number] 43 [employer] ne complet ed hepatitis B adult vaccine 08/31/07 Given Ambulat ory Pharmac y anthrax vaccine 2007 [id number] 24 [employer] complet ed anthrax vaccine 03/26/07 Given Ambulat ory Pharmac y hepatitis B adult vaccine 2007 [id number] 3BA 43 [employer] ne complet ed hepatitis B adult vaccine 03/26/07 Given Ambulat ory Pharmac y anthrax vaccine 2007 [id number] 24 [employer] complet ed anthrax vaccine 03/26/07 Given Ambulat ory Pharmac y hepatitis B adult vaccine 2006 [id number] 3AA 43 [employer] complet ed hepatitis B adult vaccine 01/25/07 Given Ambulat ory Pharmac y hepatitis B adult vaccine 2006 [id number] 3AA 43 [employer] complet ed hepatitis B adult vaccine 01/25/07 Given Ambulat ory Pharmac y influenza virus vaccine, live 2006 [id number] 111 [employer] comple t ed influenza virus vaccine, live 01/17/07 Given Ambulat ory Pharmac y influenza virus vaccine, live 2006 [id number] 111 [employer] comple t ed influenza virus vaccine, live 01/17/07 Given Ambulat ory Pharmac y anthrax vaccine 2006 [id number] 24 [employer] complet ed anthrax vaccine 10/12/06 Given Ambulat ory Pharmac y anthrax vaccine 2006 [id number] 24 [employer] complet ed anthrax vaccine 10/12/06 Given Ambulat ory Pharmac y anthrax vaccine 2006 [id number] 24 [employer] complet ed anthrax vaccine 09/27/06 Given Ambulat ory Pharmac y anthrax vaccine 2006 [id number] 24 [employer] complet ed anthrax vaccine 09/11/06 Given Ambulat ory Pharmac y anthrax vaccine 2006 [id number] 24 [employer] complet ed anthrax vaccine 09/11/06 Given Ambulat ory Pharmac y typhoid vaccine, parenteral 2006 [id number] 41 sanofi pasteur complet ed typhoid vaccine, parentera l 05/19/06 Given Ambulat ory Pharmac y typhoid vaccine, parenteral 2006 [id number] 41 sanofi pasteur complet ed typhoid vaccine, parentera l 05/19/06 Given Ambulat ory Pharmac y influenza virus vaccine,split 2005 [id number] 15 [employer] complet ed influenza virus vaccine,s plit 02/05/06 Given Ambulat ory Pharmac y influenza virus vaccine,split 2005 [id number] 15 [employer] complet ed influenza virus vaccine,s plit 02/05/06 Given Ambulat ory Pharmac y influenza virus vaccine,split 2004 [id number] 15 sanofi pasteur complet ed influenza virus vaccine,s plit 01/07/05 Given Ambulat ory Pharmac y influenza virus vaccine,split 2004 [id number] 15 sanofi pasteur complet ed influenza virus vaccine,s plit 01/07/05 Given Ambulat ory Pharmac y vaccinia (smallpox) vaccine 2003 [id number] 75 [employer] complet ed vaccinia (smallpox ) vaccine 02/11/04 Given Ambulat ory Pharmac y typhoid vaccine, parenteral 2003 [id number] 41 sanofi pasteur complet ed typhoid vaccine, parentera l 02/11/04 Given Ambulat ory Pharmac y influenza virus vaccine,split 2003 [id number] 15 sanofi pasteur complet ed influenza virus vaccine,s plit 02/11/04 Given Ambulat ory Pharmac y influenza virus vaccine,split 2003 [id number] 15 sanofi pasteur complet ed influenza virus vaccine,s plit 02/11/04 Given Ambulat ory Pharmac y vaccinia (smallpox) vaccine 2003 [id number] 75 [employer] complet ed vaccinia (smallpox ) vaccine 02/11/04 Given Ambulat ory Pharmac y tuberculin purified protein derivative 2003 zzLef t Arm [id number] 96 sanofi pasteur complet ed Patient Tolerance : Negative Ambulat ory Pharmac y tuberculin purified protein derivative 2003 [id number] 96 sanofi pasteur complet ed tuberculi n purified protein derivativ e 07/24/03 Given Ambulat ory Pharmac y influenza virus vaccine,split 2002 [id number] 15 [employer] complet ed influenza virus vaccine,s plit 12/27/02 Given Ambulat ory Pharmac y influenza virus vaccine, whole virus 2002 [id number] 16 [employer] complet ed influenza virus vaccine, whole virus 12/27/02 Given Ambulat ory Pharmac y influenza virus vaccine,split 2002 [id number] 15 [employer] complet ed influenza virus vaccine,s plit 12/27/02 Given Ambulat ory Pharmac y influenza virus vaccine, whole virus 2002 [id number] 16 [employer] complet ed influenza virus vaccine, whole virus 12/27/02 Given Ambulat ory Pharmac y yellow fever vaccine 2001 [id number] 37 sanofi pasteur complet ed yellow fever vaccine 01/05/02 Given Ambulat ory Pharmac y influenza virus vaccine, whole virus 2001 [id number] 16 [employer] complet ed influenza virus vaccine, whole virus 01/05/02 Given Ambulat ory Pharmac y influenza virus vaccine,split 2001 [id number] 15 [facility] complet ed influenza virus vaccine,s plit 01/05/02 Given Ambulat ory Pharmac y tetanus-dipht h toxoids (Td) adult/adol 2001 [id number] 09 sanofi pasteur complet ed tetanus-d iphth toxoids (Td) adult/ado l 01/05/02 Given Ambulat ory Pharmac y yellow fever vaccine 2001 [id number] 37 sanofi pasteur complet ed yellow fever vaccine 01/05/02 Given Ambulat ory Pharmac y tetanus-dipht h toxoids (Td) adult/adol 2001 [id number] 09 sanofi pasteur complet ed tetanus-d iphth toxoids (Td) adult/ado l 01/05/02 Given Ambulat ory Pharmac y influenza virus vaccine, whole virus 2001 [id number] 16 [facility] complet ed influenza virus vaccine, whole virus 01/05/02 Given Ambulat ory Pharmac y influenza virus vaccine,split 2001 [id number] 15 [facility] complet ed influenza virus vaccine,s plit 01/05/02 Given Ambulat ory Pharmac y influenza virus vaccine, whole virus 2000 [id number] 16 sanofi pasteur complet ed influenza virus vaccine, whole virus 12/29/00 Given Ambulat ory Pharmac y influenza virus vaccine,split 2000 [id number] 15 sanofi pasteur complet ed influenza virus vaccine,s plit 12/29/00 Given Ambulat ory Pharmac y influenza virus vaccine,split 2000 [id number] 15 sanofi pasteur complet ed influenza virus vaccine,s plit 12/29/00 Given Ambulat ory Pharmac y influenza virus vaccine, whole virus 2000 [id number] 16 sanofi pasteur complet ed influenza virus vaccine, whole virus 12/29/00 Given Ambulat ory Pharmac y typhoid Vi [...] (MPSV4) 11/29/00 Given Ambulat ory Pharmac y tuberculin purified protein derivative 2000 zzLef t Arm 96 complet ed Patient Tolerance : Negative Ambulat ory Pharmac y tuberculin purified protein derivative 2000 96 complet ed tuberculi n purified protein derivativ e 06/08/00 Given Ambulat ory Pharmac y influenza virus vaccine,split 2000 [id number] 15 [facility] complet ed influenza virus vaccine,s plit 04/09/00 Given Ambulat ory Pharmac y influenza virus vaccine, whole virus 2000 [id number] 16 [facility] complet ed influenza virus vaccine, whole virus 04/09/00 Given Ambulat ory Pharmac y influenza virus vaccine, whole virus 2000 [id number] 16 [facility] complet ed influenza virus vaccine, whole virus 04/09/00 Given Ambulat ory Pharmac y influenza virus vaccine,split 2000 [id number] 15 [facility] complet ed influenza virus vaccine,s plit 04/09/00 Given Ambulat ory Pharmac y tuberculin purified protein derivative 1999 2501-11 96 [employer] complet ed Patient Tolerance : Negative Ambulat ory Pharmac y tuberculin purified protein derivative 1999 2501-11 96 [employer] [facility] complet ed tuberculi n purified protein derivativ e 04/04/99 Given Ambulat ory Pharmac y tuberculin purified protein derivative 1999 2501-11 96 [employer] complet ed tuberculi n purified protein derivativ e 03/12/99 Given Ambulat ory Pharmac y influenza virus vaccine, whole virus [id number] 16 [facility] complet ed influenza virus vaccine, whole virus 12/06/98 Given Ambulat ory Pharmac y influenza virus vaccine,split [id number] 15 [facility] complet ed influenza virus vaccine,s plit 12/06/98 Given Ambulat ory Pharmac y influenza virus vaccine,split [id number] 15 [facility] complet ed influenza virus vaccine,s plit 12/06/98 Given Ambulat ory Pharmac y influenza virus vaccine, whole virus [id number] 16 [facility] complet ed influenza virus vaccine, whole virus 12/06/98 Given Ambulat ory Pharmac y influenza virus vaccine, whole virus [id number] 16 [facility] complet ed influenza virus vaccine, whole virus 12/13/97 Given Ambulat ory Pharmac y influenza virus vaccine,split [id number] 15 [facility] complet ed influenza virus vaccine,s plit 12/13/97 Given Ambulat ory Pharmac y influenza virus vaccine, whole virus [id number] 16 [facility] complet ed influenza virus vaccine, whole virus 12/13/97 Given Ambulat ory Pharmac y influenza virus vaccine,split [id number] 15 [facility] complet ed influenza virus vaccine,s plit 12/13/97 Given Ambulat ory Pharmac y influenza virus vaccine,split [id number] 15 [facility] complet ed influenza virus vaccine,s plit 12/12/96 Given Ambulat ory Pharmac y influenza virus vaccine, whole virus [id number] 16 [facility] complet ed influenza virus vaccine, whole virus 12/12/96 Given Ambulat ory Pharmac y influenza virus vaccine, whole virus [id number] [id number] 16 [facility] complet ed influenza virus vaccine, whole virus 12/12/96 Given Ambulat ory Pharmac y influenza virus vaccine,split [id number] 15 [facility] complet ed influenza virus vaccine,s plit 12/12/96 Given Ambulat ory Pharmac y hepatitis A adult vaccine 19957525 [id number] 52 [facility] complet ed hepatitis A adult vaccine 02/01/96 Given Ambulat ory Pharmac y hepatitis A adult vaccine 19959820 [id number] 52 [facility] complet ed hepatitis A adult vaccine 02/01/96 Given Ambulat ory Pharmac y typhoid, parenteral, AKD 19956282 [id number] 53 [facility] complet ed typhoid, parentera l, AKD 04/28/95 Given Ambulat ory Pharmac y hepatitis A adult vaccine 1995 52 complet ed hepatitis A adult vaccine 04/28/95 Given Ambulat ory Pharmac y typhoid, parenteral, AKD 19954400 [id number] 53 [facility] complet ed typhoid, parentera l, AKD 04/28/95 Given Ambulat ory Pharmac y hepatitis A adult vaccine 1995 52 complet ed hepatitis A adult vaccine 04/28/95 Given Ambulat ory Pharmac y yellow fever vaccine [id number] 37 [facility] complet ed yellow fever vaccine 02/27/92 Given Ambulat ory Pharmac y tetanus-dipht h [...] l 11/21/91 Given Ambulat ory Pharmac y Results Combined list of recent chemistry, hematology [...] Jan 26, 2024 08:40 AM Reporting Lab: [facility] [address] [facility] [address] Performing Lab: [facility] [address] [facility] [address] [facility] BASIC METABOLIC PANEL UREA NITROGEN [MASS/VOLUM E] IN SERUM OR PLASMA 15.4 mg/dL 9.0 - 25.0 02/01 Specimen Type: PLASMA Comment: No hemolysis noted. Ordering Provider: SARTHAK HALL A Report Released Date/Time: Jan 26, 2024 08:40 AM Reporting Lab: [facility] [address] [facility] [address] Performing Lab: [facility] [address] [facility] [address] [facility] BASIC METABOLIC PANEL GLUCOSE [MASS/VOLUM E] IN SERUM OR PLASMA 104 mg/dL 72 - 99 02/01 H Specimen Type: PLASMA Comment: No hemolysis noted. Ordering Provider: SARTHAK HALL A Report Released Date/Time: Jan 26, 2024 08:40 AM Reporting Lab: [facility] [address] [place] [phone] Performing Lab: [facility] [address] [place] [phone] [place] [address] BASIC METABOLIC PANEL SODIUM [MOLES/VOLU ME] IN SERUM OR PLASMA 140 meq/L 136 - 145 02/01 Specimen Type: PLASMA Comment: No hemolysis noted. Ordering Provider: SARTHAK HALL A Report Released Date/Time: Jan 26, 2024 08:40 AM Reporting Lab: [facility] [address] [facility] [address] Performing Lab: [facility] [address] [facility] [address] [facility] BASIC METABOLIC PANEL POTASSIUM [MOLES/VOLU ME] IN SERUM OR PLASMA 4.6 meq/L 3.5 - 5 02/01 Specimen Type: PLASMA Comment: No hemolysis noted. Ordering Provider: SARTHAK HALL A Report Released Date/Time: Jan 26, 2024 08:40 AM Reporting Lab: [facility] [address] [facility] [address] Performing Lab: [facility] [address] [facility] [address] [facility] BASIC METABOLIC PANEL CHLORIDE [MOLES/VOLU ME] IN SERUM OR PLASMA 106 meq/L 98 - 107 02/01 Specimen Type: PLASMA Comment: No hemolysis noted. Ordering Provider: SARTHAK HALL Report Released Date/Time: Jan 26, 2024 08:40 AM Reporting Lab: [facility] [address] [facility] [address] Performing Lab: [facility] [address] [facility] [address] [facility] BASIC METABOLIC PANEL CARBON DIOXIDE, TOTAL [MOLES/VOLU ME] IN SERUM OR PLASMA 22 meq/L 22 - 31 02/01 Specimen Type: PLASMA Comment: No hemolysis noted. Ordering Provider: SARTHAK HALL A Report Released Date/Time: Jan 26, 2024 08:40 AM Reporting Lab: [facility] [address] [facility] [address] Performing Lab: [facility] [address] [place] [phone] [facility] BASIC METABOLIC PANEL CALCIUM [MASS/VOLUM E] IN SERUM OR PLASMA 10.1 mg/dL 8.4 - 10.4 02/01 Specimen Type: PLASMA Comment: No hemolysis noted. Ordering Provider: SARTHAK HALL A Report Released Date/Time: Jan 26, 2024 08:40 AM Reporting Lab: [facility] [address] [facility] [address] Performing Lab: [facility] [address] [place] [phone] [facility] BASIC METABOLIC PANEL GLOMERULAR FILTRATION RATE/1.73 SQ M.PREDICTED [VOLUME RATE/AREA] IN SERUM, PLASMA OR BLOOD BY CREATININE- BASED FORMULA (CKD-EPI 2020) 81.1 60 02/01 Specimen Type: PLASMA Comment: No hemolysis noted. Ordering Provider: SARTHAK HALL A Report Released Date/Time: Jan 26, 2024 08:40 AM Reporting Lab: [facility] [address] [facility] [address] Performing Lab: [facility] [address] [facility] [address] [facility] CBC LEUKOCYTES [#/VOLUME] IN BLOOD BY AUTOMATED COUNT 6.9 10*3/u L 3.6 - 11.2 02/01 Specimen Type: BLOOD No comment entered. Ordering Provider: SARTHAK HALL A Report Released Date/Time: Jan 26, 2024 08:40 AM Reporting Lab: [address] [address] Performing Lab: [address] [address] [facility] CBC ERYTHROCYTE S [#/VOLUME] IN BLOOD BY AUTOMATED COUNT 5.19 10*6/u L 3.60 - 5.00 02/01 H Specimen Type: BLOOD No comment entered. Ordering Provider: SARTHAK HALL A Report Released Date/Time: Jan 26, 2024 08:40 AM Reporting Lab: [address] [address] Performing Lab: [address] [address] [facility] CBC HEMOGLOBIN [MASS/VOLUM E] IN BLOOD 15.4 g/dL 11.0 - 14.9 02/01 H Specimen Type: BLOOD No comment entered. Ordering Provider: SARTHAK HALL A Report Released Date/Time: Jan 26, 2024 08:40 AM Reporting Lab: [address] [address] Performing Lab: [address] [address] [facility] CBC HEMATOCRIT [VOLUME FRACTION] OF BLOOD 46.5 32.6 - 43.4 02/01 H Specimen Type: BLOOD No comment entered. Ordering Provider: SARTHAK HALL A Report Released Date/Time: Jan 26, 2024 08:40 AM Reporting Lab: [address] [address] Performing Lab: [address] [address] [facility] CBC MCV [ENTITIC VOLUME] BY AUTOMATED COUNT 89.6 fL 80.0 - 100.0 02/01 Specimen Type: BLOOD No comment entered. Ordering Provider: SARTHAK HALL Report Released Date/Time: Jan 26, 2024 08:40 AM Reporting Lab: [facility] [address] [place] [phone] Performing Lab: [facility] [address] [place] [phone] [place] [address] CBC MCH [ENTITIC MASS] BY AUTOMATED COUNT 29.7 pg 27.0 - 34.0 02/01 Specimen Type: BLOOD No comment entered. Ordering Provider: SARTHAK HALL Report Released Date/Time: Jan 26, 2024 08:40 AM Reporting Lab: [facility] [address] [place] [phone] Performing Lab: [address] [phone] [place] [address] CBC MCHC [MASS/VOLUM E] BY AUTOMATED COUNT 33.1 g/dL 33.0 - 36.0 02/01 Specimen Type: BLOOD No comment entered. Ordering Provider: SARTHAK HALL Report Released Date/Time: Jan 26, 2024 08:40 AM Reporting Lab: [facility] [address] [place] [phone] Performing Lab: [facility] [address] [place] [phone] [facility] CBC PLATELETS [#/VOLUME] IN BLOOD BY AUTOMATED COUNT 253 10*3/u L 150 - 400 02/01 Specimen Type: BLOOD No comment entered. Ordering Provider: SARTHAK HALL Report Released Date/Time: Jan 26, 2024 08:40 AM Reporting Lab: [facility] [address] [place] [phone] Performing Lab: [address] [address] [facility] CBC PLATELET MEAN VOLUME [ENTITIC VOLUME] IN BLOOD BY AUTOMATED COUNT 10.6 fL 7.5 - 11.2 02/01 Specimen Type: BLOOD No comment entered. Ordering Provider: SARTHAK HALL A Report Released Date/Time: Jan 26, 2024 08:40 AM Reporting Lab: [facility] [address] [facility] [address] Performing Lab: [facility] [address] [facility] [address] [facility] CBC ERYTHROCYTE DISTRIBUTIO N WIDTH [RATIO] BY AUTOMATED COUNT 11.8 11.8 - 15.1 02/01 Specimen Type: BLOOD No comment entered. Ordering Provider: SARTHAK HALL A Report Released Date/Time: Jan 26, 2024 08:40 AM Reporting Lab: [facility] [address] [place] [phone] Performing Lab: [facility] [address] [place] [phone] [place] [address] CBC LYMPHOCYTES /100 LEUKOCYTES IN BLOOD BY AUTOMATED COUNT 23 02/01 Specimen Type: BLOOD No comment entered. Ordering Provider: SARTHAK HALL A Report Released Date/Time: Jan 26, 2024 08:40 AM Reporting Lab: [facility] [address] [facility] [address] Performing Lab: [facility] [address] [place] [phone] [facility] CBC MONOCYTES/1 00 LEUKOCYTES IN BLOOD BY AUTOMATED COUNT 5 02/01 Specimen Type: BLOOD No comment entered. Ordering Provider: SARTHAK HALL A Report Released Date/Time: Jan 26, 2024 08:40 AM Reporting Lab: [facility] [address] [facility] [address] Performing Lab: [facility] [address] [place] [phone] [facility] CBC NEUTROPHILS /100 LEUKOCYTES IN BLOOD BY AUTOMATED COUNT 68 02/01 Specimen Type: BLOOD No comment entered. Ordering Provider: SARTHAK HALL A Report Released Date/Time: Jan 26, 2024 08:40 AM Reporting Lab: [facility] [address] [place] [phone] Performing Lab: [facility] [address] [place] [phone] [place] [address] CBC EOSINOPHILS /100 LEUKOCYTES IN BLOOD BY AUTOMATED COUNT 3 02/01 Specimen Type: BLOOD No comment entered. Ordering Provider: SARTHAK HALL A Report Released Date/Time: Jan 26, 2024 08:40 AM Reporting Lab: [facility] [address] [place] [phone] Performing Lab: [facility] [address] [place] [address] CBC BASOPHILS/1 00 LEUKOCYTES IN BLOOD BY AUTOMATED COUNT 1 02/01 Specimen Type: BLOOD No comment entered. Ordering Provider: SARTHAK HALL A Report Released Date/Time: Jan 26, 2024 08:40 AM Reporting Lab: [facility] [address] [place] [phone] Performing Lab: [facility] [address] [place] [phone] [place] [address] CBC LYMPHOCYTES [#/VOLUME] IN BLOOD BY AUTOMATED COUNT 1.60 10*3/u L 0.77 - 4.50 02/01 Specimen Type: BLOOD No comment entered. Ordering Provider: SARTHAK HALL A Report Released Date/Time: Jan 26, 2024 08:40 AM Reporting Lab: [facility] [address] [place] [phone] Performing Lab: [facility] [address] [place] [phone] [place] [address] CBC MONOCYTES [#/VOLUME] IN BLOOD BY AUTOMATED COUNT 0.31 10*3/u L 0.19 - 0.80 02/01 Specimen Type: BLOOD No comment entered. Ordering Provider: SARTHAK HALL A Report Released Date/Time: Jan 26, 2024 08:40 AM Reporting Lab: [facility] [address] [facility] [address] Performing Lab: [facility] [address] [place] [phone] [place] [address] CBC NEUTROPHILS [#/VOLUME] IN BLOOD BY AUTOMATED COUNT 4.70 10*3/u L 2.10 - 8.00 02/01 Specimen Type: BLOOD No comment entered. Ordering Provider: SARTHAK HALL Report Released Date/Time: Jan 26, 2024 08:40 AM Reporting Lab: [facility] [address] [place] [phone] Performing Lab: [facility] [address] [place] [phone] [place] [address] CBC EOSINOPHILS [#/VOLUME] IN BLOOD BY AUTOMATED COUNT 0.23 10*3/u L 0.00 - 0.60 02/01 Specimen Type: BLOOD No comment entered. Ordering Provider: SARTHAK HALL Report Released Date/Time: Jan 26, 2024 08:40 AM Reporting Lab: [facility] [address] [place] [phone] Performing Lab: [facility] [address] [place] [phone] [place] [address] CBC BASOPHILS [#/VOLUME] IN BLOOD BY AUTOMATED COUNT 0.05 10*3/u L 0.00 - 0.20 02/01 Specimen Type: BLOOD No comment entered. Ordering Provider: SARTHAK HALL A Report Released Date/Time: Jan 26, 2024 08:40 AM Reporting Lab: [facility] [address] [place] [phone] Performing Lab: [facility] [address] [place] [phone] [facility] HGA1C HEMOGLOBIN A1C/HEMOGLO BIN.TOTAL IN BLOOD 6.1 4.0 - 6.0 02/01 H Specimen Type: BLOOD No comment entered. Ordering Provider: HALL,ARM MICHAEL A Report Released Date/Time: Jan 26, 2024 08:40 AM Reporting Lab: [facility] [address] [facility] [address] Performing Lab: [facility] [address] [facility] [address] [facility] LIPID PANEL (STL) CHOLESTEROL [MASS/VOLUM E] IN SERUM OR PLASMA 155 mg/dL 0 - 200 02/01 Specimen Type: PLASMA Comment: No hemolysis noted. Ordering Provider: SARTHAK HALL Report Released Date/Time: Jan 26, 2024 08:40 AM Reporting Lab: [facility] [address] [place] [phone] Performing Lab: [facility] [address] [facility] [address] [facility] LIPID PANEL (L) TRIGLYCERID E [MASS/VOLUM E] IN SERUM OR PLASMA 163 mg/dL 0 - 150 02/01 H Specimen Type: PLASMA Comment: No hemolysis noted. Ordering Provider: SARTHAK HALL A Report Released Date/Time: Jan 26, 2024 08:40 AM Reporting Lab: [facility] [address] [place] [phone] Performing Lab: [facility] [address] [place] [phone] [facility] LIPID PANEL (STL) CHOLESTEROL IN LDL [MASS/VOLUM E] IN SERUM OR PLASMA BY CALCULATION 74 mg/dL 02/01 Specimen Type: PLASMA Comment: No hemolysis noted. Ordering Provider: SARTHAK HALL Report Released Date/Time: Jan 26, 2024 08:40 AM Reporting Lab: [facility] [address] [facility] [address] Performing Lab: [facility] [address] [facility] [address] [facility] LIPID PANEL (STL) CHOLESTEROL IN HDL [MASS/VOLUM E] IN SERUM OR PLASMA 48 mg/dL 40 02/01 Specimen Type: PLASMA Comment: No hemolysis noted. Ordering Provider: SARTHAK HALL Report Released Date/Time: Jan 26, 2024 08:40 AM Reporting Lab: [place] [address] Performing Lab: [address] [phone] MICRAL/CR EAT PROFILE (STL) ALBUMIN [MASS/VOLUM E] IN URINE <5.0mg /L 02/01 Specimen Type: URINE Comment: uALB/CREAT Ratio Unable to be calculated Unable to calculate due to Microalbumi n < 5.0 mg/L Ordering Provider: SARTHAK HALL A Report Released Date/Time: Jan 26, 2024 08:40 AM Reporting Lab: [address] [address] Performing Lab: [place] [phone] MICRAL/CR EAT PROFILE (STL) ALBUMIN/CRE ATININE [MASS RATIO] IN URINE commen tmg/g 0 - 29 02/01 Specimen Type: URINE Comment: uALB/CREAT Ratio Unable to be calculated Unable to calculate due to Microalbumi n < 5.0 mg/L Ordering Provider: SARTHAK HALL A Report Released Date/Time: Jan 26, 2024 08:40 AM Reporting Lab: [place] [id number] Performing Lab: [address] [phone] MICRAL/CR EAT PROFILE (STL) CREATININE [MASS/VOLUM E] IN URINE 86.0 mg/dL 47 - 110 02/01 Specimen Type: URINE Comment: uALB/CREAT Ratio Unable to be calculated Unable to calculate due to Microalbumi n < 5.0 mg/L Ordering Provider: SARTHAK HALL A Report Released Date/Time: Jan 26, 2024 08:40 AM Reporting Lab: [place] [address] Performing Lab: [address] TSH W/ REFLEX FT4 (STL) THYROTROPIN [UNITS/VOLU ME] IN SERUM OR PLASMA 1.966 u[IU]/ mL 0.47 - 5 02/01 Specimen Type: PLASMA No comment entered. Ordering Provider: SARTHAK HALL Report Released Date/Time: Jan 26, 2024 08:40 AM Reporting Lab: [place] [address] Performing Lab: [address] CREATININ E(EGFR) CREATININE [MASS/VOLUM E] IN SERUM OR PLASMA 1.08 mg/dL 0.6 - 1.1 09/26 Specimen Type: PLASMA No comment entered. Ordering Provider: SANDOVAL HILLMAN Report Released Date/Time: Sep 24, 2023 08:40 AM Reporting Lab: [place] [id number] Performing Lab: [address] CREATININ E(EGFR) GLOMERULAR FILTRATION RATE/1.73 SQ M.PREDICTED [VOLUME RATE/AREA] IN SERUM, PLASMA OR BLOOD BY CREATININE- BASED FORMULA (CKD-EPI 2020) 62.6 60 09/26 Specimen Type: PLASMA No comment entered. Ordering Provider: SANDOVAL HILLMAN Report Released Date/Time: Sep 24, 2023 08:40 AM Reporting Lab: [address] [address] Performing Lab: [address] [phone] [place] [address] HGB,HCT,P LT HEMOGLOBIN [MASS/VOLUM E] IN BLOOD 16.7 g/dL 11.0 - 14.9 08/05 /2024 H Specimen Type: BLOOD No comment entered. Ordering Provider: SANDOVAL HILLMAN Report Released Date/Time: Sep 24, 2023 08:40 AM Reporting Lab: [address] [address] Performing Lab: [address] [phone] [place] [address] HGB,HCT,P LT HEMATOCRIT [VOLUME FRACTION] OF BLOOD 49.4 32.6 - 43.4 09/26 H Specimen Type: BLOOD No comment entered. Ordering Provider: SANDOVAL HILLMAN Report Released Date/Time: Sep 24, 2023 08:40 AM Reporting Lab: [address] [address] Performing Lab: [address] [phone] [place] [address] HGB,HCT,P LT PLATELETS [#/VOLUME] IN BLOOD BY AUTOMATED COUNT 330 10*3/u L 150 - 400 09/26 Specimen Type: BLOOD No comment entered. Ordering Provider: SANDOVAL HILLMAN Report Released Date/Time: Sep 24, 2023 08:40 AM Reporting Lab: [address] [address] Performing Lab: [address] [phone] [place] [address] HGA1C HEMOGLOBIN A1C/HEMOGLO BIN.TOTAL IN BLOOD 7.4 4.0 - 6.0 07/04 H Specimen Type: BLOOD No comment entered. Ordering Provider: SARTHAK HALL Report Released Date/Time: July 02, 2023 12:20 PM Reporting Lab: [address] [address] Performing Lab: [address] [phone] [place] [address] HGA1C HEMOGLOBIN A1C/HEMOGLO BIN.TOTAL IN BLOOD 8.6 4.0 - 6.0 04/08 H Specimen Type: BLOOD No comment entered. Ordering Provider: SARTHAK HALL Report Released Date/Time: Apr 05, 2023 02:55 PM Reporting Lab: [facility] [address] [facility] [address] Performing Lab: [facility] [address] [facility] [address] [facility] Vital Signs Combined list of inpatient and outpatient Vital Signs from Department of [facility] and [facility], ranging from 12 months to all on record, depending upon the facility. Vital Sign Value Date Comments Source SYSTOLIC BLOOD PRESSURE 128 02/10/2024 15:03:[facility] DIASTOLIC BLOOD PRESSURE 80 02/10/2024 15:03:[facility] PULSE OXIMETRY 98 02/10/2024 15:03:[address] [facility] WEIGHT 160 02/10/2024 15:03:[facility] BMI 27 kg/m2 02/10/2024 15[facility]03:[address] [facility] PAIN 0 02/10/2024 15:03:[address] [facility] HEIGHT 65 02/10/2024 15:03:[address] [facility] TEMPERATURE 97.6 02/10/2024 15:03:[facility] PULSE 78 02/10/2024 15:03:[address] [facility] RESPIRATION 18 02/10/2024 15:03:[facility] Encounters Combined list of: 1) Encounters from [facility] facilities going backup to the last 18 months, not all [facility] inpatient encounters are included; 2) Encounters from the Department of Defense facilities going backup to 280 months. Location Location Details Encounter Type Encounter Number Reason For Visit Attending Provider ADM Date DC Date Status Disposition Source [facility] EYE EXAM&TX ESTAB PT 1/>VST [id number] Diagnos is: ICD-10- CM E11.9 Type 2 diabete s mellitu s without complic ations DESTINEE LEO J 12/25 [facility] Outpatient Encounter [id number] 12/31 [facility] Outpatient Encounter [id number] 01/04 [facility] Outpatient Encounter [id number] 01/11 [facility] Outpatient Encounter [id number] NORMASTEPHENMICHELINE Bebeto 01/19 [facility] O/P EST MOD 30-39 MIN [id number] Diagnos is: ICD-10- CM F33.1 Major depress laurita disorde r, recurre nt, moderBERNARD Ortega 02/01 [facility] Outpatient Encounter [id number] 02/02 [facility] Outpatient Encounter [id number] BERNARD FERGUSON 03/03 [facility] Outpatient Encounter [id number] BERNARD FERGUSON 03/05 [facility] Outpatient Encounter [id number] 03/11 [facility] Outpatient Encounter [id number] BERNARD FERGUSON 03/24 [facility] O/P EST MOD 30 MIN [id number] Diagnos is: ICD-10- CM F41.1 General ized anxiety disorde r BERNARD TILLEY 04/05 [facility] Outpatient Encounter [id number] BERNARD FERGUSON 04/05 [facility] OFFICE O/P EST MOD 30 MIN [id number] Diagnos is: ICD-10- CM F33.1 Major depress laurita disorde r, recurre nt, moderat e [place] A 04/06 [facility] Outpatient Encounter [id number] 04/06 [facility] OFFICE O/P EST MOD 30 MIN [id number] Diagnos is: ICD-10- CM F33.1 Major depress laurita disorde r, recurre nt, moderat e TREVA,BERNARD IE 05/23 [facility] Outpatient Encounter [id number] BERNARD FERGUSON 05/26 [facility] Outpatient Encounter [id number] JARON MULLEN 07/12 [facility] Outpatient Encounter [id number] BERNARD FERGUSON 07/14 [facility] Outpatient Encounter [id number] BERNARD FERGUSON Kelly Souza 07/15 [facility] QNCP OL DIG ASSMT&MGMT 5-10 [id number] Diagnos is: ICD-10- CM E11.9 Type 2 diabete s mellitu s without complic ations BK HUTCHINSON 07/29 [facility] Outpatient Encounter [id number] WHEELERPIERCE 08/09 [facility] OL DIG ASSMT&MGMT 5-10 [id number] Diagnos is: ICD-10- CM Z51.81 Encount er for therape utic drug level monitor ing WEARKAYLEE 08/22 [facility] OFFICE O/P EST MOD 30 MIN [id number] Diagnos is: ICD-10- CM F34.1 Dysthym ic disordBERNARD Shah 09/05 [facility] Outpatient Encounter [id number] 09/06 [facility] Outpatient Encounter [id number] 09/07 [facility] OL DIG ASSMT&MGMT 5-10 [id number] Diagnos is: ICD-10- CM Z51.81 Encount er for therape utic drug level monitor ing WEARKAYLEE 09/22 [facility] D[facility] ASSMT&MGMT 5-10 [id number] Diagnos is: ICD-10- CM Z51.81 Encount er for therape utic drug level monitor elkin GREENMICHELINE MITCHELL Bebeto 09/29 [facility] Outpatient Encounter [id number] [place] ORIREBECAA Kelly 10/03 [facility] OFFICE O/P EST MOD 30 MIN [id number] Diagnos is: ICD-10- CM F33.1 Major depress laurita disorde r, recurre nt, moderat e TREVA,BERNARD IE 12/[address] [facility] OFFICE O/P EST MOD 30 MIN [id number] Diagnos is: ICD-10- CM F33.1 Major depress laurita disorde r, recurre nt, moderat e [place] A 02/09 [facility] Outpatient Encounter [id number] 02/28 [facility] Outpatient Encounter [id number] 03/01 [facility] Outpatient Encounter [id number] TREVA,APR IE 03/20 [facility] Outpatient Encounter [id number] 03/20 [facility] Outpatient Encounter [id number] 03/23 [facility] Outpatient Encounter [id number] 03/23 [facility] Outpatient Encounter [id number] BHUMI LAUGHLIN 03/23 [facility] Outpatient Encounter [id number] JARON MULLEN LUZ Johnson 04/05 [facility] Outpatient Encounter [id number] SEBASZAKIYAGretel Johnson 04/26 [facility] Outpatient Encounter [id number] 04/27 [facility] Outpatient Encounter [id number] 04/27 [facility] SYNCH AUDIO-VIDE O EST LOW 20 [id number] Diagnos is: ICD-10- CM H92.01 Otalgia , right ear GIANCARLO MCKINNEY N R 04/28 [facility] N Procedures Combined list of: 1) Procedures from Department of Veterans Affairs facilities going back up to thelast 18 months, not all VA non-surgical procedures are included; 2) All procedures from the Department of [facility] facilities. Procedure Procedure Type Code Date Perfomer Comments Sourc e No data available for this section Ambulatory P harmacy Social History Combined list of available smoking, tobacco, and other social history from Department of Defense and Veterans Affairs facilities. Social History Type Response Date Comment Sourc e Tobacco smoking status NCIS VA-TOBACCO NEVER USED 06/16/2022 [facility] History of tobacco use VA-TOBACCO NEVER USED 02/28/2021 [facility] History of tobacco use VA-TOBACCO NEVER USED 03/01/2020 [facility] History of tobacco use [place]-TO[place] NEVER USED 06/28/2018 [facility] History of tobacco use ORYX ADMIT TOBACC O SCREEN NO 07/26/2017 [facility] History of tobacco use LIFETIME NON-USER OF TOBACCO 07/26/2017 [facility] History of tobacco use LIFETIME NON-USER OF TOBACCO 11/18/2016 [facility] History of tobacco use LIFETIME NON-USER OF TOBACCO 02/05/2016 [facility] History of tobacco use LIFETIME NON-USER OF TOBACCO 04/21/2015 [facility] History of tobacco use LIFETIME NON-USER OF TOBACCO 04/08/2015 [facility] History of tobacco use LIFETIME NON-USER OF TOBACCO 03/27/2015 [facility] History of tobacco use LIFETIME NON-USER OF TOBACCO 12/11/2014 [facility] History of tobacco use LIFETIME NON-USER OF TOBACCO 11/02/2013 [facility] Assessment and Plan Combined list of future care activities from Department of [facility] and [facility] facilities (e.g., assessment and plan notes, appointments, orders, and referrals). Additional future care activities may be listed in the Plan of Care section. Result Assessment and Plan Date Source Assessment and Plan No data available for this section 05/04/2024 Ambulatory Pharmacy Plan of Care List of future care activities from [facility] facilities. Additional future care activities may be listed in the Assessment and Plan section. Date/Time Care Activity Care Activity Detail Facili ty 05/16/2024 AMBULATORY - PSYCHIATRY AMBULATORY - PSYC HIATRY [facility] 09/13/2024 AMBULATORY - MEDICINE AMBULATORY - MEDICI NE [facility] Advance Directives List of completed, amended, or rescinded Advance Directives on record at Department of Veterans Affairs facilities. An actual copy of the Directive is not included. Date Advance Directive Provider Source 04/15/2015 ADVANCE DIRECTIVE DISCUSSION [facility] Functional Status Combined list of recent functional and cognitive assessments recorded at Department of Defense and Veterans Affairs (VA).VA Functional [place] Measurement (FIM) Scale: 1 = Total Assistance (Subject = 0% +), 2 = Maximal Assistance (Subject = 25% +), 3 = Moderate Assistance (Subject = 50% +), 4 = Minimal Assistance (Subject = 75% +), 5 = Supervision, 6 = Modified [place] (Device), 7 = Complete [place] (Timely, Safely). Assessment Date/Time Source Assessment Type Assessment Skill Assessment Score Assessment Details No data available for this section
--- OUTSIDE RECORDS SUMMARY | 2024-05-04 18:21 | XMS_ITS | Encounter Summary ---
Author Name [facility] Organization [facility] Address [address] [place] [address] Care Team Providers Care Welcome Hostess Name Role Phone MADONNA HALL Primary Care Provider Unavailabl e Selected Encounter This section includes the information on record at [place] for the Encounter. Date/Time Encounter Type Encounter Description Reason Provider Source Apr 28, 2024 08:00 AM SYNCH AUDIO-VIDEO EST LOW 20 GENERAL INTERNAL MEDICINE ICD-10-CM H92.01 Otalgia, right ear LUIZ MCKINNEY [facility] Encounter Template Text not used by [place] Assessments - Encounter Diagnoses This section includes the primary and secondary diagnoses documented for the Encounter. Date/Time Primary/Secondary Diagnosis Diagnosis Name Provider Source Apr 28, 2024 08:20 AM PRIMARY Otalgia, right ear LUIZ MCKINNEY [facility] Plan of Treatment: Future Appointments (+ 6 months) and Future Tests (+/- 45 days) The Plan of Treatment section includes future care activities for the patient from all [place] treatmentfacilities. This section includes future appointments and future orders which are active, pending or scheduled. Future Appointments This section includes appointments that were scheduled to occur 6 months from the date of the Encounter, up to a maximum of 20 appointments. The data comes from all [place] treatment facilities. Appointment Date/Time Appointment Type Appointme nt Facility Name May 16, 2024 01:30 PM AMBULATORY - PSYCHIATRY [facility] Sep 13, 2024 10:30 AM AMBULATORY - MEDICINE [facility] Social History: Smoking Status (Most current) and Tobacco Use (All prior to encounter date) This section includes the most current, and the historical, smoking and tobacco- related health factors from the [place] facility where the Encounter took place. Current Smoking Status This section includes the most current smoking, or tobacco-related health factor, from the [place] facility where the Encounter took place. Date/Time Current Smoking Status Comment Jamari mix Jul 26, 2017 08:37 PM ORYX ADMIT TOBACCO SCREEN NO [facility] Tobacco Use History This section includes a history of the smoking, or tobacco-related health factors, that were collected on or before the date of the Encounter. The data comes from the AR facility where the Encounter took place. Date/Time Smoking Status/Tobacco Use Comment Brigida gaby Jul 26, 2017 07:23 PM LIFETIME NON-USER OF TOBACCO [facility] Advance Directives: All historical and current Section Date Range: From patient's date of to the date document was created. This section includes ALL of a patient's completed or amended [place] Advance and Rescinded Directives. The entries below indicate that a directive exists for the patient, but an actual copy is not included with this document. The data comes from all [place] facilities. Date Advance Directives Provider Source Apr 15, 2015 ADVANCE DIRECTIVE DISCUSSION [facility] Encounter Notes: All associated encounter notes This section contains the clinical notes associated to the Encounter. Date/Time Encounter Note(s) Provider Source Apr 28, 2024 08:08 AM URGENT CARE NOTE: LOCAL TITLE: V15 [facility] URGENT CARE VISIT STANDARD TITLE: URGENT CARE NOTE DATE OF NOTE: APR 28, 2024@08:08 ENTRY DATE: APR 28, 2024@08:08:29 AUTHOR: LUIZ MCKINNEY COSIGNER: URGENCY: STATUS: COMPLETED PRIMARY CARE TEMPLATE Patient is a 49 year old (Feb) WHITE FEMALE. Patient's identity was verified with at least 2 personal identifiers. *Appointment type: Type of Visit: Video Visit: Telehealth Disclosure: Visit conducted by synchronous telehealth. Patient verbal consent obtained. Location/emergency number confirmed. Environment surveyed and all participants identified. Virtual conference room locked. Emergency contact information was obtained as follows: Confirmed 's Non-VA location for this appointment: Patient's current address [address], [place] [address] Patient's Primary NOK: SARBJIT LANG Relation: EXTENDED FAMILY M [address] [place] [place], [place] [address] Chief Complaint: Right ear pain History of Present Illness: 49 year old female Vinson presents for a [facility] video visit complaining of right ear pain that started 4 months ago. She reports that the pain comes/goes and is graded as a 2-3/10 in intensity with intermittent stabbing pain that lasts for a few seconds and graded as 6-7/10 in intensity. She also endorses chronic rhinorrhea, intermittent post nasal drip. She reports that the symptoms occur daily and start after she awakes in the morning. She denies any fever, chills or sweats, headache, hearing changes, sore throat, sinus pressure/pain, nasal stuffiness, adenopathy, cough, dyspnea, lightheadedness, N/V or appetite change. She reports that she takine OTC tylenol and an antihistamine without any benefit/improvement in her symptoms. PMH/Active Problem List 1) Depressive disorder 2) Allergic rhinitis 3) Chronic low back pain 4) Knee pain 5) Family history of ischemic heart disease 6) Obesity 7) Gastroesophageal Reflux Disease 8) Major depressive disorder 9) Partner Relational Problem 10) Blurring of visual image 11) BRICE - Generalized anxiety disorder (SNOMED CT [id number]) 12) Benign essential hypertension 13) Hyperlipidemia 14) Proteinuria 15) Type 2 diabetes mellitus without complication 16) Bipolar disorder in remission 17) Therapeutic drug effect 18) Atrial tachycardia 19) Anticoagulant effect 20) Dysthymia 21) AF - Atrial Fibrillation ([facility] [id number]) 22) Exposure to potentially hazardous substance Problem list was reviewed. MEDICATIONS: Active and Recently Outpatient Medications (including Supplies): Active Outpatient Medications Status 1) ATORVASTATIN CALCIUM 80MG TAB TAKE ONE TABLET BY MOUTH EVERY ACTIVE (S) EVENING FOR CHOLESTEROL. REPORT ANY UNEXPLAINED MUSCLE PAIN/WEAKNESS TO PROVIDER. 2) CLONAZEPAM 0.5MG TAB TAKE ONE TABLET BY MOUTH ONCE A DAY ACTIVE NEEDED MAY CAUSE DROWSINESS. DO NOT DRINK ALCOHOL. Indication: FOR ANXIETY 3) DABIGATRAN ETEXILATE 150MG ORAL CAP TAKE ONE CAPSULE BY ACTIVE MOUTH TWICE A DAY TO THIN BLOOD. DO NOT OPEN CAPSULE. SWALLOW WHOLE. DO NOT OPEN PKG UNTIL READY FOR DOSE TO MAINTAIN STABILITY. 4) EMPAGLIFLOZIN 25MG TAB TAKE ONE TABLET BY MOUTH ONCE A DAY ACTIVE Indication: FOR DIABETES 5) FERROUS SULFATE 324MG EC TAB TAKE ONE TABLET BY MOUTH TWICE ACTIVE (S) A DAY Indication: FOR IRON SUPPLEMENTATION 6) LEVOMILNACIPRAN 120MG SA CAP TAKE ONE CAPSULE BY MOUTH ONCE ACTIVE A DAY 7) LISINOPRIL 20MG TAB TAKE ONE-HALF TABLET BY MOUTH ONCE A DAY ACTIVE FOR HEART OR BLOOD PRESSURE 8) LURASIDONE HCL 40MG TAB TAKE ONE TABLET BY MOUTH ONCE A DAY ACTIVE FOR MOOD - TAKE WITH LARGEST MEAL OF THE DAY 9) METOPROLOL TARTRATE 50MG TAB TAKE ONE-HALF TABLET BY MOUTH ACTIVE TWICE A DAY FOR HEART/BLOOD PRESSURE. TAKE WITH OR IMMEDIATELY FOLLOWING FOOD. 10) OMEPRAZOLE 40MG EC CAP TAKE ONE CAPSULE BY MOUTH EVERY ACTIVE MORNING BEFORE A MEAL TO LOWER STOMACH ACID. TAKE 30 MINUTES PRIOR TO FOOD. 11) SEMAGLUTIDE 0.25MG/0.375ML INJ PEN 3ML INJECT 0.5MG UNDER ACTIVE (S) THE SKIN EVERY WEEK Indication: FOR DIABETES Compared newly ordered medications and medication changes to active medications and non-VA medications, and then reviewed medications with patient and/or caregiver. All discrepancies noted and reconciled. Patient, or caregiver, was provided with reconciled medications list and advised to provide to all non VA providers. Potential adverse reactions of new medications were discussed with the patient. REVIEW OF SYSTEMS As per HPI, otherwise unremarkable. PHYSICAL EXAMINATION VITALS Most recent vital signs: No data available BMI: 26.7 ASSESSMENT/PLAN 1. Otalgia, right sided. Uncertain of the etiology. Further face to face evaluation is warranted at this time. -Further evaluation and treatment is recommended through the AR-contracted local urgent care center. The is agreeable to the plan of care and has elected the noted urgent care center listed below. Further recommendations will follow the urgent care center workup. [facility] [address] [place] [address] Main phone: [phone] Shared medical decision making occurred during this visit with the . Questions answered and Vinson is agreeable with treatment plan. DISPOSITION: NON VA Urgent Care FOLLOW UP: Advised to keep all scheduled medical and follow-up appointments. was advised to seek medical treatment if symptoms do not improve and/or worsens. Video visit: total time spent 25 minutes. /anastasia/ LUIZ MCKINNEY NURSE PRACTITIONER Signed: 04/28/2024 08:20 Receipt Acknowledged By: 05/04/2024 10:14 /anastasia/ MADONNA HALL MD 05/02/2024 10:23 /anastasia/ EZEKIEL STALEY REGISTERED NURSE LUIZ MCKINNEY [facility]
[2024-05-04 18:23] VITALS: BP 106/87; PULSE 89; RESP 18; TEMP 36.3; O2SAT 100
--- NOTE | 2024-05-04 18:27 | ED_ITS ---
HPI - Ear Problem General Chief complaint: Ear Stated complaint: RT Ear Pain Time Seen by Provider: 05/04/24 18:27 Source: patient Mode of arrival: ambulatory Limitations: no limitations History of Present Illness HPI Narrative: 49-year-old female presents with complaint of runny nose for 1 year. Has been taking myoa-vii-djvtvek allergy medications since runny nose started. Reports dull pain to right ear for approximately 4 months. For the past 2-3 days right ear pain has been worsening. No change in hearing. Afebrile. Started Flonase nasal spray about a week ago. Called her primary care physician 1 month ago for appointment but has not heard back. [facility] [place]. Called the a nurse line and was told to be seen at an urgent care. All systems reviewed and negative except as noted above. Related Data Home Medications ?Medication ?Instructions ?Recorded ?Confirmed ?Last Taken ?Type atorvastatin 80 mg tablet 80 mg PO DAILY 09/10/21 03/10/22 Unknown History clonazepam 0.5 mg tablet 0.5 mg PO DAILY PRN Anxiety 09/10/21 03/10/22 Unknown History ferrous sulfate 134 mg (27 mg 134 mg PO DAILY 09/10/21 03/10/22 Unknown History iron) tablet levomilnacipran 40 mg capsule,24 40 mg PO DAILY 09/10/21 03/10/22 Unknown History hr,extended release (Fetzima) lisinopril 10 mg tablet 10 mg PO DAILY 09/10/21 03/10/22 Unknown History metformin 500 mg tablet,extended 500 mg PO BID 09/10/21 03/10/22 Unknown History release 24 hr metoprolol tartrate 25 mg tablet 25 mg PO BID 09/10/21 03/10/22 Unknown History Allergies Allergy/AdvReac Type Severity Reaction Status Date / Time No Known Allergies Allergy Unknown Verified 05/04/24 18:28 Review of Systems Review of Systems: CONSTITUTIONAL: Denies fever, chills, or sweats. EYES: Denies visual changes, redness, or discharge. ENT: Reports rhinorrhea, right ear pain. Denies congestion, sore throat CARDIOVASCULAR: Denies chest pain, palpitations, or edema. RESPIRATORY: Denies cough or dyspnea. GASTROINTESTINAL: Denies abdominal pain, nausea, vomiting, or diarrhea. GENITOURINARY: Denies dysuria or hematuria. SKIN: Denies rash or itching. MUSCULOSKELETAL: Denies back pain, joint pain, or myalgia. NEUROLOGIC: Denies headache, numbness, or weakness. PSYCHIATRIC: Denies anxiety or depression. All other systems reviewed are negative, except as documented in HPI. [facility] Past Medical History Medical History History of high blood pressure Anxiety History of high cholesterol Comments At time of signature, agree with nursing past medical, surgical, social and family history. There is no relevant family history pertinent to the presenting complaint. Exam Narrative: GENERAL: This is a well-nourished, well-developed patient, in no apparent distress. HEAD: normocephalic, atraumatic. EYES: PERRL. Sclera clear/white. Vision is grossly intact. EARS: External ears normal, auditory canals clear and without drainage, fluid to right TM without erythema or perforation. Left TM is normal. Hearing grossly intact. No tenderness to mastoid bones. No lymph node swelling noted. NOSE: External nose normal with no obvious nasal discharge, nares without redness, no rhinorrhea. THROAT: Mucous membranes moist, posterior pharynx clear. NECK: Neck supple, non-tender without lymphadenopathy, masses or thyromegaly. CARDIOVASCULAR: Regular rate and rhythm without murmurs, gallops, or rubs. RESPIRATORY: Clear to auscultation. Breath sounds equal bilaterally. No wheezes, rales, or rhonchi. SKIN: warm, Dry, intact with no suspicious lesions or rash, good texture and turgor. NEURO: awake, alert, and oriented to person, place and time. There were no obvious focal neurologic abnormalities. EXTREMITIES: No joint tenderness, effusion, or edema noted. Course Course Level of Care: Express Care Visit Vital Signs Vital signs: Vital Signs Temperature 36.3 C L 05/04/24 18:23 Pulse Rate 89 05/04/24 18:23 Respiratory Rate 18 05/04/24 18:23 Blood Pressure 106/87 05/04/24 18:23 Pulse Oximetry 100 05/04/24 18:23 Oxygen Delivery Room Air 05/04/24 18:23 Temperature 36.3 C L 05/04/24 18:23 Pulse Rate 89 05/04/24 18:23 Respiratory Rate 18 05/04/24 18:23 Blood Pressure 106/87 03/13/25 18:23 Pulse Oximetry 100 05/04/24 18:23 Oxygen Delivery Room Air 05/04/24 18:23 Reviewed Medical Decision Making MDM Narrative Medical decision making narrative: fluid noted to right TM otherwise normal. Due to duration of right ear pain will treat with antibiotic. Strongly recommend to patient that she follow-up with an director clinical research to further evaluate her right ear pain and specially since she has been experiencing it for 4 months. Patient voiced understanding. Please be advised this is a medical document. It is intended for lugf-vn-waid communication. It is written in medical language and may contain unfamiliar abbreviations or verbiage. Medical documents are intended to carry relevant information, facts as evident, and the clinical opinion of the practitioner at the time of the encounter. This report may have been done utilizing a voice recognition system. Attempts have been made to correct errors. However, there may be uncorrected grammatical, spelling, and recognition errors present. The file time of this note does not necessarily represent the time of service. Vital Signs Vital Signs: Vital Signs Temperature 36.3 C L 05/04/24 18:23 Pulse Rate 89 05/04/24 18:23 Respiratory Rate 18 05/04/24 18:23 Blood Pressure 106/87 05/04/24 18:23 Pulse Oximetry 100 05/04/24 18:23 Oxygen Delivery Room Air 05/04/24 18:23 Temperature 36.3 C L 05/04/24 18:23 Pulse Rate 89 05/04/24 18:23 Respiratory Rate 18 05/04/24 18:23 Blood Pressure 106/87 05/04/24 18:23 Pulse Oximetry 100 05/04/24 18:23 Oxygen Delivery Room Air 05/04/24 18:23 Discharge Plan Discharge Clinical Impression: Acute serous otitis media of right ear Patient Disposition: Home, Self-Care Condition: Stable Instructions: Antibiotic Form, Fluid In The Ear (Serous Otitis Media) (ED) Additional Instructions: Take antibiotic as prescribed until gone. continue daily allergy medications. Take ibuprofen or Tylenol every 6-8 hours as needed for pain. Follow-up with a primary care physician at next available appointment. If right ear pain is not improving you should see an director clinical research. Patient Language: Sierra Leonean Prescriptions: New amoxicillin 875 mg tablet 875 mg PO Q12H 10 Days Qty: 20 0RF No Action atorvastatin 80 mg tablet 80 mg PO DAILY metformin 500 mg tablet extended release 24 hr 500 mg PO BID metoprolol tartrate 25 mg Tablet 25 mg PO BID lisinopril 10 mg Tablet 10 mg PO DAILY ferrous sulfate 134 mg (27 mg iron) Tablet 134 mg PO DAILY clonazepam 0.5 mg Tablet 0.5 mg PO DAILY PRN (Reason: Anxiety) Fetzima 40 mg Capsule,Extended Release 24 Hr 40 mg PO DAILY benzonatate 200 mg capsule 200 mg PO TID 7 Days Qty: 21 0RF valacyclovir 1 gram tablet 1,000 mg PO TID 7 Days Qty: 21 0RF Follow-up/Referrals: PHYSICIAN,DOCTOR PODIATRIC MEDICINE [Primary Care Provider] - Time of Disposition: 18:36
== END 2024-05-04 18:40 | disposition home or self-care (01) ==
PROVIDERS: Emergency Provider Nurse Practitioner Family
DX: H65.01 Acute serous otitis media, right ear (principal)
CPT/HCPCS: 99213; G0463